=== PATIENT | female | born 1950 | race Caucasian/White ===

== ENCOUNTER → 2017-01-10 | Outpatient (CLI) | payer OTHER ==
[2015-04-15 06:45] VITALS: BP 124/85
[~2017-01-10] MED LIST: ALBU8.5H8 INH; ALPR1TAB2 PO; ASPI81TA44 PO; ATEN25TA PO; CALC-507 PO; CARI350T14 PO; CEPH500C PO; DESO15CR11 TP; DIAZ5TAB4 PO; ELAVIL 25 MG PO; ENOX40DI SQ; FLUC100T7 PO; FLUT1DIS IH; FURO-68 PO; GABA-586 PO; HYDR-2762 PO; LISI-338 PO; METF500T4 PO; OXYB5TAB33 PO; PARO40TA3 PO; PHEN-444 PO; SIMV40TA PO; TRIM100T13 PO; WARF3TAB7 PO
--- NOTE | 2017-01-10 13:28 | RAD ---
Chest, 2 views, 01/10/2017: History: Wheezing and cough Comparison is made to a study from 04/14/2015. The heart size and pulmonary vascularity are normal. The left hemidiaphragm is poorly defined on the AP view, probably due to the patient's size and portable technique. No definite acute infiltrates are seen. There is no evidence of pleural fluid. IMPRESSION: No acute cardiopulmonary abnormality is detected.
== END | disposition home or self-care (01) ==
LOC: DXRAD 12:45
PROVIDERS: ATTEND Physician Assistant
DX: J45.998 Other asthma (principal); J20.8 Acute bronchitis due to other specified organisms
CPT/HCPCS: 71020

== ENCOUNTER 2017-03-03 08:43 | Inpatient (IN) | payer OTHER ==
[~2017-03-03] VITALS: Ht 175.3 cm; Wt 137.7 kg
[2017-03-03 10:33] VITALS: BP 130/92
[2017-03-03 10:39] VITALS: BP 130/92
[2017-03-03] MEDS ORDERED: ANTI-COAG MONITOR BY PHARMACY. MC PRN (10:45)
[2017-03-03 11:20] LABS: BASO # 0.1 x10^3/uL (0.0-0.2); BASO % 1 % (0-3); EOS % 9 % (0-3); HEMATOCRIT 38.1 % (36.0-47.0); HEMOGLOBIN 12.2 g/dL (12.0-15.5); LYMPH # 2.7 x10^3/uL (1.0-4.8); LYMPH % 24 % (24-48); MEAN CORPUSCULAR HEMOGLOBIN 29 pg (25-35); MEAN CORPUSCULAR HGB CONC 32 g/dL (31-37); MEAN CORPUSCULAR VOLUME 92 fL (79-100); MONO # 0.7 x10^3/uL (0.0-1.1); MONO % 6 % (0-9); NEUT # 6.8 x10^3uL (1.8-7.7); NEUT % 60 % (31-73); PLATELET COUNT 273 x10^3/uL (140-400); RED BLOOD COUNT 4.15 x10^6/uL (3.50-5.40); RED CELL DISTRIBUTION WIDTH 14.7 % (11.5-14.5); WHITE BLOOD COUNT 11.2 x10^3/uL (4.0-11.0)
[2017-03-03 11:28] LABS: ALBUMIN 3.3 g/dL (3.4-5.0); ALBUMIN/GLOBULIN RATIO 0.8 (1.0-1.7); CREATININE 0.8 mg/dL (0.6-1.0); GFR 71.5; POTASSIUM 4.3 mmol/L (3.5-5.1); TOTAL BILIRUBIN 0.3 mg/dL (0.2-1.0); TOTAL PROTEIN 7.2 g/dL (6.4-8.2)
[2017-03-03] MEDS ORDERED: ALBUTEROL SULFATE 8GM INHALER. INH PRN (11:45)
[2017-03-03] MEDS ORDERED: PHENAZOPYRIDINE 200 MG TABLET. PO PRN (11:45)
[2017-03-03] MEDS ORDERED: BISACODYL TAB 5 MG TABLET.DR. PO PRN (12:15)
[2017-03-03] MEDS ORDERED: WARF4TAB68 PO (12:37)
[2017-03-03] MEDS ORDERED: FERR-26 PO (12:38)
[2017-03-03] MEDS ORDERED: BISA5TAB4 PO (12:38)
--- NOTE | 2017-03-03 12:39 | RAD ---
Portable chest, 03/03/2017: History: Shortness of breath Comparison is made to a study from 01/10/2017. The heart size and pulmonary vascularity are normal. There is minimal linear atelectasis or scarring in the left base. The lungs are otherwise clear. There is no evidence of pleural fluid. There are mild scattered degenerative changes in the spine. IMPRESSION: Minimal left basilar linear atelectasis or scarring.
[2017-03-03] MEDS ORDERED: ALBUTEROL SULFATE 2.5 MG/3 ML NEBU. NEB PRN (12:45)
[2017-03-03] MEDS ORDERED: IPRATRPIUM/ALBUTEROL 0.5/2.5MG 3 ML NEBU. NEB SCH (12:45)
[2017-03-03] MEDS: PARoxetine 20 MG TABLET PO SCH (13:00)
[2017-03-03] MEDS ORDERED: diazePAM 5 MG TABLET PO SCH (13:00)
[2017-03-03] MEDS: methylPREDNISolone SOD SUCC PF 40 MG/ML VIAL. IV SCH ×2 (13:00→20:54)
[2017-03-03] MEDS: IPRATRPIUM/ALBUTEROL 0.5/2.5MG 3 ML NEBU. NEB SCH ×3 (13:00→20:30)
[2017-03-03] MEDS: GABAPENTIN 300 MG CAPSULE. PO SCH ×2 (13:01→20:56)
[2017-03-03 13:45] LABS: BILIRUBIN,URINE NEG (NEG); CLARITY,URINE TURBID; COLOR,URINE STRAW; GLUCOSE,URINE NEG (NEG); UROBILINOGEN,URINE 0.2 mg/dL (0.2 mg/dL)
[2017-03-03 13:46] LABS: BACTERIA,URINE MANY /HPF (0-FEW); NITRITE,URINE POS (NEG); RBC,URINE 0 /HPF (0-2); SQUAMOUS EPITHELIAL CELL,UR OCC /LPF; WBC,URINE >40 /HPF (0-4)
[2017-03-03] MEDS ORDERED: CARISOPRODOL 350 MG TABLET PO SCH (14:00)
[2017-03-03] MEDS: HYDROcodone/CHLORPHEN POLIS 5 ML SUS.ER.12H PO PRN (14:01)
[2017-03-03 15:53] VITALS: BP 149/69
[2017-03-03] MEDS ORDERED: NON FORMULARY ITEM (Paroxetine Hcl 1 TAB) PO SCH (16:00)
[2017-03-03] MEDS ORDERED: WARFARIN 3 MG TABLET. PO SCH (16:00)
[2017-03-03] MEDS ORDERED: WARFARIN 5 MG TABLET. PO ONE (16:00)
--- NOTE | 2017-03-03 16:18 | EKG ---
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
[2017-03-03] MEDS: AZELASTINE NASAL SPRAY 30ML BOTTLE. NS SCH ×2 (16:30→20:54)
[2017-03-03] MEDS: glyBURIDE 5 MG TABLET PO SCH (17:12)
[2017-03-03] MEDS: metFORMIN 500 MG TABLET PO SCH (17:12)
[2017-03-03 19:41] VITALS: BP 155/71
[2017-03-03] MEDS ORDERED: IV NORMAL SALINE 250ML 250 ML ONE (20:45)
[2017-03-03] MEDS: HYDROcodone/APAP 7.5/325MG 1 TAB TABLET PO PRN ×2 (20:56→22:21)
[2017-03-03] MEDS: SIMVASTATIN 40 MG TABLET. PO SCH (20:56)
[2017-03-03] MEDS: OXYBUTYNIN CHLORIDE 5 MG TABLET PO SCH (20:57)
[2017-03-03] MEDS: ALPRAZolam 0.5 MG TABLET PO PRN (20:57)
[2017-03-03] MEDS: ATENOLOL 25 MG TABLET PO SCH (20:57)
[2017-03-03] MEDS ORDERED: ELAVIL 25 MG PO SCH (21:00)
[2017-03-03] MEDS ORDERED: NON FORMULARY ITEM (Fluticasone/Salmeterol (Advair 100-50 Diskus) 1 EACH) IH SCH (21:00)
[2017-03-03] MEDS ORDERED: GABAPENTIN 300 MG CAPSULE. PO SCH (21:00)
[2017-03-03] MEDS ORDERED: DEXTROSE 50% 25 GM / 50ML DISP.SYRIN. IV PRN (21:30)
[2017-03-03] MEDS: INSULIN ASPART 300 UNITS/3 ML INSULN.PEN SQ SCH (22:23)
[2017-03-04 05:20] VITALS: BP 118/66
[2017-03-04] MEDS: IPRATRPIUM/ALBUTEROL 0.5/2.5MG 3 ML NEBU. NEB SCH ×4 (05:27→20:35)
[2017-03-04 07:00] LABS: CALCIUM 9.8 mg/dL (8.5-10.1); CREATININE 0.9 mg/dL (0.6-1.0); GFR 62.5; POTASSIUM 4.5 mmol/L (3.5-5.1)
[2017-03-04 07:08] LABS: BASO # 0.1 x10^3/uL (0.0-0.2); BASO % 1 % (0-3); EOS % 0 % (0-3); HEMATOCRIT 38.9 % (36.0-47.0); HEMOGLOBIN 12.6 g/dL (12.0-15.5); LYMPH # 2.6 x10^3/uL (1.0-4.8); LYMPH % 17 % (24-48); MEAN CORPUSCULAR HEMOGLOBIN 30 pg (25-35); MEAN CORPUSCULAR HGB CONC 32 g/dL (31-37); MEAN CORPUSCULAR VOLUME 92 fL (79-100); MONO # 0.2 x10^3/uL (0.0-1.1); MONO % 1 % (0-9); NEUT # 12.8 x10^3uL (1.8-7.7); NEUT % 81 % (31-73); PLATELET COUNT 238 x10^3/uL (140-400); RED BLOOD COUNT 4.23 x10^6/uL (3.50-5.40); RED CELL DISTRIBUTION WIDTH 14.4 % (11.5-14.5); WHITE BLOOD COUNT 15.7 x10^3/uL (4.0-11.0)
[2017-03-04] MEDS: metFORMIN 500 MG TABLET PO SCH ×2 (07:31→17:00)
[2017-03-04] MEDS: AZELASTINE NASAL SPRAY 30ML BOTTLE. NS SCH ×2 (07:32→20:33)
[2017-03-04] MEDS: FERROUS SULFATE 325 MG TABLET PO SCH (07:32)
[2017-03-04] MEDS: GABAPENTIN 300 MG CAPSULE. PO SCH ×3 (07:32→20:34)
[2017-03-04] MEDS: methylPREDNISolone SOD SUCC PF 40 MG/ML VIAL. IV SCH (07:32)
[2017-03-04] MEDS: INSULIN ASPART 300 UNITS/3 ML INSULN.PEN SQ SCH ×4 (07:33→20:37)
[2017-03-04] MEDS: HYDROcodone/CHLORPHEN POLIS 5 ML SUS.ER.12H PO PRN (07:40)
[2017-03-04] MEDS ORDERED: TRIMETHOPRIM 100 MG TABLET PO SCH (09:00)
[2017-03-04] MEDS ORDERED: ASPIRIN 81 MG TAB.CHEW PO SCH (09:00)
[2017-03-04] MEDS ORDERED: FLUCONAZOLE 100 MG TABLET. PO SCH (09:00)
[2017-03-04] MEDS ORDERED: OXYBUTYNIN CHLORIDE 5 MG PO SCH (09:00)
[2017-03-04] MEDS ORDERED: LISINOPRIL 5 MG TABLET. PO SCH (09:00)
[2017-03-04] MEDS ORDERED: NON FORMULARY ITEM (Paroxetine Hcl 1 TAB) PO SCH (09:00)
[2017-03-04] MEDS ORDERED: FUROSEMIDE 40 MG TABLET PO SCH (09:00)
[2017-03-04 09:05] LABS: % LYMPHS 29 % (24-48); % MONOS 2 % (0-10); % SEGS 69 % (35-66); PLT ESTIMATE ADEQUATE (ADEQUATE)
[2017-03-04 09:06] LABS: MICROCYTOSIS SLIGHT
[2017-03-04] MEDS ORDERED: GENTAMICIN PER PHARMACY MC PRN (10:15)
[2017-03-04] MEDS: GENTAMICIN SULFATE 500 MG in IV NORMAL SALINE 100ML 100 ML IV SCH (11:00)
[2017-03-04 11:16] VITALS: BP 142/68
[2017-03-04] MEDS: PARoxetine 20 MG TABLET PO SCH (11:49)
[2017-03-04] MEDS: ALPRAZolam 0.5 MG TABLET PO PRN (12:41)
[2017-03-04] MEDS: GENTAMICIN PER PHARMACY MC PRN (12:51)
[2017-03-04] MEDS: FUROSEMIDE 40 MG/4 ML VIAL IVP SCH (13:55)
[2017-03-04 15:10] VITALS: BP 127/67
[2017-03-04] MEDS ORDERED: WARFARIN 3 MG TABLET. PO ONE (16:00)
[2017-03-04] MEDS: glyBURIDE 5 MG TABLET PO SCH (17:00)
[2017-03-04 17:10] LABS: HCV ANTIBODY <0.1 s/co ratio (0.0-0.9); HEP A IGM ABDY Negative (Negative)
[2017-03-04 18:20] VITALS: BP 140/80
[2017-03-04] MEDS ORDERED: BENZOCAINE/MENTHOL LOZENGE 16'S BOX. PO PRN (18:45)
[2017-03-04 19:15] VITALS: BP 147/83
[2017-03-04] MEDS ORDERED: INSULIN ASPART 300 UNITS/3 ML INSULN.PEN SQ ONE (20:30)
[2017-03-04] MEDS: SIMVASTATIN 40 MG TABLET. PO SCH (20:33)
[2017-03-04] MEDS: ATENOLOL 25 MG TABLET PO SCH (20:33)
[2017-03-04] MEDS: MUPIROCIN 2% TOPICAL OINTMENT 22GM TUBE. TP SCH (20:33)
[2017-03-04] MEDS: OXYBUTYNIN CHLORIDE 5 MG TABLET PO SCH (20:34)
[2017-03-04] MEDS ORDERED: MUPIROCIN 2% TOPICAL OINTMENT 22GM TUBE. TP SCH (21:00)
--- NOTE | 2017-03-04 23:20 | PN ---
DATE: 03/04/2017 SUBJECTIVE: A 66-year-old female admitted yesterday with possible sepsis. The patient had failed outpatient therapy for urinary tract infection. She has multiple problems there. She is positive for MRSA as well and the patient had been on Levaquin. We will add gentamicin to her regimen and make further evaluation to her on this. Otherwise, her culture and her urine are still pending and we will continue to monitor her accordingly. OBJECTIVE: VITAL SIGNS: Otherwise, the patient's blood pressure 118/66, respiratory rate 20, pulse 84 and afebrile. GENERAL: The patient is alert and oriented. LUNGS: Lungs are diminished, but some expiratory wheezes. CARDIOVASCULAR: Regular sinus rhythm, S1, S2, without murmur, rub, thrill, or extra heart sounds. ABDOMEN: Protuberant, soft, nontender. EXTREMITIES: No clubbing, cyanosis, or edema. The patient is wheelchair bound. The patient has a Zaidi catheter in place. IMPRESSION: Sepsis, urinary tract infection, organism unspecified at the present time, type 2 diabetes, morbid obesity, mild asthma. PLAN: Continue with IV antibiotic therapy, adjust accordingly and wait for final culture sensitivity reports to be reported. HUNG HAMMOND MD DR: ALEXIA/oscar JOB#: [id number] / [id number]
[2017-03-05] MEDS: HYDROcodone/CHLORPHEN POLIS 5 ML SUS.ER.12H PO PRN (02:26)
[2017-03-05 05:24] VITALS: BP 134/67
[2017-03-05] MEDS: IPRATRPIUM/ALBUTEROL 0.5/2.5MG 3 ML NEBU. NEB SCH ×4 (05:27→20:53)
[2017-03-05] MEDS: HYDROcodone/APAP 7.5/325MG 1 TAB TABLET PO PRN ×2 (05:43→21:03)
[2017-03-05 06:03] LABS: BASO # 0.1 x10^3/uL (0.0-0.2); BASO % 1 % (0-3); EOS % 0 % (0-3); HEMATOCRIT 37.8 % (36.0-47.0); HEMOGLOBIN 12.2 g/dL (12.0-15.5); LYMPH # 2.1 x10^3/uL (1.0-4.8); LYMPH % 12 % (24-48); MEAN CORPUSCULAR HEMOGLOBIN 30 pg (25-35); MEAN CORPUSCULAR HGB CONC 32 g/dL (31-37); MEAN CORPUSCULAR VOLUME 92 fL (79-100); MONO # 1.3 x10^3/uL (0.0-1.1); MONO % 8 % (0-9); NEUT # 14.3 x10^3uL (1.8-7.7); NEUT % 80 % (31-73); PLATELET COUNT 297 x10^3/uL (140-400); RED BLOOD COUNT 4.12 x10^6/uL (3.50-5.40); RED CELL DISTRIBUTION WIDTH 14.5 % (11.5-14.5); WHITE BLOOD COUNT 17.8 x10^3/uL (4.0-11.0)
[2017-03-05 06:11] LABS: CALCIUM 9.9 mg/dL (8.5-10.1); GFR 55.3; POTASSIUM 4.6 mmol/L (3.5-5.1)
[2017-03-05] MEDS: metFORMIN 500 MG TABLET PO SCH ×2 (07:51→17:01)
[2017-03-05] MEDS: FERROUS SULFATE 325 MG TABLET PO SCH (07:51)
[2017-03-05] MEDS: INSULIN ASPART 300 UNITS/3 ML INSULN.PEN SQ SCH ×4 (07:53→20:16)
[2017-03-05] MEDS: AZELASTINE NASAL SPRAY 30ML BOTTLE. NS SCH ×2 (08:51→20:15)
[2017-03-05] MEDS: methylPREDNISolone SOD SUCC PF 40 MG/ML VIAL. IV SCH (08:51)
[2017-03-05] MEDS: ARIPiprazole 5 MG TABLET PO SCH (08:51)
[2017-03-05] MEDS: FUROSEMIDE 40 MG/4 ML VIAL IVP SCH (08:51)
[2017-03-05] MEDS: GABAPENTIN 300 MG CAPSULE. PO SCH ×3 (08:51→20:03)
[2017-03-05] MEDS: MUPIROCIN 2% TOPICAL OINTMENT 22GM TUBE. TP SCH ×2 (08:52→20:15)
[2017-03-05] MEDS: GENTAMICIN PER PHARMACY MC PRN (10:51)
[2017-03-05] MEDS: GENTAMICIN SULFATE 500 MG in IV NORMAL SALINE 100ML 100 ML IV SCH (11:05)
[2017-03-05 11:11] VITALS: BP 151/75
[2017-03-05] MEDS: PARoxetine 20 MG TABLET PO SCH (13:18)
[2017-03-05 15:35] VITALS: BP 137/62
[2017-03-05] MEDS ORDERED: WARFARIN 4 MG TABLET. PO ONE (16:00)
[2017-03-05] MEDS ORDERED: INSULIN ASPART 300 UNITS/3 ML INSULN.PEN SQ ONE (17:00)
[2017-03-05] MEDS: glyBURIDE 5 MG TABLET PO SCH (17:01)
[2017-03-05 19:23] VITALS: BP 139/60
[2017-03-05] MEDS: SIMVASTATIN 40 MG TABLET. PO SCH (20:03)
[2017-03-05] MEDS: OXYBUTYNIN CHLORIDE 5 MG TABLET PO SCH (20:03)
[2017-03-05] MEDS: ATENOLOL 25 MG TABLET PO SCH (20:14)
--- NOTE | 2017-03-05 20:18 | PN ---
DATE: 03/05/2017 SUBJECTIVE: The patient is resting fairly comfortably due to breathing a little bit easier acute respiratory failure as well as significant pyelonephritis. The patient is a little bit stronger this morning, receiving IV antibiotic therapy. Positive blood cultures. OBJECTIVE: VITAL SIGNS: Blood pressure is 130/70, respiratory rate 20, pulse 92 and presently afebrile. LUNGS: Diminished, but clear. CARDIOVASCULAR: Regular sinus rhythm. ABDOMEN: Soft and nontender. EXTREMITIES: With less edema there. IMPRESSION: Acute respiratory failure with pyelonephritis, sepsis, type 2 diabetes, morbid obesity and methicillin-resistant Staphylococcus aureus infection. PLAN: The patient will be tapered down off her Solu-Medrol and will continue with IV antibiotic therapy. HUNG HAMMOND MD DR: ALEXIA/oscar JOB#: [id number] / [id number]
[2017-03-05] MEDS: ALPRAZolam 0.5 MG TABLET PO PRN (21:16)
[2017-03-05 23:11] LABS: HEMOGLOBIN A1C 6.7 % (4.8-5.6)
[2017-03-06] MEDS: IPRATRPIUM/ALBUTEROL 0.5/2.5MG 3 ML NEBU. NEB SCH ×4 (05:38→20:45)
[2017-03-06 05:46] VITALS: BP 144/68
[2017-03-06 06:12] LABS: CALCIUM 9.7 mg/dL (8.5-10.1); CREATININE 1.1 mg/dL (0.6-1.0); GFR 49.5; POTASSIUM 4.4 mmol/L (3.5-5.1)
[2017-03-06 06:13] LABS: BASO # 0.1 x10^3/uL (0.0-0.2); BASO % 1 % (0-3); EOS # 0.1 x10^3/uL (0.0-0.7); EOS % 0 % (0-3); HEMATOCRIT 38.3 % (36.0-47.0); HEMOGLOBIN 12.3 g/dL (12.0-15.5); LYMPH % 18 % (24-48); MEAN CORPUSCULAR HEMOGLOBIN 30 pg (25-35); MEAN CORPUSCULAR HGB CONC 32 g/dL (31-37); MEAN CORPUSCULAR VOLUME 92 fL (79-100); MONO # 1.3 x10^3/uL (0.0-1.1); MONO % 8 % (0-9); NEUT # 12.7 x10^3uL (1.8-7.7); NEUT % 74 % (31-73); PLATELET COUNT 293 x10^3/uL (140-400); RED BLOOD COUNT 4.17 x10^6/uL (3.50-5.40); RED CELL DISTRIBUTION WIDTH 14.4 % (11.5-14.5); WHITE BLOOD COUNT 17.1 x10^3/uL (4.0-11.0)
[2017-03-06] MEDS: HYDROcodone/APAP 7.5/325MG 1 TAB TABLET PO PRN (06:24)
[2017-03-06 07:28] LABS: % BANDS 5 % (0-9); % LYMPHS 23 % (24-48); % METAS 1 % (0-0); % MONOS 3 % (0-10); % SEGS 68 % (35-66)
[2017-03-06 07:30] LABS: PLT ESTIMATE ADEQUATE (ADEQUATE); POLYCHROMASIA SLIGHT
[2017-03-06] MEDS: metFORMIN 500 MG TABLET PO SCH ×2 (08:00→17:09)
[2017-03-06] MEDS: FERROUS SULFATE 325 MG TABLET PO SCH (08:00)
[2017-03-06] MEDS: INSULIN ASPART 300 UNITS/3 ML INSULN.PEN SQ SCH ×4 (08:01→21:40)
[2017-03-06] MEDS: MUPIROCIN 2% TOPICAL OINTMENT 22GM TUBE. TP SCH ×2 (08:57→21:36)
[2017-03-06] MEDS: FUROSEMIDE 40 MG/4 ML VIAL IVP SCH (08:57)
[2017-03-06] MEDS: AZELASTINE NASAL SPRAY 30ML BOTTLE. NS SCH ×2 (08:57→21:36)
[2017-03-06] MEDS: GABAPENTIN 300 MG CAPSULE. PO SCH ×3 (08:57→21:37)
[2017-03-06] MEDS: ARIPiprazole 5 MG TABLET PO SCH (08:57)
[2017-03-06] MEDS: methylPREDNISolone SOD SUCC PF 40 MG/ML VIAL. IV SCH (08:57)
[2017-03-06] MEDS ORDERED: VANCOMYCIN PER PHARMACY MC PRN (11:15)
[2017-03-06] MEDS: VANCOMYCIN 2 GM in IV NORMAL SALINE 500ML 500 ML IV SCH ×2 (12:02→21:53)
[2017-03-06] MEDS: PARoxetine 20 MG TABLET PO SCH (13:32)
[2017-03-06] MEDS ORDERED: WARFARIN 4 MG TABLET. PO ONE (16:00)
[2017-03-06] MEDS: glyBURIDE 5 MG TABLET PO SCH (17:09)
[2017-03-06 21:34] VITALS: BP 145/72
[2017-03-06] MEDS: ATENOLOL 25 MG TABLET PO SCH (21:36)
[2017-03-06] MEDS: OXYBUTYNIN CHLORIDE 5 MG TABLET PO SCH (21:36)
[2017-03-06] MEDS: ALPRAZolam 0.5 MG TABLET PO PRN (21:37)
[2017-03-06] MEDS: SIMVASTATIN 40 MG TABLET. PO SCH (21:37)
--- NOTE | 2017-03-07 02:31 | PN ---
DATE: 03/06/2017 SUBJECTIVE: The patient in with acute respiratory syndrome or sepsis, urinary tract infection. The patient is still very tired, weak, so receiving physical and occupational therapy, still on IV antibiotic therapy. OBJECTIVE: VITAL SIGNS: Blood pressure 144/____, pulse 83, afebrile. HEENT: The patient's head was atraumatic, normocephalic. Eyes: PERRLA without jaundice. LUNGS: Diminished throughout, poor movement of air, but clear. CARDIOVASCULAR: Regular sinus rhythm. ABDOMEN: Soft, protuberant. EXTREMITIES: No clubbing, cyanosis. Trace edema noted. LABORATORY DATA: White count is still elevated probably from the steroids. ____ being followed by the pharmacy. IMPRESSION: Sepsis, unknown etiology of urinary tract infection, acute respiratory failure, type 2 diabetes, morbid obesity and methicillin-resistant Staphylococcus aureus infection as well. HUNG HAMMOND MD DR: ALEXIA/oscar JOB#: [id number] / [id number]
[2017-03-07] MEDS: IPRATRPIUM/ALBUTEROL 0.5/2.5MG 3 ML NEBU. NEB SCH ×2 (05:10→11:42)
[2017-03-07 05:51] VITALS: BP 131/60
[2017-03-07] MEDS ORDERED: predniSONE 20 MG TABLET PO SCH (09:00)
[2017-03-07] MEDS: FUROSEMIDE 40 MG/4 ML VIAL IVP SCH (09:07)
[2017-03-07] MEDS: HYDROcodone/CHLORPHEN POLIS 5 ML SUS.ER.12H PO PRN (09:08)
[2017-03-07] MEDS: ARIPiprazole 5 MG TABLET PO SCH (09:08)
[2017-03-07] MEDS: AZELASTINE NASAL SPRAY 30ML BOTTLE. NS SCH (09:08)
[2017-03-07] MEDS: GABAPENTIN 300 MG CAPSULE. PO SCH (09:08)
[2017-03-07] MEDS: MUPIROCIN 2% TOPICAL OINTMENT 22GM TUBE. TP SCH (09:08)
[2017-03-07] MEDS: metFORMIN 500 MG TABLET PO SCH (09:08)
[2017-03-07] MEDS: FERROUS SULFATE 325 MG TABLET PO SCH (09:08)
[2017-03-07] MEDS: INSULIN ASPART 300 UNITS/3 ML INSULN.PEN SQ SCH (09:12)
[2017-03-07] MEDS ORDERED: GLYB5TAB3 PO (10:32)
[2017-03-07] MEDS ORDERED: MUPI22OI2 TP (10:32)
[2017-03-07] MEDS ORDERED: PRED1TAB PO (10:32)
[2017-03-07] MEDS ORDERED: IPRA3AMP NEB (10:32)
[2017-03-07] MEDS ORDERED: INSU100I17 SQ (10:32)
[2017-03-07] MEDS ORDERED: FURO40TA4 PO (10:32)
[2017-03-07] MEDS ORDERED: ARIP5TAB13 PO (10:32)
[2017-03-07] MEDS ORDERED: WARFARIN 4 MG TABLET. PO ONE (16:00)
== END 2017-03-07 12:51 | disposition home health service (06) | DRG 871 ==
LOC: ICU 09:57 → OBSVTOIN 03-04 10:32
PROVIDERS: ADMIT Family Medicine; ATTEND Family Medicine
DX: A41.9 Sepsis, unspecified organism (principal); J96.00 Acute respiratory failure, unspecified whether with hypoxia or hypercapnia; N12 Tubulo-interstitial nephritis, not specified as acute or chronic; Z68.41 Body mass index [BMI] 40.0-44.9, adult; J45.909 Unspecified asthma, uncomplicated; E66.01 Morbid (severe) obesity due to excess calories; E11.9 Type 2 diabetes mellitus without complications; B95.62 Methicillin resistant Staphylococcus aureus infection as the cause of diseases classified elsewhere
CPT/HCPCS: 36415; 71010; 80048; 80053; 80074; 80170; 81001; 82947; 83036; 83605; 83880; 85007; 85025; 85610; 87040; 87086; 87205; 87641; 93005; 94640; G0378; G0379; J1580; J1815; J1940; J1956; J2920; J3370; J7040; J7050; J7512; J7620

== ENCOUNTER 2017-10-25 22:07 | Inpatient (IN) | payer OTHER ==
[~2017-10-25] VITALS: Ht 175.3 cm; Wt 135.2 kg
[~2017-10-25 22:07] MED LIST changes: +ARIP5TAB13 PO; +BISA5TAB4 PO; +FERR325T14 PO; +FURO40TA4 PO; +GLYB5TAB3 PO; +INSU100I17 SQ; +IPRA3AMP NEB; +MUPI22OI2 TP; +PRED1TAB PO; +WARF3TAB50 PO; -WARF3TAB7 PO; +WARF4TAB68 PO
--- NOTE | 2017-10-25 22:09 | ED.ADGEN ---
Past History Past Medical History: Anxiety, Diabetes, Hypertension, UTI Past Surgical History: Cervical Fusion, Knee Replacement Alcohol Use: None Drug Use: None Adult General Chief Complaint Chief Complaint " I ve been short of breath...may a week or more.. " HPI HPI Patient is a 67 year old female with above hx and complaints who presents with increase dyspnea, coughing and malaise. Pt. Follows with Dr. Hamilton. Pt. no longer smokes. Pt. in past has had COPD exacerbations. Pt. denies ill contracts, changes in foods or travel. Pt. know diabetic and hypertension. Pt. is tachycardiac on arrival. Pt denies changes in meds. Review of Systems Review of Systems Constitutional: Denies fever or chills [] Eyes: Denies change in visual acuity, redness, or eye pain [] HENT: Denies nasal congestion or sore throat [] Respiratory: Hx of cough and shortness of breath [] Cardiovascular: No additional information not addressed in HPI [] GI: Denies abdominal pain, nausea, vomiting, bloody stools or diarrhea [] : Denies dysuria or hematuria [] Musculoskeletal: Denies back pain or joint pain [] Integument: Denies rash or skin lesions [] Neurologic: Denies headache, focal weakness or sensory changes [] Endocrine: Denies polyuria or polydipsia [] All other systems were reviewed and found to be within normal limits, except as documented in this note. Family History Family History Non Contributory Current Medications Current Medications Current Medications Medications (Trade) Dose Ordered Sig/Olivia Start Time Stop Time Status Last Admin Dose Admin Aspirin (Children'S Aspirin) 324 mg 1X ONCE 10/25/17 22:30 10/25/17 22:31 DC 10/25/17 22:35 324 MG Allergies Allergies Allergies Coded Allergies Type Severity Reaction Last Updated Verified amlodipine Allergy Intermediate 03/05/17 Yes atorvastatin Allergy Intermediate 03/05/17 Yes ceftriaxone Allergy Intermediate Hives 04/11/15 Yes I S O L A T I O N *CONTACT* Allergy Unknown 03/04/17 Yes Physical Exam Physical Exam Constitutional: Moderately acute distress, non-toxic appearance. [] HENT: Normocephalic, atraumatic, bilateral external ears normal, oropharynx moist, no oral exudates, nose normal. [] Eyes: PERRLA, EOMI, conjunctiva normal, no discharge. [] Neck: Normal range of motion, no tenderness, supple, no stridor. [] Old surgery scar. Cardiovascular:Heart rate regular rhythm, no murmur [] Lungs & Thorax: Bilateral breath sounds scattered wheezes on auscultation [] Abdomen: Bowel sounds normal, soft, no tenderness, no masses, no pulsatile masses. Morbid obesity. Skin: Warm, dry, no erythema, no rash. [] Back: No tenderness, no CVA tenderness. [] Extremities: No tenderness, no cyanosis, no clubbing, ROM intact,1+ edema. [] Surgical scar- old Lt. knee Neurologic: Alert and oriented X 3, normal motor function, normal sensory function, no focal deficits noted. [] Psychologic: Affect anxious, judgement normal, mood normal. [] Current Patient Data Vital Signs Vital Signs Date Time Temp Pulse Resp B/P (MAP) Pulse Ox O2 Delivery O2 Flow Rate FiO2 10/25/17 23:00 98.2 85 22 91 Room Air Lab Results Laboratory Tests Test 10/25/17 22:52 10/25/17 23:00 White Blood Count 10.5 x10^3/uL (4.0-11.0) Red Blood Count 4.59 x10^6/uL (3.50-5.40) Hemoglobin 13.4 g/dL (12.0-15.5) Hematocrit 40.9 % (36.0-47.0) Mean Corpuscular Volume 89 fL (79-100) Mean Corpuscular Hemoglobin 29 pg (25-35) Mean Corpuscular Hemoglobin Concent 33 g/dL (31-37) Red Cell Distribution Width 15.6 % (11.5-14.5) H Platelet Count 308 x10^3/uL (140-400) Neutrophils (%) (Auto) 63 % (31-73) Lymphocytes (%) (Auto) 22 % (24-48) L Monocytes (%) (Auto) 8 % (0-9) Eosinophils (%) (Auto) 6 % (0-3) H Basophils (%) (Auto) 1 % (0-3) Neutrophils # (Auto) 6.6 x10^3uL (1.8-7.7) Lymphocytes # (Auto) 2.3 x10^3/uL (1.0-4.8) Monocytes # (Auto) 0.8 x10^3/uL (0.0-1.1) Eosinophils # (Auto) 0.7 x10^3/uL (0.0-0.7) Basophils # (Auto) 0.1 x10^3/uL (0.0-0.2) Prothrombin Time 22.2 SEC (9.4-11.4) H Prothrombin Time INR 2.2 (0.9-1.1) H PTT 34 SEC (23-33) H D-Dimer (Kamilah) < 0.19 mg/L (0.00-0.50) Sodium Level 139 mmol/L (136-145) Potassium Level 4.6 mmol/L (3.5-5.1) Chloride Level 100 mmol/L (98-107) Carbon Dioxide Level 28 mmol/L (21-32) Anion Gap 11 (6-14) Blood Urea Nitrogen 14 mg/dL (7-20) Creatinine 0.8 mg/dL (0.6-1.0) Estimated GFR (Cockcroft-Gault) 71.3 Glucose Level 85 mg/dL (70-99) Calcium Level 9.8 mg/dL (8.5-10.1) Magnesium Level 1.9 mg/dL (1.8-2.4) Total Bilirubin 0.3 mg/dL (0.2-1.0) Direct Bilirubin < 0.1 mg/dL (0.0-0.2) Aspartate Amino Transferase (AST) 28 U/L (15-37) Alanine Aminotransferase (ALT) 32 U/L (14-59) Alkaline Phosphatase 144 U/L (46-116) H Creatine Kinase 171 U/L (26-192) Creatine Kinase MB (Mass) 0.5 ng/mL (0.0-3.6) Creatine Kinase MB Relative Index 0.3 % (0-4) Troponin I Quantitative < 0.017 ng/mL (0-0.055) ZY-Exd-U-Type Natriuretic Peptide 33 pg/mL (0-124) Total Protein 7.7 g/dL (6.4-8.2) Albumin 3.7 g/dL (3.4-5.0) Lipase 111 U/L (73-393) Urine Collection Type Unknown Urine Color Yellow Urine Clarity Cloudy Urine pH 5.5 Urine Specific [place]cher 1.010 Urine Protein Trace (NEG-TRACE) Urine Glucose (UA) Neg mg/dL (NEG) Urine Ketones (Stick) Neg mg/dL (NEG) Urine Blood Large (NEG) Urine Nitrite Pos (NEG) Urine Bilirubin Neg (NEG) Urine Urobilinogen Dipstick 0.2 mg/dL (0.2 mg/dL) Urine Leukocyte Esterase Mod (NEG) Urine RBC >40 /HPF (0-2) Urine WBC >40 /HPF (0-4) Urine Squamous Epithelial Cells Occ /LPF Urine Bacteria Many /HPF (0-FEW) Urine Opiates Screen Pos (NEG) Urine Methadone Screen Neg (NEG) Urine Barbiturates Neg (NEG) Urine Phencyclidine Screen (NEG) Urine Amphetamine/Methamphetamine Neg (NEG) Urine Benzodiazepines Screen Pos (NEG) Urine Cocaine Screen Neg (NEG) Urine Cannabinoids Screen Neg (NEG) Urine Ethyl Alcohol Neg (NEG) EKG EKG My interpretation of EKG shows a sinus at 98, Lt axis and LVH[] Radiology/Procedures Radiology/Procedures My interpretation of CXR show some increased cephalization, cardiomegaly, COPD changes. Course & Med Decision Making Course & Med Decision Making Pertinent Labs and Imaging studies reviewed. (See chart for details) Discussed presentation, testing and tx. plan with Dr. Hamilton- admit for further tx. and eval. [] Final Impression Final Impression 1. Dyspnea 2. Tachycardia 3. DM 4. UTI 5. Bronchitis[]/COPD 6. Morbid Obesity 7. Deconditioned Problems: Dragon Disclaimer Dragon Disclaimer This electronic medical record was generated, in whole or in part, using a voice recognition dictation system. STEPHENIE WHALEN MD Oct 25, 2017 22:09
[2017-10-25] MEDS ORDERED: ASPIRIN 81 MG TAB.CHEW PO ONE (22:30)
[2017-10-25] MEDS ORDERED: HYDR-79 PO (22:37)
[2017-10-25] MEDS ORDERED: SULF1TAB24 PO (22:37)
--- NOTE | 2017-10-25 23:06 | EKG ---
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
[2017-10-25 23:10] LABS: BASO # 0.1 x10^3/uL (0.0-0.2); BASO % 1 % (0-3); EOS # 0.7 x10^3/uL (0.0-0.7); EOS % 6 % (0-3); HEMATOCRIT 40.9 % (36.0-47.0); HEMOGLOBIN 13.4 g/dL (12.0-15.5); LYMPH # 2.3 x10^3/uL (1.0-4.8); LYMPH % 22 % (24-48); MEAN CORPUSCULAR HEMOGLOBIN 29 pg (25-35); MEAN CORPUSCULAR HGB CONC 33 g/dL (31-37); MEAN CORPUSCULAR VOLUME 89 fL (79-100); MONO # 0.8 x10^3/uL (0.0-1.1); MONO % 8 % (0-9); NEUT # 6.6 x10^3uL (1.8-7.7); NEUT % 63 % (31-73); PLATELET COUNT 308 x10^3/uL (140-400); RED BLOOD COUNT 4.59 x10^6/uL (3.50-5.40); RED CELL DISTRIBUTION WIDTH 15.6 % (11.5-14.5); WHITE BLOOD COUNT 10.5 x10^3/uL (4.0-11.0)
[2017-10-25 23:15] LABS: BARBITURATES NEG (NEG); BENZODIAZEPINES POS (NEG); CANNABINOIDS NEG (NEG); COCAINE NEG (NEG); METHADONE NEG (NEG); OPIATES POS (NEG)
[2017-10-25 23:17] LABS: AMPHETAMINE/METHAMPHETAMINE NEG (NEG)
[2017-10-25 23:21] LABS: BILIRUBIN,URINE NEG (NEG); CLARITY,URINE CLOUDY; COLOR,URINE YELLOW; GLUCOSE,URINE NEG (NEG); NITRITE,URINE POS (NEG); RBC,URINE >40 /HPF (0-2); UROBILINOGEN,URINE 0.2 mg/dL (0.2 mg/dL); WBC,URINE >40 /HPF (0-4)
[2017-10-25 23:22] LABS: BACTERIA,URINE MANY /HPF (0-FEW); SQUAMOUS EPITHELIAL CELL,UR OCC /LPF
[2017-10-25 23:34] LABS: ALBUMIN 3.7 g/dL (3.4-5.0); ALK PHOS 144 U/L (46-116); ALT (SGPT) 32 U/L (14-59); ANION GAP 11 (6-14); AST (SGOT) 28 U/L (15-37); BLOOD UREA NITROGEN 14 mg/dL (7-20); CALCIUM 9.8 mg/dL (8.5-10.1); CARBON DIOXIDE 28 mmol/L (21-32); CHLORIDE 100 mmol/L (98-107); CREATININE 0.8 mg/dL (0.6-1.0); GFR 71.3; GLUCOSE 85 mg/dL (70-99); LIPASE 111 U/L (73-393); MAGNESIUM 1.9 mg/dL (1.8-2.4); POTASSIUM 4.6 mmol/L (3.5-5.1); SODIUM 139 mmol/L (136-145); TOTAL BILIRUBIN 0.3 mg/dL (0.2-1.0); TOTAL PROTEIN 7.7 g/dL (6.4-8.2)
[2017-10-25 23:37] LABS: DIRECT BILIRUBIN < 0.1 mg/dL (0.0-0.2)
[2017-10-26] MEDS ORDERED: ONDANSETRON PF 4 MG/2 ML VIAL. IV PRN
[2017-10-26] MEDS ORDERED: methylPREDNISolone SOD SUCC PF 125 MG/2 ML VIAL. IV ONE (00:15)
[2017-10-26] MEDS ORDERED: levoFLOXacin 500 MG TABLET PO ONE ×2 (00:15)
[2017-10-26 02:14] VITALS: BP 140/70
[2017-10-26] MEDS ORDERED: HYDR-2758 PO (03:23)
[2017-10-26] MEDS ORDERED: ALPR0.5T6 PO (03:23)
[2017-10-26] MEDS ORDERED: WARF-31 PO (03:23)
[2017-10-26] MEDS ORDERED: METF10002 PO (03:28)
[2017-10-26] MEDS: IPRATRPIUM/ALBUTEROL 0.5/2.5MG 3 ML NEBU. NEB SCH ×4 (04:47→21:34)
[2017-10-26 05:08] VITALS: BP 122/63
[2017-10-26] MEDS ORDERED: BISACODYL TAB 5 MG TABLET.DR. PO PRN (05:45)
[2017-10-26 06:43] LABS: BASO % 0 % (0-3); EOS % 0 % (0-3); HEMATOCRIT 39.7 % (36.0-47.0); HEMOGLOBIN 12.9 g/dL (12.0-15.5); LYMPH # 1.1 x10^3/uL (1.0-4.8); LYMPH % 10 % (24-48); MEAN CORPUSCULAR HEMOGLOBIN 29 pg (25-35); MEAN CORPUSCULAR HGB CONC 33 g/dL (31-37); MEAN CORPUSCULAR VOLUME 89 fL (79-100); MONO # 0.1 x10^3/uL (0.0-1.1); MONO % 1 % (0-9); NEUT # 9.3 x10^3uL (1.8-7.7); NEUT % 88 % (31-73); PLATELET COUNT 297 x10^3/uL (140-400); RED BLOOD COUNT 4.44 x10^6/uL (3.50-5.40); RED CELL DISTRIBUTION WIDTH 15.3 % (11.5-14.5); WHITE BLOOD COUNT 10.6 x10^3/uL (4.0-11.0)
[2017-10-26 06:58] LABS: CALCIUM 9.4 mg/dL (8.5-10.1); GFR 55.1; POTASSIUM 4.4 mmol/L (3.5-5.1)
[2017-10-26] MEDS ORDERED: DEXTROSE 50% 25 GM / 50ML DISP.SYRIN. IV PRN ×2 (07:30→17:00)
--- NOTE | 2017-10-26 08:20 | RAD ---
Single view chest 10/25/2017 Clinical indication: Dyspnea. Comparison: Chest 03/03/2017. Findings: Cardiac and mediastinal silhouettes are unremarkable. Stable minimal left linear atelectasis or scarring. No pleural effusion or pneumothorax. Impression: No acute cardiopulmonary abnormality.
[2017-10-26] MEDS: GABAPENTIN 300 MG CAPSULE. PO SCH ×3 (08:22→21:48)
[2017-10-26] MEDS: metFORMIN 500 MG TABLET PO SCH ×2 (08:23→17:17)
[2017-10-26] MEDS: FUROSEMIDE 40 MG TABLET PO SCH (08:23)
[2017-10-26] MEDS: INSULIN LISPRO 300 UNITS/3 ML INSULN.PEN. SQ SCH ×3 (08:28→17:20)
[2017-10-26] MEDS: HYDROcodone/APAP 5/325MG 1 TAB TABLET PO PRN ×2 (10:09→22:29)
[2017-10-26 10:19] VITALS: BP 118/67
[2017-10-26] MEDS ORDERED: ALBUTEROL SULFATE 8GM INHALER. INH PRN (12:30)
[2017-10-26] MEDS: PARoxetine 20 MG TABLET PO SCH (12:30)
[2017-10-26] MEDS ORDERED: ALBUTEROL SULFATE 2.5 MG/3 ML NEBU. NEB PRN (12:45)
--- NOTE | 2017-10-26 13:02 | HP ---
ADMIT DATE: 10/26/2017 HISTORY OF PRESENT ILLNESS: A 67-year-old female came in through the Emergency Room with a history of shortness of breath, coughing and malaise. For the last week or so the patient notes that she has been having trouble breathing, having to sit up in chair, although she denies chest pain. The patient also notes having a very bad bladder infection and so she was admitted for exacerbation of COPD as well as her urinary tract infection. PAST MEDICAL HISTORY: History of cervical fusion. She is on chronic Coumadin therapy, hypercholesterolemia. She had DVD of left leg. The patient had a history of COPD, asthma, bronchitis, morbid obesity, neurogenic bladder, chronic Zaidi, probably related from her surgeries, urinary retention, musculoskeletal disorder, degenerative disease, osteoarthritis, orthopedic surgery, joint replacement, diabetes, disorder, depression and anxiety. The patient has history of smoking, anemia, immunizations of influenza, pneumococcal are up to date. Positive bursa in the past. FAMILY HISTORY: Sister with hypertension. Aunt, uncles, cousins with diabetes and grandfather also cancer. ALLERGIES: AMLODIPINE, ATORVASTATIN, and CEFTRIAXONE. HUNG HAMMOND MD DR: LAEXIA/oscar JOB#: [id number] / [id number]
--- NOTE | 2017-10-26 13:35 | HP ---
ADMIT DATE: 10/25/2017 ADDENDUM SOCIAL HISTORY: The patient has about a [id number] history of smoking. Denies alcohol or drug use. REVIEW OF SYSTEMS: The patient notes increased shortness of breath as well as some pain on urination. Otherwise, denies chest pain per se. Denies headaches, visual change, blurred vision, double vision. Has paresthesias to her lower legs from previous surgeries as indicated. PHYSICAL EXAMINATION: GENERAL: This is a very pleasant female in moderate amount of distress. VITAL SIGNS: Blood pressure 165/80, respiratory 20, pulse 80, afebrile. HEENT: The patient's head was atraumatic, normocephalic. Eyes: PERRL, jaundice. MOUTH AND THROAT: Normal. LUNGS: Diminished, poor movement of air. CARDIOVASCULAR: Regular sinus rhythm, S1, S2. ABDOMEN: Soft, protuberant, nontender. No rebounding or guarding. Positive bowel sounds, no hepatosplenomegaly noted. EXTREMITIES: No clubbing, cyanosis. NEUROLOGIC: The patient has marked weakness to her lower extremities and has a Zaidi catheter in place. LABORATORY DATA: Show white count 10, hemoglobin 13 and 40. The patient's sodium and potassium 135/4. BUN and creatinine 16 and 1. Blood sugars stable. Lactic acid is elevated at 2.9. The patient's urine did show greater than 40 white blood cells per high power field. Culture sensitivity pending on that. PLAN: The patient will continue on IV antibiotic therapy. She is on both Levaquin and Rocephin and was doing well on that. Otherwise, she will continue to be monitored carefully. IMPRESSION: Sepsis, urinary tract infection, exacerbation of chronic obstructive pulmonary disease, type 2 diabetes, morbid obesity. HUNG HAMMOND MD DR: ALEXIA/oscar JOB#: [id number] / [id number]
[2017-10-26 14:37] VITALS: BP 129/75
[2017-10-26] MEDS ORDERED: SIMETHICONE 80 MG TAB.CHEW PO PRN (16:15)
[2017-10-26] MEDS: WARFARIN 5 MG TABLET. PO SCH (17:17)
[2017-10-26] MEDS: glyBURIDE 5 MG TABLET PO SCH (17:17)
[2017-10-26] MEDS ORDERED: VANCOMYCIN PER PHARMACY MC PRN (17:30)
[2017-10-26] MEDS ORDERED: VANCOMYCIN 2 GM in IV NORMAL SALINE 500ML 500 ML IV ONE (17:30)
[2017-10-26 19:04] VITALS: BP 112/82
[2017-10-26] MEDS ORDERED: levoFLOXacin 500 MG TABLET PO SCH (21:00)
[2017-10-26] MEDS: ATENOLOL 50 MG TABLET PO SCH (21:48)
[2017-10-26] MEDS: ALPRAZolam 0.5 MG TABLET PO SCH (21:48)
[2017-10-26] MEDS: SIMVASTATIN 40 MG TABLET. PO SCH (21:50)
[2017-10-26 23:45] VITALS: BP 133/75
[2017-10-27 04:36] VITALS: BP 133/84
[2017-10-27] MEDS: IPRATRPIUM/ALBUTEROL 0.5/2.5MG 3 ML NEBU. NEB SCH ×4 (04:50→21:07)
[2017-10-27] MEDS: VANCOMYCIN 2 GM in IV NORMAL SALINE 500ML 500 ML IV SCH ×2 (06:03→17:44)
[2017-10-27 06:33] LABS: BASO # 0.1 x10^3/uL (0.0-0.2); BASO % 1 % (0-3); EOS # 0.1 x10^3/uL (0.0-0.7); EOS % 1 % (0-3); HEMATOCRIT 38.8 % (36.0-47.0); HEMOGLOBIN 12.7 g/dL (12.0-15.5); LYMPH # 1.6 x10^3/uL (1.0-4.8); LYMPH % 15 % (24-48); MEAN CORPUSCULAR HEMOGLOBIN 29 pg (25-35); MEAN CORPUSCULAR HGB CONC 33 g/dL (31-37); MEAN CORPUSCULAR VOLUME 90 fL (79-100); MONO % 9 % (0-9); NEUT % 75 % (31-73); PLATELET COUNT 304 x10^3/uL (140-400); RED BLOOD COUNT 4.33 x10^6/uL (3.50-5.40); RED CELL DISTRIBUTION WIDTH 15.3 % (11.5-14.5); WHITE BLOOD COUNT 10.7 x10^3/uL (4.0-11.0)
[2017-10-27 06:41] LABS: CALCIUM 9.4 mg/dL (8.5-10.1); CREATININE 0.9 mg/dL (0.6-1.0); GFR 62.3; POTASSIUM 4.1 mmol/L (3.5-5.1)
[2017-10-27] MEDS: INSULIN LISPRO 300 UNITS/3 ML INSULN.PEN. SQ SCH ×3 (07:27→17:11)
[2017-10-27] MEDS: FUROSEMIDE 40 MG TABLET PO SCH (08:23)
[2017-10-27] MEDS: metFORMIN 500 MG TABLET PO SCH ×2 (08:23→17:12)
[2017-10-27] MEDS: GABAPENTIN 300 MG CAPSULE. PO SCH ×3 (08:23→20:06)
[2017-10-27 11:51] VITALS: BP 162/86
[2017-10-27] MEDS: PARoxetine 20 MG TABLET PO SCH (12:15)
[2017-10-27] MEDS: methylPREDNISolone SOD SUCC PF 40 MG/ML VIAL. IV SCH (12:15)
[2017-10-27 15:47] VITALS: BP 149/74
--- NOTE | 2017-10-27 16:22 | PN ---
DATE: 10/27/2017 SUBJECTIVE: The patient resting fairly comfortably, still having trouble. She is wheezing, more today than she has been, may be mobilizing some secretions. The patient otherwise is resting fairly comfortably. The patient also had a bladder infection. Urine is pending. OBJECTIVE: VITAL SIGNS: Blood pressure 130/80, respiratory 18, pulse 90, afebrile. LUNGS: Show expiratory wheezes. CARDIOVASCULAR: Regular sinus rhythm. ABDOMEN: Soft, protuberant. EXTREMITIES: No clubbing, cyanosis. Trace edema noted. NEUROLOGIC: Intact. PLAN: The patient will go ahead and continue to be monitored and IV antibiotic therapy. Start her on low dose Solu-Medrol, continue to monitor her sugars of course and put her on sliding scale, make further evaluation on her as indicated per those results. IMPRESSION: Acute exacerbation of chronic obstructive pulmonary disease, sepsis, urinary tract infection, type 2 diabetes, morbid obesity. PLAN: As above. HUNG HAMMOND MD DR: ALEXIA/oscar JOB#: [id number] / [id number]
[2017-10-27] MEDS: WARFARIN 5 MG TABLET. PO SCH (17:06)
[2017-10-27] MEDS: glyBURIDE 5 MG TABLET PO SCH (17:07)
[2017-10-27] MEDS: HYDROcodone/APAP 5/325MG 1 TAB TABLET PO PRN (17:44)
[2017-10-27 19:25] VITALS: BP 124/84
[2017-10-27] MEDS: SIMVASTATIN 40 MG TABLET. PO SCH (20:05)
[2017-10-27] MEDS: ALPRAZolam 0.5 MG TABLET PO SCH (20:05)
[2017-10-27] MEDS: LACTOBACILLUS RHAMNOSUS GG 1 CAPSULE. PO SCH (20:06)
[2017-10-27] MEDS: ATENOLOL 50 MG TABLET PO SCH (20:06)
[2017-10-28 01:19] VITALS: BP 122/75
[2017-10-28 05:12] VITALS: BP 124/71
[2017-10-28] MEDS: IPRATRPIUM/ALBUTEROL 0.5/2.5MG 3 ML NEBU. NEB SCH ×3 (05:12→16:00)
[2017-10-28] MEDS: HYDROcodone/APAP 5/325MG 1 TAB TABLET PO PRN (05:42)
[2017-10-28] MEDS: VANCOMYCIN 2 GM in IV NORMAL SALINE 500ML 500 ML IV SCH (06:00)
[2017-10-28 06:14] LABS: BASO % 0 % (0-3); EOS % 0 % (0-3); HEMATOCRIT 36.3 % (36.0-47.0); LYMPH # 2.5 x10^3/uL (1.0-4.8); LYMPH % 24 % (24-48); MEAN CORPUSCULAR HEMOGLOBIN 29 pg (25-35); MEAN CORPUSCULAR HGB CONC 33 g/dL (31-37); MEAN CORPUSCULAR VOLUME 89 fL (79-100); MONO # 0.9 x10^3/uL (0.0-1.1); MONO % 9 % (0-9); NEUT # 7.2 x10^3uL (1.8-7.7); NEUT % 67 % (31-73); PLATELET COUNT 287 x10^3/uL (140-400); RED BLOOD COUNT 4.08 x10^6/uL (3.50-5.40); RED CELL DISTRIBUTION WIDTH 15.8 % (11.5-14.5); WHITE BLOOD COUNT 10.7 x10^3/uL (4.0-11.0)
[2017-10-28 06:33] LABS: VANC TR 19.3 mcg/mL (10.0-20.0)
[2017-10-28 06:38] LABS: ALBUMIN 3.1 g/dL (3.4-5.0); ALBUMIN/GLOBULIN RATIO 0.8 (1.0-1.7); CALCIUM 9.3 mg/dL (8.5-10.1); CREATININE 0.9 mg/dL (0.6-1.0); GFR 62.3; POTASSIUM 3.9 mmol/L (3.5-5.1); TOTAL BILIRUBIN 0.2 mg/dL (0.2-1.0); TOTAL PROTEIN 7.1 g/dL (6.4-8.2)
[2017-10-28] MEDS: INSULIN LISPRO 300 UNITS/3 ML INSULN.PEN. SQ SCH ×2 (07:34→11:12)
[2017-10-28] MEDS: LACTOBACILLUS RHAMNOSUS GG 1 CAPSULE. PO SCH (08:31)
[2017-10-28] MEDS: FUROSEMIDE 40 MG TABLET PO SCH (08:31)
[2017-10-28] MEDS: GABAPENTIN 300 MG CAPSULE. PO SCH ×2 (08:32→12:29)
[2017-10-28] MEDS: metFORMIN 500 MG TABLET PO SCH (08:32)
[2017-10-28] MEDS ORDERED: MUPIROCIN 2% TOPICAL OINTMENT 22GM TUBE. TP SCH (09:30)
[2017-10-28 10:45] VITALS: BP 127/81
[2017-10-28] MEDS: methylPREDNISolone SOD SUCC PF 40 MG/ML VIAL. IV SCH (11:57)
[2017-10-28] MEDS: PARoxetine 20 MG TABLET PO SCH (12:29)
--- NOTE | 2017-10-28 13:36 | DS ---
DATE OF DISCHARGE: HOSPITAL COURSE: A 67-year-old female came in with sepsis, pyelonephritis. The patient had greater than 40 white blood cells per high power field. The patient also had a heart rate greater than 100. The patient was also very dyspneic and required increase in breathing treatments as well as doses of IV Solu-Medrol to help her with her breathing. The patient was orthopneic as well and could not lay down flat in bed, had to be upright in a chair. The patient's pulse was as high as 110. Her lactic acid was elevated consistent with sepsis. The patient was admitted, placed on IV antibiotic therapy, IV fluids, IV Solu-Medrol, aggressive pulmonary toilet. The patient's urine grew out E. coli per pharmacy and was switched over. The patient made good progress during the rest of her hospitalization. She demanded to be discharged and she was discharged home. IMPRESSION: Sepsis, pyelonephritis with Escherichia coli, morbid obesity, type 2 diabetes, rbrd-ic-zzduqmix protein malnutrition, positive methicillin-resistant Staphylococcus aureus on her nose, treated. DISCHARGE INSTRUCTIONS: The patient will be discharged home, follow up with home health, and make further evaluation on her close monitoring as she is at high risk for re-admission. HUGN HAMMOND MD DR: ALEXIA/oscar JOB#: [id number] / [id number]
[2017-10-28] MEDS ORDERED: LACT1CAP19 PO (13:46)
[2017-10-28] MEDS ORDERED: LEVO750T31 PO (13:46)
[2017-10-28] MEDS ORDERED: MUPI22OI2 TP (13:46)
[2017-10-28] MEDS ORDERED: PRED1TAB PO (13:46)
[2017-10-28] MEDS ORDERED: levoFLOXacin 750 MG TABLET PO SCH (17:00)
[2017-10-29] MEDS ORDERED: WARFARIN 4 MG TABLET. PO SCH (16:00)
== END 2017-10-28 16:59 | disposition home health service (06) | DRG 872 ==
LOC: ER 22:07 → 1 SOUTH 23:45
PROVIDERS: ADMIT Family Medicine; ATTEND Family Medicine
DX: A41.9 Sepsis, unspecified organism (principal); E44.0 Moderate protein-calorie malnutrition; J96.10 Chronic respiratory failure, unspecified whether with hypoxia or hypercapnia; E66.01 Morbid (severe) obesity due to excess calories; N12 Tubulo-interstitial nephritis, not specified as acute or chronic; J44.1 Chronic obstructive pulmonary disease with (acute) exacerbation; B96.20 Unspecified Escherichia coli [E. coli] as the cause of diseases classified elsewhere; E11.9 Type 2 diabetes mellitus without complications; Z68.41 Body mass index [BMI] 40.0-44.9, adult; N31.9 Neuromuscular dysfunction of bladder, unspecified; I10 Essential (primary) hypertension; F41.9 Anxiety disorder, unspecified; F32.9 Major depressive disorder, single episode, unspecified; E78.00 Pure hypercholesterolemia, unspecified; M19.90 Unspecified osteoarthritis, unspecified site; Z96.659 Presence of unspecified artificial knee joint; Z22.322 Carrier or suspected carrier of Methicillin resistant Staphylococcus aureus; Z79.01 Long term (current) use of anticoagulants; Z98.1 Arthrodesis status; Z88.8 Allergy status to other drugs, medicaments and biological substances; Z88.1 Allergy status to other antibiotic agents; Z86.718 Personal history of other venous thrombosis and embolism; Z87.891 Personal history of nicotine dependence; Z83.3 Family history of diabetes mellitus; Z80.9 Family history of malignant neoplasm, unspecified; Z82.49 Family history of ischemic heart disease and other diseases of the circulatory system
CPT/HCPCS: 36415; 51702; 71045; 80048; 80053; 80076; 80202; 80307; 81001; 82553; 82947; 83605; 83690; 83735; 83880; 84484; 85025; 85379; 85610; 85730; 87086; 87641; 93005; 94640; 94760; 96374; 96375; G0238; J1815; J1956; J2405; J2920; J2930; J3370; J7040; J7620; 97110; 99285-25; G0479

== ENCOUNTER → 2017-11-02 | Outpatient (CLI) | payer OTHER ==
[2017-10-28 10:45] VITALS: BP 127/81
[~2017-11-02] MED LIST changes: +ALPR0.5T6 PO; +HYDR-2758 PO; +HYDR-79 PO; +LACT1CAP19 PO; +LEVO750T31 PO; +METF10002 PO; +SULF1TAB24 PO; +WARF-31 PO
[2017-11-02 17:31] LABS: BASO # 0.1 x10^3/uL (0.0-0.2); BASO % 0 % (0-3); EOS # 0.5 x10^3/uL (0.0-0.7); EOS % 4 % (0-3); HEMATOCRIT 41.3 % (36.0-47.0); HEMOGLOBIN 13.4 g/dL (12.0-15.5); LYMPH # 3.4 x10^3/uL (1.0-4.8); LYMPH % 25 % (24-48); MEAN CORPUSCULAR HEMOGLOBIN 29 pg (25-35); MEAN CORPUSCULAR HGB CONC 33 g/dL (31-37); MEAN CORPUSCULAR VOLUME 89 fL (79-100); MONO # 0.7 x10^3/uL (0.0-1.1); MONO % 5 % (0-9); NEUT % 66 % (31-73); PLATELET COUNT 331 x10^3/uL (140-400); RED BLOOD COUNT 4.65 x10^6/uL (3.50-5.40); RED CELL DISTRIBUTION WIDTH 15.8 % (11.5-14.5); WHITE BLOOD COUNT 13.7 x10^3/uL (4.0-11.0)
[2017-11-02 18:58] LABS: BILIRUBIN,URINE NEG (NEG); CLARITY,URINE HAZY; COLOR,URINE YELLOW; GLUCOSE,URINE NEG (NEG); NITRITE,URINE NEG (NEG); UROBILINOGEN,URINE 0.2 mg/dL (0.2 mg/dL)
[2017-11-02 18:59] LABS: BACTERIA,URINE MOD /HPF (0-FEW); RBC,URINE >40 /HPF (0-2); SQUAMOUS EPITHELIAL CELL,UR MANY /LPF
[2017-11-02 19:16] LABS: ALBUMIN 3.8 g/dL (3.4-5.0); CALCIUM 9.7 mg/dL (8.5-10.1); CREATININE 1.1 mg/dL (0.6-1.0); GFR 49.4; POTASSIUM 4.5 mmol/L (3.5-5.1); TOTAL BILIRUBIN 0.3 mg/dL (0.2-1.0); TOTAL PROTEIN 7.5 g/dL (6.4-8.2)
== END | disposition home or self-care (01) ==
LOC: SPEC 16:16
PROVIDERS: ATTEND Family Medicine
DX: J44.1 Chronic obstructive pulmonary disease with (acute) exacerbation (principal); N31.9 Neuromuscular dysfunction of bladder, unspecified
CPT/HCPCS: 36415; 80053; 81001; 85025; 87086

== ENCOUNTER 2017-11-05 21:19 | Inpatient (IN) | payer OTHER ==
[~2017-11-05] VITALS: Ht 175.3 cm; Wt 133.8 kg
[2017-11-05 21:15] VITALS: BP 129/66
[~2017-11-05 21:19] MED LIST changes: -ASPI81TA44 PO; +ASPI81TA59 PO; -METF10002 PO; +METF10003 PO; -METF500T4 PO; +METF500T5 PO
[2017-11-05] MEDS ORDERED: ACETAMINOPHEN 325 MG TABLET PO PRN (21:30)
[2017-11-05] MEDS ORDERED: ALBUTEROL SULFATE 8GM INHALER. INH PRN (21:45)
[2017-11-05] MEDS ORDERED: BISACODYL TAB 5 MG TABLET.DR. PO PRN (21:45)
[2017-11-05] MEDS ORDERED: ALBUTEROL SULFATE 2.5 MG/3 ML NEBU. NEB PRN (22:00)
[2017-11-05] MEDS: diphenhydrAMINE HCL 25 MG CAPSULE PO PRN (22:31)
[2017-11-05] MEDS: HYDROcodone/APAP 5/325MG 1 TAB TABLET PO PRN (22:31)
[2017-11-05] MEDS: SIMVASTATIN 40 MG TABLET. PO SCH (22:31)
[2017-11-05] MEDS: ALPRAZolam 0.5 MG TABLET PO SCH (22:31)
[2017-11-05] MEDS: ATENOLOL 25 MG TABLET PO SCH (22:32)
[2017-11-05] MEDS: GABAPENTIN 300 MG CAPSULE. PO SCH (22:32)
[2017-11-05] MEDS: cefTRIAXone IM 1 GM VIAL IM SCH (22:33)
[2017-11-05 22:51] LABS: BASO # 0.2 x10^3/uL (0.0-0.2); BASO % 1 % (0-3); EOS # 0.5 x10^3/uL (0.0-0.7); EOS % 3 % (0-3); HEMOGLOBIN 13.4 g/dL (12.0-15.5); LYMPH # 3.3 x10^3/uL (1.0-4.8); LYMPH % 18 % (24-48); MEAN CORPUSCULAR HEMOGLOBIN 29 pg (25-35); MEAN CORPUSCULAR HGB CONC 33 g/dL (31-37); MEAN CORPUSCULAR VOLUME 89 fL (79-100); MONO # 1.2 x10^3/uL (0.0-1.1); MONO % 6 % (0-9); NEUT # 13.3 x10^3uL (1.8-7.7); NEUT % 72 % (31-73); PLATELET COUNT 308 x10^3/uL (140-400); RED BLOOD COUNT 4.59 x10^6/uL (3.50-5.40); RED CELL DISTRIBUTION WIDTH 15.7 % (11.5-14.5); WHITE BLOOD COUNT 18.5 x10^3/uL (4.0-11.0)
[2017-11-05 23:35] VITALS: BP 107/68
[2017-11-05 23:35] LABS: ALBUMIN 3.6 g/dL (3.4-5.0); ALBUMIN/GLOBULIN RATIO 0.9 (1.0-1.7); CALCIUM 9.8 mg/dL (8.5-10.1); CREATININE 1.1 mg/dL (0.6-1.0); GFR 49.4; TOTAL BILIRUBIN 0.3 mg/dL (0.2-1.0); TOTAL PROTEIN 7.6 g/dL (6.4-8.2)
[2017-11-05 23:35] LABS: BILIRUBIN,URINE NEG (NEG); CLARITY,URINE CLOUDY; COLOR,URINE YELLOW; GLUCOSE,URINE NEG (NEG); NITRITE,URINE NEG (NEG); UROBILINOGEN,URINE 0.2 mg/dL (0.2 mg/dL)
[2017-11-05 23:36] LABS: AMORPHOUS SEDIMENT,UR PRESENT /HPF; BACTERIA,URINE MANY /HPF (0-FEW); SQUAMOUS EPITHELIAL CELL,UR MOD /LPF; YEAST,URINE PRESENT /HPF
[2017-11-06 01:17] LABS: % BANDS 1 % (0-9); % EOS 2 % (0-5); % LYMPHS 17 % (24-48); % MONOS 3 % (0-10); % SEGS 69 % (35-66)
[2017-11-06 01:18] LABS: PLT ESTIMATE ADEQUATE (ADEQUATE); TOXIC GRANULATION PRESENT
[2017-11-06 01:19] LABS: TOXIC VACUOLATION PRESENT
[2017-11-06] MEDS ORDERED: IPRATRPIUM/ALBUTEROL 0.5/2.5MG 3 ML NEBU. ONE (04:11)
[2017-11-06] MEDS: IPRATRPIUM/ALBUTEROL 0.5/2.5MG 3 ML NEBU. NEB SCH ×4 (04:29→20:51)
[2017-11-06] MEDS: SIMETHICONE 80 MG TAB.CHEW PO PRN ×2 (05:44→20:32)
[2017-11-06 05:45] VITALS: BP 129/74
[2017-11-06] MEDS: LACTOBACILLUS RHAMNOSUS GG 1 CAPSULE. PO SCH ×2 (08:19→16:48)
[2017-11-06] MEDS: metFORMIN 500 MG TABLET PO SCH ×2 (08:19→16:48)
[2017-11-06] MEDS: GABAPENTIN 300 MG CAPSULE. PO SCH ×3 (08:19→20:33)
[2017-11-06] MEDS: MUPIROCIN 2% TOPICAL OINTMENT 22GM TUBE. TP SCH ×2 (08:20→20:34)
[2017-11-06] MEDS: FUROSEMIDE 40 MG TABLET PO SCH (08:20)
[2017-11-06] MEDS: predniSONE 5 MG TABLET PO SCH (08:20)
[2017-11-06 11:00] VITALS: BP 133/64
[2017-11-06] MEDS: HYDROcodone/APAP 5/325MG 1 TAB TABLET PO PRN (11:39)
--- NOTE | 2017-11-06 14:07 | HP ---
ADMIT DATE: 11/05/2017 HISTORY OF PRESENT ILLNESS: The patient is a 67-year-old female with multiple medical problems has a history of pyelonephritis. Recent cultures showed that this is only sensitive to either IV or IM medication. We tried to get the IM medication for this patient and apparently both the pharmacies and the home health people were unable to obtain it. The family was quite concerned about her situation as far as not being able to get on the proper medications for her pyelonephritis since she does have her indwelling Zaidi because of paralysis. The patient in turn was admitted for IV antibiotic therapy. The patient will receive a PICC line and IV antibiotic therapy. 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 The patient also is on chronic Coumadin therapy for chronic DVT of the left leg. She has respiratory problems and chronic obstructive pulmonary disease. She has a history of bronchitis, obesity, postmenopausal, pyelonephritis, urinary tract infection, urinary retention, degenerative disk disease, osteoarthritis, orthopedic surgery, joint replacements, depression, blood disorders, anemia. Influenza vaccination and pneumococcal vaccinations are up-to-date. She has had previous MRSA positives. FAMILY HISTORY: Hypertension in sister and also diabetes in aunt, uncles, cousins, and grandfather, the latter 2 on cancer. ALLERGIES: The patient has allergies to NORVASC and LIPITOR. MEDICATIONS: Her active meds include DuoNeb, ProAir, warfarin, Zocor 40, atenolol 25, hydrocodone p.r.n., gabapentin, paroxetine, Xanax 0.5, furosemide, prednisone 1 mg, metformin, glyburide. REVIEW OF SYSTEMS: The patient does have some chills and fever, but denies any headaches, chest pain, or shortness of breath at this time. The patient otherwise does have problems with loose stools. Does have a Zaidi catheter in place and does have some burning and frequency on urination. PHYSICAL EXAMINATION: GENERAL: This is a pleasant female, morbidly obese. VITAL SIGNS: Blood pressure 130/60, respiratory rate 18, pulse 90, afebrile. HEENT: The patient's head was atraumatic, normocephalic. Eyes: PERRLA without jaundice. The mouth and throat were normal. NECK: Supple without JVD, carotid bruits. No thyromegaly. LUNGS: The patient's lungs were diminished throughout, poor movement of air, but clear. CARDIOVASCULAR: Regular sinus rhythm, S1-S2, without murmur, rub, thrill, or extra heart sound. ABDOMEN: Protuberant, soft, nontender. EXTREMITIES: No clubbing, cyanosis. Trace edema was noted. Pulses noted distally. NEUROLOGIC: Alert and oriented. Speech is fluent, spontaneous, appropriate. Cranial nerves 2-12 grossly intact. The patient's INR is low. Pharmacy is to follow on that. IMPRESSION: Pyelonephritis, resistant to oral antibiotics, otherwise partial paralysis, chronic urinary tract infection, type 2 diabetes, history of deep vein thrombosis, morbid obesity. PLAN: The patient will be placed on PICC line and then get her continue with IV antibiotic therapy. HUNG HAMMOND MD DR: ALEXIA/oscar JOB#: [id number] / [id number]
[2017-11-06 15:00] VITALS: BP 135/77
[2017-11-06] MEDS ORDERED: WARFARIN 5 MG TABLET. PO SCH (16:00)
[2017-11-06] MEDS: glyBURIDE 5 MG TABLET PO SCH (16:47)
[2017-11-06] MEDS: ATENOLOL 25 MG TABLET PO SCH ×2 (16:48→20:33)
[2017-11-06] MEDS: PARoxetine 20 MG TABLET PO SCH (16:49)
[2017-11-06] MEDS: SIMVASTATIN 40 MG TABLET. PO SCH ×2 (16:49→20:32)
[2017-11-06 19:22] VITALS: BP 130/87
[2017-11-06] MEDS: ALPRAZolam 0.5 MG TABLET PO SCH (20:33)
[2017-11-06] MEDS: diphenhydrAMINE HCL 25 MG CAPSULE PO PRN (20:33)
[2017-11-06] MEDS: cefTRIAXone IM 1 GM VIAL IM SCH (20:34)
[2017-11-06 22:55] VITALS: BP 117/79
[2017-11-07] MEDS: HYDROcodone/APAP 5/325MG 1 TAB TABLET PO PRN ×2 (04:58→13:24)
[2017-11-07] MEDS: IPRATRPIUM/ALBUTEROL 0.5/2.5MG 3 ML NEBU. NEB SCH ×4 (05:09→20:00)
[2017-11-07 05:24] LABS: BASO % 0 % (0-3); EOS # 0.5 x10^3/uL (0.0-0.7); EOS % 4 % (0-3); HEMOGLOBIN 12.2 g/dL (12.0-15.5); LYMPH # 3.2 x10^3/uL (1.0-4.8); LYMPH % 27 % (24-48); MEAN CORPUSCULAR HEMOGLOBIN 29 pg (25-35); MEAN CORPUSCULAR HGB CONC 33 g/dL (31-37); MEAN CORPUSCULAR VOLUME 89 fL (79-100); MONO # 0.8 x10^3/uL (0.0-1.1); MONO % 7 % (0-9); NEUT # 7.5 x10^3uL (1.8-7.7); NEUT % 62 % (31-73); PLATELET COUNT 273 x10^3/uL (140-400); RED BLOOD COUNT 4.16 x10^6/uL (3.50-5.40); RED CELL DISTRIBUTION WIDTH 15.6 % (11.5-14.5); WHITE BLOOD COUNT 12.2 x10^3/uL (4.0-11.0)
[2017-11-07 05:30] LABS: CALCIUM 9.2 mg/dL (8.5-10.1); CREATININE 0.9 mg/dL (0.6-1.0); GFR 62.3; POTASSIUM 3.9 mmol/L (3.5-5.1)
[2017-11-07 05:51] VITALS: BP 136/85
[2017-11-07] MEDS: LACTOBACILLUS RHAMNOSUS GG 1 CAPSULE. PO SCH ×2 (08:06→20:44)
[2017-11-07] MEDS: predniSONE 5 MG TABLET PO SCH (08:07)
[2017-11-07] MEDS: metFORMIN 500 MG TABLET PO SCH ×2 (08:07→17:00)
[2017-11-07] MEDS: FUROSEMIDE 40 MG TABLET PO SCH (08:07)
[2017-11-07] MEDS: GABAPENTIN 300 MG CAPSULE. PO SCH ×3 (08:07→20:44)
[2017-11-07] MEDS: MUPIROCIN 2% TOPICAL OINTMENT 22GM TUBE. TP SCH ×2 (08:08→20:44)
[2017-11-07 10:42] VITALS: BP 152/78
[2017-11-07] MEDS: PARoxetine 20 MG TABLET PO SCH (11:54)
[2017-11-07 15:49] VITALS: BP 145/80
[2017-11-07] MEDS: WARFARIN 4 MG TABLET. PO SCH (17:00)
[2017-11-07] MEDS: glyBURIDE 5 MG TABLET PO SCH (17:01)
[2017-11-07 19:21] VITALS: BP 143/67
[2017-11-07] MEDS: ATENOLOL 25 MG TABLET PO SCH (20:43)
[2017-11-07] MEDS: SIMETHICONE 80 MG TAB.CHEW PO PRN (20:43)
[2017-11-07] MEDS: diphenhydrAMINE HCL 25 MG CAPSULE PO PRN (20:43)
[2017-11-07] MEDS: SIMVASTATIN 40 MG TABLET. PO SCH (20:44)
[2017-11-07] MEDS: cefTRIAXone IV Push 1 GM VIAL. IVP SCH (20:45)
[2017-11-07] MEDS: ALPRAZolam 0.5 MG TABLET PO SCH (21:24)
[2017-11-07 22:32] VITALS: BP 138/77
--- NOTE | 2017-11-08 01:10 | PN ---
DATE: 11/07/2017 SUBJECTIVE: She is resting comfortably with pyelonephritis resistant to most oral antibiotics. White count would have been 18,000, has come down gradually to 12,000. She got a PICC line in, she is still receiving IV antibiotic therapy. We are still awaiting final culture report, on her preliminary does show greater than 100,000 of gram-negative rods, so we will continue to monitor on such. Otherwise, the patient says she is feeling a little bit better. OBJECTIVE: VITAL SIGNS: Blood pressure 130/80, respiratory rate 20, pulse 80, afebrile. The patient's only 92% oxygen saturation. GENERAL: Alert and oriented. LUNGS: Diminished throughout, poor movement of air. CARDIOVASCULAR: Regular sinus rhythm, S1, S2. ABDOMEN: Soft, protuberant. EXTREMITIES: No clubbing, cyanosis or edema. Zaidi catheter in place, draining. LABORATORY DATA: White count down. PLAN: We will go ahead and continue to monitor the patient accordingly, make further evaluation on her per those results. Pharmacy to regulate warfarin. IMPRESSION: Pyelonephritis resistant organism. Plan as above. HUNG HAMMOND MD DR: ALEXIA/oscar JOB#: [id number] / [id number]
[2017-11-08] MEDS: IPRATRPIUM/ALBUTEROL 0.5/2.5MG 3 ML NEBU. NEB SCH ×4 (04:20→22:09)
[2017-11-08 05:14] LABS: BASO # 0.1 x10^3/uL (0.0-0.2); BASO % 1 % (0-3); EOS # 0.7 x10^3/uL (0.0-0.7); EOS % 5 % (0-3); HEMATOCRIT 35.5 % (36.0-47.0); HEMOGLOBIN 11.4 g/dL (12.0-15.5); LYMPH # 3.8 x10^3/uL (1.0-4.8); LYMPH % 27 % (24-48); MEAN CORPUSCULAR HEMOGLOBIN 29 pg (25-35); MEAN CORPUSCULAR HGB CONC 32 g/dL (31-37); MEAN CORPUSCULAR VOLUME 90 fL (79-100); MONO # 1.1 x10^3/uL (0.0-1.1); MONO % 8 % (0-9); NEUT # 8.3 x10^3uL (1.8-7.7); NEUT % 59 % (31-73); PLATELET COUNT 268 x10^3/uL (140-400); RED BLOOD COUNT 3.97 x10^6/uL (3.50-5.40); RED CELL DISTRIBUTION WIDTH 16.1 % (11.5-14.5)
[2017-11-08 05:22] LABS: CALCIUM 9.2 mg/dL (8.5-10.1); CREATININE 0.9 mg/dL (0.6-1.0); GFR 62.3; POTASSIUM 4.1 mmol/L (3.5-5.1)
[2017-11-08 05:44] VITALS: BP 124/76
[2017-11-08] MEDS: LACTOBACILLUS RHAMNOSUS GG 1 CAPSULE. PO SCH ×2 (08:44→20:54)
[2017-11-08] MEDS: MUPIROCIN 2% TOPICAL OINTMENT 22GM TUBE. TP SCH ×2 (08:44→20:58)
[2017-11-08] MEDS: FUROSEMIDE 40 MG TABLET PO SCH (08:44)
[2017-11-08] MEDS: metFORMIN 500 MG TABLET PO SCH ×2 (08:44→16:22)
[2017-11-08] MEDS: predniSONE 5 MG TABLET PO SCH (08:44)
[2017-11-08] MEDS: GABAPENTIN 300 MG CAPSULE. PO SCH ×3 (08:44→20:54)
[2017-11-08] MEDS: PARoxetine 20 MG TABLET PO SCH (11:39)
[2017-11-08 15:30] VITALS: BP 137/90
[2017-11-08] MEDS: WARFARIN 4 MG TABLET. PO SCH (16:22)
[2017-11-08] MEDS: glyBURIDE 5 MG TABLET PO SCH (16:22)
[2017-11-08 19:35] VITALS: BP 154/78
[2017-11-08] MEDS: SIMVASTATIN 40 MG TABLET. PO SCH (20:53)
[2017-11-08] MEDS: HYDROcodone/APAP 5/325MG 1 TAB TABLET PO PRN (20:53)
[2017-11-08] MEDS: diphenhydrAMINE HCL 25 MG CAPSULE PO PRN (20:53)
[2017-11-08] MEDS: ALPRAZolam 0.5 MG TABLET PO SCH (20:53)
[2017-11-08] MEDS: ATENOLOL 25 MG TABLET PO SCH (20:54)
[2017-11-08] MEDS: cefTRIAXone IV Push 1 GM VIAL. IVP SCH (20:54)
[2017-11-08 22:55] VITALS: BP 134/81
--- NOTE | 2017-11-09 04:51 | PN ---
DATE: SUBJECTIVE: The patient in with sepsis and having problems with urinary tract infection. She seems to be doing a little better. She still has some problems wheezing; however, and so continue on her breathing treatments and IV antibiotic therapy for pyelonephritis. OBJECTIVE: VITAL SIGNS: Blood pressure 137/90, respiratory rate 18, pulse 94, afebrile, oxygen saturation good. GENERAL: Alert and oriented. LUNGS: With expiratory wheezes primarily in the left upper lobe. CARDIOVASCULAR: Regular sinus rhythm. ABDOMEN: Soft, nontender, no rebound or guarding. Positive bowel sounds. No hepatosplenomegaly noted, protuberant of course. IMPRESSION: Therefore, sepsis, acute exacerbation of chronic obstructive pulmonary disease, pyelonephritis with Escherichia coli. PLAN: The patient to continue on IV antibiotic therapy and breathing treatments. HUNG HAMMOND MD DR: ALEXIA/oscar JOB#: [id number] / [id number]
[2017-11-09 05:34] VITALS: BP 128/80
[2017-11-09 06:30] LABS: BASO # 0.1 x10^3/uL (0.0-0.2); BASO % 0 % (0-3); EOS # 0.6 x10^3/uL (0.0-0.7); EOS % 5 % (0-3); HEMATOCRIT 34.4 % (36.0-47.0); HEMOGLOBIN 11.3 g/dL (12.0-15.5); LYMPH # 3.1 x10^3/uL (1.0-4.8); LYMPH % 24 % (24-48); MEAN CORPUSCULAR HEMOGLOBIN 29 pg (25-35); MEAN CORPUSCULAR HGB CONC 33 g/dL (31-37); MEAN CORPUSCULAR VOLUME 89 fL (79-100); MONO % 7 % (0-9); NEUT # 8.3 x10^3uL (1.8-7.7); NEUT % 64 % (31-73); PLATELET COUNT 252 x10^3/uL (140-400); RED BLOOD COUNT 3.88 x10^6/uL (3.50-5.40); RED CELL DISTRIBUTION WIDTH 16.1 % (11.5-14.5); WHITE BLOOD COUNT 13.1 x10^3/uL (4.0-11.0)
[2017-11-09 06:39] LABS: ALBUMIN 2.9 g/dL (3.4-5.0); ALBUMIN/GLOBULIN RATIO 0.8 (1.0-1.7); CALCIUM 9.1 mg/dL (8.5-10.1); CREATININE 0.8 mg/dL (0.6-1.0); GFR 71.3; POTASSIUM 3.4 mmol/L (3.5-5.1); TOTAL BILIRUBIN 0.2 mg/dL (0.2-1.0); TOTAL PROTEIN 6.5 g/dL (6.4-8.2)
[2017-11-09] MEDS ORDERED: POTASSIUM CHLORIDE 20 MEQ TABLET.ER. PO ONE (08:00)
[2017-11-09] MEDS: IPRATRPIUM/ALBUTEROL 0.5/2.5MG 3 ML NEBU. NEB SCH ×2 (08:00→12:00)
[2017-11-09] MEDS: FUROSEMIDE 40 MG TABLET PO SCH (08:08)
[2017-11-09] MEDS: LACTOBACILLUS RHAMNOSUS GG 1 CAPSULE. PO SCH (08:08)
[2017-11-09] MEDS: metFORMIN 500 MG TABLET PO SCH (08:08)
[2017-11-09] MEDS: GABAPENTIN 300 MG CAPSULE. PO SCH (08:08)
[2017-11-09] MEDS: predniSONE 5 MG TABLET PO SCH (08:08)
[2017-11-09] MEDS: MUPIROCIN 2% TOPICAL OINTMENT 22GM TUBE. TP SCH (08:14)
--- NOTE | 2017-11-09 10:20 | DS ---
DATE OF DISCHARGE: 11/09/2017 HOSPITAL COURSE: The patient is a 67-year-old female with hemiplegia, has a chronic Zaidi catheter. She had been unable to get proper oral antibiotics to cover her urinary tract infection, which was complicated with a resistant E. coli organism. Her white count on admission was over 18,000. She was noted to have basically sepsis and as a result of this, was admitted and placed on IV antibiotics with a PICC line. The patient made good progress during the rest of her hospitalization. There were no complications. She did have some trouble breathing at times and at times, we had to give her aggressive pulmonary toilet for such. In any case, the patient was treated effectively. She felt much better and she was ready to be discharged home. The patient will have home health to follow her on her various medical needs including her multiple ADLs that require assistance. IMPRESSION: Sepsis, urinary tract infection with resistant Escherichia coli, acute exacerbation of COPD, pyelonephritis, morbid obesity, ayjatcsj-fc-ghyfll protein malnutrition, hyperglycemia, hypokalemia, chronic warfarin therapy. HUNG HAMMOND MD DR: ALEXIA/oscar JOB#: [id number] / [id number]
[2017-11-09] MEDS ORDERED: DIPH25CA58 PO (11:21)
[2017-11-09] MEDS ORDERED: ACET325T9 PO (11:21)
[2017-11-09] MEDS ORDERED: SIME80TA14 PO (11:21)
[2017-11-09] MEDS ORDERED: WARF6TAB47 PO (11:21)
[2017-11-09] MEDS ORDERED: CEFT1VIA6 IVP (11:21)
[2017-11-09] MEDS: HYDROcodone/APAP 5/325MG 1 TAB TABLET PO PRN (11:57)
[2017-11-09] MEDS: diphenhydrAMINE HCL 25 MG CAPSULE PO PRN (11:58)
[2017-11-09] MEDS: cefTRIAXone IV Push 1 GM VIAL. IVP SCH (12:00)
[2017-11-09] MEDS: PARoxetine 20 MG TABLET PO SCH (12:02)
[2017-11-09] MEDS ORDERED: WARFARIN 7.5 MG TABLET. PO ONE (16:00)
== END 2017-11-09 13:00 | disposition home or self-care (01) | DRG 871 ==
LOC: 1 SOUTH 21:19
PROVIDERS: ADMIT Family Medicine; ATTEND Family Medicine
PROC: 02HV33Z Insertion of Infusion Device into Superior Vena Cava, Percutaneous Approach (ICD-10-PCS; principal; 2017-11-05)
DX: A41.9 Sepsis, unspecified organism (principal); E43 Unspecified severe protein-calorie malnutrition; N12 Tubulo-interstitial nephritis, not specified as acute or chronic; G81.90 Hemiplegia, unspecified affecting unspecified side; J44.1 Chronic obstructive pulmonary disease with (acute) exacerbation; Z68.41 Body mass index [BMI] 40.0-44.9, adult; I82.502 Chronic embolism and thrombosis of unspecified deep veins of left lower extremity; E66.01 Morbid (severe) obesity due to excess calories; E11.65 Type 2 diabetes mellitus with hyperglycemia; F32.9 Major depressive disorder, single episode, unspecified; M19.90 Unspecified osteoarthritis, unspecified site; E87.6 Hypokalemia; B96.20 Unspecified Escherichia coli [E. coli] as the cause of diseases classified elsewhere; Z88.8 Allergy status to other drugs, medicaments and biological substances; Z79.01 Long term (current) use of anticoagulants; Z82.49 Family history of ischemic heart disease and other diseases of the circulatory system; Z83.3 Family history of diabetes mellitus; Z86.14 Personal history of Methicillin resistant Staphylococcus aureus infection; Z87.440 Personal history of urinary (tract) infections
CPT/HCPCS: 36415; 36569; 80048; 80053; 81001; 82947; 85007; 85025; 85610; 87040; 87086; 87186; 87641; 94640; J0696; J7512; J7620; Q0163

== ENCOUNTER → 2017-11-18 | Outpatient (CLI) | payer OTHER ==
[2017-11-09 05:34] VITALS: BP 128/80
[~2017-11-18] MED LIST changes: +ACET325T9 PO; +CEFT1VIA6 IVP; +DIPH25CA58 PO; +SIME80TA14 PO; +WARF6TAB47 PO
[2017-11-18 19:57] LABS: BILIRUBIN,URINE NEG (NEG); CLARITY,URINE CLEAR; COLOR,URINE STRAW; GLUCOSE,URINE NEG (NEG); NITRITE,URINE NEG (NEG); UROBILINOGEN,URINE 0.2 mg/dL (0.2 mg/dL)
[2017-11-18 19:58] LABS: BACTERIA,URINE FEW /HPF (0-FEW); SQUAMOUS EPITHELIAL CELL,UR MOD /LPF; WBC,URINE 20-40 /HPF (0-4)
== END | disposition home or self-care (01) ==
LOC: SPEC 16:17
PROVIDERS: ATTEND Family Medicine
DX: R33.9 Retention of urine, unspecified (principal); N31.9 Neuromuscular dysfunction of bladder, unspecified; E11.65 Type 2 diabetes mellitus with hyperglycemia; E78.00 Pure hypercholesterolemia, unspecified; J44.1 Chronic obstructive pulmonary disease with (acute) exacerbation; Z87.891 Personal history of nicotine dependence
CPT/HCPCS: 81001; 87086

== ENCOUNTER 2017-11-20 18:28 | Emergency (ER) | payer OTHER ==
[~2017-11-20] VITALS: Ht 175.3 cm; Wt 133.0 kg
--- NOTE | 2017-11-20 18:38 | ED.ADGEN ---
Past History Past Medical History: Anxiety, Diabetes, DVT, Hypertension, UTI Past Surgical History: Cervical Fusion, Knee Replacement Alcohol Use: None Drug Use: None Adult General Chief Complaint Chief Complaint ".. Dr. Hamilton sent me in to get a chest xray and my pic line check.. I ve had this cough.. and some spasms in my arms.. I got the pic line for antibiotics .. for my urinary tract infection. " Alfonso worried I may have a clott in my arm...." " I finished my vanco.. 2 days ago...." HPI HPI Patient is a 67 year old female who presents with request for pic line replacement and evaluation. Dr. Hamilton advised her to report to the ED. Pt. recently admitted on 11/05 for pyelonephritis and had the pic line placed at that time for IV antibiotics out pt. . Pt. states has completed home antibiotics. Pt. patient has had a nonproductive cough. No history of fevers. No history of ill contacts. No history of travel. Patient been compliant for medications. Patient does have a history of some bronchitis and asthma in the past. Review of Systems Review of Systems Constitutional: Denies fever or chills [] Eyes: Denies change in visual acuity, redness, or eye pain [] HENT: Denies nasal congestion or sore throat [] Respiratory: History of cough Cardiovascular: No additional information not addressed in HPI [] GI: Denies abdominal pain, nausea, vomiting, bloody stools or diarrhea [] : Denies dysuria or hematuria [] Musculoskeletal: Denies back pain or joint pain [] Integument: Denies rash or skin lesions [] Neurologic: Denies headache, focal weakness or sensory changes [] Endocrine: Denies polyuria or polydipsia [] All other systems were reviewed and found to be within normal limits, except as documented in this note. Family History Family History Noncontributory Current Medications Current Medications Current Medications Medications (Trade) Dose Ordered Sig/[facility] Start Time Stop Time Status Last Admin Dose Admin Albuterol/ Ipratropium (Duoneb) 3 ml 1X ONCE 11/20/17 19:00 11/20/17 19:01 DC Warfarin Sodium (Coumadin) 5 mg 1X ONCE 11/21/17 00:00 11/21/17 00:01 DC 11/20/17 23:56 5 MG Allergies Allergies Allergies Coded Allergies Type Severity Reaction Last Updated Verified amlodipine Allergy Intermediate 11/20/17 Yes atorvastatin Allergy Intermediate 11/20/17 Yes I S O L A T I O N *CONTACT* Allergy Unknown 11/20/17 Yes Physical Exam Physical Exam Constitutional: , no acute distress, non-toxic appearance. [] HENT: Normocephalic, atraumatic, bilateral external ears normal, oropharynx moist, no oral exudates, nose normal. [] Eyes: PERRLA, EOMI, conjunctiva normal, no discharge. [] Neck: Normal range of motion, no tenderness, supple, no stridor. [] Old surgical scar . Cardiovascular:Heart rate regular rhythm, no murmur []PMI to the left. Lungs & Thorax: Bilateral breath sounds equal apex with few scattered wheezes on auscultation [] Abdomen: Bowel sounds normal, soft, no tenderness, no masses, no pulsatile masses. Morbid obese. Skin: Warm, dry, no erythema, no rash. [] Back: No tenderness, no CVA tenderness. [] Extremities: No tenderness, no cyanosis, no clubbing, ROM intact, no edema. [] PICC line site appears to be stable and no obvious erythema. PICC line flushes without problem. Distal capillary refill and pulses rt. hand are equal to left hand . Scar knees Neurologic: Alert and oriented X 3, normal motor function, normal sensory function, no focal deficits noted. [] Psychologic: Affect normal, judgement normal, mood normal. [] Current Patient Data Vital Signs Vital Signs Date Time Temp Pulse Resp B/P (MAP) Pulse Ox O2 Delivery O2 Flow Rate FiO2 11/21/17 00:03 99 19 169/96 (120) 93 Room Air 11/20/17 18:28 98.1 Lab Results Laboratory Tests Test 11/20/17 19:38 11/20/17 19:46 White Blood Count 11.8 x10^3/uL (4.0-11.0) H Red Blood Count 4.26 x10^6/uL (3.50-5.40) Hemoglobin 12.4 g/dL (12.0-15.5) Hematocrit 38.4 % (36.0-47.0) Mean Corpuscular Volume 90 fL (79-100) Mean Corpuscular Hemoglobin 29 pg (25-35) Mean Corpuscular Hemoglobin Concent 32 g/dL (31-37) Red Cell Distribution Width 15.7 % (11.5-14.5) H Platelet Count 297 x10^3/uL (140-400) Neutrophils (%) (Auto) 69 % (31-73) Lymphocytes (%) (Auto) 18 % (24-48) L Monocytes (%) (Auto) 7 % (0-9) Eosinophils (%) (Auto) 6 % (0-3) H Basophils (%) (Auto) 0 % (0-3) Neutrophils # (Auto) 8.1 x10^3uL (1.8-7.7) H Lymphocytes # (Auto) 2.1 x10^3/uL (1.0-4.8) Monocytes # (Auto) 0.8 x10^3/uL (0.0-1.1) Eosinophils # (Auto) 0.7 x10^3/uL (0.0-0.7) Basophils # (Auto) 0.0 x10^3/uL (0.0-0.2) Erythrocyte Sedimentation Rate 65 (0-25) H Prothrombin Time 19.8 SEC (9.4-11.4) H Prothrombin Time INR 2.0 (0.9-1.1) H PTT 33 SEC (23-33) D-Dimer (Kamilah) 0.38 mg/L (0.00-0.50) Sodium Level 140 mmol/L (136-145) Potassium Level 4.1 mmol/L (3.5-5.1) Chloride Level 101 mmol/L (98-107) Carbon Dioxide Level 31 mmol/L (21-32) Anion Gap 8 (6-14) Blood Urea Nitrogen 13 mg/dL (7-20) Creatinine 0.9 mg/dL (0.6-1.0) Estimated GFR (Cockcroft-Gault) 62.3 Glucose Level 97 mg/dL (70-99) Calcium Level 9.4 mg/dL (8.5-10.1) Magnesium Level 1.8 mg/dL (1.8-2.4) Total Bilirubin 0.3 mg/dL (0.2-1.0) Direct Bilirubin 0.1 mg/dL (0.0-0.2) Aspartate Amino Transferase (AST) 16 U/L (15-37) Alanine Aminotransferase (ALT) 28 U/L (14-59) Alkaline Phosphatase 126 U/L (46-116) H Creatine Kinase 103 U/L (26-192) Creatine Kinase MB (Mass) 0.6 ng/mL (0.0-3.6) Creatine Kinase MB Relative Index 0.6 % (0-4) Troponin I Quantitative < 0.017 ng/mL (0-0.055) C-Reactive Protein 25.6 mg/L (0-3.3) H OY-Vll-T-Type Natriuretic Peptide 37 pg/mL (0-124) Total Protein 7.8 g/dL (6.4-8.2) Albumin 3.6 g/dL (3.4-5.0) Lipase 94 U/L (73-393) Urine Collection Type Unknown Urine Color Straw Urine Clarity Hazy Urine pH 5.5 Urine Specific Redfox 1.015 Urine Protein Trace (NEG-TRACE) Urine Glucose (UA) Neg mg/dL (NEG) Urine Ketones (Stick) Trace mg/dL (NEG) Urine Blood Mod (NEG) Urine Nitrite Neg (NEG) Urine Bilirubin Neg (NEG) Urine Urobilinogen Dipstick 0.2 mg/dL (0.2 mg/dL) Urine Leukocyte Esterase Small (NEG) Urine RBC Rare /HPF (0-2) Urine WBC 1-4 /HPF (0-4) Urine Squamous Epithelial Cells Occ /LPF Urine Bacteria 0 /HPF (0-FEW) Urine Mucus Slight /LPF Urine Opiates Screen Pos (NEG) Urine Methadone Screen Neg (NEG) Urine Barbiturates Neg (NEG) Urine Phencyclidine Screen Neg (NEG) Urine Amphetamine/Methamphetamine Neg (NEG) Urine Benzodiazepines Screen Neg (NEG) Urine Cocaine Screen Neg (NEG) Urine Cannabinoids Screen Neg (NEG) Urine Ethyl Alcohol Neg (NEG) EKG EKG Interpretation EKG shows a sinus rhythm at 90 bpm. There is some leftward axis. There is right RVH. There is nonspecific ST changes. No findings acute STEMI of contralateral changes. Has had bimodal P-wave's Radiology/Procedures Radiology/Procedures My interpretation chest x-ray shows no obvious pulmonary infiltrate. PICC line appears to be within adequate positioning at the superior VC/ atrial junction. Ultrasound of PICC line shows a some DVT at Subclavian site PICC Course & Med Decision Making Course & Med Decision Making Pertinent Labs and Imaging studies reviewed. (See chart for details). Discussed presentation, testing and tx. plan with Dr. Hamilton. Advised have pt. follow up in his office. Continue coumadin. Return if any acute changes. Patient use albuterol as previous directed.. [] Final Impression Final Impression 1. Pic line replacement[]/ vs evaluation 2. Thrombus seen Rt Subclavian Prox inf. to Picc 3. Mild Leukocytosis 4. D-dimer normal 5. Mild Elevation CRP 6. INR Therapeutic- 2,0 Dragon Disclaimer Dragon Disclaimer This electronic medical record was generated, in whole or in part, using a voice recognition dictation system. STEPHENIE WHALEN MD November 20, 2017 18:38
[2017-11-20] MEDS ORDERED: IPRATRPIUM/ALBUTEROL 0.5/2.5MG 3 ML NEBU. NEB ONE (19:00)
--- NOTE | 2017-11-20 19:01 | EKG ---
[address] [address] Test Date: 2017-11-20 Test Time: 18:57:29 Pat Name: JAKI WILSON Department: Room: Gender: F Top Flavor Attendant: YOLI : 1950 Requested By: STEPHENIE WHALEN Order Number: [id number] Reading MD: Measurements Intervals [place] Rate: 98 P: 62 WA: 158 QRS: -25 QRSD: 84 T: 12 QT: 356 QTc: 456 Interpretive Statements SINUS RHYTHM LEFTWARD AXIS CONSIDER RIGHT VENTRICULAR HYPERTROPHY ST & T ABNORMALITY, CONSIDER ANTEROSEPTAL ISCHEMIA OR LEFT VENTRICULAR STRAIN T ABNORMALITY IN ANTERIOR LEADS ABNORMAL ECG RI6.01 Compared to ECG 10/25/2017 22:56:45 Left-axis deviation now present Possible ischemia now present Possible ischemia now present T-wave abnormality now present
--- NOTE | 2017-11-20 19:35 | RAD ---
EXAM: Chest, single view. HISTORY: PICC line placement. COMPARISON: None. FINDINGS: A frontal view of the chest is obtained. There is a right PICC with the tip at the superior cavoatrial junction. There is no pneumothorax. There is suspected left lower lobe atelectasis. There is no consolidation, pleural effusion or consolidation. The heart is normal in size. IMPRESSION: Right PICC with the tip at the superior cavoatrial junction. Electronically signed by: Sarah Labmert MD (11/20/2017 7:31 PM) [facility]
[2017-11-20 20:04] LABS: BASO % 0 % (0-3); EOS # 0.7 x10^3/uL (0.0-0.7); EOS % 6 % (0-3); HEMATOCRIT 38.4 % (36.0-47.0); HEMOGLOBIN 12.4 g/dL (12.0-15.5); LYMPH # 2.1 x10^3/uL (1.0-4.8); LYMPH % 18 % (24-48); MEAN CORPUSCULAR HEMOGLOBIN 29 pg (25-35); MEAN CORPUSCULAR HGB CONC 32 g/dL (31-37); MEAN CORPUSCULAR VOLUME 90 fL (79-100); MONO # 0.8 x10^3/uL (0.0-1.1); MONO % 7 % (0-9); NEUT # 8.1 x10^3uL (1.8-7.7); NEUT % 69 % (31-73); PLATELET COUNT 297 x10^3/uL (140-400); RED BLOOD COUNT 4.26 x10^6/uL (3.50-5.40); RED CELL DISTRIBUTION WIDTH 15.7 % (11.5-14.5); WHITE BLOOD COUNT 11.8 x10^3/uL (4.0-11.0)
[2017-11-20 20:25] LABS: BACTERIA,URINE 0 /HPF (0-FEW); BILIRUBIN,URINE NEG (NEG); CLARITY,URINE HAZY; COLOR,URINE STRAW; GLUCOSE,URINE NEG (NEG); NITRITE,URINE NEG (NEG); RBC,URINE RARE /HPF (0-2); SQUAMOUS EPITHELIAL CELL,UR OCC /LPF; UROBILINOGEN,URINE 0.2 mg/dL (0.2 mg/dL)
[2017-11-20 20:29] LABS: BARBITURATES NEG (NEG); BENZODIAZEPINES NEG (NEG); CANNABINOIDS NEG (NEG); COCAINE NEG (NEG); METHADONE NEG (NEG); OPIATES POS (NEG); PHENCYCLIDINE NEG (NEG)
[2017-11-20 20:30] LABS: AMPHETAMINE/METHAMPHETAMINE NEG (NEG)
[2017-11-20 20:34] LABS: ALBUMIN 3.6 g/dL (3.4-5.0); C REACTIVE PROTEIN 25.6 mg/L (0-3.3); CALCIUM 9.4 mg/dL (8.5-10.1); CREATININE 0.9 mg/dL (0.6-1.0); DIRECT BILIRUBIN 0.1 mg/dL (0.0-0.2); GFR 62.3; MAGNESIUM 1.8 mg/dL (1.8-2.4); POTASSIUM 4.1 mmol/L (3.5-5.1); TOTAL BILIRUBIN 0.3 mg/dL (0.2-1.0); TOTAL PROTEIN 7.8 g/dL (6.4-8.2)
[2017-11-20 21:16] LABS: SEDIMENTATION RATE 65 (0-25)
--- NOTE | 2017-11-20 23:10 | RAD ---
INDICATION: PT COUGHING SENT BY DR TO EVAL RT PICC FOR THROMBUS, PT PICC RT SUBCV INTO CEPHV MID UPPER ARM. Arm swelling. TECHNIQUE: Grayscale, color and doppler ultrasound images were obtained of the right upper extremity venous vasculature. RIGHT: No thrombus identified in the internal jugular,, axillary, brachial, basilic, cephalic, radial or ulnar veins. PICC line is seen. Thrombus is seen within the right subclavian vein IMPRESSION: 1. Thrombus is seen within the right subclavian vein. Electronically signed by: Leonard Sorto MD (11/20/2017 11:06 PM) [place] [id number]
[2017-11-21] MEDS ORDERED: WARFARIN 5 MG TABLET. PO ONE
[2017-11-21 00:03] VITALS: BP 169/96
== END 2017-11-20 23:59 | disposition home or self-care (01) ==
LOC: ER 18:28
DX: Z45.2 Encounter for adjustment and management of vascular access device (principal); I82.B11 Acute embolism and thrombosis of right subclavian vein; D72.829 Elevated white blood cell count, unspecified; R79.82 Elevated C-reactive protein (CRP); E11.9 Type 2 diabetes mellitus without complications; F41.9 Anxiety disorder, unspecified; I10 Essential (primary) hypertension; J45.909 Unspecified asthma, uncomplicated; Z86.718 Personal history of other venous thrombosis and embolism; Z87.440 Personal history of urinary (tract) infections; Z88.8 Allergy status to other drugs, medicaments and biological substances; Z91.041 Radiographic dye allergy status
CPT/HCPCS: 36415; 71045; 80048; 80076; 80307; 81001; 82553; 83690; 83735; 83880; 84443; 84484; 85025; 85379; 85610; 85651; 85730; 86140; 87040; 87086; 93005; 93971; 99285-25; G0479

== ENCOUNTER 2018-02-27 14:09 | Inpatient (IN) | payer OTHER ==
[~2018-02-27] VITALS: Ht 175.3 cm; Wt 128.4 kg
[~2018-02-27 14:09] MED LIST changes: -IPRA3AMP NEB; +IPRA3AMP29 NEB
[2018-02-27] MEDS ORDERED: IPRATRPIUM/ALBUTEROL 0.5/2.5MG 3 ML NEBU. NEB ONE (14:30)
[2018-02-27 14:51] LABS: BASO % 0 % (0-3); EOS # 1.7 x10^3/uL (0.0-0.7); EOS % 13 % (0-3); HEMATOCRIT 41.7 % (36.0-47.0); HEMOGLOBIN 13.5 g/dL (12.0-15.5); LYMPH # 2.6 x10^3/uL (1.0-4.8); LYMPH % 20 % (24-48); MEAN CORPUSCULAR HEMOGLOBIN 29 pg (25-35); MEAN CORPUSCULAR HGB CONC 33 g/dL (31-37); MEAN CORPUSCULAR VOLUME 89 fL (79-100); MONO # 0.7 x10^3/uL (0.0-1.1); MONO % 6 % (0-9); NEUT # 7.8 x10^3uL (1.8-7.7); NEUT % 61 % (31-73); PLATELET COUNT 367 x10^3/uL (140-400); RED CELL DISTRIBUTION WIDTH 14.8 % (11.5-14.5); WHITE BLOOD COUNT 12.8 x10^3/uL (4.0-11.0)
--- NOTE | 2018-02-27 15:10 | EKG ---
[address] [address] Test Date: 2018-02-27 Test Time: 14:32:11 Pat Name: JAKI WILSON Department: Room: Gender: F Tax Assistant: : 1950 Requested By: GEM QUINTANA Order Number: [id number] Reading MD: Lencho Leonard MD Measurements Intervals [place] Rate: 107 P: 59 WI: 148 QRS: -19 QRSD: 84 T: 18 QT: 334 QTc: 451 Interpretive Statements SINUS TACHYCARDIA NON-SPECIFIC ST/T CHANGES Electronically Signed On 02-27-2018 17:13:11 CDT by Lencho Leonard MD
--- NOTE | 2018-02-27 15:27 | RAD ---
EXAM: Chest, single view. HISTORY: Shortness of air. COMPARISON: 11/20/2017 FINDINGS: A frontal view of the chest is obtained. There is suspected lower lobe atelectasis. There is no consolidation, pleural effusion or pneumothorax. The heart is normal in size. There is a right PICC with the tip in the superior cavoatrial junction. IMPRESSION: Suspected bilateral lower lobe atelectasis. Electronically signed by: Sarah Lambert MD (02/27/2018 3:23 PM) [place] [id number]
[2018-02-27 15:30] LABS: ALBUMIN 3.6 g/dL (3.4-5.0); ALBUMIN/GLOBULIN RATIO 0.8 (1.0-1.7); CALCIUM 9.4 mg/dL (8.5-10.1); GFR 55.1; POTASSIUM 4.1 mmol/L (3.5-5.1); TOTAL BILIRUBIN 0.4 mg/dL (0.2-1.0); TOTAL PROTEIN 7.9 g/dL (6.4-8.2)
[2018-02-27 15:45] LABS: COLOR,URINE YELLOW
[2018-02-27 15:46] LABS: BACTERIA,URINE MANY /HPF (0-FEW); BILIRUBIN,URINE NEG (NEG); CLARITY,URINE HAZY; GLUCOSE,URINE NEG (NEG); NITRITE,URINE NEG (NEG); SQUAMOUS EPITHELIAL CELL,UR FEW /LPF; UROBILINOGEN,URINE 0.2 mg/dL (0.2 mg/dL); WBC,URINE 20-40 /HPF (0-4); YEAST,URINE PRESENT /HPF
[2018-02-27] MEDS ORDERED: cefTRIAXone IV Push 1 GM VIAL. IVP ONE (16:00)
--- NOTE | 2018-02-27 16:04 | PHYS DOC ---
Past History Past Medical History: Anxiety, Diabetes, DVT, Hypertension, UTI Past Surgical History: Cervical Fusion, Knee Replacement Alcohol Use: None Drug Use: None Adult General Chief Complaint Chief Complaint: SHORTNESS OF BREATH [facility] HPI 67-year-old female patient with history of renal stenosis and wheelchair-bound and indwelling Zaidi catheter complaining of intermittent episodes of shortness of breath for the last 1 week without relation to activity or position associated with right-sided chest pain at the same time. Patient denies fever and chills, abdominal pain, vomiting and diarrhea. Patient complaining of mild nausea. Patient started on Nitrofurantoin 2 days ago for UTI and her home health care reported O2 sat of 89 today and called her primary care physician who recommended to come to emergency room for evaluation and admission. Review of Systems Review of Systems Constitutional: Denies fever or chills [] Eyes: Denies change in visual acuity, redness, or eye pain [] HENT: Denies nasal congestion or sore throat [] Respiratory: Reports dry cough and shortness of breath Cardiovascular: No additional information not addressed in HPI [] GI: Denies abdominal pain, vomiting, bloody stools or diarrhea, reports nausea.[ ] : Denies dysuria or hematuria [] Musculoskeletal: Denies back pain or joint pain [] Integument: Denies rash or skin lesions [] Neurologic: Denies headache, focal weakness or sensory changes [] Endocrine: Denies polyuria or polydipsia [] All other systems were reviewed and found to be within normal limits, except as documented in this note. Current Medications Current Medications Current Medications Medications (Trade) Dose Ordered Sig/[facility] Start Time Stop Time Status Last Admin Dose Admin Albuterol/ Ipratropium (Duoneb) 3 ml 1X ONCE 02/27/18 14:30 02/27/18 14:31 DC 02/27/18 14:48 3 ML Allergies Allergies Allergies Coded Allergies Type Severity Reaction Last Updated Verified amlodipine Allergy Intermediate 11/20/17 Yes atorvastatin Allergy Intermediate 11/20/17 Yes I S O L A T I O N *CONTACT* Allergy Unknown 11/20/17 Yes Physical Exam Physical Exam Constitutional: Well developed, well nourished, mild distress, non-toxic appearance. [] HENT: Normocephalic, atraumatic, oropharynx moist, no oral exudates, nose normal. [] Eyes: PERRLA, EOMI, conjunctiva normal, no discharge. [] Neck: Normal range of motion, no tenderness, supple, no stridor. [] Cardiovascular: Tachycardia, no murmur [] Lungs & Thorax: Bilateral breath sounds clear to auscultation [] Abdomen: Bowel sounds normal, soft, no tenderness, no masses, no pulsatile masses. [] Skin: Warm, dry, no erythema, no rash. [] Back: No tenderness, no CVA tenderness. [] Extremities: No tenderness, no cyanosis, no clubbing, ROM intact, no edema. [] Neurologic: Alert and oriented X 3, normal motor function, normal sensory function, no focal deficits noted. [] Psychologic: Affect normal, judgement normal, mood normal. [] Current Patient Data Vital Signs Vital Signs Date Time Temp Pulse Resp B/P (MAP) Pulse Ox O2 Delivery O2 Flow Rate FiO2 02/27/18 15:31 84 24 111/81 (91) 93 Room Air 02/27/18 14:30 98.5 Lab Results Laboratory Tests Test 02/27/18 14:35 White Blood Count 12.8 x10^3/uL (4.0-11.0) H Red Blood Count 4.70 x10^6/uL (3.50-5.40) Hemoglobin 13.5 g/dL (12.0-15.5) Hematocrit 41.7 % (36.0-47.0) Mean Corpuscular Volume 89 fL (79-100) Mean Corpuscular Hemoglobin 29 pg (25-35) Mean Corpuscular Hemoglobin Concent 33 g/dL (31-37) Red Cell Distribution Width 14.8 % (11.5-14.5) H Platelet Count 367 x10^3/uL (140-400) Neutrophils (%) (Auto) 61 % (31-73) Lymphocytes (%) (Auto) 20 % (24-48) L Monocytes (%) (Auto) 6 % (0-9) Eosinophils (%) (Auto) 13 % (0-3) H Basophils (%) (Auto) 0 % (0-3) Neutrophils # (Auto) 7.8 x10^3uL (1.8-7.7) H Lymphocytes # (Auto) 2.6 x10^3/uL (1.0-4.8) Monocytes # (Auto) 0.7 x10^3/uL (0.0-1.1) Eosinophils # (Auto) 1.7 x10^3/uL (0.0-0.7) H Basophils # (Auto) 0.0 x10^3/uL (0.0-0.2) Prothrombin Time 24.6 SEC (9.4-11.4) H Prothrombin Time INR 2.4 (0.9-1.1) H D-Dimer (Kamilah) < 0.19 mg/L (0.00-0.50) Sodium Level 139 mmol/L (136-145) Potassium Level 4.1 mmol/L (3.5-5.1) Chloride Level 100 mmol/L (98-107) Carbon Dioxide Level 29 mmol/L (21-32) Anion Gap 10 (6-14) Blood Urea Nitrogen 13 mg/dL (7-20) Creatinine 1.0 mg/dL (0.6-1.0) Estimated GFR (Cockcroft-Gault) 55.1 BUN/Creatinine Ratio 13 (6-20) Glucose Level 172 mg/dL (70-99) H Calcium Level 9.4 mg/dL (8.5-10.1) Total Bilirubin 0.4 mg/dL (0.2-1.0) Aspartate Amino Transferase (AST) 19 U/L (15-37) Alanine Aminotransferase (ALT) 26 U/L (14-59) Alkaline Phosphatase 152 U/L (46-116) H Creatine Kinase 136 U/L (26-192) Creatine Kinase MB (Mass) 0.7 ng/mL (0.0-3.6) Creatine Kinase MB Relative Index 0.5 % (0-4) Troponin I Quantitative < 0.017 ng/mL (0-0.055) Total Protein 7.9 g/dL (6.4-8.2) Albumin 3.6 g/dL (3.4-5.0) Albumin/Globulin Ratio 0.8 (1.0-1.7) L EKG EKG EKG interpreted by me. EKG at 1432 showed that his tachycardia at rate of 107, leftward axis, T-wave abnormalities anterior leads, no acute ST and T-wave abnormalities. Radiology/Procedures Radiology/Procedures [[address] [id number] IMAGING REPORT Signed PATIENT: JAKI WILSON ACCOUNT: [id number] : 1950 LOCATION: ER AGE: 67 SEX: F EXAM STATUS: REG ER ORD. PHYSICIAN: GEM QUINTANA MD REASON: shortness of breath PROCEDURE: CHEST PA & LATERAL EXAM: Chest, single view. HISTORY: Shortness of air. COMPARISON: 11/20/2017 FINDINGS: A frontal view of the chest is obtained. There is suspected lower lobe atelectasis. There is no consolidation, pleural effusion or pneumothorax. The heart is normal in size. There is a right PICC with the tip in the superior cavoatrial junction. IMPRESSION: Suspected bilateral lower lobe atelectasis. Electronically signed by: Sarah Quinn MD (02/27/2018 3:23 PM) [place] [id number] DICTATED AND SIGNED BY: SARAH QUINN MD DATE: 02/27/181521 CC: HUNG HAMMOND MD; GEM QUINTANA MD ~ ] Course & Med Decision Making Course & Med Decision Making Pertinent Labs and Imaging studies reviewed. (See chart for details) Evaluation of patient in ER showed 67-year-old female patient with indwelling Zaidi catheter sent to emergency room by her primary care physician regarding hypoxia and shortness of breath and UTI. Labs did not show elevation of BNP or abnormal cardiac enzymes. UA showed UTI and Rocephin was given. Dr. Hammond accepted admission at 1545. [] Dragon Disclaimer Dragon Disclaimer This electronic medical record was generated, in whole or in part, using a voice recognition dictation system. Departure Departure: Impression: Primary Impression: Dyspnea Additional Impression: UTI (urinary tract infection) due to urinary indwelling catheter Disposition: ADMITTED INPATIENT (at 1545) Admitting Physician: Hung Hammond Condition: IMPROVED Referrals: HUNG HAMMOND MD (PCP) Problem Qualifiers GEM QUINTANA MD Feb 27, 2018 16:04
[2018-02-27 17:18] VITALS: BP 109/65
[2018-02-27] MEDS ORDERED: WARF-31 PO (18:08)
[2018-02-27] MEDS ORDERED: GLYB2.5T2 PO (18:09)
[2018-02-27] MEDS ORDERED: SENN-142 PO (18:10)
[2018-02-27] MEDS ORDERED: DEXTROSE 50% 25 GM / 50ML DISP.SYRIN. IV PRN (18:15)
[2018-02-27] MEDS ORDERED: ALBUTEROL SULFATE 8GM INHALER. INH PRN (18:30)
[2018-02-27] MEDS ORDERED: diphenhydrAMINE HCL 25 MG CAPSULE PO PRN (18:30)
[2018-02-27] MEDS ORDERED: ACETAMINOPHEN 325 MG TABLET PO PRN (18:30)
[2018-02-27] MEDS ORDERED: SENNOSIDES/DOCUSATE 8.6/50MG TABLET. PO PRN (18:30)
[2018-02-27] MEDS: IPRATRPIUM/ALBUTEROL 0.5/2.5MG 3 ML NEBU. NEB SCH (19:14)
[2018-02-27 19:37] VITALS: BP 152/83
[2018-02-27] MEDS: HYDROcodone/APAP 5/325MG 1 TAB TABLET PO PRN (20:47)
[2018-02-27] MEDS: ALPRAZolam 0.5 MG TABLET PO SCH (20:47)
[2018-02-27] MEDS: ATENOLOL 50 MG TABLET PO SCH (20:48)
[2018-02-27] MEDS: WARFARIN 5 MG TABLET. PO SCH (20:48)
[2018-02-27] MEDS: SIMVASTATIN 40 MG TABLET. PO SCH (20:48)
[2018-02-27] MEDS: IV NORMAL SALINE 1,000ML 1,000 ML IV SCH (20:49)
[2018-02-27] MEDS: ALBUTEROL SULFATE 2.5 MG/3 ML NEBU. NEB PRN (23:24)
[2018-02-27 23:29] VITALS: BP 148/93
[2018-02-28] MEDS: IPRATRPIUM/ALBUTEROL 0.5/2.5MG 3 ML NEBU. NEB SCH ×4 (04:14→17:43)
[2018-02-28] MEDS: HYDROcodone/APAP 5/325MG 1 TAB TABLET PO PRN ×3 (05:08→22:54)
[2018-02-28 05:42] VITALS: BP 120/81
[2018-02-28] MEDS: metFORMIN 500 MG TABLET PO SCH ×2 (07:49→17:01)
[2018-02-28] MEDS: glyBURIDE 5 MG TABLET PO SCH ×2 (07:50→17:02)
[2018-02-28] MEDS: guaiFENesin DM 200MG/20MG 10 ML SYRUP PO PRN ×3 (08:26→21:41)
[2018-02-28] MEDS ORDERED: FUROSEMIDE 40 MG TABLET PO SCH (09:00)
[2018-02-28] MEDS: IV NORMAL SALINE 1,000ML 1,000 ML IV SCH ×2 (09:13→23:25)
[2018-02-28] MEDS: ALBUTEROL SULFATE 2.5 MG/3 ML NEBU. NEB PRN ×3 (09:24→21:50)
[2018-02-28] MEDS ORDERED: FUROSEMIDE 40 MG/4 ML VIAL ONE (09:50)
--- NOTE | 2018-02-28 10:15 | RAD ---
Portable chest, 02/28/2018: HISTORY: Shortness of breath Comparison is made to a study from 02/27/2018. A right PICC extends into the superior aspect of the right atrium. The heart size and pulmonary vascularity are normal. No pulmonary consolidation is seen. There is no evidence of pleural fluid. IMPRESSION: No acute cardiopulmonary abnormality is detected. Electronically signed by: Skip Alonzo MD (02/28/2018 10:12 AM) [facility]
[2018-02-28 10:45] VITALS: BP 129/73
[2018-02-28] MEDS ORDERED: FUROSEMIDE 40 MG/4 ML VIAL IVP ONE (11:00)
[2018-02-28] MEDS ORDERED: AZELASTINE NASAL SPRAY 30ML BOTTLE. NS PRN (11:15)
--- NOTE | 2018-02-28 11:39 | EKG ---
[address] [address] Test Date: 2018-02-28 Test Time: 09:42:02 Pat Name: JAKI WILSON Department: Room: 107 A Gender: F Entry Level Lab Technician: : 1950 Requested By: HUNG HAMMOND Order Number: [id number] Reading MD: Lencho Leonard MD Measurements Intervals [place] Rate: 100 P: 64 ID: [id number] QRS: -21 QRSD: 88 T: 25 QT: 360 QTc: 468 Interpretive Statements SINUS RHYTHM ANTEROLATERAL TWI SUGGESTIVE OF ISCHEMIA Electronically Signed On 02-28-2018 12:07:27 CDT by Lencho Leonard MD
[2018-02-28] MEDS: PARoxetine 20 MG TABLET PO SCH (12:03)
--- NOTE | 2018-02-28 13:34 | HP ---
ADMIT DATE: 02/27/2018 HISTORY OF PRESENT ILLNESS: This is a 67-year-old female who for the last week or so has been having difficulty in breathing and as a result of this, finally came in through the Emergency Room after all other options had been exhausted. The patient was becoming increasingly short of breath. She was visited by her home health when the patient became increasingly short of breath, oxygen saturations dropping down to 89% using accessory muscles to breathe. The patient had been told approximately 3-4 days ago to go to the Emergency Room. She did not, she tried to fight it at home and got worse as a result of this. The patient came in through the Emergency Room. She has multiple urinary tract infections and the like. The patient has multiple medical problems. 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 She has had DVTs in the left leg. She has had history of respiratory problems of COPD, emphysema, acute bronchitis multiple times, severe morbid obesity, urinary tract infections, multiple urinary retention, chronic Zaidi leading to multiple urinary tract infections, severe weakness, wheelchair bound. The patient also has severe degenerative arthritis in multiple joints, joint replacement of the left knee, type 2 diabetes, poorly controlled. Also, depression, anxiety. The patient also smokes and she has been encouraged to stop smoking and she did, she says for the last 10 years. The patient otherwise has had a history of anemia. Her immunizations for influenza and pneumococcal are up-to-date. She did have a history positive of MRSA in the past. FAMILY HISTORY: The patient has a long history of diabetes in her aunts, uncles brothers father, lupus in the brother and dementia in the mother, cancer in aunt and grandfather with other family history including father and sister with hypertension and myocardial infarctions. ALLERGIES: SHE HAS ALLERGIES TO AMLODIPINE AND ATORVASTATIN. MEDICATIONS: The patient's home medications include Benadryl 25 q. 6 hours p.r.n., DuoNeb treatments 4 times a day, ProAir inhaler, warfarin 5 mg, Zocor, atenolol, hydrocodone, Paxil 40 mg a day, Xanax 0.5 bedtime, furosemide 40 mg daily, sodium docusate for constipation, metformin 1000 mg b.i.d., glyburide 2.5 mg daily. SOCIAL HISTORY: The patient denies smoking, alcohol or drug use of late and the patient also denies any problems of drinking. REVIEW OF SYSTEMS: As noted extreme shortness of breath, using accessory muscles to breathe as well as she denies any chest pain. Denies any melena, hematochezia, or hematemesis. Just generalized weakness from his cervical fusion. PHYSICAL EXAMINATION: GENERAL: This is a markedly obese, -[place]ian female, pleasant, in moderate amount of distress. VITAL SIGNS: Blood pressure 127/88, respiratory rate 24, pulse 105, temperature 98.5, The patient otherwise seems to be resting fairly comfortably, although using some accessory muscles to breathe. The patient is tired from that. Heart rate actually went up to as high as 112, respiratory rate up to 28. HEENT: The patient's head was atraumatic, normocephalic. Eyes: PERRLA without jaundice. Mouth and throat: Normal. NECK: Supple. LUNGS: Diminished throughout with wheezing in all five lobes. CARDIOVASCULAR: Regular sinus rhythm. ABDOMEN: Soft, nontender, no rebounding or guarding. Markedly protuberant. EXTREMITIES: No clubbing, cyanosis. There was edema noted in the legs consistent with some pitting edema, +2. NEUROLOGIC: Except for her weakness, pretty much from the neck down, she is alert and oriented. Speech fluent as much as she can. She does have interrupted speech when she talks. She has marked dyspnea, unable to move around at all. LABORATORY DATA: Show white count of 12.8 and the patient's blood sugars are stable. The patient's INR is 2.6. UA showed 20-40 white blood cells and the culture is pending on that. ASSESSMENT AND PLAN: Otherwise, the patient will continue on IV antibiotic therapy. I placed her on some Levaquin 500 mg daily, aggressive pulmonary toilet. We will use steroids judiciously because of her diabetes. Also included is acute respiratory failure secondary to exacerbation of chronic obstructive pulmonary disease, acute on top of chronic obstructive pulmonary disease, morbid obesity, type 2 diabetes, urinary tract infection, dyspnea, use of accessory muscles in breathing. We will continue to monitor the patient and accordingly make further evaluation and adjustment of her medications as indicated above for this patient in respiration distress. HUNG HAMMOND MD DR: ALEXIA/oscar JOB#: [id number] / [id number]
[2018-02-28 15:00] VITALS: BP 136/78
[2018-02-28] MEDS ORDERED: NON FORMULARY ITEM (Warfarin Sodium 1 TAB) PO SCH (16:00)
[2018-02-28] MEDS: WARFARIN 5 MG TABLET. PO SCH (17:04)
[2018-02-28 19:27] VITALS: BP 102/78
[2018-02-28] MEDS: SIMVASTATIN 40 MG TABLET. PO SCH (20:00)
[2018-02-28] MEDS: ATENOLOL 50 MG TABLET PO SCH (20:00)
[2018-02-28] MEDS: ALPRAZolam 0.5 MG TABLET PO SCH ×2 (21:00→21:45)
[2018-02-28 23:30] VITALS: BP 103/58
[2018-03-01 03:13] LABS: HEMOGLOBIN A1C 5.8 % (4.8-5.6)
[2018-03-01 03:59] VITALS: BP 123/63
[2018-03-01] MEDS: ALBUTEROL SULFATE 2.5 MG/3 ML NEBU. NEB PRN ×2 (04:01→13:21)
[2018-03-01] MEDS: guaiFENesin DM 200MG/20MG 10 ML SYRUP PO PRN ×2 (04:07→14:09)
[2018-03-01 05:24] VITALS: BP 133/81
[2018-03-01 05:52] LABS: CALCIUM 9.4 mg/dL (8.5-10.1); CREATININE 0.8 mg/dL (0.6-1.0); GFR 71.3; POTASSIUM 3.3 mmol/L (3.5-5.1)
[2018-03-01 06:15] LABS: BASO # 0.1 x10^3/uL (0.0-0.2); BASO % 1 % (0-3); EOS # 1.4 x10^3/uL (0.0-0.7); EOS % 13 % (0-3); HEMATOCRIT 37.1 % (36.0-47.0); HEMOGLOBIN 12.1 g/dL (12.0-15.5); LYMPH # 3.6 x10^3/uL (1.0-4.8); LYMPH % 35 % (24-48); MEAN CORPUSCULAR HEMOGLOBIN 29 pg (25-35); MEAN CORPUSCULAR HGB CONC 33 g/dL (31-37); MEAN CORPUSCULAR VOLUME 88 fL (79-100); MONO # 0.8 x10^3/uL (0.0-1.1); MONO % 8 % (0-9); NEUT # 4.5 x10^3uL (1.8-7.7); NEUT % 43 % (31-73); PLATELET COUNT 284 x10^3/uL (140-400); RED BLOOD COUNT 4.21 x10^6/uL (3.50-5.40); RED CELL DISTRIBUTION WIDTH 14.4 % (11.5-14.5); WHITE BLOOD COUNT 10.4 x10^3/uL (4.0-11.0)
[2018-03-01] MEDS ORDERED: POTASSIUM CHLORIDE 20 MEQ TABLET.ER. PO ONE (06:30)
[2018-03-01] MEDS: IPRATRPIUM/ALBUTEROL 0.5/2.5MG 3 ML NEBU. NEB SCH ×4 (08:00→20:42)
[2018-03-01] MEDS: FUROSEMIDE 40 MG/4 ML VIAL IVP SCH (08:37)
[2018-03-01] MEDS: metFORMIN 500 MG TABLET PO SCH ×2 (08:38→17:35)
[2018-03-01] MEDS: glyBURIDE 5 MG TABLET PO SCH (08:40)
[2018-03-01] MEDS: HYDROcodone/APAP 5/325MG 1 TAB TABLET PO PRN ×2 (09:36→17:35)
[2018-03-01 10:44] VITALS: BP 106/72
[2018-03-01] MEDS ORDERED: ALTEPLASE 2 MG VIAL INT CAT ONE (11:00)
[2018-03-01] MEDS: MUPIROCIN 2% TOPICAL OINTMENT 22GM TUBE. TP SCH ×2 (12:11→21:10)
[2018-03-01] MEDS: PARoxetine 20 MG TABLET PO SCH (12:12)
[2018-03-01] MEDS ORDERED: DEXTROSE 50% 25 GM / 50ML DISP.SYRIN. IV PRN (12:15)
[2018-03-01] MEDS: INSULIN LISPRO 300 UNITS/3 ML INSULN.PEN. SQ SCH ×2 (12:24→17:00)
[2018-03-01 15:25] VITALS: BP 133/76
[2018-03-01] MEDS: WARFARIN 5 MG TABLET. PO SCH (17:35)
[2018-03-01 19:10] VITALS: BP 142/85
[2018-03-01] MEDS: ALPRAZolam 0.5 MG TABLET PO SCH (21:10)
[2018-03-01] MEDS: SIMVASTATIN 40 MG TABLET. PO SCH (21:11)
[2018-03-01] MEDS: ATENOLOL 50 MG TABLET PO SCH (21:11)
[2018-03-01] MEDS: LACTOBACILLUS RHAMNOSUS GG 1 CAPSULE. PO SCH (21:11)
[2018-03-01 22:52] VITALS: BP 143/78
[2018-03-02] MEDS: HYDROcodone/APAP 5/325MG 1 TAB TABLET PO PRN ×3 (00:32→16:28)
[2018-03-02] MEDS: ALBUTEROL SULFATE 2.5 MG/3 ML NEBU. NEB PRN ×2 (00:32→09:35)
[2018-03-02] MEDS: IPRATRPIUM/ALBUTEROL 0.5/2.5MG 3 ML NEBU. NEB SCH ×4 (04:48→20:34)
[2018-03-02 05:10] VITALS: BP 132/80
--- NOTE | 2018-03-02 05:41 | PN ---
DATE: 02/27/2018 SUBJECTIVE: The patient came in with acute respiratory failure, acute exacerbation of COPD. The patient is doing somewhat better, but she is still having quite a bit of wheezing and tightness in her lungs. The patient's potassium was slightly low at 3.3 and INR is 3.2. Pharmacy should be following that INR. MEDICATIONS: The patient is on Levaquin. PHYSICAL EXAMINATION: VITAL SIGNS: Otherwise, include blood pressure 140/80, respiratory rate 20, pulse 78, low-grade temperature of 99 and room air oxygen 95%. GENERAL: Otherwise, the patient is alert and oriented, says she feels a little better. LUNGS: Show expiratory and inspiratory wheezes, but there is more air between those and so sounds much better overall. IMPRESSION: Acute on top of chronic exacerbation of chronic obstructive pulmonary disease, acute respiratory failure, hypoxia, sinus tachycardia, morbid obesity and paralysis in the lower extremities. Continue aggressive pulmonary toilet and IV antibiotic therapy and make further evaluation on her as she progresses. HUNG HAMMOND MD DR: ALEXIA/oscar JOB#: [id number] / [id number]
[2018-03-02] MEDS: INSULIN LISPRO 300 UNITS/3 ML INSULN.PEN. SQ SCH ×3 (08:00→17:00)
[2018-03-02] MEDS: metFORMIN 500 MG TABLET PO SCH ×2 (08:07→17:14)
[2018-03-02] MEDS: glyBURIDE 5 MG TABLET PO SCH (08:07)
[2018-03-02] MEDS: FUROSEMIDE 40 MG/4 ML VIAL IVP SCH (08:08)
[2018-03-02] MEDS: guaiFENesin DM 200MG/20MG 10 ML SYRUP PO PRN (08:08)
[2018-03-02] MEDS: LACTOBACILLUS RHAMNOSUS GG 1 CAPSULE. PO SCH ×2 (08:13→20:51)
[2018-03-02 10:30] VITALS: BP 113/73
[2018-03-02] MEDS: predniSONE 20 MG TABLET PO SCH (10:45)
[2018-03-02] MEDS: MUPIROCIN 2% TOPICAL OINTMENT 22GM TUBE. TP SCH ×2 (10:45→20:50)
[2018-03-02] MEDS: PARoxetine 20 MG TABLET PO SCH (11:58)
--- NOTE | 2018-03-02 11:58 | PN ---
DATE: SUBJECTIVE: The patient is resting comfortably, breathing a little bit easier, still wheezy throughout. We will try her on some additional medication and see if this does not help her. PHYSICAL EXAMINATION: GENERAL: Otherwise, the patient says she is feeling better, but still wheezy. VITAL SIGNS: Her blood pressure is 130/80, respiratory rate 20, pulse 93. She has been afebrile. LUNGS: The patient's lungs showed some inspiratory and expiratory wheezes, but much improved from yesterday and the day before, but still tight. PLAN: We will continue with breathing treatments and hopefully ready for discharge here soon. IMPRESSION: Acute exacerbation of chronic obstructive pulmonary disease. HUNG HAMMOND MD DR: ALEXIA/oscar JOB#: [id number] / [id number]
[2018-03-02 15:00] VITALS: BP 143/85
[2018-03-02] MEDS: WARFARIN 5 MG TABLET. PO SCH (17:13)
[2018-03-02 18:16] VITALS: BP 138/79
[2018-03-02] MEDS: ALPRAZolam 0.5 MG TABLET PO SCH (20:51)
[2018-03-02] MEDS: SIMVASTATIN 40 MG TABLET. PO SCH (20:51)
[2018-03-02] MEDS: ATENOLOL 50 MG TABLET PO SCH (20:51)
[2018-03-02] MEDS ORDERED: levoFLOXacin 500 MG TABLET PO SCH (21:00)
[2018-03-02 23:17] VITALS: BP 110/74
[2018-03-03] MEDS: HYDROcodone/APAP 5/325MG 1 TAB TABLET PO PRN ×2 (03:44→15:42)
[2018-03-03] MEDS: IPRATRPIUM/ALBUTEROL 0.5/2.5MG 3 ML NEBU. NEB SCH ×2 (04:49→11:06)
[2018-03-03 05:23] VITALS: BP 122/78
[2018-03-03] MEDS: INSULIN LISPRO 300 UNITS/3 ML INSULN.PEN. SQ SCH ×2 (07:46→12:00)
[2018-03-03] MEDS: FUROSEMIDE 40 MG/4 ML VIAL IVP SCH (07:55)
[2018-03-03] MEDS: MUPIROCIN 2% TOPICAL OINTMENT 22GM TUBE. TP SCH (07:55)
[2018-03-03] MEDS: LACTOBACILLUS RHAMNOSUS GG 1 CAPSULE. PO SCH (07:55)
[2018-03-03] MEDS: metFORMIN 500 MG TABLET PO SCH (07:55)
[2018-03-03] MEDS: predniSONE 20 MG TABLET PO SCH (07:55)
[2018-03-03] MEDS: guaiFENesin DM 200MG/20MG 10 ML SYRUP PO PRN (10:15)
[2018-03-03] MEDS: ALBUTEROL SULFATE 2.5 MG/3 ML NEBU. NEB PRN (11:00)
[2018-03-03 11:10] VITALS: BP 130/80
--- NOTE | 2018-03-03 11:37 | RAD ---
EXAM: CT Abdomen and Pelvis without IV contrast CLINICAL HISTORY: RUQ PAIN N/V. COMPARISON: none TECHNIQUE: Helical CT of the abdomen and pelvis without intravenous contrast. Coronal and sagittal reformatted images were generated. PQRS compliance statement - One or more of the following individualized dose reduction techniques were utilized for this study: 1. Automated exposure control 2. Adjustment of the mA and/or kV according to patient size 3. Use of iterative reconstruction technique FINDINGS: Lack of intravenous contrast limits evaluation of solid organs, vasculature, and lymph nodes. Lower chest: Dependent opacities in the left lower lobe likely scarring/atelectasis. No lobar consolidation. PICC tip is seen within the right atrium Abdomen and Pelvis: Liver is unremarkable. Gallbladder is normal. Spleen is normal. Adrenal glands pancreas are unremarkable. No abdominal or pelvic lymphadenopathy by size criteria. No abdominal or pelvic ascites. The small and large bowel are normal in caliber without evidence of bowel obstruction. Moderate colonic stool content. Colonic diverticulosis without evidence of acute diverticulitis. Gas and Zaidi catheter are seen within the bladder. Bones: Degenerative changes of the spine are seen. No definite aggressive osseous lesion identified. IMPRESSION: 1. The gallbladder is normal. No cholecystitis. No biliary ductal dilatation. 2. Liver is unremarkable. 3. No evidence for bowel obstruction. 4. No renal tract calculi. 5. Colonic diverticulosis without evidence of acute diverticulitis. Electronically signed by: Jackson Fontana MD (03/03/2018 11:35 AM) [id number]
[2018-03-03 13:10] LABS: BASO # 0.1 x10^3/uL (0.0-0.2); BASO % 1 % (0-3); EOS # 0.1 x10^3/uL (0.0-0.7); EOS % 1 % (0-3); HEMATOCRIT 38.9 % (36.0-47.0); HEMOGLOBIN 12.6 g/dL (12.0-15.5); LYMPH # 1.5 x10^3/uL (1.0-4.8); LYMPH % 12 % (24-48); MEAN CORPUSCULAR HEMOGLOBIN 29 pg (25-35); MEAN CORPUSCULAR HGB CONC 32 g/dL (31-37); MEAN CORPUSCULAR VOLUME 89 fL (79-100); MONO # 0.3 x10^3/uL (0.0-1.1); MONO % 2 % (0-9); NEUT # 10.8 x10^3uL (1.8-7.7); NEUT % 85 % (31-73); PLATELET COUNT 313 x10^3/uL (140-400); RED CELL DISTRIBUTION WIDTH 14.7 % (11.5-14.5); WHITE BLOOD COUNT 12.8 x10^3/uL (4.0-11.0)
[2018-03-03 13:17] LABS: CALCIUM 9.7 mg/dL (8.5-10.1); CREATININE 1.1 mg/dL (0.6-1.0); GFR 49.4; POTASSIUM 4.4 mmol/L (3.5-5.1)
[2018-03-03] MEDS ORDERED: PRED5TAB PO (13:47)
[2018-03-03] MEDS ORDERED: WARF-78 PO (13:47)
[2018-03-03] MEDS ORDERED: WARFARIN 5 MG TABLET. PO SCH (16:00)
== END 2018-03-03 15:55 | disposition home health service (06) | DRG 871 ==
LOC: ER 14:09 → 1 SOUTH 15:45 → ER 16:57
PROVIDERS: ADMIT Family Medicine; ATTEND Family Medicine
DX: A41.9 Sepsis, unspecified organism (principal); J96.01 Acute respiratory failure with hypoxia; N39.0 Urinary tract infection, site not specified; Z68.41 Body mass index [BMI] 40.0-44.9, adult; J44.1 Chronic obstructive pulmonary disease with (acute) exacerbation; E66.01 Morbid (severe) obesity due to excess calories; F32.9 Major depressive disorder, single episode, unspecified; Z96.659 Presence of unspecified artificial knee joint; F41.9 Anxiety disorder, unspecified; M19.90 Unspecified osteoarthritis, unspecified site; G62.9 Polyneuropathy, unspecified; G83.9 Paralytic syndrome, unspecified; I10 Essential (primary) hypertension; E78.00 Pure hypercholesterolemia, unspecified; E11.9 Type 2 diabetes mellitus without complications; I25.10 Atherosclerotic heart disease of native coronary artery without angina pectoris; Z82.49 Family history of ischemic heart disease and other diseases of the circulatory system; Z80.9 Family history of malignant neoplasm, unspecified; Z86.14 Personal history of Methicillin resistant Staphylococcus aureus infection; Z83.3 Family history of diabetes mellitus; Z87.440 Personal history of urinary (tract) infections; Z87.891 Personal history of nicotine dependence; Z88.8 Allergy status to other drugs, medicaments and biological substances; Z79.899 Other long term (current) drug therapy; Z99.3 Dependence on wheelchair
CPT/HCPCS: 36415; 71045; 71046; 74176; 80048; 80053; 81001; 82553; 82947; 83036; 83605; 83880; 84484; 85025; 85379; 85610; 87086; 87641; 93005; 94640; 96374; G0238; J0696; J1815; J1940; J1956; J2997; J7512; J7613; J7620; 99285-25; J7030

== ENCOUNTER 2018-05-26 02:29 | Inpatient (IN) | payer OTHER ==
[~2018-05-26] VITALS: Ht 175.3 cm; Wt 130.4 kg
[~2018-05-26 02:29] MED LIST changes: +CEFT1VIA13 IVP; -CEFT1VIA6 IVP; +GLYB2.5T2 PO; -METF10003 PO; +METF10007 PO; +METF500T16 PO; -METF500T5 PO; +PRED5TAB PO; +SENN-142 PO; +WARF-78 PO
[2018-05-26] MEDS ORDERED: IV NORMAL SALINE 1,000ML 1,000 ML IV SCH (02:42)
[2018-05-26] MEDS ORDERED: ONDANSETRON PF 4 MG/2 ML VIAL. IV ONE (02:45)
[2018-05-26] MEDS ORDERED: FAMOTIDINE 20 MG/2 ML VIAL IVP ONE (02:45)
--- NOTE | 2018-05-26 02:48 | ED.ADGEN ---
Past History Past Medical History: Anxiety, Diabetes, DVT, Hypertension, UTI, Vascular Disease Past Surgical History: Cervical Fusion, Knee Replacement Alcohol Use: None Drug Use: None Adult General Chief Complaint Chief Complaint ".. I been vomiting since about 1.. (am).. I hurt right here in the pit of my stomach...I just so nauseated...'" [facility] HPI Patient is a 67 year old female who presents with epigastric pain , nausea , vomiting constantly since 0100 hrs. Pt. denies any bad food or travel or sick contacts. Pt. states ate chicken and green beans at 2000 hrs. Pt. states no one else got sick eating same foods. Pt. has hx of urinary incontinence. Patient has history of diabetes and hypertension. Has had periodic episodes of UTIs. with a chronic Zaidi placement. Patient denies any travel or specific ill contacts. Pt. has some epigastric pain and radiates to Rt. shoulder. There is a strong family hx of gall bladder dz in family. Patient normally follows with Dr. Hamilton. Review of Systems Review of Systems Constitutional: Denies fever or chills [] Eyes: Denies change in visual acuity, redness, or eye pain [] HENT: Denies nasal congestion or sore throat [] Respiratory: Denies cough or shortness of breath [] Cardiovascular: No additional information not addressed in HPI [] GI: Complaints of epigastric abdominal pain, nausea, vomiting. Denies, bloody stools or diarrhea [] : Denies dysuria or hematuria [] Musculoskeletal: Denies back pain or joint pain [] Integument: Denies rash or skin lesions [] Neurologic: Denies headache, focal weakness or sensory changes [] Endocrine: Denies polyuria or polydipsia [] All other systems were reviewed and found to be within normal limits, except as documented in this note. Family History Family History Diabetes and hypertension, gall bladder dz. Current Medications Current Medications See nursing for home meds Allergies Allergies See nursing for allergies Physical Exam Physical Exam Constitutional: in acute distress, non-toxic appearance. [] HENT: Normocephalic, atraumatic, bilateral external ears normal, oropharynx moist, no oral exudates, nose normal. Poor dentition. Eyes: PERRLA, EOMI, conjunctiva normal, no discharge. [] Neck: Normal range of motion, no tenderness, supple, no stridor. [] Surgical scar. Cardiovascular: Tachycardia Heart rate regular rhythm, no murmur []PMI to the left Lungs & Thorax: Bilateral breath sounds clear to auscultation [] Abdomen: Bowel sounds decreased, soft, epigastric tenderness, no masses, no pulsatile masses. [] Morbidly obese. Patient declines Rectal exam at this time. Zaidi Skin: Warm, dry, no erythema, no rash. [] Back: No tenderness, no CVA tenderness. [] Extremities: No tenderness, no cyanosis, no clubbing, ROM intact, ankle edema. [ ]Surgical scar knee right Neurologic: Alert and oriented X 3, decreased plantar sensory function, no focal deficits noted. []Moves all extremities on request Psychologic: Affect anxious, judgement normal, mood normal. [] Current Patient Data Vital Signs Vital Signs Date Time Temp Pulse Resp B/P (MAP) Pulse Ox O2 Delivery O2 Flow Rate FiO2 05/26/18 02:29 98.2 20 97 Room Air EKG EKG My interpretation of EKG shows a sinus tachycardia to 107 . Some nonspecific anterior septal changes. Nonspecific T-wave changes. No findings acute STEMI with contralateral changes.[] Radiology/Procedures Radiology/Procedures Pt. refusing X-rays and CT currently. Course & Med Decision Making Course & Med Decision Making Pertinent Labs and Imaging studies reviewed. (See chart for details) Patient refusing acute abdomen film. Patient also refusing CT of abdomen. Discussed presentation testing and treatment plan with . Will admit for further evaluation and tx. [] Final Impression Final Impression 1. Nausea and Vomiting 2. Epigastric Pain[] 3. Leukocytosis- 14.3 & Elevated [place] 4. Hypokalemia 3.1 5. DM glucose 143 6. Therapeutic INR 2.8 7. Suspect biliary colic Dragon Disclaimer Dragon Disclaimer This electronic medical record was generated, in whole or in part, using a voice recognition dictation system. STEPHENIE WHALEN MD May 26, 2018 02:48
--- NOTE | 2018-05-26 03:30 | EKG ---
[address] [address] Test Date: 2018-05-26 Test Time: 02:50:17 Pat Name: JAKI WILSON Department: Room: Gender: F Paper Maker: : [id number] Requested By: STEPHENIE WHALEN Order Number: [id number] Reading MD: Ryan Hannon Measurements Intervals [place] Rate: 107 P: 38 CT: 178 QRS: -20 QRSD: 90 T: 25 QT: 338 QTc: 457 Interpretive Statements SINUS TACHYCARDIA LEFTWARD AXIS QRS(T) CONTOUR ABNORMALITY CONSIDER ANTEROSEPTAL MYOCARDIAL DAMAGE T ABNORMALITY IN ANTERIOR LEADS ABNORMAL ECG Electronically Signed On 05-26-2018 14:33:02 SOLDERER by Ryan Hannon
[2018-05-26 03:33] LABS: BASO # 0.1 x10^3/uL (0.0-0.2); BASO % 1 % (0-3); EOS # 0.1 x10^3/uL (0.0-0.7); EOS % 0 % (0-3); HEMATOCRIT 38.5 % (36.0-47.0); HEMOGLOBIN 12.4 g/dL (12.0-15.5); LYMPH # 4.1 x10^3/uL (1.0-4.8); LYMPH % 28 % (24-48); MEAN CORPUSCULAR HEMOGLOBIN 29 pg (25-35); MEAN CORPUSCULAR HGB CONC 32 g/dL (31-37); MEAN CORPUSCULAR VOLUME 89 fL (79-100); MONO # 1.5 x10^3/uL (0.0-1.1); MONO % 10 % (0-9); NEUT % 61 % (31-73); PLATELET COUNT 352 x10^3/uL (140-400); RED BLOOD COUNT 4.34 x10^6/uL (3.50-5.40); RED CELL DISTRIBUTION WIDTH 15.3 % (11.5-14.5); WHITE BLOOD COUNT 14.8 x10^3/uL (4.0-11.0)
[2018-05-26 03:41] LABS: ALBUMIN 3.1 g/dL (3.4-5.0); CALCIUM 8.7 mg/dL (8.5-10.1); CREATININE 0.9 mg/dL (0.6-1.0); DIRECT BILIRUBIN 0.1 mg/dL (0.0-0.2); GFR 62.3; POTASSIUM 3.1 mmol/L (3.5-5.1); TOTAL BILIRUBIN 0.5 mg/dL (0.2-1.0); TOTAL PROTEIN 6.7 g/dL (6.4-8.2)
[2018-05-26] MEDS ORDERED: POTASSIUM CL 40MEQ IN 0.9%NACL 1,000 ML IV ONE ×2 (04:00→04:15)
[2018-05-26] MEDS ORDERED: diphenhydrAMINE 50 MG/ML VIAL IVP ONE (04:15)
[2018-05-26] MEDS ORDERED: cefTRIAXone IV Push 1 GM VIAL. IVP ONE (04:15)
[2018-05-26] MEDS ORDERED: PROCHLORPERAZINE 10 MG/2 ML VIAL. IV ONE (04:15)
[2018-05-26] MEDS ORDERED: ONDANSETRON PF 4 MG/2 ML VIAL. IV PRN (04:15)
[2018-05-26] MEDS ORDERED: IOHEXOL 300 MG/ML 75 ML VIAL. IV ONE ×3 (04:45→14:30)
[2018-05-26] MEDS ORDERED: IOHEXOL 240 MG/ML 50ML VIAL. PO ONE ×2 (04:45→05:45)
[2018-05-26] MEDS ORDERED: CONTRAST GIVEN MC PRN (05:45)
[2018-05-26 06:36] LABS: BACTERIA,URINE MANY /HPF (0-FEW); BILIRUBIN,URINE NEG (NEG); CLARITY,URINE HAZY; COLOR,URINE YELLOW; GLUCOSE,URINE NEG (NEG); NITRITE,URINE POS (NEG); SQUAMOUS EPITHELIAL CELL,UR OCC /LPF; UROBILINOGEN,URINE 0.2 mg/dL (0.2 mg/dL); WBC,URINE 20-40 /HPF (0-4); YEAST,URINE PRESENT /HPF
[2018-05-26 06:39] LABS: BARBITURATES NEG (NEG); BENZODIAZEPINES POS (NEG); CANNABINOIDS NEG (NEG); COCAINE NEG (NEG); METHADONE NEG (NEG); OPIATES POS (NEG); PHENCYCLIDINE NEG (NEG)
[2018-05-26 06:41] LABS: AMPHETAMINE/METHAMPHETAMINE NEG (NEG)
--- NOTE | 2018-05-26 08:02 | RAD ---
EXAM: Frontal view of the chest, AP views of the abdomen in upright and supine positions. CLINICAL INDICATION: nausea and vomiting COMPARISON: None. FINDINGS and IMPRESSION: Of note, this exam had to be performed using portable technique limiting radiographic penetration. Right upper extremity PICC tip projects over the expected distal SVC. The heart is not enlarged. Mediastinal and hilar contours are normal. No focal parenchymal airspace opacity. No pleural effusion or pneumothorax. No abnormal small or large bowel dilatation to suggest bowel obstruction. No free intraperitoneal gas. Electronically signed by: Jackson Fnotana MD (05/26/2018 7:59 AM) [facility]
[2018-05-26] MEDS ORDERED: SENNOSIDES/DOCUSATE 8.6/50MG TABLET. PO PRN (08:30)
[2018-05-26] MEDS ORDERED: ALBUTEROL SULFATE 8GM INHALER. INH PRN (08:30)
[2018-05-26] MEDS ORDERED: diphenhydrAMINE HCL 25 MG CAPSULE PO PRN (08:30)
[2018-05-26] MEDS ORDERED: ACETAMINOPHEN 325 MG TABLET PO PRN (08:30)
[2018-05-26 08:49] VITALS: BP 134/82
[2018-05-26] MEDS ORDERED: predniSONE 5 MG TABLET PO SCH (09:00)
[2018-05-26] MEDS: glyBURIDE 5 MG TABLET PO SCH (09:00)
[2018-05-26] MEDS ORDERED: FUROSEMIDE 40 MG TABLET PO SCH (09:00)
[2018-05-26] MEDS ORDERED: ALBUTEROL SULFATE 2.5 MG/3 ML NEBU. NEB PRN (09:00)
[2018-05-26] MEDS: IPRATRPIUM/ALBUTEROL 0.5/2.5MG 3 ML NEBU. NEB SCH ×3 (10:49→20:44)
[2018-05-26 11:40] VITALS: BP 116/75
[2018-05-26] MEDS: PARoxetine 20 MG TABLET PO SCH (12:00)
[2018-05-26] MEDS ORDERED: WARF1TAB74 PO (12:18)
[2018-05-26] MEDS ORDERED: OXYB5TAB7 PO (13:12)
[2018-05-26] MEDS ORDERED: IOHEXOL 240 MG/ML 50ML VIAL. ONE (14:19)
[2018-05-26] MEDS: HYDROcodone/APAP 5/325MG 1 TAB TABLET PO PRN (15:52)
[2018-05-26] MEDS ORDERED: WARFARIN 4 MG TABLET. PO SCH (16:00)
[2018-05-26 16:01] VITALS: BP 135/61
[2018-05-26] MEDS: WARFARIN 5 MG TABLET. PO SCH (16:50)
--- NOTE | 2018-05-26 16:59 | RAD ---
EXAM: CT Abdomen and Pelvis with IV contrast CLINICAL HISTORY: ABDOMINAL PAIN WITH NAUSEA/VOMITING FOR A FEW DAYS. ORAL AND 75MLS OMNI 300 IV CONTRAST. COMPARISON: 03/03/2018 TECHNIQUE: Helical CT of the abdomen and pelvis was performed following the administration of intravenous contrast. s Axial, coronal and sagittal reformatted images were generated. PQRS compliance statement - One or more of the following individualized dose reduction techniques were utilized for this study: 1. Automated exposure control 2. Adjustment of the mA and/or kV according to patient size 3. Use of iterative reconstruction technique FINDINGS: Lower chest: Patchy parenchymal opacities in the left lower lobe likely atelectasis or consolidation. Linear bilateral lower lobe opacities possibly atelectasis or scarring. Abdomen and Pelvis: No focal liver lesion. Gallbladder is normal. No biliary ductal dilatation. Spleen is unremarkable. Adrenal glands are normal. Pancreas is unremarkable. Symmetric nephrograms. No focal renal lesion. No hydronephrosis. Appendix is normal. Moderate colonic stool content is seen. No evidence for bowel obstruction. Colonic diverticula are seen however no evidence for acute diverticulitis. Atherosclerotic scarring calcifications of the aorta are seen. No abdominal or pelvic ascites or lymphadenopathy. Bladder is decompressed with associated Zaidi catheter. Tiny fat-containing periumbilical hernia is seen. Bones: Osseous structures are grossly stable. Degenerative changes of the spine are seen. IMPRESSION: 1. No evidence for bowel obstruction. 2. Clonic diverticulosis without acute diverticulitis. 3. No evidence for acute cholecystitis-the gallbladder is normal in appearance. 4. No hydronephrosis Electronically signed by: Jackson Fontana MD (05/26/2018 4:56 PM) [facility]
[2018-05-26 18:45] VITALS: BP 138/73
[2018-05-26] MEDS: LACTOBACILLUS RHAMNOSUS GG 1 CAPSULE. PO SCH (20:59)
[2018-05-26] MEDS ORDERED: ALPRAZolam 0.5 MG TABLET PO SCH (21:00)
[2018-05-26] MEDS: OXYBUTYNIN CHLORIDE 5 MG TABLET PO SCH (21:00)
[2018-05-26] MEDS: ATENOLOL 50 MG TABLET PO SCH (21:00)
[2018-05-26] MEDS: ALPRAZolam 0.5 MG TABLET PO PRN (21:01)
[2018-05-26] MEDS: SIMVASTATIN 40 MG TABLET. PO SCH (21:01)
[2018-05-26] MEDS: NYSTATIN TOPICAL POWDER 15GM BOTTLE. TP SCH (21:02)
[2018-05-26 23:15] VITALS: BP 144/84
[2018-05-27] MEDS: HYDROcodone/APAP 5/325MG 1 TAB TABLET PO PRN (01:38)
[2018-05-27] MEDS: IPRATRPIUM/ALBUTEROL 0.5/2.5MG 3 ML NEBU. NEB SCH ×4 (05:27→20:00)
[2018-05-27] MEDS: cefTRIAXone IV Push 1 GM VIAL. IVP SCH (05:45)
[2018-05-27] MEDS: ALPRAZolam 0.5 MG TABLET PO PRN ×2 (05:45→20:27)
[2018-05-27 05:49] VITALS: BP 124/80
[2018-05-27] MEDS ORDERED: HYDROcodone/APAP 5/325MG 1 TAB TABLET PO PRN (07:15)
[2018-05-27 07:41] LABS: BASO # 0.1 x10^3/uL (0.0-0.2); BASO % 1 % (0-3); EOS # 0.3 x10^3/uL (0.0-0.7); EOS % 3 % (0-3); HEMATOCRIT 35.3 % (36.0-47.0); HEMOGLOBIN 11.4 g/dL (12.0-15.5); LYMPH # 3.2 x10^3/uL (1.0-4.8); LYMPH % 33 % (24-48); MEAN CORPUSCULAR HEMOGLOBIN 29 pg (25-35); MEAN CORPUSCULAR HGB CONC 32 g/dL (31-37); MEAN CORPUSCULAR VOLUME 90 fL (79-100); MONO # 0.9 x10^3/uL (0.0-1.1); MONO % 9 % (0-9); NEUT # 5.3 x10^3uL (1.8-7.7); NEUT % 54 % (31-73); PLATELET COUNT 251 x10^3/uL (140-400); RED BLOOD COUNT 3.91 x10^6/uL (3.50-5.40); RED CELL DISTRIBUTION WIDTH 15.2 % (11.5-14.5); WHITE BLOOD COUNT 9.8 x10^3/uL (4.0-11.0)
[2018-05-27 07:49] LABS: CALCIUM 8.9 mg/dL (8.5-10.1); CREATININE 0.7 mg/dL (0.6-1.0); GFR 83.2; POTASSIUM 3.7 mmol/L (3.5-5.1)
[2018-05-27] MEDS: NYSTATIN TOPICAL POWDER 15GM BOTTLE. TP SCH ×2 (08:31→20:28)
[2018-05-27] MEDS: predniSONE 10 MG TABLET PO SCH (08:31)
[2018-05-27] MEDS: glyBURIDE 5 MG TABLET PO SCH (08:31)
[2018-05-27] MEDS: OXYBUTYNIN CHLORIDE 5 MG TABLET PO SCH ×3 (08:31→20:28)
[2018-05-27] MEDS: LACTOBACILLUS RHAMNOSUS GG 1 CAPSULE. PO SCH ×2 (08:33→20:28)
[2018-05-27 10:47] VITALS: BP 133/77
[2018-05-27] MEDS: HYDROcodone/APAP 7.5/325MG 1 TAB TABLET PO PRN ×2 (11:56→20:27)
[2018-05-27] MEDS: PARoxetine 20 MG TABLET PO SCH (11:57)
[2018-05-27 15:01] VITALS: BP 137/78
[2018-05-27] MEDS: WARFARIN 5 MG TABLET. PO SCH (16:50)
[2018-05-27 19:00] VITALS: BP 138/90
[2018-05-27] MEDS: SIMVASTATIN 40 MG TABLET. PO SCH (20:28)
[2018-05-27] MEDS: ATENOLOL 50 MG TABLET PO SCH (20:28)
[2018-05-27 23:00] VITALS: BP 144/81
[2018-05-28] MEDS: IPRATRPIUM/ALBUTEROL 0.5/2.5MG 3 ML NEBU. NEB SCH ×4 (05:18→20:52)
[2018-05-28] MEDS: cefTRIAXone IV Push 1 GM VIAL. IVP SCH (06:16)
[2018-05-28 06:37] VITALS: BP 135/78
[2018-05-28] MEDS: LACTOBACILLUS RHAMNOSUS GG 1 CAPSULE. PO SCH ×2 (08:21→20:45)
[2018-05-28] MEDS: OXYBUTYNIN CHLORIDE 5 MG TABLET PO SCH ×3 (08:21→20:45)
[2018-05-28] MEDS: predniSONE 10 MG TABLET PO SCH (08:21)
[2018-05-28] MEDS: glyBURIDE 5 MG TABLET PO SCH (08:21)
[2018-05-28] MEDS: metFORMIN 500 MG TABLET PO SCH ×2 (08:21→16:37)
[2018-05-28] MEDS: NYSTATIN TOPICAL POWDER 15GM BOTTLE. TP SCH ×2 (08:22→20:46)
[2018-05-28] MEDS: HYDROcodone/APAP 7.5/325MG 1 TAB TABLET PO PRN ×2 (09:23→20:46)
[2018-05-28 11:09] VITALS: BP 127/80
[2018-05-28] MEDS: PARoxetine 20 MG TABLET PO SCH (13:15)
[2018-05-28] MEDS: ALPRAZolam 0.5 MG TABLET PO PRN ×2 (13:15→22:27)
[2018-05-28 15:49] VITALS: BP 130/68
[2018-05-28] MEDS: WARFARIN 5 MG TABLET. PO SCH (16:37)
[2018-05-28] MEDS: FLUTICASONE 50MCG/NASAL SPRAY 16GM BOTTLE. NS PRN (17:11)
[2018-05-28 20:15] VITALS: BP 109/73
[2018-05-28] MEDS: SIMVASTATIN 40 MG TABLET. PO SCH (20:45)
[2018-05-28] MEDS: ATENOLOL 50 MG TABLET PO SCH (20:45)
[2018-05-28 22:51] VITALS: BP 116/72
--- NOTE | 2018-05-28 23:20 | PN ---
DATE: 05/28/2020 SUBJECTIVE: The patient with nausea, vomiting, and epigastric pain, doing much better overall. The patient also receiving some IV antibiotics for constant bladder infection. She is unresponsive to oral antibiotics. OBJECTIVE: VITAL SIGNS: Blood pressure 127/80, respiratory rate 20, pulse 90, and afebrile. GENERAL: The patient is alert and oriented. LUNGS: Diminished throughout, poor movement of air. CARDIOVASCULAR: Regular sinus rhythm. ABDOMEN: Soft, nontender, no rebound or guarding. Positive bowel sounds. No hepatosplenomegaly noted. EXTREMITIES: No clubbing, cyanosis or edema. NEUROLOGIC: The patient was alert and oriented x3. The patient otherwise at the present time seems to be good. LABORATORY DATA: Urine was very concentrated, probably got culture after she had her first dose of IV antibiotic therapy. ASSESSMENT: In any case, systemic inflammatory response syndrome, abdominal pain with nausea, vomiting, dehydration, morbid obesity, type 2 diabetes. PLAN: Continue to monitor the patient accordingly and make further evaluation on her as indicated. HUNG HAMMOND MD DR: ALEXIA/oscar JOB#: [id number] / [id number]
[2018-05-29] MEDS: IPRATRPIUM/ALBUTEROL 0.5/2.5MG 3 ML NEBU. NEB SCH ×4 (05:12→21:21)
[2018-05-29 05:53] VITALS: BP 117/80
[2018-05-29] MEDS: cefTRIAXone IV Push 1 GM VIAL. IVP SCH (06:29)
[2018-05-29] MEDS: metFORMIN 500 MG TABLET PO SCH ×2 (08:12→16:33)
[2018-05-29] MEDS: OXYBUTYNIN CHLORIDE 5 MG TABLET PO SCH ×3 (08:13→21:04)
[2018-05-29] MEDS: LACTOBACILLUS RHAMNOSUS GG 1 CAPSULE. PO SCH ×2 (08:13→21:04)
[2018-05-29] MEDS: glyBURIDE 5 MG TABLET PO SCH (08:13)
[2018-05-29] MEDS: predniSONE 10 MG TABLET PO SCH (08:13)
[2018-05-29] MEDS: NYSTATIN TOPICAL POWDER 15GM BOTTLE. TP SCH ×2 (10:14→21:04)
[2018-05-29 10:59] VITALS: BP 132/85
[2018-05-29] MEDS: PARoxetine 20 MG TABLET PO SCH (12:12)
[2018-05-29 14:57] VITALS: BP 144/81
[2018-05-29] MEDS: WARFARIN 5 MG TABLET. PO SCH (16:33)
[2018-05-29] MEDS: FLUTICASONE 50MCG/NASAL SPRAY 16GM BOTTLE. NS PRN (16:33)
--- NOTE | 2018-05-29 17:17 | PN ---
DATE: SUBJECTIVE: The patient is resting fairly comfortably recovering from what appeared to be like sepsis. She is feeling a little bit stronger, but needs continue to be monitored on IV antibiotic therapy. OBJECTIVE: VITAL SIGNS: Blood pressure 117/80, respiratory rate 20, pulse 90 and afebrile. GENERAL: The patient is alert and oriented. LUNGS: Diminished, but clear. CARDIOVASCULAR: Stable. ABDOMEN: Soft, protuberant, nontender. EXTREMITIES: No clubbing, cyanosis. Trace edema, generalized weakness in the extremities. IMPRESSION AND PLAN: Continue to monitor her accordingly with IV antibiotic therapy. Systemic inflammatory response syndrome, abdominal pain with nausea, vomiting, dehydration, morbid obesity, type 2 diabetes, recurrent urinary tract infection, unresponsive to oral antibiotics. HUNG HAMMOND MD DR: ALEXIA/oscar JOB#: [id number] / [id number]
[2018-05-29 19:59] VITALS: BP 155/84
[2018-05-29] MEDS: SIMVASTATIN 40 MG TABLET. PO SCH (21:04)
[2018-05-29] MEDS: ATENOLOL 50 MG TABLET PO SCH (21:04)
[2018-05-29] MEDS: HYDROcodone/APAP 7.5/325MG 1 TAB TABLET PO PRN (23:13)
[2018-05-29] MEDS: ALPRAZolam 0.5 MG TABLET PO PRN (23:13)
[2018-05-29 23:15] VITALS: BP 136/81
[2018-05-30] MEDS: IPRATRPIUM/ALBUTEROL 0.5/2.5MG 3 ML NEBU. NEB SCH ×2 (05:23→09:31)
[2018-05-30] MEDS: cefTRIAXone IV Push 1 GM VIAL. IVP SCH (05:35)
[2018-05-30 05:48] VITALS: BP 128/78
[2018-05-30] MEDS: glyBURIDE 5 MG TABLET PO SCH (08:00)
[2018-05-30] MEDS: LACTOBACILLUS RHAMNOSUS GG 1 CAPSULE. PO SCH (08:00)
[2018-05-30] MEDS: OXYBUTYNIN CHLORIDE 5 MG TABLET PO SCH (08:01)
[2018-05-30] MEDS: HYDROcodone/APAP 7.5/325MG 1 TAB TABLET PO PRN (08:01)
[2018-05-30] MEDS: predniSONE 10 MG TABLET PO SCH (08:01)
[2018-05-30] MEDS: NYSTATIN TOPICAL POWDER 15GM BOTTLE. TP SCH (08:01)
[2018-05-30] MEDS: metFORMIN 500 MG TABLET PO SCH (08:01)
[2018-05-30] MEDS ORDERED: FLUT16SP21 NS (10:41)
[2018-05-30] MEDS ORDERED: NYST60PO TP (10:41)
[2018-05-30] MEDS ORDERED: PRED-220 PO (10:41)
--- NOTE | 2018-05-30 10:44 | DISCH ---
HOME HEALTH DISCHARGE/MEDS DISCHARGE INFORMATION: Final Diagnosis: Problems Medical Problems: (1) Nausea and vomiting Status: Acute Condition on Discharge: Stable CODE STATUS: Code Status: Full HOME HEALTH: Face to Face: I certify this patient is under my care and that I, or a nurse practitioner or physician's assistant chief train dispatcher working with me, had a face to face encounter that meets the physician face to face encounter requirements with this patient on [Date]. Medical Condition(s): Other Jail For: Urinary Catheter Care Homebound Status Met By: Unable to negotiate home POST DISCHARGE ORDERS: Activity Instructions for Disc: Activity as tolerated Weight Bearing Status after Di: As tolerated DIET AFTER DISCHARGE: ADA CHECKS AFTER DISCHARGE: Checks after discharge: Check blood sugar, ac/hs CERTIFICATION STATEMENT: Certification Statement: Based on the above finding, I certify that this patient is confined to the home and needs intermittent alf care, physical therapy and/or speech therapy, or continues to need occupational therapy.~ This patient is under my care, and I have initiated the establishment of the plan of care.~ This patient will be followed by myself or a community physician who will periodically review the plan of care. DISCHARGE MEDICATIONS: Home Meds Active Scripts Fluticasone Propionate (FLUTICASONE PROPIONATE NASAL SPRAY) 16 Gm Dennis.susp, 2 SPRAY NS PRN BID PRN for ALLERGIES, #1 SPRAY Prov:HUNG HAMMOND MD 05/30/18 Prednisone (PREDNISONE) 10 Mg Tablet, 10 MG PO DAILY for inflammation, #30 TAB Prov:HUNG HAMMOND MD 05/30/18 Nystatin (NYSTOP) 60 Gm Powder, 1 GENIA TP BID for yeast, #1 MISC Prov:HUNG HAMMOND MD 05/30/18 Acetaminophen (TYLENOL) 325 Mg Tablet, 650 MG PO PRN Q6HRS PRN for MILD PAIN / TEMP, #30 TAB Prov:HUNG HAMMOND MD 11/09/17 Ipratropium/Albuterol Sulfate (DUONEB 0.5-3(2.5) MG/3 ML) 3 Ml Ampul.neb, 3 ML NEB RTQID, #120 EACH Prov:HUNG HAMMOND MD 03/07/17 Reported Medications Oxybutynin Chloride (OXYBUTYNIN CHLORIDE) 5 Mg Tablet, 1 TAB PO TID for BLADDER SPASM, #60 TAB 11 Refills 05/26/18 Warfarin Sodium (COUMADIN) 1 Mg Tablet, 5 TAB PO DAILY16 for PREVENT BLLOD CLOTS , #30 TAB 5 Refills 05/26/18 Glyburide (GLYBURIDE) 2.5 Mg Tablet, 1 TAB PO DAILY, #30 TAB 5 Refills 02/27/18 Metformin Hcl (METFORMIN HCL) 1,000 Mg Tablet, 1000 MG PO BIDWMEALS for ANTI- DIABETIC LAST DOSE GIVEN: DATE: TODAY TIME: WITH BREAKFAST NEXT DOSE DUE: DATE: TODAY TIME: WITH DINNER 10/26/17 Alprazolam (ALPRAZOLAM) 0.5 Mg Tablet, 1 MG PO TID for ANXIETY LAST DOSE GIVEN: DATE: YESTERDAY TIME: AT BEDTIME NEXT DOSE DUE: DATE: TODAY TIME: AT BEDTIME 10/26/17 Hydrocodone Bit/Acetaminophen (HYDROCODONE-APAP 5-325 ) 1 Each Tablet, 1 TAB PO PRN Q8HRS PRN for PAIN LAST DOSE GIVEN: DATE: TODAY TIME: 05:45 AM NEXT DOSE DUE: DATE: TODAY TIME: IF/WHEN NEEDED 10/26/17 Paroxetine Hcl (PAROXETINE HCL) 40 Mg Tablet, 1 TAB PO DAILYWLUN for depression/ anxiety LAST DOSE GIVEN: DATE: TODAY TIME: WITH LUNCH NEXT DOSE DUE: DATE: TOMORROW TIME: WITH LUNCH 04/11/15 Simvastatin (ZOCOR) 40 Mg Tablet, 40 MG PO HS for FOR CHOLESTEROL LAST DOSE GIVEN: DATE: YESTERDAY TIME: AT BEDTIME NEXT DOSE DUE: DATE: TODAY TIME: AT BEDTIME 04/10/15 Atenolol (ATENOLOL) 25 Mg Tablet, 50 MG PO HS for blood pressure/heart rate LAST DOSE GIVEN: DATE: YESTERDAY TIME: AT BEDTIME NEXT DOSE DUE: DATE: TODAY TIME: AT BEDTIME 04/10/15 HUNG HAMMOND MD May 30, 2018 10:44
--- NOTE | 2018-05-30 12:12 | DS ---
DATE OF DISCHARGE: HOSPITAL COURSE: The patient came in with nausea, vomiting, epigastric pain, dehydration, probable urinary tract infection that was not responsive to oral antibiotics as an outpatient. The patient made excellent progress. She was placed on Rocephin. She did run a low-grade temperature of 99, but that came back down into range. Her urine cultures were collected after she had started IV antibiotic therapy. Her white count went down from 14,000 down to 9,000, hemoglobin 11.4 and 35. Chemistries: Blood sugar also improved while she was in the hospital. Potassium was low at 3.1. The patient made excellent progress during the rest of her hospitalization. She also showed marked dehydration. IMPRESSION: Systemic inflammatory response syndrome; urinary tract infection, unknown organism; hypokalemia; morbid obesity; type 2 diabetes; anemia of chronic disease and dehydration. PLAN: The patient will continue to be followed as an outpatient. Diabetic diet, decreased activity. Home health to follow. HUNG HAMMOND MD DR: ALEXIA/oscar JOB#: [id number] / [id number]
== END 2018-05-30 13:34 | disposition home or self-care (01) | DRG 872 ==
LOC: ER 02:29 → 1 SOUTH 02:30
PROVIDERS: ADMIT Family Medicine; ATTEND Family Medicine
DX: A41.9 Sepsis, unspecified organism (principal); Z68.41 Body mass index [BMI] 40.0-44.9, adult; N30.90 Cystitis, unspecified without hematuria; F41.9 Anxiety disorder, unspecified; E11.9 Type 2 diabetes mellitus without complications; E66.01 Morbid (severe) obesity due to excess calories; Z96.659 Presence of unspecified artificial knee joint; G89.29 Other chronic pain; J41.8 Mixed simple and mucopurulent chronic bronchitis; E86.0 Dehydration; I10 Essential (primary) hypertension; Z86.718 Personal history of other venous thrombosis and embolism; Z87.440 Personal history of urinary (tract) infections; Z82.49 Family history of ischemic heart disease and other diseases of the circulatory system; Z79.899 Other long term (current) drug therapy; Z83.3 Family history of diabetes mellitus; E87.6 Hypokalemia; D63.8 Anemia in other chronic diseases classified elsewhere
CPT/HCPCS: 36415; 74022; 74177; 80048; 80076; 80307; 81001; 82550; 82947; 83690; 84484; 85025; 85610; 85730; 87086; 87641; 93005; 94640; 96361; 96365; 96366; 96375; J0696; J0780; J1200; J2405; J3490; J7512; J7613; J7620; Q9967; 99285-25; J7030

== ENCOUNTER → 2018-11-06 | Outpatient (CLI) | payer OTHER ==
[~2018-11-06] MED LIST changes: +ALBU2.5V8 INH; -ALBU8.5H8 INH; -ATEN25TA PO; +ATEN25TA42 PO; +FLUT16SP21 NS; +HYDR-1179 PO; +HYDR-2155 PO; -HYDR-2758 PO; -HYDR-2762 PO; +HYDR-2765 PO; -HYDR-79 PO; +NYST60PO TP; +OXYB5TAB7 PO; +PRED-220 PO; +WARF1TAB74 PO
--- NOTE | 2018-11-06 11:43 | RAD ---
EXAM: Left lower extremity venous Doppler sonogram. HISTORY: Chronic DVT. TECHNIQUE: Jackson scale and color Doppler sonographic evaluation of the left lower extremity veins with spectral waveform analysis was performed. FINDINGS: The exam is extremely limited due to patient body habitus. The superficial femoral and popliteal veins are not well seen and compression maneuvers are suboptimal. No convincing venous thrombosis is seen within the visualized lower extremity veins. IMPRESSION: No Doppler evidence of lower extremity deep venous thrombosis, with a significantly limited evaluation due to body habitus and inability to obtain sufficient compression views. The superficial femoral and popliteal veins are not adequately seen. Electronically signed by: Sarah Lambert MD (11/06/2018 11:40 AM) [facility]
== END | disposition home or self-care (01) ==
LOC: US 10:47
PROVIDERS: ATTEND Nurse Practitioner Family
DX: I82.502 Chronic embolism and thrombosis of unspecified deep veins of left lower extremity (principal)
CPT/HCPCS: 93971

== ENCOUNTER 2019-04-18 13:34 | Inpatient (IN) | payer OTHER ==
[~2019-04-18] VITALS: Ht 175.3 cm; Wt 130.2 kg
[~2019-04-18 13:34] MED LIST changes: +OXYB5TAB10 PO; -OXYB5TAB7 PO
[2019-04-18 14:18] LABS: BASO % 0 % (0-3); EOS # 0.1 x10^3/uL (0.0-0.7); EOS % 1 % (0-3); HEMATOCRIT 42.2 % (36.0-47.0); HEMOGLOBIN 13.4 g/dL (12.0-15.5); LYMPH # 2.4 x10^3/uL (1.0-4.8); LYMPH % 20 % (24-48); MEAN CORPUSCULAR HEMOGLOBIN 29 pg (25-35); MEAN CORPUSCULAR HGB CONC 32 g/dL (31-37); MEAN CORPUSCULAR VOLUME 91 fL (79-100); MONO # 0.5 x10^3/uL (0.0-1.1); MONO % 4 % (0-9); NEUT # 8.9 x10^3uL (1.8-7.7); NEUT % 74 % (31-73); PLATELET COUNT 402 x10^3/uL (140-400); RED BLOOD COUNT 4.64 x10^6/uL (3.50-5.40); RED CELL DISTRIBUTION WIDTH 15.3 % (11.5-14.5); WHITE BLOOD COUNT 11.9 x10^3/uL (4.0-11.0)
[2019-04-18 14:37] LABS: ALBUMIN 3.7 g/dL (3.4-5.0); ALBUMIN/GLOBULIN RATIO 0.8 (1.0-1.7); CALCIUM 9.4 mg/dL (8.5-10.1); CREATININE 1.2 mg/dL (0.6-1.0); GFR 44.5; MAGNESIUM 1.3 mg/dL (1.8-2.4); POTASSIUM 3.6 mmol/L (3.5-5.1); TOTAL BILIRUBIN 0.3 mg/dL (0.2-1.0); TOTAL PROTEIN 8.1 g/dL (6.4-8.2)
--- NOTE | 2019-04-18 14:38 | RAD ---
CHEST PA LATERAL Clinical indications: Elevated white blood cell count COMPARISON: May 26, 2018. Findings: There is a new finding of linear atelectasis within the left lower lung zone. No lung consolidation or pleural effusion or pulmonary edema or pneumothorax is seen otherwise. The heart size, pulmonary vasculature, mediastinum and both vijaya are unremarkable. Impression: Linear atelectasis within the left lower lung zone. Electronically signed by: Jared Spencer MD (04/18/2019 2:35 PM) [id number]
--- NOTE | 2019-04-18 14:43 | PHYS DOC ---
Past History Past Medical History: Anxiety, Diabetes, DVT, Hypertension, UTI, Vascular Disease Past Surgical History: Cervical Fusion, Knee Replacement Smoking: Non-smoker Alcohol Use: None Drug Use: None Adult General Chief Complaint Chief Complaint: ABNORMAL LABS HPI HPI 68-year-old female presents with report of elevated blood cell count (18) on routine labs on Tuesday. Patient reports she was called by Dr. Hammond's nurse and was told to present to the ER for further evaluation. Patient reports she has been having one-week history of cough and generalized malaise. Reports initially started with some nasal congestion. Denies trauma. Denies abdominal pain. Denies fever or chills. Patient does have a history of indwelling Mendoza catheter for which she was previously treated with Macrobid and Bactrim. Review of Systems Review of Systems Constitutional: Denies fever or chills; reports generalized malaise Eyes: Denies redness or eye pain HENT: Reports nasal congestion; denies sore throat Respiratory: Reports cough; denies shortness of breath Cardiovascular: Denies chest pain or palpitations GI: Denies abdominal pain, nausea, or vomiting : Denies dysuria or hematuria Musculoskeletal: Denies back pain or joint pain Integument: Denies rash or skin lesions Neurologic: Denies headache, focal weakness or sensory changes Complete systems were reviewed and found to be within normal limits, except as documented in this note. Allergies Allergies Allergies Coded Allergies Type Severity Reaction Last Updated Verified amlodipine Allergy Intermediate 05/26/18 Yes atorvastatin Allergy Intermediate 05/26/18 Yes I S O L A T I O N *CONTACT* Allergy Unknown 05/26/18 Yes Physical Exam Physical Exam Constitutional: Well developed, well nourished, no acute distress, non-toxic appearance, obese HENT: Normocephalic, atraumatic, oropharynx moist Eyes: Conjunctiva normal, no discharge Neck: Normal range of motion, no tenderness, supple Cardiovascular: Heart rate normal, regular rhythm Lungs & Thorax: Bilateral breath equal but diminished at bases, no wheezing Abdomen: Soft, no tenderness : Indwelling mendoza cath noted Skin: Warm, dry, no erythema, no rash Extremities: No tenderness, ROM intact, no edema Neurologic: Alert and oriented X 3, no focal deficits noted Psychologic: Affect normal, judgement normal Current Patient Data Vital Signs Vital Signs Date Time Temp Pulse Resp B/P (MAP) Pulse Ox O2 Delivery O2 Flow Rate FiO2 04/18/19 14:11 98.2 101 18 Room Air Lab Results Laboratory Tests Test 04/18/19 14:03 White Blood Count 11.9 x10^3/uL (4.0-11.0) H Red Blood Count 4.64 x10^6/uL (3.50-5.40) Hemoglobin 13.4 g/dL (12.0-15.5) Hematocrit 42.2 % (36.0-47.0) Mean Corpuscular Volume 91 fL (79-100) Mean Corpuscular Hemoglobin 29 pg (25-35) Mean Corpuscular Hemoglobin Concent 32 g/dL (31-37) Red Cell Distribution Width 15.3 % (11.5-14.5) H Platelet Count 402 x10^3/uL (140-400) H Neutrophils (%) (Auto) 74 % (31-73) H Lymphocytes (%) (Auto) 20 % (24-48) L Monocytes (%) (Auto) 4 % (0-9) Eosinophils (%) (Auto) 1 % (0-3) Basophils (%) (Auto) 0 % (0-3) Neutrophils # (Auto) 8.9 x10^3uL (1.8-7.7) H Lymphocytes # (Auto) 2.4 x10^3/uL (1.0-4.8) Monocytes # (Auto) 0.5 x10^3/uL (0.0-1.1) Eosinophils # (Auto) 0.1 x10^3/uL (0.0-0.7) Basophils # (Auto) 0.0 x10^3/uL (0.0-0.2) Prothrombin Time 17.4 SEC (9.4-11.4) H Prothrombin Time INR 1.7 (0.9-1.1) H Activated Partial Thromboplast Time 32 SEC (23-33) Sodium Level 139 mmol/L (136-145) Potassium Level 3.6 mmol/L (3.5-5.1) Chloride Level 97 mmol/L (98-107) L Carbon Dioxide Level 30 mmol/L (21-32) Anion Gap 12 (6-14) Blood Urea Nitrogen 15 mg/dL (7-20) Creatinine 1.2 mg/dL (0.6-1.0) H Estimated GFR (Cockcroft-Gault) 44.5 BUN/Creatinine Ratio 13 (6-20) Glucose Level 202 mg/dL (70-99) H Calcium Level 9.4 mg/dL (8.5-10.1) Magnesium Level 1.3 mg/dL (1.8-2.4) L Total Bilirubin 0.3 mg/dL (0.2-1.0) Aspartate Amino Transferase (AST) 20 U/L (15-37) Alanine Aminotransferase (ALT) 22 U/L (14-59) Alkaline Phosphatase 123 U/L (46-116) H Total Protein 8.1 g/dL (6.4-8.2) Albumin 3.7 g/dL (3.4-5.0) Albumin/Globulin Ratio 0.8 (1.0-1.7) L EKG EKG [] Radiology/Procedures Radiology/Procedures PROCEDURE: CHEST PA & LATERAL CHEST PA LATERAL Clinical indications: Elevated white blood cell count COMPARISON: May 26, 2018. Findings: There is a new finding of linear atelectasis within the left lower lung zone. No lung consolidation or pleural effusion or pulmonary edema or pneumothorax is seen otherwise. The heart size, pulmonary vasculature, mediastinum and both vijaya are unremarkable. Impression: Linear atelectasis within the left lower lung zone. Electronically signed by: Jared Spencer MD (04/18/2019 2:35 PM) [id number] Course & Med Decision Making Course & Med Decision Making Pertinent Labs and Imaging studies reviewed. (See chart for details) Patient presents with report of elevated white blood cell count on Tuesday after routine blood draw from her PCP. Patient with history of recent complicated UTI due to indwelling Mendoza catheter. Patient reports some generalized malaise with cough. Afebrile upon arrival. Labs obtained and posted to chart. WBC slightly elevated but improved from prior level reported from PCP. Lactic acid significantly elevated. SIRS criteria met with tachycardia and tachypnea. Hypomagnesemia addressed. IV fluid hydration provided for ideal body weight. UA with signs of infection. Mendoza catheter replaced. Chest x-ray with findings concerning for atelectasis versus pneumonia. Empiric antibiotic treatment initiated. Patient requiring admission for further evaluation and treatment. Discussed with Dr. Hammond (PCP) who is in agreement with admission. Discussed findings and plan with patient and family, who acknowledge understanding and agreement. Dragon Disclaimer Dragon Disclaimer This electronic medical record was generated, in whole or in part, using a voice recognition dictation system. Departure Departure: Impression: Primary Impression: Sepsis Additional Impressions: Community acquired pneumonia Hypomagnesemia Lactic acidosis Complicated UTI (urinary tract infection) Disposition: ADMITTED INPATIENT Admitting Physician: Quan Hammond Condition: STABLE Referrals: QUAN HAMMOND MD (PCP) Critical Care Time Critical care time was 30 minutes which includes time at bedside, spent in discussion of patient's care with specialists and/or family members, with interpretation of laboratory and/or radiological studies and is exclusive of procedures. Sepsis Assessment Date and Time of Assessment Date: Apr 18, 2019 Time: 16:30 Fluid Challenge: Is the fluid challenge complet: No IBW Target Volume Used: Yes BMI > 30: Yes Vital Signs Vital Signs Vital Signs Date Time Temp Pulse Resp B/P (MAP) Pulse Ox O2 Delivery O2 Flow Rate FiO2 04/18/19 17:08 90 16 164/89 (114) 97 Room Air 04/18/19 14:11 98.2 Temperature Source: Oral Respirations Respiratory Effort: Non-Labored Respiratory Pattern: Tachypnea Cardiovascular Pulse Rhythm: Irregular (tachycardia) Heart: Nml S1, S2, no murmurs Lung Sounds Breath Sounds: Diminished Capillary Refill Capillary Refill: Rt Hand < 3 seconds Peripheral Pulse Pulse Location: Radial Pulse Strength: Normal (2+) Pulse Assessment Method: Palpation Integumentary Skin: Warm, Dry Skin Moisture: Dry Skin Turgor: Normal Skin Color: warm, dry Fingernail Color: WNL Problem Qualifiers Primary Impression: Sepsis Sepsis type: sepsis due to unspecified organism Sepsis acute organ dysfunction status: with acute organ dysfunction Severe sepsis acute organ dysfunction type: unspecified Severe sepsis shock status: with septic shock Qualified Codes: A41.9 - Sepsis, unspecified organism; R65.21 - Severe sepsis with septic shock Additional Impressions: Community acquired pneumonia Laterality: left Lung location: lower lobe of lung Qualified Codes: J18.1 - Lobar pneumonia, unspecified organism MARCELLE POWELL DO Apr 18, 2019 14:43
[2019-04-18] MEDS ORDERED: MAGNESIUM SULFATE 2GM 50 ML IV ONE (14:45)
[2019-04-18] MEDS ORDERED: DEXTROSE 50% 25 GM / 50ML DISP.SYRIN. IV PRN (15:00)
[2019-04-18] MEDS ORDERED: ACETAMINOPHEN 325 MG TABLET PO PRN ×3 (15:00→18:00)
[2019-04-18] MEDS ORDERED: ONDANSETRON PF 4 MG/2 ML VIAL. IV PRN (15:00)
[2019-04-18] MEDS ORDERED: PIPERACILLIN/TAZOBACTAM 4.5 GM in IV NORMAL SALINE 50ML 50 ML IV ONE (15:00)
[2019-04-18] MEDS ORDERED: IV NORMAL SALINE 50ML 50 ML ONE (15:01)
[2019-04-18] MEDS ORDERED: PIPERACILLIN/TAZOBACTAM 4.5 GM VIAL IV ONE (15:01)
[2019-04-18 15:32] LABS: BACTERIA,URINE MANY /HPF (0-FEW); BILIRUBIN,URINE NEG (NEG); CLARITY,URINE CLOUDY; COLOR,URINE YELLOW; GLUCOSE,URINE NEG (NEG); NITRITE,URINE POS (NEG); SQUAMOUS EPITHELIAL CELL,UR FEW /LPF; UROBILINOGEN,URINE 0.2 mg/dL (0.2 mg/dL); WBC,URINE 20-40 /HPF (0-4)
[2019-04-18] MEDS: INSULIN LISPRO 300 UNITS/3 ML VIAL. SQ SCH (17:00)
[2019-04-18] MEDS ORDERED: FLUTICASONE 50MCG/NASAL SPRAY 16GM BOTTLE. NS PRN (17:45)
[2019-04-18] MEDS ORDERED: HYDROcodone/APAP 5/325MG 1 TAB TABLET PO PRN (17:45)
[2019-04-18] MEDS ORDERED: PIP/TAZO PER PHARMACY MC PRN (17:45)
[2019-04-18 17:54] VITALS: BP 126/97
[2019-04-18] MEDS ORDERED: IV NORMAL SALINE 1,000ML 1,000 ML IV ONE ×2 (18:00→18:30)
[2019-04-18] MEDS: HYDROcodone/APAP 5/325MG 1 TAB TABLET PO PRN (20:17)
[2019-04-18] MEDS: NYSTATIN TOPICAL POWDER 15GM BOTTLE. TP SCH (20:18)
[2019-04-18] MEDS: SIMVASTATIN 40 MG TABLET. PO SCH (20:18)
[2019-04-18] MEDS: OXYBUTYNIN CHLORIDE 5 MG TABLET PO SCH (20:18)
[2019-04-18] MEDS: ALPRAZolam 0.5 MG TABLET PO SCH (20:18)
[2019-04-18] MEDS: ATENOLOL 50 MG TABLET PO SCH (20:18)
[2019-04-18] MEDS: IPRATRPIUM/ALBUTEROL 0.5/2.5MG 3 ML NEBU. NEB SCH (20:32)
[2019-04-18] MEDS: PIPERACILLIN/TAZOBACTAM 4.5 GM in IV NORMAL SALINE 50ML 50 ML IV SCH (22:11)
[2019-04-18 23:08] VITALS: BP 99/65
[2019-04-19] MEDS: IPRATRPIUM/ALBUTEROL 0.5/2.5MG 3 ML NEBU. NEB SCH ×4 (05:03→20:52)
[2019-04-19 05:49] VITALS: BP 131/77
[2019-04-19] MEDS: PIPERACILLIN/TAZOBACTAM 4.5 GM in IV NORMAL SALINE 50ML 50 ML IV SCH ×3 (06:15→21:12)
[2019-04-19] MEDS: INSULIN LISPRO 300 UNITS/3 ML VIAL. SQ SCH ×3 (08:00→17:49)
[2019-04-19] MEDS: predniSONE 10 MG TABLET PO SCH (08:32)
[2019-04-19] MEDS: ALPRAZolam 0.5 MG TABLET PO SCH ×3 (08:32→21:13)
[2019-04-19] MEDS: metFORMIN 500 MG TABLET PO SCH ×2 (08:32→17:43)
[2019-04-19] MEDS: OXYBUTYNIN CHLORIDE 5 MG TABLET PO SCH ×3 (08:32→21:13)
[2019-04-19] MEDS: NYSTATIN TOPICAL POWDER 15GM BOTTLE. TP SCH ×2 (08:33→21:12)
[2019-04-19] MEDS: glyBURIDE 1.25 MG TABLET PO SCH (08:33)
[2019-04-19] MEDS ORDERED: FURO40TA4 PO (08:35)
[2019-04-19] MEDS: LACTOBACILLUS RHAMNOSUS GG 1 CAPSULE. PO SCH ×2 (09:56→21:13)
[2019-04-19] MEDS: FUROSEMIDE 40 MG TABLET PO SCH (09:56)
[2019-04-19] MEDS: POTASSIUM CHLORIDE 10 MEQ TABLET.ER. PO SCH (10:36)
[2019-04-19] MEDS: APIXABAN 5 MG TABLET. PO SCH ×2 (10:36→21:12)
[2019-04-19] MEDS: HYDROcodone/APAP 5/325MG 1 TAB TABLET PO PRN ×2 (10:38→23:27)
[2019-04-19 10:44] VITALS: BP 131/79
[2019-04-19] MEDS: PARoxetine 20 MG TABLET PO SCH (12:11)
[2019-04-19 15:20] VITALS: BP 137/82
[2019-04-19] MEDS ORDERED: WARFARIN 1 MG TABLET. PO SCH (16:00)
[2019-04-19] MEDS ORDERED: RIVAROXABAN 15 MG TABLET. PO SCH (17:00)
--- NOTE | 2019-04-19 18:47 | HP ---
ADMIT DATE: 04/18/2019 HISTORY OF PRESENT ILLNESS: A 68-year-old female patient, who was initially seen in the office, had an 18,000 white count was not feeling very well and went through the Emergency Room, had a lactic acid of greater than 5. The patient as a result of this was admitted for possible sepsis and make further evaluation on her as indicated. There was some consideration that the patient had either recurrent urinary tract infection for which she has had numerous ones in the past. She is pretty much bedridden as opposed to a possible pneumonic or infiltrative process. The patient in turn lactic acid has come down from over 5 down to 3.6, but she was admitted and continued on IV antibiotic therapy. PAST MEDICAL HISTORY: The patient's past medical history includes tonsillectomy, adenoidectomy, peripheral neuropathy, cervical fusion. 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 We switched over to oral Xarelto; hypertension, DVT of the left leg, respiratory disorders, wheezing, asthma, bronchitis, obesity, reproductive disorder, genitourinary disorders, urinary tract infections, urinary retention, severe weakness, wheelchair bound, chronic Zaidi, postmenopausal, degenerative arthritis, osteoarthritis, orthopedic knee replacement left surgery, joint replacement, psychiatric problems, psychosexual dysfunction, depression, blood disorders of anemia, influenza, pneumococcal positive up-to-date. She has also had MRSA in the past. FAMILY HISTORY: Positive for diabetes in aunts, uncles, brothers and father, family history of myocardial infarction in the father, hypertension in his sister and father, brother with lupus. Mother with dementia and grandfather with cancer. ALLERGIES: THE PATIENT HAS ALLERGY TO AMLODIPINE AND ATORVASTATIN. SOCIAL HISTORY: The patient denies smoking, alcohol or drug use. She is a full code. REVIEW OF SYSTEMS: The patient denies any recent weight loss or weight gain. Does have coughing, fever, chills and night sweats. The patient also was noted to have problems with some of her breathing and coughing spasms. She denies abdominal pain presently and has very poor sensation of her urination. She uses a chronic Zaidi catheter. PHYSICAL EXAMINATION: GENERAL: This is an ill-appearing -[place] female in moderate amount of distress. VITAL SIGNS: Blood pressure 126/84, respiratory rate 18, pulse 101, temperature 98.2, oxygen saturation 96%. HEENT: The patient's head was atraumatic, normocephalic. Eyes: PERRLA without jaundice. Mouth and throat were normal. NECK: Supple, without JVD, carotid bruits or thyromegaly. LUNGS: Diminished, poor movement of air in the bases. CARDIOVASCULAR: Regular sinus rhythm, S1, S2, without murmur, rub, thrill, or extra heart sounds. ABDOMEN: The patient's abdomen was soft, nontender, protuberant. EXTREMITIES: No clubbing, cyanosis. Trace edema. Pulses noted distally. NEUROLOGIC: Alert and oriented x 3; however, her legs are very weak. She has poor control of her bladder. LABORATORY DATA: The patient's labs initially showed as noted in the office, white count of 18,000 came down to 11,000. Sodium and potassium 139 and 3.6, BUN and creatinine 15 and 1.2. Blood sugars have been running in the 200s, lactic acid initially 5.6, has come down to 3.6. The patient's alkaline phosphatase elevated, albumin good. Urine did show 20-40 white blood cells. Culture on urine pending, large amounts of blood in the urine itself. PLAN: The patient will be continued to be monitored carefully, make further evaluation on her as indicated and will continue with IV antibiotic therapy until cultures are returned. HUNG HAMMOND MD DR: ALEXIA/oscar JOB#: [id number] / [id number]
[2019-04-19] MEDS ORDERED: metFORMIN 500 MG TABLET PO SCH (19:15)
[2019-04-19 19:40] VITALS: BP 115/77
[2019-04-19] MEDS: SIMVASTATIN 40 MG TABLET. PO SCH (21:14)
[2019-04-19] MEDS: ATENOLOL 50 MG TABLET PO SCH (21:14)
[2019-04-19 23:51] VITALS: BP 114/75
[2019-04-20] MEDS: PIPERACILLIN/TAZOBACTAM 4.5 GM in IV NORMAL SALINE 50ML 50 ML IV SCH ×3 (05:32→21:29)
[2019-04-20] MEDS: IPRATRPIUM/ALBUTEROL 0.5/2.5MG 3 ML NEBU. NEB SCH ×4 (05:40→20:42)
[2019-04-20 07:00] VITALS: BP 114/75
[2019-04-20 07:09] LABS: CALCIUM 9.4 mg/dL (8.5-10.1); POTASSIUM 3.4 mmol/L (3.5-5.1)
[2019-04-20] MEDS: INSULIN LISPRO 300 UNITS/3 ML VIAL. SQ SCH ×3 (08:00→17:02)
[2019-04-20] MEDS: glyBURIDE 1.25 MG TABLET PO SCH (08:40)
[2019-04-20] MEDS: FUROSEMIDE 40 MG TABLET PO SCH (08:40)
[2019-04-20] MEDS: ALPRAZolam 0.5 MG TABLET PO SCH ×3 (08:40→21:30)
[2019-04-20] MEDS: NYSTATIN TOPICAL POWDER 15GM BOTTLE. TP SCH ×2 (08:40→21:37)
[2019-04-20] MEDS: OXYBUTYNIN CHLORIDE 5 MG TABLET PO SCH ×3 (08:41→21:30)
[2019-04-20] MEDS: LACTOBACILLUS RHAMNOSUS GG 1 CAPSULE. PO SCH ×2 (08:41→21:31)
[2019-04-20] MEDS: metFORMIN 500 MG TABLET PO SCH ×2 (08:41→17:02)
[2019-04-20] MEDS: predniSONE 10 MG TABLET PO SCH (08:41)
[2019-04-20] MEDS: POTASSIUM CHLORIDE 10 MEQ TABLET.ER. PO SCH (08:41)
[2019-04-20] MEDS: APIXABAN 5 MG TABLET. PO SCH ×2 (08:41→21:31)
[2019-04-20] MEDS: HYDROcodone/APAP 5/325MG 1 TAB TABLET PO PRN (08:42)
[2019-04-20 11:00] VITALS: BP 114/75
[2019-04-20] MEDS: PARoxetine 20 MG TABLET PO SCH (12:30)
[2019-04-20 18:02] VITALS: BP 114/75
[2019-04-20 19:55] VITALS: BP 135/53
[2019-04-20] MEDS: ATENOLOL 50 MG TABLET PO SCH (21:30)
[2019-04-20] MEDS: SIMVASTATIN 40 MG TABLET. PO SCH (21:30)
[2019-04-20 22:29] VITALS: BP 145/83
[2019-04-21] MEDS: PIPERACILLIN/TAZOBACTAM 4.5 GM in IV NORMAL SALINE 50ML 50 ML IV SCH ×3 (05:03→22:06)
[2019-04-21] MEDS: IPRATRPIUM/ALBUTEROL 0.5/2.5MG 3 ML NEBU. NEB SCH ×5 (05:06→17:20)
[2019-04-21 05:18] VITALS: BP 127/75
[2019-04-21] MEDS: INSULIN LISPRO 300 UNITS/3 ML VIAL. SQ SCH ×3 (08:00→16:57)
[2019-04-21 08:18] LABS: BASO % 0 % (0-3); EOS # 0.3 x10^3/uL (0.0-0.7); EOS % 3 % (0-3); HEMATOCRIT 34.5 % (36.0-47.0); LYMPH # 3.3 x10^3/uL (1.0-4.8); LYMPH % 29 % (24-48); MEAN CORPUSCULAR HEMOGLOBIN 29 pg (25-35); MEAN CORPUSCULAR HGB CONC 32 g/dL (31-37); MEAN CORPUSCULAR VOLUME 91 fL (79-100); MONO # 0.8 x10^3/uL (0.0-1.1); MONO % 7 % (0-9); NEUT # 7.1 x10^3uL (1.8-7.7); NEUT % 62 % (31-73); PLATELET COUNT 301 x10^3/uL (140-400); RED BLOOD COUNT 3.79 x10^6/uL (3.50-5.40); RED CELL DISTRIBUTION WIDTH 15.7 % (11.5-14.5); WHITE BLOOD COUNT 11.6 x10^3/uL (4.0-11.0)
[2019-04-21 08:35] LABS: ALBUMIN 2.7 g/dL (3.4-5.0); ALBUMIN/GLOBULIN RATIO 0.8 (1.0-1.7); CALCIUM 9.2 mg/dL (8.5-10.1); CREATININE 1.1 mg/dL (0.6-1.0); GFR 49.2; MAGNESIUM 1.3 mg/dL (1.8-2.4); POTASSIUM 3.6 mmol/L (3.5-5.1); TOTAL BILIRUBIN 0.2 mg/dL (0.2-1.0); TOTAL PROTEIN 5.9 g/dL (6.4-8.2)
[2019-04-21] MEDS: LACTOBACILLUS RHAMNOSUS GG 1 CAPSULE. PO SCH ×2 (08:49→20:30)
[2019-04-21] MEDS: ALPRAZolam 0.5 MG TABLET PO SCH ×3 (08:49→20:30)
[2019-04-21] MEDS: metFORMIN 500 MG TABLET PO SCH ×2 (08:49→16:25)
[2019-04-21] MEDS: FUROSEMIDE 40 MG TABLET PO SCH (08:50)
[2019-04-21] MEDS: OXYBUTYNIN CHLORIDE 5 MG TABLET PO SCH ×3 (08:50→20:30)
[2019-04-21] MEDS: POTASSIUM CHLORIDE 10 MEQ TABLET.ER. PO SCH (08:50)
[2019-04-21] MEDS: predniSONE 10 MG TABLET PO SCH (08:50)
[2019-04-21] MEDS: NYSTATIN TOPICAL POWDER 15GM BOTTLE. TP SCH ×2 (08:51→20:31)
[2019-04-21] MEDS: glyBURIDE 1.25 MG TABLET PO SCH (08:51)
[2019-04-21] MEDS: HYDROcodone/APAP 5/325MG 1 TAB TABLET PO PRN (09:22)
[2019-04-21] MEDS: APIXABAN 5 MG TABLET. PO SCH ×2 (09:55→20:30)
[2019-04-21 11:30] VITALS: BP 114/73
[2019-04-21] MEDS: PARoxetine 20 MG TABLET PO SCH (12:23)
[2019-04-21 14:58] VITALS: BP 114/73
[2019-04-21 14:59] VITALS: BP_SYST 114; BP_SYST 122; BP_DIAS 73; BP_DIAS 75
[2019-04-21 20:30] VITALS: BP 140/81
[2019-04-21] MEDS: SIMVASTATIN 40 MG TABLET. PO SCH (20:30)
[2019-04-21] MEDS: ATENOLOL 50 MG TABLET PO SCH (20:30)
[2019-04-21 23:50] VITALS: BP 121/74
[2019-04-22] MEDS: IPRATRPIUM/ALBUTEROL 0.5/2.5MG 3 ML NEBU. NEB SCH ×4 (04:54→20:57)
[2019-04-22] MEDS: PIPERACILLIN/TAZOBACTAM 4.5 GM in IV NORMAL SALINE 50ML 50 ML IV SCH ×3 (05:47→22:41)
[2019-04-22 06:42] VITALS: BP 128/81
[2019-04-22] MEDS: INSULIN LISPRO 300 UNITS/3 ML VIAL. SQ SCH ×3 (08:00→17:00)
[2019-04-22] MEDS: FUROSEMIDE 40 MG TABLET PO SCH (08:59)
[2019-04-22] MEDS: APIXABAN 5 MG TABLET. PO SCH ×2 (08:59→20:44)
[2019-04-22] MEDS: ALPRAZolam 0.5 MG TABLET PO SCH ×3 (08:59→20:44)
[2019-04-22] MEDS: metFORMIN 500 MG TABLET PO SCH ×2 (08:59→17:25)
[2019-04-22] MEDS: LACTOBACILLUS RHAMNOSUS GG 1 CAPSULE. PO SCH ×2 (08:59→20:43)
[2019-04-22] MEDS: predniSONE 10 MG TABLET PO SCH (08:59)
[2019-04-22] MEDS: OXYBUTYNIN CHLORIDE 5 MG TABLET PO SCH ×3 (08:59→20:44)
[2019-04-22] MEDS: POTASSIUM CHLORIDE 10 MEQ TABLET.ER. PO SCH (08:59)
[2019-04-22] MEDS: NYSTATIN TOPICAL POWDER 15GM BOTTLE. TP SCH ×2 (09:00→21:52)
[2019-04-22] MEDS: glyBURIDE 1.25 MG TABLET PO SCH (09:00)
[2019-04-22 11:02] VITALS: BP 115/75
--- NOTE | 2019-04-22 11:53 | PN ---
DATE: SUBJECTIVE: A 68-year-old female came in with sepsis. The patient's initial white count of 18,000, came down to 11,000. She is on IV antibiotic therapy. The patient otherwise is resting fairly comfortably and still having some trouble with her breathing; however, ____ lactic acid seems to be coming down as well as her sodium and potassium are all basically within normal limits. The patient otherwise continues on IV antibiotic therapy. OBJECTIVE: VITAL SIGNS: The patient's blood pressure is 114/70, respiratory rate 20, pulse 85, and afebrile. GENERAL: The patient is alert and oriented. LUNGS: Diminished, some crackles in the bases. CARDIOVASCULAR: Regular sinus rhythm. ABDOMEN: ____ Protuberant. EXTREMITIES: No clubbing or cyanosis. Trace edema. NEUROLOGIC: The patient is alert and oriented and is feeling somewhat better. IMPRESSION: Sepsis ____morbid obesity, type 2 diabetes, and urinary tract infection, organism unspecified. HUNG HAMMOND MD DR: ALEXIA/oscar JOB#: [id number] / [id number]
[2019-04-22] MEDS: HYDROcodone/APAP 5/325MG 1 TAB TABLET PO PRN (13:09)
[2019-04-22] MEDS: PARoxetine 20 MG TABLET PO SCH (13:10)
[2019-04-22 14:51] VITALS: BP 140/75
[2019-04-22 19:20] VITALS: BP 112/71
[2019-04-22] MEDS: ATENOLOL 50 MG TABLET PO SCH (20:44)
[2019-04-22] MEDS: SIMVASTATIN 40 MG TABLET. PO SCH (20:44)
[2019-04-22] MEDS ORDERED: SIMETHICONE 80 MG TAB.CHEW PO PRN (21:30)
[2019-04-23] MEDS: PIPERACILLIN/TAZOBACTAM 4.5 GM in IV NORMAL SALINE 50ML 50 ML IV SCH ×3 (05:49→21:22)
[2019-04-23] MEDS: IPRATRPIUM/ALBUTEROL 0.5/2.5MG 3 ML NEBU. NEB SCH ×4 (07:26→21:17)
[2019-04-23] MEDS: INSULIN LISPRO 300 UNITS/3 ML VIAL. SQ SCH ×3 (08:00→17:00)
[2019-04-23] MEDS: ALPRAZolam 0.5 MG TABLET PO SCH ×3 (08:35→21:21)
[2019-04-23] MEDS: predniSONE 10 MG TABLET PO SCH (08:35)
[2019-04-23] MEDS: FUROSEMIDE 40 MG TABLET PO SCH (08:36)
[2019-04-23] MEDS: LACTOBACILLUS RHAMNOSUS GG 1 CAPSULE. PO SCH ×2 (08:36→21:21)
[2019-04-23] MEDS: OXYBUTYNIN CHLORIDE 5 MG TABLET PO SCH ×3 (08:36→21:21)
[2019-04-23] MEDS: APIXABAN 5 MG TABLET. PO SCH ×2 (08:36→21:21)
[2019-04-23] MEDS: POTASSIUM CHLORIDE 10 MEQ TABLET.ER. PO SCH (08:36)
[2019-04-23] MEDS: metFORMIN 500 MG TABLET PO SCH ×2 (08:36→18:05)
[2019-04-23] MEDS: NYSTATIN TOPICAL POWDER 15GM BOTTLE. TP SCH ×2 (08:37→21:21)
[2019-04-23] MEDS: glyBURIDE 1.25 MG TABLET PO SCH (08:41)
[2019-04-23 11:36] VITALS: BP 140/81
[2019-04-23] MEDS: PARoxetine 20 MG TABLET PO SCH (12:28)
[2019-04-23 15:44] VITALS: BP 136/74
[2019-04-23] MEDS ORDERED: levoFLOXacin 750 MG TABLET PO SCH (17:00)
[2019-04-23] MEDS: HYDROcodone/APAP 5/325MG 1 TAB TABLET PO PRN (18:05)
[2019-04-23] MEDS: ATENOLOL 50 MG TABLET PO SCH (21:21)
[2019-04-23] MEDS: SIMVASTATIN 40 MG TABLET. PO SCH (21:21)
[2019-04-23 21:27] VITALS: BP 126/71
--- NOTE | 2019-04-23 21:51 | PN ---
DATE: SUBJECTIVE: A 68-year-old female in with sepsis. The patient is resting fairly comfortably, making fairly good progress. Overall, the patient says she is still feeling a little bit weak, but other than that seems to be making some progress with IV antibiotic therapy. Still awaiting culture reports. OBJECTIVE: VITAL SIGNS: Otherwise, the patient's blood pressures that of 140/70, respiratory rate 20, pulse 100, afebrile. GENERAL: The patient is alert and oriented. LUNGS: Diminished, but clear. CARDIOVASCULAR: Regular sinus rhythm, tachycardic. ABDOMEN: Protuberant, soft, diffuse tenderness in the suprapubic area. EXTREMITIES: No clubbing or cyanosis. Trace edema. NEUROLOGIC: Stable. LABORATORY DATA: Still show slight elevated white cell count of 11,000. Blood sugars are under better control. The patient otherwise seems to be resting comfortably. We will continue to monitor her, try to get the final culture report on her urine that showed greater than 100,000 organisms per unit measure. The patient is with sepsis, morbid obesity, type 2 diabetes, urinary tract infection, organism unspecified. Continue with IV antibiotic therapy for now. HUNG HAMMOND MD DR: ALEXIA/oscar JOB#: [id number] / [id number]
[2019-04-23 23:57] VITALS: BP 152/70
[2019-04-24] MEDS: IPRATRPIUM/ALBUTEROL 0.5/2.5MG 3 ML NEBU. NEB SCH (05:39)
[2019-04-24] MEDS: PIPERACILLIN/TAZOBACTAM 4.5 GM in IV NORMAL SALINE 50ML 50 ML IV SCH (06:20)
[2019-04-24 06:32] VITALS: BP 128/80
[2019-04-24] MEDS: predniSONE 10 MG TABLET PO SCH (08:11)
[2019-04-24] MEDS: POTASSIUM CHLORIDE 10 MEQ TABLET.ER. PO SCH (08:11)
[2019-04-24] MEDS: FUROSEMIDE 40 MG TABLET PO SCH (08:11)
[2019-04-24] MEDS: metFORMIN 500 MG TABLET PO SCH (08:11)
[2019-04-24] MEDS: APIXABAN 5 MG TABLET. PO SCH (08:11)
[2019-04-24] MEDS: OXYBUTYNIN CHLORIDE 5 MG TABLET PO SCH (08:12)
[2019-04-24] MEDS: LACTOBACILLUS RHAMNOSUS GG 1 CAPSULE. PO SCH (08:12)
[2019-04-24] MEDS: glyBURIDE 1.25 MG TABLET PO SCH (08:12)
[2019-04-24] MEDS: INSULIN LISPRO 300 UNITS/3 ML VIAL. SQ SCH (08:12)
[2019-04-24] MEDS: NYSTATIN TOPICAL POWDER 15GM BOTTLE. TP SCH (08:13)
[2019-04-24] MEDS: ALPRAZolam 0.5 MG TABLET PO SCH (09:00)
[2019-04-24] MEDS ORDERED: POTA10TA12 PO (11:13)
[2019-04-24] MEDS ORDERED: APIX5TAB3 PO (11:13)
[2019-04-24] MEDS ORDERED: SIME80TA14 PO (11:13)
--- NOTE | 2019-04-27 20:50 | DS ---
DATE OF DISCHARGE: 04/24/2019 HOSPITAL COURSE: A 68-year-old female came in. She had increased weakness and came in through the Emergency Room. She had an elevated white count of 18,000 and had sepsis. She had been tried to be treated as an outpatient. She has multiple urinary tract infections. The patient otherwise made good progress during the rest of her hospitalization and was placed on IV antibiotic therapy. Final cultures really basically showed 100,000 organisms, but she made good progress. Final culture report had not been noted. The patient had hemoglobin A1c of 5.8, albumin was severely low at 2.7. She made good progress during the rest of her hospitalization. She was discharged on oral antibiotic therapy and continues to be monitored as an outpatient otherwise. IMPRESSION: Sepsis, morbid obesity, type 2 diabetes, multiple urinary tract infections, organism unspecified. DISPOSITION: The patient will be discharged home and followed up as an outpatient. She will have home health to follow her and continue to monitor her multiple other medical issues as noted. DISCHARGE INSTRUCTIONS: She will be on a diabetic diet and she is pretty much wheelchair bound and like. The patient has chronic Zaidi catheterization as noted above. HUNG HAMMOND MD DR: ALEXIA/oscar JOB#: [id number] / [id number]
== END 2019-04-24 13:22 | disposition home health service (06) | DRG 871 ==
LOC: ER 13:34 → 1 SOUTH 15:00
PROVIDERS: ADMIT Family Medicine; ATTEND Family Medicine
DX: A41.9 Sepsis, unspecified organism (principal); J18.9 Pneumonia, unspecified organism; N39.0 Urinary tract infection, site not specified; J98.11 Atelectasis; Z68.41 Body mass index [BMI] 40.0-44.9, adult; E83.42 Hypomagnesemia; I10 Essential (primary) hypertension; E66.01 Morbid (severe) obesity due to excess calories; E11.9 Type 2 diabetes mellitus without complications; J45.909 Unspecified asthma, uncomplicated; Z79.01 Long term (current) use of anticoagulants; Z80.9 Family history of malignant neoplasm, unspecified; Z82.49 Family history of ischemic heart disease and other diseases of the circulatory system; Z86.14 Personal history of Methicillin resistant Staphylococcus aureus infection; Z86.718 Personal history of other venous thrombosis and embolism; Z87.440 Personal history of urinary (tract) infections; Z96.652 Presence of left artificial knee joint; Z99.3 Dependence on wheelchair; Z83.3 Family history of diabetes mellitus; E66.9 Obesity, unspecified; F32.9 Major depressive disorder, single episode, unspecified; F41.9 Anxiety disorder, unspecified; G62.9 Polyneuropathy, unspecified; M19.90 Unspecified osteoarthritis, unspecified site
CPT/HCPCS: 36415; 51702; 71046; 80048; 80053; 81001; 82947; 83605; 83735; 84145; 85025; 85610; 85730; 87040; 87086; 87641; 94640; 96365; 96366; 96368; J1815; J1956; J2543; J3475; J7512; J7620; 99285-25; J7030

== ENCOUNTER 2019-08-22 14:54 | Inpatient (IN) | payer MEDICARE, OTHER ==
[~2019-08-22] VITALS: Ht 172.7 cm; Wt 132.9 kg
[~2019-08-22 14:54] MED LIST changes: +APIX5TAB3 PO; +POTA10TA12 PO
[2019-08-22] MEDS ORDERED: IV NORMAL SALINE 500ML 500 ML IV ONE (15:45)
[2019-08-22] MEDS ORDERED: IV NORMAL SALINE 50ML 50 ML ONE (16:12)
[2019-08-22] MEDS ORDERED: cefTRIAXone SODIUM 1 GM VIAL ONE (16:12)
--- NOTE | 2019-08-22 16:15 | RAD ---
Exam: Chest one view INDICATION: Altered mental status TECHNIQUE: Frontal view of the chest Comparisons: 04/18/2019 FINDINGS: The cardiomediastinal silhouette and pulmonary vessels are within normal limits. The lung and pleural spaces are clear. IMPRESSION: No acute cardiopulmonary process. Electronically signed by: Sasha Azar MD (08/22/2019 4:12 PM) [id number]
[2019-08-22 16:28] LABS: BASO # 0.1 x10^3/uL (0.0-0.2); BASO % 1 % (0-3); EOS # 0.3 x10^3/uL (0.0-0.7); EOS % 3 % (0-3); HEMATOCRIT 41.6 % (36.0-47.0); HEMOGLOBIN 13.3 g/dL (12.0-15.5); LYMPH # 2.6 x10^3/uL (1.0-4.8); LYMPH % 25 % (24-48); MEAN CORPUSCULAR HEMOGLOBIN 29 pg (25-35); MEAN CORPUSCULAR HGB CONC 32 g/dL (31-37); MEAN CORPUSCULAR VOLUME 90 fL (79-100); MONO % 9 % (0-9); NEUT # 6.8 x10^3uL (1.8-7.7); NEUT % 63 % (31-73); PLATELET COUNT 270 x10^3/uL (140-400); RED BLOOD COUNT 4.61 x10^6/uL (3.50-5.40); RED CELL DISTRIBUTION WIDTH 14.6 % (11.5-14.5); WHITE BLOOD COUNT 10.8 x10^3/uL (4.0-11.0)
[2019-08-22 16:34] LABS: CALCIUM 9.7 mg/dL (8.5-10.1); POTASSIUM 3.3 mmol/L (3.5-5.1)
[2019-08-22 16:40] LABS: ALBUMIN 3.4 g/dL (3.4-5.0); ALBUMIN/GLOBULIN RATIO 1.1 (1.0-1.7); TOTAL BILIRUBIN 0.5 mg/dL (0.2-1.0); TOTAL PROTEIN 6.6 g/dL (6.4-8.2)
[2019-08-22] MEDS ORDERED: IV NORMAL SALINE 1,000ML 1,000 ML IV SCH (17:51)
--- NOTE | 2019-08-22 17:51 | PHYS DOC ---
Past History Past Medical History: Anxiety, Diabetes, DVT, Hypertension, UTI, Vascular Disease Additional Past Medical Histor: " spinal cord condition" Past Surgical History: Cervical Fusion, Knee Replacement Smoking: Non-smoker Alcohol Use: None Drug Use: None Adult General Chief Complaint Chief Complaint: PAIN ON URINATION [place] [facility] [employer] [facility] HPI Patient is a 68-year-old female presenting with sent in from primary care doctor's office for admission. The patient has been dealing with frequent UTIs she does have an indwelling Zaidi catheter on a long-standing basis to a previous apparently some sort of a neuropathy. Patient is on multiple medications medications include metformin oxybutynin Xanax atenolol Roro Naveen due to a prior history of DVT Requip. Patient has been on Macrobid and she thinks maybe another antibiotic as well and is really not helping she still having a lot of burning around the Zaidi catheter and frequent bladder spasms she says nausea she is just generally weak she really does not ambulate much at baseline if at all. Doesn't think she's been getting a little bit more confused hard to remember some things since she's been dealing with these UTIs. Apparently she does have a history of resistant Escherichia coli for which she's required admission in the past and that's why she was sent here by the primary doctor's office. Patient denies fever that she knows of but has had some chills Review of Systems Review of Systems Constitutional: Eyes: Denies change in visual acuity, redness, or eye pain [] HENT: Denies nasal congestion or sore throat [] Respiratory: Denies cough or shortness of breath [] Cardiovascular: No additional information not addressed in HPI [] GI: Positive nausea Integument: Denies rash or skin lesions [] Neurologic: Denies headache, focal weakness or sensory changes [] Endocrine: Denies polyuria or polydipsia [] All other systems were reviewed and found to be within normal limits, except as documented in this note. Current Medications Current Medications Current Medications Medications (Trade) Dose Ordered Sig/Olivia Start Time Stop Time Status Last Admin Dose Admin Ceftriaxone Sodium 1 gm/ Sodium Chloride 50 ml @ 100 mls/hr 1X ONCE 08/22/19 15:45 08/22/19 16:14 DC 08/22/19 16:50 100 MLS/HR Ceftriaxone Sodium (Rocephin) 1 gm STK-MED ONCE 08/22/19 16:12 08/22/19 16:12 DC Sodium Chloride 50 ml @ As Directed STK-MED ONCE 08/22/19 16:12 08/22/19 16:12 DC Allergies Allergies Allergies Coded Allergies Type Severity Reaction Last Updated Verified amlodipine Allergy Intermediate 05/26/18 Yes atorvastatin Allergy Intermediate 05/26/18 Yes Physical Exam Physical Exam Constitutional: Well developed, well nourished, no acute distress, non-toxic appearance. [] HENT: Normocephalic, atraumatic, bilateral external ears normal, oropharynx moist, no oral exudates, nose normal. [] Eyes: PERRLA, EOMI, conjunctiva normal, no discharge. [] Neck: Normal range of motion, no tenderness, supple, no stridor. [] Cardiovascular:Heart rate regular rhythm, no murmur [] Lungs & Thorax: Bilateral breath sounds clear to auscultation [] Abdomen: Bowel sounds normal, soft, no tenderness, no masses, no pulsatile masses. [] Skin: Warm, dry, no erythema, no rash. [] Back: No tenderness, no CVA tenderness. [] Extremities: No tenderness, no cyanosis, no clubbing, ROM intact, no edema. [] Neurologic: Alert and oriented X 3, 4-5 strength bilateral lower extremities baseline per the patient sensation is intact Psychologic: Affect normal, judgement normal, mood normal. [] Current Patient Data Vital Signs Vital Signs Date Time Temp Pulse Resp B/P (MAP) Pulse Ox O2 Delivery O2 Flow Rate FiO2 08/22/19 17:00 81 16 144/71 (95) 98 Room Air 08/22/19 15:05 98.1 Lab Results Laboratory Tests Test 08/22/19 15:57 White Blood Count 10.8 x10^3/uL (4.0-11.0) Red Blood Count 4.61 x10^6/uL (3.50-5.40) Hemoglobin 13.3 g/dL (12.0-15.5) Hematocrit 41.6 % (36.0-47.0) Mean Corpuscular Volume 90 fL (79-100) Mean Corpuscular Hemoglobin 29 pg (25-35) Mean Corpuscular Hemoglobin Concent 32 g/dL (31-37) Red Cell Distribution Width 14.6 % (11.5-14.5) H Platelet Count 270 x10^3/uL (140-400) Neutrophils (%) (Auto) 63 % (31-73) Lymphocytes (%) (Auto) 25 % (24-48) Monocytes (%) (Auto) 9 % (0-9) Eosinophils (%) (Auto) 3 % (0-3) Basophils (%) (Auto) 1 % (0-3) Neutrophils # (Auto) 6.8 x10^3uL (1.8-7.7) Lymphocytes # (Auto) 2.6 x10^3/uL (1.0-4.8) Monocytes # (Auto) 1.0 x10^3/uL (0.0-1.1) Eosinophils # (Auto) 0.3 x10^3/uL (0.0-0.7) Basophils # (Auto) 0.1 x10^3/uL (0.0-0.2) Sodium Level 135 mmol/L (136-145) L Potassium Level 3.3 mmol/L (3.5-5.1) L Chloride Level 97 mmol/L (98-107) L Carbon Dioxide Level 24 mmol/L (21-32) Anion Gap 14 (6-14) Blood Urea Nitrogen 18 mg/dL (7-20) Creatinine 1.0 mg/dL (0.6-1.0) Estimated GFR (Cockcroft-Gault) 55.0 BUN/Creatinine Ratio 18 (6-20) Glucose Level 431 mg/dL (70-99) H Lactic Acid Level 1.8 mmol/L (0.4-2.0) Calcium Level 9.7 mg/dL (8.5-10.1) Total Bilirubin 0.5 mg/dL (0.2-1.0) Aspartate Amino Transferase (AST) 15 U/L (15-37) Alanine Aminotransferase (ALT) 32 U/L (14-59) Alkaline Phosphatase 106 U/L (46-116) Total Protein 6.6 g/dL (6.4-8.2) Albumin 3.4 g/dL (3.4-5.0) Albumin/Globulin Ratio 1.1 (1.0-1.7) EKG EKG [] Radiology/Procedures Radiology/Procedures [] Impressions: Chest x-ray was negative acute Course & Med Decision Making Course & Med Decision Making Pertinent Labs and Imaging studies reviewed. (See chart for details) []68-year-old female presenting with basically generalized weakness worsening despite treatment with Macrobid for UTI. Plan to admit to Dr. Arguello we gave IV fluids and ceftriaxone in the emergency room Labs look stable overall vitals are reassuring and does not appear to be in septic shock or anything like that right now. Currently waiting for final urinalysis Dragon Disclaimer Dragon Disclaimer This electronic medical record was generated, in whole or in part, using a voice recognition dictation system. Departure Departure: Impression: Primary Impression: Urinary tract infection Disposition: ADMITTED INPATIENT Admitting Physician: Hung Hammond Condition: STABLE Referrals: HUNG HAMMOND MD (PCP) GERMAIN DAVISON MD Aug 22, 2019 17:51
[2019-08-22 17:57] LABS: CLARITY,URINE CLOUDY; COLOR,URINE PINK
[2019-08-22 17:58] LABS: BACTERIA,URINE FEW /HPF (0-FEW); BILIRUBIN,URINE NEG (NEG); GLUCOSE,URINE >=1000 mg/dL (NEG); NITRITE,URINE NEG (NEG); RBC,URINE >40 /HPF (0-2); SQUAMOUS EPITHELIAL CELL,UR OCC /LPF; UROBILINOGEN,URINE 0.2 mg/dL (0.2 mg/dL)
[2019-08-22 19:22] VITALS: BP 133/84
[2019-08-22] MEDS ORDERED: DIPH25CA58 PO (19:46)
[2019-08-22] MEDS ORDERED: NITR100C6 PO (19:46)
[2019-08-22] MEDS ORDERED: FERR-36 PO (19:46)
[2019-08-22] MEDS ORDERED: SENN8.8S5 PO (19:46)
[2019-08-22] MEDS ORDERED: SENN8.6T11 PO (20:10)
[2019-08-22] MEDS ORDERED: ALPRAZolam 0.5 MG TABLET PO PRN (20:15)
[2019-08-22] MEDS ORDERED: diphenhydrAMINE HCL 25 MG CAPSULE PO PRN (20:15)
[2019-08-22] MEDS ORDERED: SENNOSIDES 8.6 MG TABLET PO PRN (20:15)
[2019-08-22] MEDS ORDERED: DEXTROSE 50% 25 GM / 50ML DISP.SYRIN. IV PRN (20:15)
[2019-08-22] MEDS ORDERED: POTASSIUM CHLORIDE 20 MEQ TABLET.ER. PO ONE (20:15)
[2019-08-22] MEDS ORDERED: INSULIN LISPRO 300 UNITS/3 ML VIAL. SQ SCH (20:15)
[2019-08-22] MEDS: ATENOLOL 25 MG TABLET PO SCH (21:13)
[2019-08-22] MEDS: APIXABAN 5 MG TABLET. PO SCH (21:13)
[2019-08-22] MEDS: OXYBUTYNIN CHLORIDE 5 MG TABLET PO SCH (21:13)
[2019-08-22] MEDS: HYDROcodone/APAP 5/325MG 1 TAB TABLET PO PRN (21:14)
[2019-08-22] MEDS: SIMVASTATIN 40 MG TABLET. PO SCH (21:14)
[2019-08-22] MEDS: ALPRAZolam 0.5 MG TABLET PO SCH (21:14)
[2019-08-22] MEDS ORDERED: INSULIN LISPRO 300 UNITS/3 ML VIAL. SQ ONE (21:15)
[2019-08-22] MEDS ORDERED: ROPI1TAB4 PO (21:23)
[2019-08-22] MEDS: rOPINIRole 1 MG TABLET. PO SCH (21:45)
[2019-08-22] MEDS: FERROUS SULFATE 325 MG TABLET. PO SCH (22:00)
[2019-08-22 23:22] VITALS: BP 126/79
[2019-08-22] MEDS: INSULIN LISPRO 300 UNITS/3 ML VIAL. SQ SCH (23:44)
[2019-08-23 05:17] VITALS: BP 136/83
[2019-08-23] MEDS ORDERED: IPRATRPIUM/ALBUTEROL 0.5/2.5MG 3 ML NEBU. ONE (05:19)
[2019-08-23] MEDS: IPRATRPIUM/ALBUTEROL 0.5/2.5MG 3 ML NEBU. NEB SCH ×4 (05:22→21:52)
[2019-08-23] MEDS ORDERED: INSULIN LISPRO 300 UNITS/3 ML VIAL. SQ SCH (08:00)
[2019-08-23] MEDS: NITROFURANTOIN MONOHYD/M-CRYST 100 MG CAPSULE. PO SCH (08:08)
[2019-08-23] MEDS: APIXABAN 5 MG TABLET. PO SCH ×2 (08:09→21:51)
[2019-08-23] MEDS: ALPRAZolam 0.5 MG TABLET PO SCH ×3 (08:09→21:52)
[2019-08-23] MEDS: OXYBUTYNIN CHLORIDE 5 MG TABLET PO SCH ×3 (08:09→21:51)
[2019-08-23] MEDS: FERROUS SULFATE 325 MG TABLET. PO SCH ×2 (08:09→16:58)
[2019-08-23] MEDS: metFORMIN 500 MG TABLET PO SCH ×2 (08:09→16:58)
[2019-08-23] MEDS: rOPINIRole 1 MG TABLET. PO SCH ×3 (08:09→21:51)
[2019-08-23] MEDS: INSULIN LISPRO 300 UNITS/3 ML VIAL. SQ SCH ×4 (08:13→21:55)
[2019-08-23 10:50] VITALS: BP 139/82
[2019-08-23] MEDS ORDERED: INSULIN LISPRO 300 UNITS/3 ML VIAL. SQ ONE (12:45)
[2019-08-23] MEDS: PARoxetine 20 MG TABLET PO SCH (14:19)
[2019-08-23 14:50] VITALS: BP 121/74
[2019-08-23] MEDS: glyBURIDE 5 MG TABLET PO SCH (16:59)
[2019-08-23 18:45] VITALS: BP 128/80
--- NOTE | 2019-08-23 18:46 | HP ---
ADMIT DATE: 08/22/2019 HISTORY OF PRESENT ILLNESS: This is a 68-year-old female presenting with urinary tract infection that was unresponsive to oral antibiotics. The patient was initially seen through the Emergency Room. She has an indwelling Zaidi catheter and has multiple urinary tract infections. The patient was admitted because of failure of her outpatient antibiotics. The patient was having some discomfort and burning sensation, bladder spasms as well as generally feeling weak, feverish and the like. The patient's blood sugars, she was also diabetic and needed closer monitoring on that as well as the IV antibiotics since her oral antibiotics were unsuccessful. PAST MEDICAL HISTORY: Tonsillectomy, adenoidectomy, neurosurgery for cervical fusion, coronary artery disease, hypercholesterolemia, hypertension, DVT, obesity, chronic Zaidi catheter, urinary retention, musculoskeletal disorders. She has just severe weakness, wheelchair bound, osteoarthritis, orthopedic surgery of the knee replacement, diabetes, psychosexual disorder, depression, blood disorders, anemia, influenza, pneumococcal vaccinations are up-to-date. She has also had a history of MRSA. FAMILY HISTORY: Positive for diabetes in aunts, uncles, brothers and father, CT in the father, hypertension in sister and father. One brother has lupus. Mother has dementia and cancer in aunt and grandfather. ALLERGIES: AMLODIPINE AND ATORVASTATIN. MEDICATIONS: The patient's medications were reconciled in the usual fashion and those are in the chart as indicated. She has been on Macrodantin daily, Eliquis 5 mg b.i.d., Zocor 40, atenolol 25, lorazepam 0.5 mg. The patient otherwise seems to be resting comfortably there. SOCIAL HISTORY: She denies smoking, alcohol or drug use. REVIEW OF SYSTEMS: She denies any headaches, blurred vision, double vision. Does have some nausea. She denies chest pain, shortness of breath, as noted she has pain down in her lower suprapubic area where her urostomy tube as the patient has a chronic indwelling catheter. The patient is weak in the legs, unable to move and unable really to have good sensation, although she does have some neuropathy to her legs, but is on chronic Eliquis to prevent DVT. PHYSICAL EXAMINATION: GENERAL: Pleasant -[place] female. VITAL SIGNS: Blood pressure 120/74, respiratory rate 20, pulse 90, afebrile. HEENT: The patient is alert and oriented. The patient is a little lethargic, head was atraumatic, normocephalic. Eyes: PERRLA without jaundice. Mouth and throat were normal. NECK: Supple. LUNGS: Diminished, but clear. CARDIOVASCULAR: Stable. ABDOMEN: Soft, nontender. EXTREMITIES: The patient's abdomen was soft, nontender is noted. There was a raw ostomy tube present for drainage of her bladder. EXTREMITIES: Show marked atrophy to the musculoskeletal system and marked weakness as such. LABORATORY DATA: Basically unremarkable on the CBC, chemistries show markedly elevated blood sugar, low potassium of 3.3. Sugars as high as 477. Ketones were elevated to 40. The patient had greater than 40 white blood cells per high powered field. The patient will be admitted for further evaluation and treatment. IMPRESSION: Therefore, urinary tract infection, unresponsive to oral antibiotics as well as that of type 2 diabetes, morbid obesity, paralyzed marked paresis to the lower extremities, hypokalemia, generalized fatigue. PLAN: As above. HUNG HAMMOND MD DR: ALEXIA/oscar JOB#: [id number] / [id number]
[2019-08-23] MEDS: SIMVASTATIN 40 MG TABLET. PO SCH (21:51)
[2019-08-23] MEDS: ATENOLOL 25 MG TABLET PO SCH (21:52)
[2019-08-23 23:13] VITALS: BP 144/83
[2019-08-24] MEDS: ACETAMINOPHEN 325 MG TABLET PO PRN ×2 (05:55→06:02)
[2019-08-24 06:28] VITALS: BP 144/86
[2019-08-24] MEDS: HYDROcodone/APAP 5/325MG 1 TAB TABLET PO PRN (07:25)
[2019-08-24] MEDS: IPRATRPIUM/ALBUTEROL 0.5/2.5MG 3 ML NEBU. NEB SCH ×4 (08:00→21:09)
[2019-08-24] MEDS: APIXABAN 5 MG TABLET. PO SCH ×2 (08:29→22:13)
[2019-08-24] MEDS: metFORMIN 500 MG TABLET PO SCH ×2 (08:29→16:52)
[2019-08-24] MEDS: FERROUS SULFATE 325 MG TABLET. PO SCH ×2 (08:29→16:52)
[2019-08-24] MEDS: OXYBUTYNIN CHLORIDE 5 MG TABLET PO SCH ×3 (08:29→22:13)
[2019-08-24] MEDS: ALPRAZolam 0.5 MG TABLET PO SCH ×3 (08:29→22:13)
[2019-08-24] MEDS: NITROFURANTOIN MONOHYD/M-CRYST 100 MG CAPSULE. PO SCH (08:29)
[2019-08-24] MEDS: rOPINIRole 1 MG TABLET. PO SCH ×3 (08:29→22:13)
[2019-08-24] MEDS: INSULIN LISPRO 300 UNITS/3 ML VIAL. SQ SCH ×4 (08:30→21:00)
[2019-08-24 11:00] VITALS: BP 134/66
[2019-08-24] MEDS: PARoxetine 20 MG TABLET PO SCH (12:10)
[2019-08-24] MEDS ORDERED: ONDANSETRON ODT 4 MG TAB.RAPDIS PO PRN (15:15)
[2019-08-24 16:32] VITALS: BP 134/82
[2019-08-24] MEDS: glyBURIDE 5 MG TABLET PO SCH ×2 (16:52→18:45)
[2019-08-24 19:08] VITALS: BP 143/84
[2019-08-24] MEDS: ATENOLOL 25 MG TABLET PO SCH (22:13)
[2019-08-24] MEDS: SIMVASTATIN 40 MG TABLET. PO SCH (22:13)
--- NOTE | 2019-08-24 22:49 | PN ---
DATE: SUBJECTIVE: A 68-year-old female in with pyelonephritis. The patient is resting fairly comfortably, making fairly good progress. The patient is still fairly weak, not able to move much out of bed. OBJECTIVE: VITAL SIGNS: Blood pressure 134/82, respiratory rate 18, pulse 86, afebrile, 94% oxygen saturation. GENERAL: The patient is alert and oriented. LUNGS: Diminished, but basically clear. CARDIOVASCULAR: Regular sinus rhythm. ABDOMEN: Soft, protuberant. EXTREMITIES: No clubbing, cyanosis. Trace edema. NEUROLOGIC: The patient is alert and oriented x 3. LABORATORY DATA: The patient's blood sugars are vacillating anywhere in the low 200s to upper 200s. We will try to adjust on that. IMPRESSION: Pyelonephritis, urinary tract infection, type 2 diabetes, morbid obesity, paralyzed, marked paresis to the lower extremities, hypokalemia and generalized fatigue and deconditioning. HUNG HAMMOND MD DR: ALEXIA/oscar JOB#: [id number] / [id number]
[2019-08-24 23:32] VITALS: BP 133/82
[2019-08-25] MEDS: IPRATRPIUM/ALBUTEROL 0.5/2.5MG 3 ML NEBU. NEB SCH ×4 (04:24→20:00)
[2019-08-25 05:27] VITALS: BP 137/84
[2019-08-25] MEDS: HYDROcodone/APAP 5/325MG 1 TAB TABLET PO PRN ×3 (05:50→21:55)
[2019-08-25 07:51] LABS: BASO % 0 % (0-3); EOS # 0.3 x10^3/uL (0.0-0.7); EOS % 5 % (0-3); HEMATOCRIT 37.8 % (36.0-47.0); HEMOGLOBIN 11.8 g/dL (12.0-15.5); LYMPH % 28 % (24-48); MEAN CORPUSCULAR HEMOGLOBIN 29 pg (25-35); MEAN CORPUSCULAR HGB CONC 31 g/dL (31-37); MEAN CORPUSCULAR VOLUME 92 fL (79-100); MONO # 0.5 x10^3/uL (0.0-1.1); MONO % 7 % (0-9); NEUT # 4.2 x10^3uL (1.8-7.7); NEUT % 59 % (31-73); PLATELET COUNT 255 x10^3/uL (140-400); RED BLOOD COUNT 4.13 x10^6/uL (3.50-5.40); RED CELL DISTRIBUTION WIDTH 15.6 % (11.5-14.5)
[2019-08-25] MEDS: OXYBUTYNIN CHLORIDE 5 MG TABLET PO SCH ×3 (07:57→21:56)
[2019-08-25] MEDS: ALPRAZolam 0.5 MG TABLET PO SCH ×3 (07:57→21:55)
[2019-08-25] MEDS: APIXABAN 5 MG TABLET. PO SCH ×2 (07:57→21:56)
[2019-08-25] MEDS: metFORMIN 500 MG TABLET PO SCH ×2 (07:57→16:24)
[2019-08-25] MEDS: FERROUS SULFATE 325 MG TABLET. PO SCH ×2 (07:57→16:24)
[2019-08-25] MEDS: NITROFURANTOIN MONOHYD/M-CRYST 100 MG CAPSULE. PO SCH (07:57)
[2019-08-25] MEDS: ARIPiprazole 5 MG TABLET PO SCH (07:57)
[2019-08-25] MEDS: rOPINIRole 1 MG TABLET. PO SCH ×3 (08:01→21:53)
[2019-08-25] MEDS: INSULIN LISPRO 300 UNITS/3 ML VIAL. SQ SCH ×4 (08:03→21:00)
[2019-08-25 08:09] LABS: ALBUMIN 2.8 g/dL (3.4-5.0); CALCIUM 8.6 mg/dL (8.5-10.1); CREATININE 0.8 mg/dL (0.6-1.0); GFR 71.1; TOTAL BILIRUBIN 0.2 mg/dL (0.2-1.0); TOTAL PROTEIN 5.7 g/dL (6.4-8.2)
[2019-08-25 11:05] VITALS: BP 116/72
[2019-08-25] MEDS: PARoxetine 20 MG TABLET PO SCH (12:28)
[2019-08-25] MEDS: LACTOBACILLUS RHAMNOSUS GG 1 CAPSULE. PO SCH ×2 (12:28→21:55)
[2019-08-25 16:03] VITALS: BP 117/71
[2019-08-25] MEDS: glyBURIDE 5 MG TABLET PO SCH (16:24)
[2019-08-25 19:25] VITALS: BP 138/80
[2019-08-25] MEDS: ATENOLOL 25 MG TABLET PO SCH (21:55)
[2019-08-25] MEDS: SIMVASTATIN 40 MG TABLET. PO SCH (21:55)
[2019-08-25 22:08] VITALS: BP 130/84
--- NOTE | 2019-08-25 23:42 | PN ---
DATE: SUBJECTIVE: A 68-year-old female in with pyelonephritis. The patient receiving IV antibiotic therapy, needs rehabilitation. She is very weak, unable to get out of the bed without massive assistance. OBJECTIVE: VITAL SIGNS: The patient's blood pressure 116/72, respiratory rate 18, pulse 77, afebrile. GENERAL: The patient is alert and oriented x 3. Speech is fluent, spontaneous, appropriate. NEUROLOGIC: Cranial nerves 2-12 grossly intact. IMPRESSION AND PLAN: The patient is morbidly obese, patient is improving overall, but still very weak. We will try to get her and she would like to go into [facility]. Blood sugars are still elevated. We will try to give her additional insulin to help bring down his sugars. HUNG HAMMOND MD DR: ALEXIA/oscar JOB#: [id number] / [id number]
[2019-08-26 05:16] VITALS: BP 156/85
[2019-08-26] MEDS: IPRATRPIUM/ALBUTEROL 0.5/2.5MG 3 ML NEBU. NEB SCH ×4 (06:13→21:00)
[2019-08-26] MEDS: NITROFURANTOIN MONOHYD/M-CRYST 100 MG CAPSULE. PO SCH (08:33)
[2019-08-26] MEDS: metFORMIN 500 MG TABLET PO SCH ×2 (08:33→16:39)
[2019-08-26] MEDS: ALPRAZolam 0.5 MG TABLET PO SCH ×3 (08:33→21:18)
[2019-08-26] MEDS: APIXABAN 5 MG TABLET. PO SCH ×2 (08:33→21:19)
[2019-08-26] MEDS: ACETAMINOPHEN 325 MG TABLET PO PRN (08:33)
[2019-08-26] MEDS: FERROUS SULFATE 325 MG TABLET. PO SCH ×2 (08:33→16:39)
[2019-08-26] MEDS: ARIPiprazole 5 MG TABLET PO SCH (08:34)
[2019-08-26] MEDS: LACTOBACILLUS RHAMNOSUS GG 1 CAPSULE. PO SCH ×2 (08:34→21:19)
[2019-08-26] MEDS: rOPINIRole 1 MG TABLET. PO SCH ×3 (08:34→21:19)
[2019-08-26] MEDS: HYDROcodone/APAP 5/325MG 1 TAB TABLET PO PRN ×2 (08:34→16:39)
[2019-08-26] MEDS: OXYBUTYNIN CHLORIDE 5 MG TABLET PO SCH ×3 (08:34→21:19)
[2019-08-26] MEDS: INSULIN LISPRO 300 UNITS/3 ML VIAL. SQ SCH ×4 (08:39→21:00)
[2019-08-26 10:45] VITALS: BP 129/80
[2019-08-26] MEDS: PARoxetine 20 MG TABLET PO SCH (12:35)
[2019-08-26] MEDS: BUTALB/APAP/CAFEIN 50/325/40MG TABLET. PO PRN (14:00)
[2019-08-26 14:40] VITALS: BP 135/82
[2019-08-26] MEDS: glyBURIDE 5 MG TABLET PO SCH (16:39)
[2019-08-26 19:06] VITALS: BP 113/74
[2019-08-26] MEDS: ATENOLOL 25 MG TABLET PO SCH (21:19)
[2019-08-26] MEDS: SIMVASTATIN 40 MG TABLET. PO SCH (21:19)
--- NOTE | 2019-08-26 23:00 | PN ---
DATE: SUBJECTIVE: The patient is still extremely weak in bed, being treated for pyelonephritis. Blood pressure 113/74, respiratory rate 20, pulse 90, afebrile. The patient is looking forward to going to [facility] in the day, the Tuesday for further rehabilitation as the patient has tremendous weakness in her legs, long history of such with a history of severe paresis to the lower legs secondary to a previous surgery. He also has multiple urinary tract infections, has chronic Zaidi catheter because of incontinence. Otherwise, the patient is resting fairly comfortably, making fairly good progress overall. We will continue on IV antibiotic therapy, but more importantly, the patient will also be evaluated for [facility] for continued rehabilitation. HUNG HAMMOND MD DR: ALEXIA/oscar JOB#: [id number] / [id number]
[2019-08-27] MEDS: BUTALB/APAP/CAFEIN 50/325/40MG TABLET. PO PRN (02:32)
[2019-08-27] MEDS: IPRATRPIUM/ALBUTEROL 0.5/2.5MG 3 ML NEBU. NEB SCH ×3 (04:35→19:54)
[2019-08-27 05:12] VITALS: BP 125/82
[2019-08-27] MEDS: LACTOBACILLUS RHAMNOSUS GG 1 CAPSULE. PO SCH ×2 (08:45→22:15)
[2019-08-27] MEDS: FERROUS SULFATE 325 MG TABLET. PO SCH ×2 (08:45→17:07)
[2019-08-27] MEDS: rOPINIRole 1 MG TABLET. PO SCH ×3 (08:45→22:15)
[2019-08-27] MEDS: APIXABAN 5 MG TABLET. PO SCH ×2 (08:45→22:15)
[2019-08-27] MEDS: PARoxetine 20 MG TABLET PO SCH (08:45)
[2019-08-27] MEDS: ALPRAZolam 0.5 MG TABLET PO SCH ×3 (08:45→22:14)
[2019-08-27] MEDS: ARIPiprazole 5 MG TABLET PO SCH (08:46)
[2019-08-27] MEDS: NITROFURANTOIN MONOHYD/M-CRYST 100 MG CAPSULE. PO SCH (08:46)
[2019-08-27] MEDS: OXYBUTYNIN CHLORIDE 5 MG TABLET PO SCH ×3 (08:46→22:15)
[2019-08-27] MEDS: metFORMIN 500 MG TABLET PO SCH ×2 (08:46→17:07)
[2019-08-27] MEDS: INSULIN LISPRO 300 UNITS/3 ML VIAL. SQ SCH ×4 (08:51→21:00)
[2019-08-27] MEDS: HYDROcodone/APAP 5/325MG 1 TAB TABLET PO PRN ×2 (09:36→22:15)
[2019-08-27 11:14] VITALS: BP 133/81
[2019-08-27 14:53] VITALS: BP 138/81
[2019-08-27] MEDS: FLUTICASONE 50MCG/NASAL SPRAY 16GM BOTTLE. NS SCH (15:32)
[2019-08-27] MEDS: glyBURIDE 5 MG TABLET PO SCH (17:07)
[2019-08-27 18:50] VITALS: BP 136/81
[2019-08-27] MEDS: SIMVASTATIN 40 MG TABLET. PO SCH (22:14)
[2019-08-27] MEDS: ATENOLOL 25 MG TABLET PO SCH (22:15)
--- NOTE | 2019-08-28 00:48 | PN ---
DATE: SUBJECTIVE: A 68-year-old -[place] female brought in for generalized weakness and unresponsive to oral antibiotics for her bladder infection. The patient had been increased weakness, had been treated as an outpatient and did not respond to her oral medications. As a result of that, she came in through the Emergency Room and was admitted for her generalized weakness and recurrent unresponsive urinary tract infection. The patient also had an elevated diastolic of 120 initially, 150/120. The patient in turn is being assessed presently to be transferred to [facility] for rehabilitation care. She needs this for generalized weakness in her lower extremities as well as overall body deconditioning. OBJECTIVE: VITAL SIGNS: Blood pressure is 130/84, respiratory rate 20, pulse 60-90, she is afebrile, presently 95% on room air. GENERAL: The patient is alert and oriented, generalized weakness in both the upper extremities, lower extremities have extreme weakness with very minimal strength if at all and inability to move herself in bed. She has an indwelling Zaidi catheter because of incontinence and lack of control of her bladder. Otherwise, the patient is alert. Speech is fluent and spontaneous. LUNGS: Diminished throughout, basically clear. CARDIOVASCULAR: Regular sinus rhythm. ABDOMEN: Protuberant. She is morbidly obese. EXTREMITIES: Without clubbing, cyanosis. There is trace edema and musculoskeletal atrophy noted to the extremities. Pulses were noted distally. NEUROLOGIC: Otherwise, stable. IMPRESSION: Recurrent urinary tract infections with generalized weakness associated with them, failure of outpatient antibiotic therapy, generalized weakness, progressive neuropathy, type 2 diabetes, and morbid obesity. PLAN: The patient otherwise will be continued with antibiotics and we tried to get her to be transferred to a rehab facility for continued rehabilitation care and try to strengthen her. HUNG HAMMOND MD DR: ALEXIA/oscar JOB#: [id number] / [id number]
[2019-08-28] MEDS: IPRATRPIUM/ALBUTEROL 0.5/2.5MG 3 ML NEBU. NEB SCH ×3 (05:44→15:56)
[2019-08-28 06:05] VITALS: BP 159/87
[2019-08-28] MEDS: metFORMIN 500 MG TABLET PO SCH ×2 (07:58→17:22)
[2019-08-28] MEDS: ALPRAZolam 0.5 MG TABLET PO SCH ×2 (07:58→13:52)
[2019-08-28] MEDS: ARIPiprazole 5 MG TABLET PO SCH (07:58)
[2019-08-28] MEDS: OXYBUTYNIN CHLORIDE 5 MG TABLET PO SCH ×2 (07:59→13:52)
[2019-08-28] MEDS: NITROFURANTOIN MONOHYD/M-CRYST 100 MG CAPSULE. PO SCH (07:59)
[2019-08-28] MEDS: HYDROcodone/APAP 5/325MG 1 TAB TABLET PO PRN ×2 (07:59→09:23)
[2019-08-28] MEDS: LACTOBACILLUS RHAMNOSUS GG 1 CAPSULE. PO SCH (07:59)
[2019-08-28] MEDS: FLUTICASONE 50MCG/NASAL SPRAY 16GM BOTTLE. NS SCH (07:59)
[2019-08-28] MEDS: FERROUS SULFATE 325 MG TABLET. PO SCH ×2 (07:59→17:00)
[2019-08-28] MEDS: APIXABAN 5 MG TABLET. PO SCH (08:04)
[2019-08-28] MEDS: rOPINIRole 1 MG TABLET. PO SCH ×2 (08:04→13:52)
[2019-08-28] MEDS: INSULIN LISPRO 300 UNITS/3 ML VIAL. SQ SCH ×3 (08:07→17:00)
[2019-08-28 10:33] VITALS: BP 151/80
[2019-08-28] MEDS: PARoxetine 20 MG TABLET PO SCH (12:10)
[2019-08-28 14:56] VITALS: BP 144/81
[2019-08-28] MEDS: glyBURIDE 5 MG TABLET PO SCH (17:22)
--- NOTE | 2019-08-29 03:00 | PN ---
DATE: SUBJECTIVE: The patient is resting fairly comfortably. We are still waiting for approval from [facility] to take the patient in transfer. The patient otherwise is basically stable, has been evaluated by our Physical Therapy Department and generalized weakness. Blood pressure was elevated, adjusted her blood pressure medications. OBJECTIVE: VITAL SIGNS: Blood pressure 144/81, respiratory rate 20, pulse 80, afebrile. GENERAL: The patient is alert and oriented, still very weak in her legs, but has made some improvement while here. RESPIRATORY: In any case, the patient's lungs are diminished. CARDIOVASCULAR: Regular sinus rhythm. ABDOMEN: Soft, nontender. EXTREMITIES: The patient's lower extremities, decreased sensation, but does have some mild muscle tone and reflexes were diminished. We will continue to monitor the patient accordingly and hopefully, [facility] will call for placement of this patient. IMPRESSION: Recurrent urinary tract infection with generalized weakness, failure of outpatient antibiotic therapy, progressive neuropathy, type 2 diabetes, morbid obesity. She has had a cervical fusion. She has had history of deep vein thrombosis, chronic Zaidi catheterization for urinary retention, wheelchair bound, left knee replacement, anemia of chronic disease. PLAN: The patient will continue to be monitored and hopefully be able to be transferred to [facility] as soon as possible. HUNG HAMMOND MD DR: ALEXIA/oscar JOB#: [id number] / [id number]
== END 2019-08-28 18:26 | disposition home or self-care (01) | DRG 699 ==
LOC: ER 14:54 → 1 SOUTH 17:15 → ER 19:02
PROVIDERS: ADMIT Family Medicine; ATTEND Family Medicine
DX: T83.518A Infection and inflammatory reaction due to other urinary catheter, initial encounter (principal); N12 Tubulo-interstitial nephritis, not specified as acute or chronic; Z68.41 Body mass index [BMI] 40.0-44.9, adult; I10 Essential (primary) hypertension; E11.9 Type 2 diabetes mellitus without complications; I25.10 Atherosclerotic heart disease of native coronary artery without angina pectoris; Z96.652 Presence of left artificial knee joint; E66.01 Morbid (severe) obesity due to excess calories; E87.6 Hypokalemia; F32.9 Major depressive disorder, single episode, unspecified; F41.9 Anxiety disorder, unspecified; G62.9 Polyneuropathy, unspecified; M19.90 Unspecified osteoarthritis, unspecified site; D63.8 Anemia in other chronic diseases classified elsewhere; E78.00 Pure hypercholesterolemia, unspecified; Z99.3 Dependence on wheelchair; Z87.440 Personal history of urinary (tract) infections; Z86.718 Personal history of other venous thrombosis and embolism; Z86.14 Personal history of Methicillin resistant Staphylococcus aureus infection; Z83.3 Family history of diabetes mellitus; Z83.2 Family history of diseases of the blood and blood-forming organs and certain disorders involving the immune mechanism; Z82.49 Family history of ischemic heart disease and other diseases of the circulatory system; Z81.8 Family history of other mental and behavioral disorders; Z80.9 Family history of malignant neoplasm, unspecified; Z88.8 Allergy status to other drugs, medicaments and biological substances
CPT/HCPCS: 36415; 71045; 80053; 81001; 82947; 83605; 85025; 87040; 87086; 87493; 94640; 96365; J0696; J1815; J7040; Q0162; Q0163; 97530; 97535; 99285-25; J7030

== ENCOUNTER 2019-09-12 16:45 | Emergency (ER) | payer MEDICARE ==
[~2019-09-12] VITALS: Ht 172.7 cm; Wt 132.9 kg
[~2019-09-12 16:45] MED LIST changes: +FERR-36 PO; +NITR100C6 PO; +ROPI1TAB4 PO; +SENN8.6T11 PO; +SENN8.8S5 PO
[2019-09-12] MEDS: IV NORMAL SALINE 1,000ML 1,000 ML IV ONE ×2 (17:00)
[2019-09-12] MEDS: INSULIN REGULAR 100 UNIT/ML 3ML VIAL. IV ONE (17:00)
--- NOTE | 2019-09-12 17:03 | PHYS DOC ---
Past History Past Medical History: Anxiety, Diabetes, DVT, Hypertension, UTI, Vascular Disease Additional Past Medical Histor: " spinal cord condition" Past Surgical History: Cervical Fusion, Knee Replacement Smoking: Non-smoker Alcohol Use: None Drug Use: None Adult General Chief Complaint Chief Complaint: BLOOD SUGAR PROBLEM HPI HPI Patient is a 6-year-old female, with a history of diabetes, paraplegia, and a ch ronic indwelling Zaidi catheter, frequent UTIs, as well as other medical problems, who presents to the emergency department for evaluation. She states that her blood sugar has been running high over the past few days, and she went see her doctor earlier in this week and was put on insulin in addition to her glyburide and metformin. She states she has been unable to get her blood sugar down despite following her doctor's instructions to gradually increase her insulin. She has no complaints at this time and feels well, other than her blood sugar being elevated. She denies any chest pain or shortness of breath, dizziness or lightheadedness, nausea, vomiting, or diarrhea. She is currently taking Levaquin for recently diagnosed urinary tract infection. There are no alleviating or exacerbating factors to her symptoms otherwise. Review of Systems Review of Systems Constitutional: Denies fever or chills [] Eyes: Denies change in visual acuity, redness, or eye pain [] HENT: Denies nasal congestion or sore throat [] Respiratory: Denies cough or shortness of breath [] Cardiovascular: The patient denies any shortness of breath, chest pain, palpitations, or orthopnea [] GI: Denies abdominal pain, nausea, vomiting, bloody stools or diarrhea [] : Denies dysuria or hematuria [] Musculoskeletal: Denies back pain or joint pain [] Integument: Denies rash or skin lesions [] Neurologic: Denies headache, focal weakness or sensory changes [] Endocrine: Denies polyuria or polydipsia [] All other systems were reviewed and found to be within normal limits, except as documented in this note. Current Medications Current Medications Current Medications Medications (Trade) Dose Ordered Sig/Olivia Start Time Stop Time Status Last Admin Dose Admin Insulin Human Regular (HumuLIN R VIAL) 10 unit 1X ONCE 09/12/19 17:00 09/12/19 17:01 UNV Sodium Chloride 1,000 ml @ 1,000 mls/hr 1X ONCE 09/12/19 17:00 09/12/19 17:59 UNV Allergies Allergies Allergies Coded Allergies Type Severity Reaction Last Updated Verified amlodipine Allergy Intermediate 05/26/18 Yes atorvastatin Allergy Intermediate 05/26/18 Yes Physical Exam Physical Exam PHYSICAL EXAM: CONSTITUTIONAL: Well developed, well nourished HEAD: normocephalic, atraumatic EENT: PERRL, EOMI. Conjunctivae normal color, sclerae non-icteric; moist mucous membranes. NECK: Supple, non-tender; no meningismus. LUNGS: Lungs CTA, breathing even and unlabored. Normal air movement. HEART: Regular rate and rhythm, no murmur CHEST: No deformity; non-tender ABDOMEN: The abdomen is soft, and non-tender, no masses or bruits. EXTREM: Normal ROM; no deformity, no calf tenderness. Normal pulses palpable in all extremities. There is no pedal edema. SKIN: No rash; no diaphoresis NEURO: Alert; normal speech and cognition; CN's grossly intact; strength grossly intact in the upper extremities without focal deficit. There is weakness of the lower extremities, chronic and baseline. BACK: No CVA TTP. Current Patient Data Lab Results Laboratory Tests Test 09/12/19 16:55 09/12/19 17:05 09/12/19 17:49 Glucose (Fingerstick) 380 mg/dL 305 mg/dL White Blood Count 12.6 x10^3/uL Red Blood Count 4.56 x10^6/uL Hemoglobin 13.3 g/dL Hematocrit 41.6 % Mean Corpuscular Volume 91 fL Mean Corpuscular Hemoglobin 29 pg Mean Corpuscular Hemoglobin Concent 32 g/dL Red Cell Distribution Width 15.5 % Platelet Count 320 x10^3/uL Neutrophils (%) (Auto) 82 % Lymphocytes (%) (Auto) 14 % Monocytes (%) (Auto) 4 % Eosinophils (%) (Auto) 0 % Basophils (%) (Auto) 0 % Neutrophils # (Auto) 10.3 x10^3uL Lymphocytes # (Auto) 1.7 x10^3/uL Monocytes # (Auto) 0.5 x10^3/uL Eosinophils # (Auto) 0.0 x10^3/uL Basophils # (Auto) 0.1 x10^3/uL Urine Collection Type Unknown Urine Color Yellow Urine Clarity Cloudy Urine pH 5.0 Urine Specific [place] 1.015 Urine Protein Trace Urine Glucose (UA) 500 mg/dL Urine Ketones (Stick) Neg mg/dL Urine Blood Large Urine Nitrite Pos Urine Bilirubin Neg Urine Urobilinogen Dipstick 0.2 mg/dL Urine Leukocyte Esterase Large Urine RBC 20-40 /HPF Urine WBC >40 /HPF Urine Squamous Epithelial Cells Few /LPF Urine Bacteria Many /HPF Urine Yeast Present /HPF Sodium Level 135 mmol/L Potassium Level 4.0 mmol/L Chloride Level 95 mmol/L Carbon Dioxide Level 31 mmol/L Anion Gap 9 Blood Urea Nitrogen 27 mg/dL Creatinine 1.4 mg/dL Estimated GFR (Cockcroft-Gault) 37.2 Glucose Level 381 mg/dL Calcium Level 9.3 mg/dL Acetone Level Neg Current Medications Medications (Trade) Dose Ordered Sig/Olivia Route PRN Reason Start Time Stop Time Status Last Admin Dose Admin Sodium Chloride 1,000 ml @ 1,000 mls/hr 1X ONCE IV 09/12/19 17:00 09/12/19 17:59 09/12/19 17:00 Sodium Chloride 1,000 ml @ 1,000 mls/hr 1X ONCE IV 09/12/19 17:00 09/12/19 17:59 09/12/19 17:00 Insulin Human Regular (HumuLIN R VIAL) 10 unit 1X ONCE IV 09/12/19 17:00 09/12/19 17:10 DC 09/12/19 17:00 Laboratory Tests Test 09/12/19 16:55 Glucose (Fingerstick) 380 mg/dL (70-99) H EKG EKG [] Radiology/Procedures Radiology/Procedures [] Course & Med Decision Making Course & Med Decision Making Pertinent Labs studies reviewed. (See chart for details) []5:50 PM: The patient's condition remains stable. She remained a symptomatically. Repeat blood sugar 305, there is still most of liter #2 remaining to be infused. I discussed importance of close follow-up, continuing her 30 mg twice a day of glargine insulin, something the patient will take this evening, the need for close PCP follow-up for further medication adjustment and return precautions. Antibiotic selection will be based on the patient's most recently available urine culture which showed enterococcus, susceptible to Macrobid. Dragon Disclaimer Dragon Disclaimer This electronic medical record was generated, in whole or in part, using a voice recognition dictation system. Departure Departure: Impression: Primary Impression: Hyperglycemia Additional Impressions: Urinary tract infection Zaidi catheter in place Disposition: HOME, SELF-CARE Condition: STABLE Referrals: HUNG HAMMOND MD (PCP) Patient Instructions: 1800 Calorie Diet for Diabetes Meal Planning, Diabetes Meal Planning Guide, Diabetes, Eating Away From Home, Diabetes, FAQs, Hyperglycemia Problem Qualifiers WILLY HAAS MD Sep 12, 2019 17:03
[2019-09-12 17:14] VITALS: BP 150/75
[2019-09-12 17:24] LABS: BASO # 0.1 x10^3/uL (0.0-0.2); BASO % 0 % (0-3); EOS % 0 % (0-3); HEMATOCRIT 41.6 % (36.0-47.0); HEMOGLOBIN 13.3 g/dL (12.0-15.5); LYMPH # 1.7 x10^3/uL (1.0-4.8); LYMPH % 14 % (24-48); MEAN CORPUSCULAR HEMOGLOBIN 29 pg (25-35); MEAN CORPUSCULAR HGB CONC 32 g/dL (31-37); MEAN CORPUSCULAR VOLUME 91 fL (79-100); MONO # 0.5 x10^3/uL (0.0-1.1); MONO % 4 % (0-9); NEUT # 10.3 x10^3uL (1.8-7.7); NEUT % 82 % (31-73); PLATELET COUNT 320 x10^3/uL (140-400); RED BLOOD COUNT 4.56 x10^6/uL (3.50-5.40); RED CELL DISTRIBUTION WIDTH 15.5 % (11.5-14.5); WHITE BLOOD COUNT 12.6 x10^3/uL (4.0-11.0)
[2019-09-12 17:34] LABS: CALCIUM 9.3 mg/dL (8.5-10.1); CREATININE 1.4 mg/dL (0.6-1.0); GFR 37.2
[2019-09-12 17:45] LABS: BILIRUBIN,URINE NEG (NEG); CLARITY,URINE CLOUDY; COLOR,URINE YELLOW; GLUCOSE,URINE 500 mg/dL (NEG)
[2019-09-12 17:46] LABS: BACTERIA,URINE MANY /HPF (0-FEW); NITRITE,URINE POS (NEG); RBC,URINE 20-40 /HPF (0-2); SQUAMOUS EPITHELIAL CELL,UR FEW /LPF; UROBILINOGEN,URINE 0.2 mg/dL (0.2 mg/dL); WBC,URINE >40 /HPF (0-4); YEAST,URINE PRESENT /HPF
[2019-09-12] MEDS ORDERED: NITR100C62 PO (17:54)
== END 2019-09-12 18:43 | disposition home or self-care (01) ==
LOC: ER 16:45
DX: E11.65 Type 2 diabetes mellitus with hyperglycemia (principal); N39.0 Urinary tract infection, site not specified; I10 Essential (primary) hypertension; Z86.718 Personal history of other venous thrombosis and embolism; Z87.440 Personal history of urinary (tract) infections; Z96.0 Presence of urogenital implants; Z88.8 Allergy status to other drugs, medicaments and biological substances
CPT/HCPCS: 36415; 80048; 81001; 82010; 82947; 85025; 87086; 96361; 96374; 99284; J1815; J7030

== ENCOUNTER 2020-06-13 15:44 | Inpatient (IN) | payer MEDICARE ==
[~2020-06-13] VITALS: Ht 175.3 cm; Wt 133.2 kg
[~2020-06-13 15:44] MED LIST changes: +NITR100C62 PO; -WARF-78 PO; +WARF1TAB2 PO; -WARF1TAB74 PO; +WARF5TAB2 PO
--- NOTE | 2020-06-13 16:00 | PHYS DOC ---
Past History Past Medical History: Anxiety, Diabetes, DVT, Hypertension, UTI, Vascular Disease Additional Past Medical Histor: " spinal cord condition" Past Surgical History: Cervical Fusion, Knee Replacement Smoking: Non-smoker Alcohol Use: None Drug Use: None Adult General HPI HPI Patient is a 69-year-old female who presents via EMS for fever and decreased mentation. Patient lives at home with , reportedly has been more weak and fatigued than usual. There were concerns this morning about patient being febrile and so, EMS was called to scene for evaluation. She was found to be febrile and not at her baseline mentation this morning per ; however, patient had capacity at that time and adamantly refused transfer to hospital for evaluation and signed AMA. Nonetheless, later in the day, was concerned for worsening mentation and ability to arouse patient prompting him to call EMS out for evaluation again. On arrival to scene, patient was lethargic but maintaining her airway with GCS 13. She was found to be tachycardic, hypoxic on room air and subsequently started on supplemental oxygen via nasal cannula. Patient did have fever at that time greater than 100.4 and so, she was t ransported to our facility for evaluation. EMS are primary historians after discussing case 2 separate times with today, no known cough or dyspnea, no known COVID-19 contact. Review of Systems Review of Systems Fourteen body systems of review of systems have been reviewed. See HPI for pertinent positives and negative responses, other castrejon all other systems are negative, non-pertinent or non-contributory Allergies Allergies Allergies Coded Allergies Type Severity Reaction Last Updated Verified amlodipine Allergy Intermediate 05/26/18 Yes atorvastatin Allergy Intermediate 05/26/18 Yes Physical Exam Physical Exam Constitutional: Well developed, obese, somnolent, arousable to verbal and painful stimuli, talks in few word sentences before nodding off and to sleep HENT: Normocephalic, atraumatic, bilateral external ears normal, oropharynx moist, no oral exudates, nose normal. Eyes: PERRLA, EOMI, conjunctiva normal, no discharge. Neck: Normal range of motion, no tenderness, supple, no stridor. Cardiovascular: Heart rate tachycardic, sinus rhythm, no murmurs rubs or gallops Lungs & Thorax: Hypoxic on room air without any obvious respiratory distress or accessory muscle use, diminished breath sounds bilaterally due to body habitus without any other obvious abnormalities on auscultation Abdomen: Bowel sounds normal, soft, no tenderness, no masses, no pulsatile masses. Nonsurgical abdomen, no peritoneal signs. Zaidi catheter in place with malodorous and ill appearing urine Skin: Warm, dry, no erythema, no rash. Back: No tenderness, no CVA tenderness. Extremities: No tenderness, no cyanosis, no clubbing Neurologic: Alert and oriented X 3 but appears somnolent, grossly normal motor & sensory function, no focal deficits noted. Psychologic: Unable to fully assess due to somnolence Current Patient Data Vital Signs Vital Signs Date Time Temp Pulse Resp B/P (MAP) Pulse Ox O2 Delivery O2 Flow Rate FiO2 06/13/20 18:43 97 20 138/69 (92) 92 Room Air 06/13/20 18:19 2.0 06/13/20 15:50 102.7 Lab Results Laboratory Tests Test 06/13/20 16:30 06/13/20 17:06 White Blood Count 18.6 x10^3/uL (4.0-11.0) Red Blood Count 4.74 x10^6/uL (3.50-5.40) Hemoglobin 13.1 g/dL (12.0-15.5) Hematocrit 41.4 % (36.0-47.0) Mean Corpuscular Volume 87 fL (79-100) Mean Corpuscular Hemoglobin 28 pg (25-35) Mean Corpuscular Hemoglobin Concent 32 g/dL (31-37) Red Cell Distribution Width 16.1 % (11.5-14.5) Platelet Count 300 x10^3/uL (140-400) Neutrophils (%) (Auto) 86 % (31-73) Lymphocytes (%) (Auto) 7 % (24-48) Monocytes (%) (Auto) 7 % (0-9) Eosinophils (%) (Auto) 0 % (0-3) Basophils (%) (Auto) 0 % (0-3) Neutrophils # (Auto) 16.0 x10^3uL (1.8-7.7) Lymphocytes # (Auto) 1.2 x10^3/uL (1.0-4.8) Monocytes # (Auto) 1.3 x10^3/uL (0.0-1.1) Eosinophils # (Auto) 0.0 x10^3/uL (0.0-0.7) Basophils # (Auto) 0.1 x10^3/uL (0.0-0.2) Segmented Neutrophils % 76 % (35-66) Band Neutrophils % 5 % (0-9) Lymphocytes % 13 % (24-48) Monocytes % 5 % (0-10) Metamyelocytes % 1 % (0-0) Platelet Estimate Adequate (ADEQUATE) Large Platelets Present Urine Collection Type Unknown Urine Color Yellow Urine Clarity Turbid Urine pH 8.5 Urine Specific Clemmons 1.020 Urine Protein 100 mg/dl (NEG-TRACE) Urine Glucose (UA) Neg mg/dL (NEG) Urine Ketones (Stick) Neg mg/dL (NEG) Urine Blood Large (NEG) Urine Nitrite Pos (NEG) Urine Bilirubin Neg (NEG) Urine Urobilinogen Dipstick 2.0 mg/dL (0.2 mg/dL) Urine Leukocyte Esterase Large (NEG) Urine RBC >40 /HPF (0-2) Urine WBC >40 /HPF (0-4) Urine Squamous Epithelial Cells Few /LPF Urine Bacteria Many /HPF (0-FEW) Sodium Level 140 mmol/L (136-145) Potassium Level 3.6 mmol/L (3.5-5.1) Chloride Level 101 mmol/L (98-107) Carbon Dioxide Level 28 mmol/L (21-32) Anion Gap 11 (6-14) Blood Urea Nitrogen 18 mg/dL (7-20) Creatinine 1.2 mg/dL (0.6-1.0) Estimated GFR (Cockcroft-Gault) 44.4 BUN/Creatinine Ratio 15 (6-20) Glucose Level 165 mg/dL (70-99) Lactic Acid Level 1.3 mmol/L (0.4-2.0) Calcium Level 9.6 mg/dL (8.5-10.1) Total Bilirubin 0.8 mg/dL (0.2-1.0) Aspartate Amino Transf (AST/SGOT) 11 U/L (15-37) Alanine Aminotransferase (ALT/SGPT) 17 U/L (14-59) Alkaline Phosphatase 139 U/L (46-116) Troponin I Quantitative < 0.017 ng/mL (0-0.055) YE-Ijb-S-Type Natriuretic Peptide 413 pg/mL (0-124) Total Protein 7.0 g/dL (6.4-8.2) Albumin 3.3 g/dL (3.4-5.0) Albumin/Globulin Ratio 0.9 (1.0-1.7) Glucose (Fingerstick) 179 mg/dL (70-99) EKG EKG EKG ordered and interpreted by myself as sinus tachycardia without any interval abnormalities, no ischemic findings, no STEMI. Please see uploaded EKG and patient chart Radiology/Procedures Radiology/Procedures PORTABLE CHEST 1V History: Reason: fever / Spl. Instructions: / History: Comparison: August 22, 2019 Findings: No consolidation or pleural effusion. Normal heart size. No pneumothorax. Impression: 1. No acute cardiopulmonary process. Electronically signed by: Juan David Alcantara DO (06/13/2020 4:18 PM) [id number] Heart Score HEART Score for Chest Pain: HEART Score for Chest Pain Response (Comments) Value History Moderately Suspicious 1 ECG Normal 0 Age > 65 2 Risk Factors >3 Risk Factors or Hx CAD 2 Troponin < Normal Limit 0 Total 5 Risk Factors: Risk Factors: DM, Current or recent (<one month) smoker, HTN, HLP, family history of CAD, obesity. Risk Scores: Risk Factors: DM, Current or recent (<one month) smoker, HTN, HLP, family history of CAD, obesity. Course & Med Decision Making Course & Med Decision Making Pertinent Labs and Imaging studies reviewed. (See chart for details) Discussed most likely diagnosis with patient of sepsis secondary to pyelonephritis/UTI. 2 g IV Rocephin administered while in ER with improvement in patient's mentation. Patient's concerning Zaidi catheter changed while in ER which is likely nidus for infection Patient still hypoxic on room air and requiring supplemental oxygen which is unusual for her, no obvious chest x-ray abnormalities, I question if this is due to gross body habitus, she is high risk for PE given she is bedbound with numerous risk factors etc., CTA chest pending Patient's PCP, Dr. Hammond called and case discussed. He was amenable for admission under his care at [facility] I discussed this with patient and patient's spouse was also contacted and plan of care discussed, they were both amenable to admission for further medical therapy All questions and concerns addressed prior to ER transport to [facility] in stable condition Angel Disclaimer Dragon Disclaimer This electronic medical record was generated, in whole or in part, using a voice recognition dictation system. PERC Rule for PE PERC Rule for PE Response (Comments) Value Age > 50: Yes 1 HR > 100: Yes 1 Sa02 on room air <95%: Yes 1 Unilateral leg swelling: No 0 Hemoptysis: No 0 Recent surgery or trauma: No 0 Prior PE or DVT: No 0 Hormone use: No 0 Total 3 Departure Departure: Impression: Primary Impression: Pyelonephritis Additional Impressions: Sepsis secondary to UTI Hypoxia Disposition: ADMITTED INPT THIS HOSP Admitting Physician: Hung Hammond Condition: STABLE Referrals: HUNG HAMMOND MD (PCP) Problem Qualifiers SVETLANA MORAES DO Jun 13, 2020 16:00
[2020-06-13] MEDS ORDERED: IV NORMAL SALINE 500ML 500 ML IV ONE (16:45)
--- NOTE | 2020-06-13 16:50 | RAD ---
PORTABLE CHEST 1V History: Reason: fever / Spl. Instructions: / History: Comparison: August 22, 2019 Findings: No consolidation or pleural effusion. Normal heart size. No pneumothorax. Impression: 1. No acute cardiopulmonary process. Electronically signed by: Juan David Alcantara DO (06/13/2020 4:18 PM) [id number]
--- NOTE | 2020-06-13 16:50 | EKG ---
[facility] ED 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
[2020-06-13] MEDS ORDERED: IV NORMAL SALINE 100ML 100 ML ONE (16:52)
[2020-06-13] MEDS ORDERED: ACETAMINOPHEN 500 MG TABLET PO ONE (17:00)
[2020-06-13 17:18] LABS: BASO # 0.1 x10^3/uL (0.0-0.2); BASO % 0 % (0-3); EOS % 0 % (0-3); HEMATOCRIT 41.4 % (36.0-47.0); HEMOGLOBIN 13.1 g/dL (12.0-15.5); LYMPH # 1.2 x10^3/uL (1.0-4.8); LYMPH % 7 % (24-48); MEAN CORPUSCULAR HEMOGLOBIN 28 pg (25-35); MEAN CORPUSCULAR HGB CONC 32 g/dL (31-37); MEAN CORPUSCULAR VOLUME 87 fL (79-100); MONO # 1.3 x10^3/uL (0.0-1.1); MONO % 7 % (0-9); NEUT % 86 % (31-73); PLATELET COUNT 300 x10^3/uL (140-400); RED BLOOD COUNT 4.74 x10^6/uL (3.50-5.40); RED CELL DISTRIBUTION WIDTH 16.1 % (11.5-14.5); WHITE BLOOD COUNT 18.6 x10^3/uL (4.0-11.0)
[2020-06-13 17:28] LABS: CALCIUM 9.6 mg/dL (8.5-10.1); CREATININE 1.2 mg/dL (0.6-1.0); GFR 44.4; POTASSIUM 3.6 mmol/L (3.5-5.1)
[2020-06-13 17:32] LABS: BACTERIA,URINE MANY /HPF (0-FEW); BILIRUBIN,URINE NEG (NEG); CLARITY,URINE TURBID; COLOR,URINE YELLOW; GLUCOSE,URINE NEG (NEG); NITRITE,URINE POS (NEG); RBC,URINE >40 /HPF (0-2); SQUAMOUS EPITHELIAL CELL,UR FEW /LPF; WBC,URINE >40 /HPF (0-4)
[2020-06-13 17:41] LABS: ALBUMIN 3.3 g/dL (3.4-5.0); ALBUMIN/GLOBULIN RATIO 0.9 (1.0-1.7); TOTAL BILIRUBIN 0.8 mg/dL (0.2-1.0)
[2020-06-13] MEDS ORDERED: KETOROLAC 15 MG/ML VIAL. IVP ONE (18:15)
[2020-06-13 18:16] LABS: % BANDS 5 % (0-9); % LYMPHS 13 % (24-48); % METAS 1 % (0-0); % MONOS 5 % (0-10); % SEGS 76 % (35-66)
[2020-06-13 18:17] LABS: PLT ESTIMATE ADEQUATE (ADEQUATE)
[2020-06-13] MEDS ORDERED: IOHEXOL 350 MG/ML 100 ML VIAL. ONE (19:28)
[2020-06-13] MEDS ORDERED: IOHEXOL 350 MG/ML 100 ML VIAL. IV ONE (20:00)
--- NOTE | 2020-06-13 20:11 | RAD ---
CTA OF THE CHEST WITH AND WITHOUT CONTRAST Clinical indications: Shortness of breath. Hypoxia. Technique: Noncontrast axial localizer was performed. After IV infusion of 85 cc of Omnipaque 350, helical CT scanning of the chest was performed using the CTA pulmonary embolism protocol. Coronal and sagittal MIP reconstructions were generated. PQRS compliance Statement One or more of the following individualized dose reduction techniques were utilized for this study: 1. Automated exposure control 2. Adjustment of the mA and/or kV according to patient size 3. Use of iterative reconstruction technique Comparison: June 07, 2009. Findings: No pulmonary embolism is evident. No focal aneurysmal dilatation or dissection of the thoracic aorta is seen. Heart size is within normal limits. Mild calcified atheromatous disease of the coronary arteries is seen. No pericardial effusion is seen. No enlarged thoracic lymphadenopathy is evident. No adrenal mass is seen. No pleural effusion or pneumothorax is seen. There is linear atelectasis of both lower lobes. There is a small infiltrate present within the posterior medial aspect of the left lower lobe. There is a small peripheral lung infiltrate seen within the lateral segment of the right middle lobe. No lytic process is evident. IMPRESSION: No pulmonary embolism. Small bilateral lung infiltrates. No pleural effusion or pneumothorax. Mild calcified atheromatous disease of the coronary arteries. Electronically signed by: Jared Spencer MD (06/13/2020 8:08 PM) [id number]
[2020-06-13] MEDS ORDERED: CONTRAST GIVEN. MC PRN (20:15)
[2020-06-13 20:31] VITALS: BP 94/62
[2020-06-13] MEDS: ATENOLOL 25 MG TABLET PO SCH (21:00)
[2020-06-13] MEDS: ALPRAZolam 0.5 MG TABLET PO SCH (21:00)
[2020-06-13] MEDS ORDERED: NITROFURANTOIN MONOHYD/M-CRYST 100 MG CAPSULE. PO SCH (21:00)
[2020-06-13] MEDS ORDERED: PIP/TAZO PER PHARMACY MC PRN (21:00)
[2020-06-13] MEDS ORDERED: DEXTROSE 50% 25 GM / 50ML DISP.SYRIN. IV PRN (21:30)
[2020-06-13 22:00] VITALS: BP 104/69
[2020-06-13] MEDS: APIXABAN 5 MG TABLET. PO SCH (23:38)
[2020-06-13] MEDS: SIMVASTATIN 40 MG TABLET. PO SCH (23:38)
[2020-06-13] MEDS: OXYBUTYNIN CHLORIDE 5 MG TABLET PO SCH (23:38)
[2020-06-13] MEDS: FERROUS SULFATE 325 MG TABLET. PO SCH (23:38)
[2020-06-13] MEDS: rOPINIRole 1 MG TABLET. PO SCH (23:38)
[2020-06-14] MEDS: PIPERACILLIN/TAZOBACTAM 3.375 GM in IV NORMAL SALINE 50ML 50 ML IV SCH ×5 (02:31→23:46)
[2020-06-14] MEDS: ACETAMINOPHEN 325 MG TABLET PO PRN (05:26)
[2020-06-14] MEDS: HYDROcodone/APAP 5/325MG 1 TAB TABLET PO PRN ×2 (05:33→15:13)
[2020-06-14 05:36] VITALS: BP 97/65
[2020-06-14] MEDS: rOPINIRole 1 MG TABLET. PO SCH ×3 (07:58→20:50)
[2020-06-14] MEDS: APIXABAN 5 MG TABLET. PO SCH ×2 (07:58→20:49)
[2020-06-14] MEDS: FERROUS SULFATE 325 MG TABLET. PO SCH ×2 (07:59→20:49)
[2020-06-14] MEDS: ALPRAZolam 0.5 MG TABLET PO SCH ×3 (07:59→20:50)
[2020-06-14] MEDS: OXYBUTYNIN CHLORIDE 5 MG TABLET PO SCH ×3 (07:59→20:50)
[2020-06-14] MEDS: INSULIN LISPRO 300 UNITS/3 ML VIAL. SQ SCH ×3 (08:00→18:19)
[2020-06-14] MEDS ORDERED: metFORMIN 500 MG TABLET PO SCH (08:00)
[2020-06-14] MEDS ORDERED: NITROFURANTOIN MONOHYD/M-CRYST 100 MG CAPSULE. PO SCH (09:00)
[2020-06-14 09:28] LABS: BASO % 0 % (0-3); EOS % 0 % (0-3); HEMATOCRIT 36.8 % (36.0-47.0); HEMOGLOBIN 11.6 g/dL (12.0-15.5); LYMPH # 1.7 x10^3/uL (1.0-4.8); LYMPH % 8 % (24-48); MEAN CORPUSCULAR HEMOGLOBIN 28 pg (25-35); MEAN CORPUSCULAR HGB CONC 32 g/dL (31-37); MEAN CORPUSCULAR VOLUME 88 fL (79-100); MONO # 1.3 x10^3/uL (0.0-1.1); MONO % 6 % (0-9); NEUT # 18.9 x10^3uL (1.8-7.7); NEUT % 86 % (31-73); PLATELET COUNT 263 x10^3/uL (140-400); RED BLOOD COUNT 4.18 x10^6/uL (3.50-5.40); RED CELL DISTRIBUTION WIDTH 16.2 % (11.5-14.5); WHITE BLOOD COUNT 22.1 x10^3/uL (4.0-11.0)
[2020-06-14 10:30] VITALS: BP 121/76
[2020-06-14] MEDS: LIDOCAINE (700MG/PATCH) PATCH. TD SCH (11:56)
[2020-06-14 13:26] LABS: CALCIUM 9.2 mg/dL (8.5-10.1); CREATININE 1.1 mg/dL (0.6-1.0); GFR 49.1; POTASSIUM 3.6 mmol/L (3.5-5.1)
[2020-06-14 15:59] VITALS: BP 120/73
[2020-06-14] MEDS: glyBURIDE 5 MG TABLET PO SCH (18:14)
[2020-06-14] MEDS: ATENOLOL 25 MG TABLET PO SCH (20:49)
[2020-06-14] MEDS: SIMVASTATIN 40 MG TABLET. PO SCH (20:50)
[2020-06-14 21:13] VITALS: BP 110/74
[2020-06-14 23:18] VITALS: BP 118/80
--- NOTE | 2020-06-15 02:24 | CONS ---
DATE OF CONSULTATION: HISTORY OF PRESENT ILLNESS: A 69-year-old female came in with decreased mentation at home. She has been feeling weak and tired for some time. The patient is pretty much confined to a wheelchair and has multiple urinary tract infections. The patient was found by her who is stating that the patient was not acting her usual self and was unable to arouse her completely. The patient was summoned by her to get in to EMS and brought her in. She was running a temperature of 100.4 and had a white count of 18,000 and as a result of this, the patient was admitted to the hospital for further evaluation of sepsis, probable urinary tract infection. Plan as above. Continue with IV antibiotic therapy. PAST MEDICAL HISTORY: Extensive. She has had tonsillitis; tonsillectomy; adenoidectomy; current lethargy; peripheral neuropathy; cervical fusion; cardiac disorders; coronary artery disease; anticoagulant therapy on Eliquis; hypercholesterolemia; hypertension; DVTs of the left leg; respiratory disorders; COPD; bronchitis; GERD; obesity; reproductive disorders, postmenopausal; frequent urinary tract infection; urinary retention; severe weakness; arthritis; osteoarthritis; knee replacement, left; diabetes; anxiety; history of smoking, although quit 15 years ago. The patient has a history of anemia. IMMUNIZATIONS: Up-to-date. FAMILY HISTORY: Positive for diabetes, myocardial infarction, hypertension, lupus in a brother, dementia in the mother, cancer in an aunt and grandfather. ALLERGIES: AMLODIPINE, ATORVASTATIN AND LIPITOR. HOME MEDICATIONS: Include Benadryl, nitrofurantoin, Macrobid 100 mg b.i.d., ferrous sulfate, Eliquis 5 mg, simvastatin 40, atenolol 25, hydrocodone 5/325, Tylenol, Robinul 1 mg t.i.d., metformin 1000 b.i.d., glyburide, and oxybutynin chloride. SOCIAL HISTORY: The patient was noted stopped smoking approximately 15 years ago. Denies alcohol or drug use. The patient is a full code. REVIEW OF SYSTEMS: The patient basically has some pain on urination. She has difficulty moving her legs. She had marked weakness in her legs. The patient otherwise denies any headaches, visual changes or blurred vision. Denies shortness of breath, chest pain, does have some mild nausea and noted she did have some change in mental status. PHYSICAL EXAMINATION: GENERAL: This is a pleasant -Faroese female who is somewhat lethargic. VITAL SIGNS: Blood pressure 135/70, respiratory rate 20, pulse 104, temperature 102.7. Heart rate at that time was 130 with 2 liters at 95%. HEENT: The patient's head was atraumatic, normocephalic. Eyes: PERRLA without jaundice. Mouth and throat were normal. NECK: Supple, without JVD, carotid bruits. No thyromegaly. LUNGS: Diminished throughout, poor movement of air, but clear. CARDIOVASCULAR: Regular sinus rhythm, tachycardic. ABDOMEN: Protuberant, soft, diffuse tenderness over the suprapubic area. EXTREMITIES: No clubbing, cyanosis. There is +1 pitting edema. The patient has marked weakness to her legs and feet area. LABORATORY DATA: As noted on the labs, white count was 18,000 and then it went up to 22,000, no left shift was noted on this. Chemistries; 139, 3.6, BUN of 17 and 1.1. Blood sugars anywhere from 132-239. The patient's urine, greater than 40 rbc's and white blood cells as well. IMPRESSION: Sepsis, pyelonephritis, type 2 diabetes, gram-negative rods seen in 1/4 bottles. The patient is on Zosyn and Levaquin after her doses of antibiotics though she feels a little bit better and continued to be monitored accordingly. We will check for mental status changes as well as any hemodynamic changes secondary to her sepsis. HUNG HAMMOND MD DR: ALEXIA/oscar JOB#: [id number] / [id number]
[2020-06-15] MEDS: SENNOSIDES 8.6 MG TABLET PO PRN ×2 (03:58→09:20)
[2020-06-15] MEDS: PIPERACILLIN/TAZOBACTAM 3.375 GM in IV NORMAL SALINE 50ML 50 ML IV SCH ×3 (06:02→17:36)
[2020-06-15 06:43] VITALS: BP 119/75
[2020-06-15 07:09] LABS: HEMOGLOBIN A1C 6.4 % (4.8-5.6)
[2020-06-15] MEDS: INSULIN LISPRO 300 UNITS/3 ML VIAL. SQ SCH ×3 (08:00→17:36)
[2020-06-15 08:37] LABS: BASO % 0 % (0-3); EOS # 0.2 x10^3/uL (0.0-0.7); EOS % 1 % (0-3); HEMATOCRIT 36.2 % (36.0-47.0); HEMOGLOBIN 11.4 g/dL (12.0-15.5); LYMPH % 14 % (24-48); MEAN CORPUSCULAR HEMOGLOBIN 28 pg (25-35); MEAN CORPUSCULAR HGB CONC 32 g/dL (31-37); MEAN CORPUSCULAR VOLUME 88 fL (79-100); MONO # 1.1 x10^3/uL (0.0-1.1); MONO % 8 % (0-9); NEUT # 10.9 x10^3uL (1.8-7.7); NEUT % 77 % (31-73); PLATELET COUNT 264 x10^3/uL (140-400); RED BLOOD COUNT 4.12 x10^6/uL (3.50-5.40); WHITE BLOOD COUNT 14.2 x10^3/uL (4.0-11.0)
[2020-06-15 08:52] LABS: CALCIUM 9.5 mg/dL (8.5-10.1); GFR 54.8; POTASSIUM 3.5 mmol/L (3.5-5.1)
[2020-06-15] MEDS: LIDOCAINE (700MG/PATCH) PATCH. TD SCH (09:00)
[2020-06-15] MEDS ORDERED: FLU VACC QS 2020-21(6MOS+)/PF 0.5 ML SYRINGE. VAX IM ONE (09:00)
[2020-06-15] MEDS: FERROUS SULFATE 325 MG TABLET. PO SCH ×2 (09:19→22:10)
[2020-06-15] MEDS: rOPINIRole 1 MG TABLET. PO SCH ×3 (09:20→22:10)
[2020-06-15] MEDS: OXYBUTYNIN CHLORIDE 5 MG TABLET PO SCH ×3 (09:20→22:10)
[2020-06-15] MEDS: ALPRAZolam 0.5 MG TABLET PO SCH ×3 (09:20→22:09)
[2020-06-15] MEDS: APIXABAN 5 MG TABLET. PO SCH ×2 (09:20→22:10)
[2020-06-15] MEDS: HYDROcodone/APAP 5/325MG 1 TAB TABLET PO PRN (09:20)
[2020-06-15] MEDS: ACETAMINOPHEN 325 MG TABLET PO PRN (09:20)
[2020-06-15 10:32] VITALS: BP 115/67
[2020-06-15] MEDS ORDERED: BISACODYL 10 MG SUPP.RECT PR PRN (12:15)
[2020-06-15] MEDS ORDERED: BISACODYL 10 MG SUPP.RECT PR ONE (12:15)
[2020-06-15 14:34] VITALS: BP 117/74
[2020-06-15] MEDS: glyBURIDE 5 MG TABLET PO SCH (17:35)
[2020-06-15 19:08] VITALS: BP 134/85
[2020-06-15] MEDS: LACTOBACILLUS RHAMNOSUS GG 1 CAPSULE. PO SCH (22:10)
[2020-06-15] MEDS: ATENOLOL 25 MG TABLET PO SCH (22:11)
[2020-06-15] MEDS: SIMVASTATIN 40 MG TABLET. PO SCH (22:11)
[2020-06-15] MEDS: metFORMIN 500 MG TABLET PO SCH (22:14)
[2020-06-15 23:29] VITALS: BP 133/78
[2020-06-15 23:42] LABS: BACTERIA,URINE MANY /HPF (0-FEW); BILIRUBIN,URINE NEG (NEG); CLARITY,URINE CLOUDY; COLOR,URINE YELLOW; GLUCOSE,URINE NEG (NEG); NITRITE,URINE NEG (NEG); RBC,URINE >40 /HPF (0-2); SQUAMOUS EPITHELIAL CELL,UR OCC /LPF; UROBILINOGEN,URINE 0.2 mg/dL (0.2 mg/dL); WBC,URINE >40 /HPF (0-4)
[2020-06-16] MEDS: PIPERACILLIN/TAZOBACTAM 3.375 GM in IV NORMAL SALINE 50ML 50 ML IV SCH ×5 (00:05→23:55)
--- NOTE | 2020-06-16 03:03 | PN ---
DATE: SUBJECTIVE: A 69-year-old female came in with pyelonephritis, sepsis. The patient is resting comfortably, says she feels somewhat better. OBJECTIVE: VITAL SIGNS: Blood pressure 130/60, respiratory rate 20, pulse 80 and afebrile. GENERAL: The patient is alert and oriented. LUNGS: Diminished, but clear. CARDIOVASCULAR: Stable. ABDOMEN: Soft, protuberant. EXTREMITIES: No clubbing, cyanosis or edema. NEUROLOGIC: Intact. LABORATORY DATA: The patient's urine culture grew out multiple organisms. We will try to repeat, however, white count has come down to 14,000, showing good results there. Her blood cultures did grow out E. coli, so ____ cause the viral infection as well. She is on Zosyn and ____ making good progress with that and we will continue on such. IMPRESSION: Sepsis, pyelonephritis and bacteremia with Escherichia coli. PLAN: Continue with IV antibiotic therapy and make adjustments accordingly on her blood sugars. She is a type 2 diabetic as well. HUNG HAMMOND MD DR: ALEXIA/oscar JOB#: [id number] / [id number]
[2020-06-16 06:20] VITALS: BP 130/78
[2020-06-16] MEDS: INSULIN LISPRO 300 UNITS/3 ML VIAL. SQ SCH ×3 (08:00→16:43)
[2020-06-16] MEDS: LACTOBACILLUS RHAMNOSUS GG 1 CAPSULE. PO SCH ×2 (08:09→21:51)
[2020-06-16] MEDS: rOPINIRole 1 MG TABLET. PO SCH ×3 (08:09→21:50)
[2020-06-16] MEDS: metFORMIN 500 MG TABLET PO SCH ×2 (08:09→16:42)
[2020-06-16] MEDS: APIXABAN 5 MG TABLET. PO SCH ×2 (08:10→21:51)
[2020-06-16] MEDS: FERROUS SULFATE 325 MG TABLET. PO SCH ×2 (08:10→21:51)
[2020-06-16] MEDS: ALPRAZolam 0.5 MG TABLET PO SCH ×3 (08:10→21:50)
[2020-06-16] MEDS: OXYBUTYNIN CHLORIDE 5 MG TABLET PO SCH ×3 (08:10→21:51)
[2020-06-16] MEDS: LIDOCAINE (700MG/PATCH) PATCH. TD SCH (08:11)
[2020-06-16 10:06] VITALS: BP 120/75
[2020-06-16] MEDS: PARoxetine 20 MG TABLET PO SCH (12:29)
[2020-06-16] MEDS: LOPERAMIDE 2 MG CAPSULE PO PRN ×2 (12:29→21:50)
[2020-06-16 15:40] VITALS: BP 125/81
[2020-06-16] MEDS: glyBURIDE 5 MG TABLET PO SCH (16:42)
[2020-06-16 19:05] VITALS: BP 144/76
[2020-06-16] MEDS: SIMVASTATIN 40 MG TABLET. PO SCH (21:50)
[2020-06-16] MEDS: ATENOLOL 25 MG TABLET PO SCH (21:50)
[2020-06-16 23:02] VITALS: BP 130/82
--- NOTE | 2020-06-16 23:41 | PN ---
DATE: SUBJECTIVE: A 69-year-old female in with sepsis, bacteremia, E. coli found in her blood. The patient continues to have a little bit of diarrhea. We will check her for C. diff, otherwise she says she feels better. OBJECTIVE: VITAL SIGNS: Blood pressure 125/80, respiratory rate 19, pulse 80, afebrile. GENERAL: The patient is alert and oriented. LUNGS: Diminished, but clear. ABDOMEN: Soft, nontender. EXTREMITIES: No clubbing, cyanosis or edema. NEUROLOGIC: Stable there. The patient continues to be monitored carefully and we will continue to monitor blood sugars as well. IMPRESSION: Therefore, sepsis, bacteremia, Escherichia coli. Continue with IV antibiotic therapy, morbid obesity, type 2 diabetes and marked paralysis or paresis to her lower extremities. HUNG HAMMOND MD DR: ALEXIA/oscar JOB#: [id number] / [id number]
[2020-06-17] MEDS: PIPERACILLIN/TAZOBACTAM 3.375 GM in IV NORMAL SALINE 50ML 50 ML IV SCH ×3 (05:16→17:38)
[2020-06-17 05:21] VITALS: BP 126/79
[2020-06-17] MEDS: INSULIN LISPRO 300 UNITS/3 ML VIAL. SQ SCH ×3 (08:00→17:00)
[2020-06-17] MEDS: OXYBUTYNIN CHLORIDE 5 MG TABLET PO SCH ×3 (08:42→20:37)
[2020-06-17] MEDS: metFORMIN 500 MG TABLET PO SCH ×2 (08:42→17:19)
[2020-06-17] MEDS: LACTOBACILLUS RHAMNOSUS GG 1 CAPSULE. PO SCH ×2 (08:42→20:36)
[2020-06-17] MEDS: APIXABAN 5 MG TABLET. PO SCH ×2 (08:42→20:36)
[2020-06-17] MEDS: PARoxetine 20 MG TABLET PO SCH (08:42)
[2020-06-17] MEDS: rOPINIRole 1 MG TABLET. PO SCH ×3 (08:42→20:36)
[2020-06-17] MEDS: ALPRAZolam 0.5 MG TABLET PO SCH ×3 (08:42→20:37)
[2020-06-17] MEDS: FERROUS SULFATE 325 MG TABLET. PO SCH ×2 (08:42→20:37)
[2020-06-17] MEDS: LIDOCAINE (700MG/PATCH) PATCH. TD SCH (08:44)
[2020-06-17 09:54] LABS: BASO % 0 % (0-3); EOS # 0.2 x10^3/uL (0.0-0.7); EOS % 3 % (0-3); HEMATOCRIT 37.2 % (36.0-47.0); HEMOGLOBIN 11.6 g/dL (12.0-15.5); LYMPH # 1.7 x10^3/uL (1.0-4.8); LYMPH % 23 % (24-48); MEAN CORPUSCULAR HEMOGLOBIN 28 pg (25-35); MEAN CORPUSCULAR HGB CONC 31 g/dL (31-37); MEAN CORPUSCULAR VOLUME 88 fL (79-100); MONO # 0.6 x10^3/uL (0.0-1.1); MONO % 9 % (0-9); NEUT # 4.9 x10^3uL (1.8-7.7); NEUT % 65 % (31-73); PLATELET COUNT 277 x10^3/uL (140-400); RED BLOOD COUNT 4.21 x10^6/uL (3.50-5.40); RED CELL DISTRIBUTION WIDTH 15.6 % (11.5-14.5); WHITE BLOOD COUNT 7.5 x10^3/uL (4.0-11.0)
[2020-06-17 10:08] LABS: CALCIUM 9.6 mg/dL (8.5-10.1); CREATININE 1.2 mg/dL (0.6-1.0); GFR 44.4; POTASSIUM 4.3 mmol/L (3.5-5.1)
[2020-06-17 10:30] VITALS: BP 125/82
[2020-06-17 15:00] VITALS: BP 136/80
[2020-06-17] MEDS: glyBURIDE 5 MG TABLET PO SCH (17:19)
[2020-06-17 20:34] VITALS: BP 127/82
[2020-06-17] MEDS: SIMVASTATIN 40 MG TABLET. PO SCH (20:37)
[2020-06-17] MEDS: ATENOLOL 25 MG TABLET PO SCH (20:37)
[2020-06-17 23:09] VITALS: BP 131/81
[2020-06-18] MEDS: PIPERACILLIN/TAZOBACTAM 3.375 GM in IV NORMAL SALINE 50ML 50 ML IV SCH ×5 (00:13→23:56)
--- NOTE | 2020-06-18 00:19 | PN ---
DATE: SUBJECTIVE: A 69-year-old female who had positive blood cultures for E. coli, even though her urine was contaminated. The patient continues to make steady progress. Her white count is down to 7.5, hemoglobin 11 and hematocrit 37. The patient says she feels fairly well. She is fairly lethargic. OBJECTIVE: VITAL SIGNS: Blood pressure 136/80, respiratory rate 16, pulse 80, afebrile. GENERAL: The patient is alert, oriented x 3. Speech is fluent and spontaneous. No rebounding, no guarding noted. EXTREMITIES: No clubbing, cyanosis. Trace edema. NEUROLOGIC: Intact. LABORATORY DATA: Basically stable or improved. Blood sugars are under good control. IMPRESSION: Sepsis, bacteremia with Escherichia coli urinary tract infection, probable E. coli gram-negative sepsis, type 2 diabetes, hemiparesis marked. PLAN: The patient to continue with rehabilitation, continue with IV antibiotic therapy and make further evaluation on her as indicated above. HUNG HAMMOND MD DR: ALEXIA/oscar JOB#: [id number] / [id number]
[2020-06-18 05:48] VITALS: BP 126/69
[2020-06-18] MEDS: INSULIN LISPRO 300 UNITS/3 ML VIAL. SQ SCH ×3 (08:00→17:00)
[2020-06-18] MEDS: metFORMIN 500 MG TABLET PO SCH ×2 (08:14→17:06)
[2020-06-18] MEDS: PARoxetine 20 MG TABLET PO SCH (08:14)
[2020-06-18] MEDS: APIXABAN 5 MG TABLET. PO SCH ×2 (08:14→20:13)
[2020-06-18] MEDS: LACTOBACILLUS RHAMNOSUS GG 1 CAPSULE. PO SCH ×2 (08:14→20:14)
[2020-06-18] MEDS: LIDOCAINE (700MG/PATCH) PATCH. TD SCH (08:14)
[2020-06-18] MEDS: OXYBUTYNIN CHLORIDE 5 MG TABLET PO SCH ×3 (08:16→20:13)
[2020-06-18] MEDS: rOPINIRole 1 MG TABLET. PO SCH ×3 (08:16→20:13)
[2020-06-18] MEDS: ALPRAZolam 0.5 MG TABLET PO SCH ×3 (08:16→20:13)
[2020-06-18] MEDS: FERROUS SULFATE 325 MG TABLET. PO SCH ×2 (08:16→20:13)
[2020-06-18 10:42] VITALS: BP 127/80
[2020-06-18 15:47] VITALS: BP 147/87
[2020-06-18] MEDS: glyBURIDE 5 MG TABLET PO SCH (17:06)
[2020-06-18 19:40] VITALS: BP 130/82
[2020-06-18] MEDS: diphenhydrAMINE HCL 25 MG CAPSULE PO PRN (20:13)
[2020-06-18] MEDS: ATENOLOL 25 MG TABLET PO SCH (20:13)
[2020-06-18] MEDS: SIMVASTATIN 40 MG TABLET. PO SCH (20:13)
--- NOTE | 2020-06-18 21:14 | PN ---
DATE: SUBJECTIVE: A 69-year-old female in with sepsis, bacteremia, gram-negative sepsis. The patient says she is feeling a little bit better, little lethargic, but overall doing well. OBJECTIVE: VITAL SIGNS: Blood pressure 140/80, respiratory rate 20, pulse 80. GENERAL: She is afebrile. LUNGS: Otherwise diminished, but clear. CARDIOVASCULAR: Regular sinus rhythm. ABDOMEN: Soft, nontender, no rebounding, no guarding. EXTREMITIES: No clubbing, cyanosis. Trace edema. NEUROLOGIC: Intact. She continues to receive Zosyn and Levaquin. Final cultures of the blood did show E. coli; however, susceptibility tests are still pending and do show sensitivity to Levaquin and Zosyn. She will continue on these at least until tomorrow and then we can switch her over perhaps to IV Levaquin itself. The patient continued to be given IV antibiotic therapy. IMPRESSION: Gram-negative sepsis as well as morbid obesity, diabetes, urinary tract infection. PLAN: As above. Continue with IV therapy. HUNG HAMMOND MD DR: ALEXIA/oscar JOB#: [id number] / [id number]
[2020-06-18 23:53] VITALS: BP 112/73
[2020-06-19] MEDS: LOPERAMIDE 2 MG CAPSULE PO PRN ×3 (01:02→20:21)
[2020-06-19 05:46] VITALS: BP 115/64
[2020-06-19] MEDS: PIPERACILLIN/TAZOBACTAM 3.375 GM in IV NORMAL SALINE 50ML 50 ML IV SCH ×3 (05:56→17:14)
[2020-06-19] MEDS: INSULIN LISPRO 300 UNITS/3 ML VIAL. SQ SCH ×3 (08:00→17:00)
[2020-06-19] MEDS: LACTOBACILLUS RHAMNOSUS GG 1 CAPSULE. PO SCH ×2 (08:06→20:11)
[2020-06-19] MEDS: APIXABAN 5 MG TABLET. PO SCH ×2 (08:07→20:11)
[2020-06-19] MEDS: ALPRAZolam 0.5 MG TABLET PO SCH ×3 (08:07→20:11)
[2020-06-19] MEDS: PARoxetine 20 MG TABLET PO SCH (08:07)
[2020-06-19] MEDS: metFORMIN 500 MG TABLET PO SCH ×2 (08:07→17:07)
[2020-06-19] MEDS: rOPINIRole 1 MG TABLET. PO SCH ×3 (08:07→20:10)
[2020-06-19] MEDS: FERROUS SULFATE 325 MG TABLET. PO SCH ×2 (08:07→20:11)
[2020-06-19] MEDS: OXYBUTYNIN CHLORIDE 5 MG TABLET PO SCH ×3 (08:08→20:10)
[2020-06-19] MEDS: LIDOCAINE (700MG/PATCH) PATCH. TD SCH (08:08)
[2020-06-19 11:03] VITALS: BP 126/78
--- NOTE | 2020-06-19 11:44 | PN ---
DATE: SUBJECTIVE: The patient with E. coli sepsis, bacteremia, doing much better today. Says she is feeling better. Urine still has heavy colonization because of problems with her urinary system. OBJECTIVE: VITAL SIGNS: The patient's blood pressure 115/64, respiratory rate 20, pulse 75, afebrile. LUNGS: The patient's lungs are diminished, but clear. CARDIOVASCULAR: Stable. ABDOMEN: Soft, nontender. EXTREMITIES: No clubbing, cyanosis, nor edema. NEUROLOGIC: The patient is alert and oriented x 3. LABORATORY DATA: The patient will go ahead and continue on IV antibiotic therapy. Cultures have come back showing that it is sensitive to Levaquin, so we might be able to discharge her soon and have her evaluated as an outpatient. IMPRESSION: Sepsis with gram-negative Escherichia coli bacteremia, urinary tract infections, multiple urinary incontinence, paresis, type 2 diabetes, morbid obesity. PLAN: Continue on present IV antibiotic therapy. HUNG HAMMOND MD DR: ALEXIA/oscar JOB#: [id number] / [id number]
[2020-06-19 14:27] VITALS: BP 141/83
[2020-06-19] MEDS: glyBURIDE 5 MG TABLET PO SCH (17:08)
[2020-06-19] MEDS: diphenhydrAMINE HCL 25 MG CAPSULE PO PRN (20:11)
[2020-06-19] MEDS: SIMVASTATIN 40 MG TABLET. PO SCH (20:11)
[2020-06-19] MEDS: ATENOLOL 25 MG TABLET PO SCH (20:12)
[2020-06-19 20:20] VITALS: BP 112/74
[2020-06-19 22:15] VITALS: BP 115/65
[2020-06-20] MEDS: PIPERACILLIN/TAZOBACTAM 3.375 GM in IV NORMAL SALINE 50ML 50 ML IV SCH ×3 (00:14→11:58)
[2020-06-20 05:09] VITALS: BP 115/66
[2020-06-20] MEDS: INSULIN LISPRO 300 UNITS/3 ML VIAL. SQ SCH ×2 (08:00→12:00)
[2020-06-20] MEDS: PARoxetine 20 MG TABLET PO SCH (08:26)
[2020-06-20] MEDS: OXYBUTYNIN CHLORIDE 5 MG TABLET PO SCH (08:26)
[2020-06-20] MEDS: FERROUS SULFATE 325 MG TABLET. PO SCH (08:26)
[2020-06-20] MEDS: APIXABAN 5 MG TABLET. PO SCH (08:27)
[2020-06-20] MEDS: LACTOBACILLUS RHAMNOSUS GG 1 CAPSULE. PO SCH (08:27)
[2020-06-20] MEDS: LIDOCAINE (700MG/PATCH) PATCH. TD SCH (08:27)
[2020-06-20] MEDS: ALPRAZolam 0.5 MG TABLET PO SCH (08:27)
[2020-06-20] MEDS: metFORMIN 500 MG TABLET PO SCH (08:27)
[2020-06-20] MEDS: rOPINIRole 1 MG TABLET. PO SCH (08:28)
--- NOTE | 2020-06-20 10:34 | DISCH ---
HOME HEALTH DISCHARGE/MEDS DISCHARGE INFORMATION: Discharge Date: Jun 20, 2020 Final Diagnosis: Problems Medical Problems: (1) Hypoxia Status: Acute bactremia due to e-coli Condition on Discharge: Stable CODE STATUS: Code Status: Full HOME HEALTH: Face to Face: I certify this patient is under my care and that I, or a nurse practitioner or physician's assistant press operator offset working with me, had a face to face encounter that meets the physician face to face encounter requirements with this patient on 06/20/2020. Medical Condition(s): COPD, DM, HTN Shelter For: Assess Cardiopulm Status, Assess & Educate Safety, Assess/Skilled Observatio, Medication Management, Pain Management POST DISCHARGE ORDERS: Activity Instructions for Disc: Activity as tolerated DIET AFTER DISCHARGE: ADA CHECKS AFTER DISCHARGE: Checks after discharge: Check blood press - daily, Check blood sugar, ac/hs CERTIFICATION STATEMENT: Certification Statement: Based on the above finding, I certify that this patient is confined to the home and needs intermittent custodial care, physical therapy and/or speech therapy, or continues to need occupational therapy.~ This patient is under my care, and I have initiated the establishment of the plan of care.~ This patient will be followed by myself or a community physician who will periodically review the plan of care. DISCHARGE MEDICATIONS: Home Meds Active Scripts Nitrofurantoin Monohyd/M-Cryst (MACROBID 100 MG CAPSULE) 100 Mg Capsule, 1 CAP PO BID for -\ for 10 Days, #20 CAP 0 Refills Prov:WILLY HAAS MD 09/12/19 Apixaban (ELIQUIS) 5 Mg Tablet, 5 MG PO BID for anticoagulant for 90 Days, #180 TAB 3 Refills Prov:HUNG HAMMOND MD 04/24/19 Acetaminophen (TYLENOL) 325 Mg Tablet, 650 MG PO PRN Q6HRS PRN for MILD PAIN / TEMP, #30 TAB Prov:HUNG HAMMOND MD 11/09/17 Reported Medications Ropinirole Hcl (ROPINIROLE HCL) 1 Mg Tablet, 1 MG PO TID for restless, % 08/22/19 Sennosides (SENNA LAXATIVE) 8.6 Mg Tablet, 8.6 MG PO PRN DAILY PRN for CONSTIPATION, TAB 08/22/19 Diphenhydramine Hcl (BENADRYL) 25 Mg Capsule, 25 MG PO PRN QHS PRN for CONSTIPATION, CAP 08/22/19 Ferrous Sulfate (IRON) 325 Mg Tablet, 1 TAB PO BID for SUPPLEMENT 08/22/19 Nitrofurantoin Monohyd/M-Cryst (NITROFURANTOIN MONO-MCR 100 MG) 100 Mg Capsule, 1 TAB PO DAILY for uti 08/22/19 Oxybutynin Chloride (OXYBUTYNIN CHLORIDE) 5 Mg Tablet, 1 TAB PO TID for BLADDER SPASM LAST DOSE GIVEN: DATE: TODAY TIME: AM NEXT DOSE DUE: DATE: TODAY TIME: AFTERNOON 05/26/18 Glyburide (GLYBURIDE) 2.5 Mg Tablet, 1 TAB PO DAILYWSUP for HIGH BLOOD SUGAR- DIABETES LAST DOSE GIVEN: DATE: TODAY TIME: WITH BREAKFAST NEXT DOSE DUE: DATE: TOMORROW TIME: WITH BREAKFAST 02/27/18 Metformin Hcl (METFORMIN HCL) 1,000 Mg Tablet, 1000 MG PO BIDWMEALS for ANTI- DIABETIC LAST DOSE GIVEN: DATE: TODAY TIME: WITH BREAKFAST NEXT DOSE DUE: DATE: TODAY TIME: WITH DINNER 10/26/17 Alprazolam (ALPRAZOLAM) 0.5 Mg Tablet, 0.5 MG PO TID for anxiety 10/26/17 Hydrocodone Bit/Acetaminophen (HYDROCODONE-APAP 5-325 ) 1 Each Tablet, 1 TAB PO PRN Q8HRS PRN for PAIN NOT GIVEN TODAY NEXT DOSE DUE: DATE: TODAY TIME: IF/WHEN NEEDED DATE: TODAY TIME: IF/WHEN NEEDED 10/26/17 Simvastatin (ZOCOR) 40 Mg Tablet, 40 MG PO HS for HIGH CHOLESTEROL LAST DOSE GIVEN: DATE: YESTERDAY TIME: AT BEDTIME NEXT DOSE DUE: DATE: TODAY TIME: AT BEDTIME 04/10/15 Atenolol (ATENOLOL ) 25 Mg Tablet, 25 MG PO HS for HIGH BLOOD PRESSURE 04/10/15 HUNG HAMMOND MD Jun 20, 2020 10:34
[2020-06-20] MEDS ORDERED: levaquin PO (10:36)
== END 2020-06-20 13:36 | disposition home health service (06) | DRG 872 ==
LOC: ER 15:44 → 1 SOUTH 18:50
PROVIDERS: ADMIT Family Medicine; ATTEND Family Medicine
DX: A41.51 Sepsis due to Escherichia coli [E. coli] (principal); G81.90 Hemiplegia, unspecified affecting unspecified side; Z68.41 Body mass index [BMI] 40.0-44.9, adult; N12 Tubulo-interstitial nephritis, not specified as acute or chronic; E11.42 Type 2 diabetes mellitus with diabetic polyneuropathy; E66.01 Morbid (severe) obesity due to excess calories; E78.00 Pure hypercholesterolemia, unspecified; I10 Essential (primary) hypertension; I25.10 Atherosclerotic heart disease of native coronary artery without angina pectoris; J44.9 Chronic obstructive pulmonary disease, unspecified; R32 Unspecified urinary incontinence; F41.9 Anxiety disorder, unspecified; K21.9 Gastro-esophageal reflux disease without esophagitis; M19.90 Unspecified osteoarthritis, unspecified site; Z82.49 Family history of ischemic heart disease and other diseases of the circulatory system; Z83.3 Family history of diabetes mellitus; Z87.440 Personal history of urinary (tract) infections; Z87.891 Personal history of nicotine dependence; Z96.652 Presence of left artificial knee joint; Z99.3 Dependence on wheelchair; Z86.718 Personal history of other venous thrombosis and embolism; Z88.8 Allergy status to other drugs, medicaments and biological substances
CPT/HCPCS: 36415; 71045; 71275; 80048; 80053; 81001; 82947; 83036; 83605; 83880; 84484; 85007; 85025; 87040; 87077; 87086; 87186; 87205; 90471; 90686; 93005; 96365; 96375; J0696; J1815; J1885; J1956; J2543; J7040; Q0163; Q9967; 99285-25

== ENCOUNTER 2020-06-30 17:08 | Emergency (ER) | payer MEDICARE ==
[~2020-06-30] VITALS: Ht 175.3 cm; Wt 133.2 kg
[~2020-06-30 17:08] MED LIST changes: +levaquin PO
--- NOTE | 2020-06-30 18:43 | PHYS DOC ---
Past History Past Medical History: Anxiety, COPD, Diabetes, DVT, Hypertension, UTI, Vascular Disease Additional Past Medical Histor: " spinal cord condition" Past Surgical History: Cervical Fusion, Knee Replacement Smoking: Non-smoker Alcohol Use: None Drug Use: None General Adult EDM: Chief Complaint: UPPER EXTREMITY PAIN HPI: HPI: Patient is a 6-year-old female who presents with right upper arm pain that started 3 days ago. Patient has a history of blood clots and was just recently discharged from hospital. Patient is currently taking Eliquis. Patient states that the pain goes from her shoulder down to her elbow. Patient has been taking hydrocodone at home with little relief. Review of Systems: Review of Systems: Constitutional: Denies fever or chills Eyes: Denies change in visual acuity HENT: Denies nasal congestion or sore throat Respiratory: Denies cough or shortness of breath Cardiovascular: Denies chest pain or edema GI: Denies abdominal pain, nausea, vomiting, bloody stools or diarrhea : Denies dysuria Musculoskeletal: Denies back pain or joint pain Integument: Denies rash Neurologic: Denies headache, focal weakness or sensory changes Endocrine: Denies polyuria or polydipsia Lymphatic: Denies swollen glands Psychiatric: Denies depression or anxiety Allergies: Allergies: Allergies Coded Allergies Type Severity Reaction Last Updated Verified amlodipine Allergy Intermediate 05/26/18 Yes atorvastatin Allergy Intermediate 05/26/18 Yes Physical Exam: PE: Constitutional: Well developed, well nourished, no acute distress, non-toxic appearance. [] HENT: Normocephalic, atraumatic, bilateral external ears normal, oropharynx moist, no oral exudates, nose normal. [] Eyes: PERRLA, EOMI, conjunctiva normal, no discharge. [] Neck: Normal range of motion, no tenderness, supple, no stridor. [] Cardiovascular:Heart rate regular rhythm, no murmur [] Lungs & Thorax: Bilateral breath sounds clear to auscultation [] Abdomen: Bowel sounds normal, soft, no tenderness, no masses, no pulsatile masses. [] Skin: Warm, dry, no erythema, no rash. [] Back: No tenderness, no CVA tenderness. [] Extremities: No tenderness, no cyanosis, no clubbing, ROM intact, no edema. Pain to right upper arm. Neurologic: Alert and oriented X 3, normal motor function, normal sensory fu nction, no focal deficits noted. [] Psychologic: Affect normal, judgement normal, mood normal. [] Current Patient Data: Vital Signs: Vital Signs Date Time Temp Pulse Resp B/P (MAP) Pulse Ox O2 Delivery O2 Flow Rate FiO2 06/30/20 17:08 98.2 74 18 127/67 (87) 92 Room Air EKG: EKG: [] Radiology/Procedures: Radiology/Procedures: [] Heart Score: Risk Factors: Risk Factors: DM, Current or recent (<one month) smoker, HTN, HLP, family history of CAD, obesity. Risk Scores: Score 0 - 3: 2.5% MACE over next 6 weeks - Discharge Home Score 4 - 6: 20.3% MACE over next 6 weeks - Admit for Clinical Observation Score 7 - 10: 72.7% MACE over next 6 weeks - Early Invasive Strategies Course & Med Decision Making: Course & Med Decision Making Pertinent Labs and Imaging studies reviewed. (See chart for details) 69-year-old female who presents with right upper arm pain started 3 days ago. Patient reports a history of blood clots. Currently taking Eliquis. We will order ultrasound Doppler on right arm to rule out blood clot. No deep or superficial thrombosis seen throughout the right upper extremity. [] Dragon Disclaimer: Dragon Disclaimer: This electronic medical record was generated, in whole or in part, using a voice recognition dictation system. Departure Departure: Impression: Primary Impression: Arm pain, right Disposition: 01 DC HOME SELF CARE/HOMELESS Condition: GOOD Referrals: HUNG HAMMOND MD (PCP) Patient Instructions: Pain of Unknown Etiology (Pain without a known Cause) Additional Instructions: EMERGENCY DEPARTMENT GENERAL DISCHARGE INSTRUCTIONS Thank you for coming to [facility] (ED) today and trusting us with you care. We trust that you had a positivie experience in our Emergency Department. If you wish to speak to the department management, you may call the director at [phone]. YOUR FOLLOW UP INSTRUCTIONS ARE FOLLOWS: 1. Do you have a private Doctor? If you do not have a private doctor, please ask for a resource list of physicians or clinics that may be able to assist you with follow up care. 2. The Emergency Physician has interpreted your x-rays. The X-Ray specialist will also review them. If there is a change in the findings, you will be notified in 48 hours when at all possible. 3. A lab test or culture has been done, your results will be reviewed and you will be notified if you need a change in treatment. ADDITIONAL INSTRUCTIONS AND INFORMATION: 1. Your care today has been supervised by a physician who is specially trained in emergency care. Many problems require more than one evaluation for a complete diagnosis and treatment. We recommend that you schedule your follow up appointment as recommended to ensure complete treatment of you illness or injury. If you are unable to obtain follow up care and continue to have a problem, or if your condition worsens, we recommend that you return to the ED. 2. We are not able to safely determine your condition over the phone nor are we able to give sound medical advice over the phone. For these safety reasons, if you call for medical advice we will ask you to come to the ED for further evaluation. 3. If you have any questions regarding these discharge instructions please call the ED at [phone]. SAFETY INFORMATION: In the interest of safety, wellness, and injury prevention; we encourage you to wear your sealbelt, if you smoke; quite smoking, and we encourage family to use a protective helmet for bicycling and other sporting events that present an increased risk for head injury. IF YOUR SYMPTOMS WORSEN OR NEW SYMPTOMS DEVELOP, OR YOU HAVE CONCERNS ABOUT YOUR CONDITION; OR IF YOUR CONDITION WORSENS WHILE YOU ARE WAITING FOR YOUR FOLLOW UP APPOINTMENT; EITHER CONTACT YOUR PRIMARY CARE DOCTOR, THE PHYSICIAN WHOSE NAME AND NUMBER YOU WERE GIVEN, OR RETURN TO THE ED IMMEDIATELY. TARIQ MACHADO APRN Jun 30, 2020 18:43
[2020-06-30 19:03] LABS: BASO % 1 % (0-3); EOS % 0 % (0-3); HEMATOCRIT 39.6 % (36.0-47.0); HEMOGLOBIN 12.7 g/dL (12.0-15.5); LYMPH # 1.4 x10^3/uL (1.0-4.8); LYMPH % 16 % (24-48); MEAN CORPUSCULAR HEMOGLOBIN 28 pg (25-35); MEAN CORPUSCULAR HGB CONC 32 g/dL (31-37); MEAN CORPUSCULAR VOLUME 88 fL (79-100); MONO # 0.2 x10^3/uL (0.0-1.1); MONO % 3 % (0-9); NEUT % 80 % (31-73); PLATELET COUNT 365 x10^3/uL (140-400); RED BLOOD COUNT 4.52 x10^6/uL (3.50-5.40); WHITE BLOOD COUNT 8.7 x10^3/uL (4.0-11.0)
[2020-06-30 19:07] LABS: CALCIUM 9.5 mg/dL (8.5-10.1); CREATININE 1.1 mg/dL (0.6-1.0); GFR 49.1; POTASSIUM 3.8 mmol/L (3.5-5.1)
[2020-06-30 19:11] LABS: ALBUMIN 3.2 g/dL (3.4-5.0); ALBUMIN/GLOBULIN RATIO 0.8 (1.0-1.7); TOTAL BILIRUBIN 0.3 mg/dL (0.2-1.0); TOTAL PROTEIN 7.2 g/dL (6.4-8.2)
[2020-06-30] MEDS ORDERED: HYDROcodone/APAP 7.5/325MG 1 TAB TABLET PO ONE (19:30)
--- NOTE | 2020-06-30 20:01 | RAD ---
STUDY: US DPLX VENOUS EXTREMITY UPPER RT INDICATION: Arm swelling. DVT. TECHNIQUE: Color-flow and pulsed wave duplex ultrasound with compression of venous structures of the right upper extremity. COMPARISON: None.. FINDINGS: Technically difficult study on account of patient body habitus. Duplex ultrasound with compression of the deep venous structures of the right upper extremity from th e internal jugular vein through the radial/ulnar veins is negative for DVT. Normal venous waveforms a nd augmentation are noted throughout. The evaluated superficial veins are patent. IMPRESSION: No deep or superficial thrombosis seen throughout the right upper extremity. Electronically signed by: JULIAN BRIONES MD (06/30/2020 7:59 PM) [facility]
[2020-06-30 20:33] VITALS: BP 143/70
== END 2020-06-30 21:04 | disposition home or self-care (01) ==
LOC: ER 17:08
DX: M79.621 Pain in right upper arm (principal); F41.9 Anxiety disorder, unspecified; J44.9 Chronic obstructive pulmonary disease, unspecified; E11.9 Type 2 diabetes mellitus without complications; I10 Essential (primary) hypertension; Z98.890 Other specified postprocedural states; Z86.718 Personal history of other venous thrombosis and embolism; Z88.8 Allergy status to other drugs, medicaments and biological substances
CPT/HCPCS: 36415; 80053; 85025; 93971; 99284

== ENCOUNTER 2021-06-23 21:08 | Inpatient (IN) | payer MEDICARE, OTHER ==
[~2021-06-23] VITALS: Ht 175.3 cm; Wt 147.0 kg
[~2021-06-23 21:08] MED LIST changes: +CEFT1VIA IVP; -CEFT1VIA13 IVP; -LISI-338 PO; +LISI5TAB15 PO; +POTA-116 PO; -POTA10TA12 PO; +SENN8.8S13 PO; -SENN8.8S5 PO
--- NOTE | 2021-06-23 21:21 | PHYS DOC ---
Past History Past Medical History: Anxiety, COPD, Diabetes, DVT, Hypertension, UTI, Vascular Disease Additional Past Medical Histor: " spinal cord condition" Past Surgical History: Cervical Fusion, Knee Replacement Smoking: Non-smoker Alcohol Use: None Drug Use: None General Adult EDM: Chief Complaint: MULTIPLE COMPLAINTS HPI: HPI: ".. I have not seen a doctors ... since Covid started.. I got a UTI.. and they wanted me to give myself IM gentamycin.. I just cant do it... I can do the insulin shots.. but not the IM injection...s.. and I got a decub on my but.. It s got a sore spot.. and I cant see it..." Patient is a 70 year old female who presents with above hx and multiple complaints. Patient currently having accelerated hypertension, recent history of urinary tract infection and worsening of decub ulcers. Patient has completed COVID vaccination x2. Has not completed fluids yet. Has significant past medical history including peripheral neuropathy, cervical fusion, paralysis from the waist down, coronary artery disease, DVTs, metabolic encephalopathy, pyelonephritis, protein malnutrition, respiratory disorders and pneumonia, wheezing, asthma, bronchitis, morbid obesity, reproductive disorder, genitourinary recurrent infections, urinary retention, severe weakness, wheelchair-bound, chronic Zaidi placement, postmenopausal, degenerative arthritis, osteoarthritis, psychosexual dysfunction, depression, anemia, pneumoc occal pneumonia, MRSA, diabetes, and deconditioning. Patient has had past medical surgeries of tonsillectomy, adenoids, cervical fusion, knee replacement left,. Patient normally follows with Dr. Hammond. Patient does not smoke use, use drugs or use alcohol. Review of Systems: Review of Systems: Constitutional: Denies fever or chills Eyes: Denies change in visual acuity HENT: Denies nasal congestion or sore throat Respiratory: Denies cough or shortness of breath Cardiovascular: Denies chest pain or edema GI: Denies abdominal pain, nausea, vomiting, bloody stools or diarrhea : Denies dysuria Musculoskeletal: Denies back pain or joint pain Integument: Decub on sacral area Neurologic: Denies headache, focal weakness or sensory changes. Complains of paraplegic Endocrine: Denies polyuria or polydipsia Lymphatic: Denies swollen glands Psychiatric: Denies depression or anxiety Family History: Family History: There is family history of diabetes in aunts and uncles brothers and father there is a strong family history of myocardial infarction 7 with family members father had MIs and hypertension, her aunt has had hypertension and MIs and a brother has lupus mother has dementia. Grandfather had cancer. Current Medications: Current Meds: See nursing for home meds Allergies: Allergies: Allergies Coded Allergies Type Severity Reaction Last Updated Verified amlodipine Allergy Intermediate 05/26/18 Yes atorvastatin Allergy Intermediate 05/26/18 Yes Physical Exam: PE: Constitutional: Moderate acute distress, non-toxic appearance. [] HENT: Normocephalic, atraumatic, bilateral external ears normal, oropharynx moist, no oral exudates, nose normal. [] Eyes: PERRLA, EOMI, conjunctiva normal, no discharge. [] Neck: Normal range of motion, no tenderness, supple, no stridor. [] Old surgery scar Cardiovascular:Heart rate regular rhythm, no murmur [] Lungs & Thorax: Bilateral breath sounds clear to auscultation [] Abdomen: Bowel sounds normal, soft, no tenderness, no masses, no pulsatile masses. Morbid obesity. Skin: Warm, dry, no erythema, no rash. Breakdown and sacral area. Venous stasis changes. Back: No tenderness, no CVA tenderness. [] Extremities: No tenderness, no cyanosis, no clubbing, paralyzed from the waist down,, bilateral ankle edema. [] The surgical scar Neurologic: Alert and oriented X 3, normal motor function, normal sensory function, no focal deficits noted. [] Psychologic: Affect anxious, judgement normal, mood normal. [] EKG: EKG: My interpretation EKG shows a sinus tachycardia rhythm at 108 beats [] with left axis deviation and some fascicular block changes as well as anterior septal strain pattern. Abnormal EKG. But no findings of acute STEMI of contralateral changes. Time of this EKG is 2330 hrs. My interpretation second EKG shows a sinus rhythm at 112 bpm. Overall morphology similar to prior EKG. Does have leftward axis and anterior septal changes. But no findings acute STEMI of contralateral lateral changes. Does have a wavering baseline on this EKG time of this EKG is 00 37 minutes Radiology/Procedures: Radiology/Procedures: [][address] [address] IMAGING REPORT Signed PATIENT: JAKI WILSON ACCOUNT: [id number] : 1950 LOCATION: ER AGE: 70 SEX: F EXAM STATUS: REG ER ORD. PHYSICIAN: STEPHENIE WHALEN MD REASON: dyspnea PROCEDURE: PORTABLE CHEST 1V XR CHEST 1V Clinical History: Reason: dyspnea / Spl. Instructions: / History: Technique: AP view of the chest was obtained at 06/23/2021 9:54 PM. Comparison: August 22, 2019. Findings: The heart is top normal limits in size. The study is somewhat underpenetrated secondary to large body habitus. There is vague patchy opacity in the lung bases. Impression: Basal infiltrates could be discoid atelectasis or pneumonia. Electronically signed by: Yanique Morales III, MD (06/23/2021 10:53 PM) [facility] DICTATED AND SIGNED BY: YANIQUE MORALES III, MD DATE: 06/23/212251 CC: HUNG HAMMOND MD; STEPHENIE WHALEN MD ~MTH0 0 Heart Score: C/O Chest Pain: N/A HEART Score for Chest Pain: HEART Score for Chest Pain Response (Comments) Value History Slighlty/Non-Suspicious 0 ECG Nonspecific Repolarizatio 1 Age > 65 2 Risk Factors 1 or 2 Risk Factors 1 Troponin < Normal Limit 0 Total 4 Risk Factors: Risk Factors: DM, Current or recent (<one month) smoker, HTN, HLP, family history of CAD, obesity. Risk Scores: Score 0 - 3: 2.5% MACE over next 6 weeks - Discharge Home Score 4 - 6: 20.3% MACE over next 6 weeks - Admit for Clinical Observation Score 7 - 10: 72.7% MACE over next 6 weeks - Early Invasive Strategies Course & Med Decision Making: Course & Med Decision Making Pertinent Labs and Imaging studies reviewed. (See chart for details) Discussed presentation, testing and treatment plan with Dr. Hammond-admit to his service Impression 1. Urinary tract infection 2. Decub 3. Morbid obesity 4. Mild leukocytosis 13.1 5. Paraplegic 6. Diabetes-glucose 224 [] Angel Disclaimer: Angel Disclaimer: This electronic medical record was generated, in whole or in part, using a voice recognition dictation system. Departure Departure: Referrals: HUNG HAMMOND MD (PCP) Angel Disclaimer This chart was dictated in whole or in part using Voice Recognition software in a busy, high-work load, and often noisy Emergency Department environment. It may contain unintended and wholly unrecognized errors or omissions. Dragon Disclaimer This chart was dictated in whole or in part using Voice Recognition software in a busy, high-work load, and often noisy Emergency Department environment. It may contain unintended and wholly unrecognized errors or omissions. STEPHENIE WHALEN MD Jun 23, 2021 21:21
[2021-06-23] MEDS ORDERED: IV RINGERS SOLUTION,LACTATED 1,000 ML IV SCH (21:45)
[2021-06-23] MEDS ORDERED: cloNIDine HCL 0.1 MG TABLET PO ONE (21:45)
[2021-06-23 22:14] LABS: BASO % 0 % (0-3); EOS # 0.1 x10^3/uL (0.0-0.7); EOS % 1 % (0-3); HEMATOCRIT 40.8 % (36.0-47.0); HEMOGLOBIN 13.1 g/dL (12.0-15.5); LYMPH # 3.1 x10^3/uL (1.0-4.8); LYMPH % 24 % (24-48); MEAN CORPUSCULAR HEMOGLOBIN 30 pg (25-35); MEAN CORPUSCULAR HGB CONC 32 g/dL (31-37); MEAN CORPUSCULAR VOLUME 93 fL (79-100); MONO # 1.1 x10^3/uL (0.0-1.1); MONO % 9 % (0-9); NEUT # 8.7 x10^3uL (1.8-7.7); NEUT % 67 % (31-73); PLATELET COUNT 306 x10^3/uL (140-400); RED CELL DISTRIBUTION WIDTH 14.2 % (11.5-14.5); WHITE BLOOD COUNT 13.1 x10^3/uL (4.0-11.0)
[2021-06-23 22:26] LABS: CALCIUM 9.7 mg/dL (8.5-10.1); CREATININE 1.3 mg/dL (0.6-1.0); GFR 40.4; POTASSIUM 3.7 mmol/L (3.5-5.1)
[2021-06-23] MEDS ORDERED: IV NORMAL SALINE 50ML 50 ML ONE (22:37)
[2021-06-23] MEDS ORDERED: cefTRIAXone SODIUM 1 GM VIAL ONE (22:37)
[2021-06-23 22:40] LABS: ALBUMIN 3.5 g/dL (3.4-5.0); DIRECT BILIRUBIN 0.1 mg/dL (0.0-0.2); MAGNESIUM 1.5 mg/dL (1.8-2.4); TOTAL BILIRUBIN 0.3 mg/dL (0.2-1.0); TOTAL PROTEIN 6.8 g/dL (6.4-8.2)
--- NOTE | 2021-06-23 22:56 | RAD ---
XR CHEST 1V Clinical History: Reason: dyspnea / Spl. Instructions: / History: Technique: AP view of the chest was obtained at 06/23/2021 9:54 PM. Comparison: August 22, 2019. Findings: The heart is top normal limits in size. The study is somewhat underpenetrated secondary to large body habitus. There is vague patchy opacity in the lung bases. Impression: Basal infiltrates could be discoid atelectasis or pneumonia. Electronically signed by: Andrew Amanda III, MD (06/23/2021 10:53 PM) [facility]
[2021-06-23 23:51] LABS: BACTERIA,URINE MANY /HPF (0-FEW); BILIRUBIN,URINE NEG (NEG); CLARITY,URINE HAZY; COLOR,URINE YELLOW; GLUCOSE,URINE NEG (NEG); NITRITE,URINE NEG (NEG); RBC,URINE >40 /HPF (0-2); WBC,URINE >40 /HPF (0-4)
[2021-06-23 23:52] LABS: SQUAMOUS EPITHELIAL CELL,UR FEW /LPF
[2021-06-23 23:54] LABS: BARBITURATES NEG (NEG); BENZODIAZEPINES NEG (NEG); CANNABINOIDS NEG (NEG); COCAINE NEG (NEG); METHADONE NEG (NEG); OPIATES NEG (NEG); PHENCYCLIDINE NEG (NEG)
[2021-06-23 23:56] LABS: AMPHETAMINE/METHAMPHETAMINE NEG (NEG)
--- NOTE | 2021-06-23 23:57 | EKG ---
[address] [address] Test Date: 2021-06-23 Test Time: 23:30:17 Pat Name: JAKI WILSON Department: Room: Gender: F Varnish Thinner: SHEY : 1950 Requested By: STEPHENIE WHALEN Order Number: [id number] Reading MD: iMko Hester Measurements Intervals [place] Rate: 108 P: 59 HI: 158 QRS: -31 QRSD: 90 T: -18 QT: 344 QTc: 465 Interpretive Statements MILD NON SPECIFIC ST CHANGES SINUS TACHYCARDIA ABNORMAL LEFT AXIS DEVIATION LEFT ANTERIOR FASCICULAR BLOCK NON SPECIFIC T WAVE CHANGES Electronically Signed On 06-26-2021 16:17:48 LIABILITY CLAIMS MANAGER by Miko Hester
[2021-06-24] MEDS ORDERED: ONDANSETRON PF 4 MG/2 ML VIAL. IVP PRN (00:15)
[2021-06-24] MEDS ORDERED: HYDROcodone/APAP 5/325MG 1 TAB TABLET PO ONE (00:30)
[2021-06-24] MEDS ORDERED: HYDROcodone/APAP 5/325MG 1 TAB TABLET ONE (00:31)
[2021-06-24 01:17] VITALS: BP 137/82
[2021-06-24] MEDS ORDERED: FURO80TA3 PO (02:58)
[2021-06-24] MEDS ORDERED: GABA100C81 PO (02:58)
[2021-06-24] MEDS ORDERED: LACT1CAP6 PO (02:58)
[2021-06-24] MEDS ORDERED: CHOL10004 PO (02:58)
[2021-06-24] MEDS ORDERED: INSU100I32 SQ (02:58)
[2021-06-24] MEDS ORDERED: PRED20TA PO (02:58)
[2021-06-24] MEDS ORDERED: INSU100I17 SQ (02:58)
[2021-06-24] MEDS ORDERED: PARO40TA3 PO (02:58)
--- NOTE | 2021-06-24 03:38 | EKG ---
[address] [address] Test Date: 2021-06-24 Test Time: 00:37:18 Pat Name: JAKI WILSON Department: Room: 115 A Gender: F Filenet Architect: SHEY : 1950 Requested By: STEPHENIE WHALEN Order Number: [id number] Reading MD: Miko Hester Measurements Intervals [place] Rate: 112 P: 58 CT: 160 QRS: -29 QRSD: 90 T: -21 QT: 334 QTc: 458 Interpretive Statements SINUS TACHYCARDIA LEFTWARD AXIS NON SPECIFIC ST-T WAVE CHANGES Electronically Signed On 06-26-2021 16:16:47 GRADUATE TEACHING ASSOCIATE by Miko Hester
[2021-06-24 05:34] VITALS: BP 151/73
[2021-06-24] MEDS ORDERED: ACETAMINOPHEN 325 MG TABLET PO PRN (08:30)
[2021-06-24] MEDS ORDERED: MORPHINE SULFATE 2 MG/ML DISP.SYRIN. IV PRN (08:30)
[2021-06-24] MEDS ORDERED: GENTAMICIN SULFATE 500 MG in IV NORMAL SALINE 100ML 100 ML IV SCH (09:00)
[2021-06-24] MEDS: APIXABAN 5 MG TABLET. PO SCH ×2 (09:33→20:15)
[2021-06-24] MEDS: GABAPENTIN 100 MG CAPSULE. PO SCH ×3 (09:33→20:15)
[2021-06-24] MEDS: OXYBUTYNIN CHLORIDE 5 MG TABLET PO SCH ×3 (09:33→20:15)
[2021-06-24] MEDS: ATENOLOL 25 MG TABLET PO SCH (09:34)
[2021-06-24] MEDS: predniSONE 20 MG TABLET PO SCH (09:34)
[2021-06-24] MEDS: CHOLECALCIFEROL (VITAMIN D3) 1,000 UNIT TABLET PO SCH (09:34)
[2021-06-24] MEDS: FERROUS SULFATE 325 MG TABLET. PO SCH (09:34)
[2021-06-24] MEDS: FUROSEMIDE 80 MG TABLET PO SCH (09:35)
[2021-06-24] MEDS: glyBURIDE 5 MG TABLET. PO SCH (09:35)
[2021-06-24] MEDS: IPRATRPIUM/ALBUTEROL 0.5/2.5MG 3 ML NEBU. NEB SCH ×3 (09:40→21:22)
[2021-06-24 11:02] VITALS: BP 144/73
[2021-06-24] MEDS ORDERED: INSULIN LISPRO 300 UNITS/3 ML VIAL. SQ SCH (11:30)
[2021-06-24] MEDS: GENTAMICIN PER PHARMACY MC PRN (11:48)
[2021-06-24] MEDS: AMPICILLIN/SULBACTAM 1.5 GM in IV NORMAL SALINE 50ML 50 ML IV SCH ×2 (11:49→17:02)
[2021-06-24 15:30] VITALS: BP 161/90
[2021-06-24] MEDS: ALPRAZolam 0.5 MG TABLET PO PRN (15:54)
[2021-06-24] MEDS: HYDROcodone/APAP 7.5/325MG 1 TAB TABLET PO PRN (15:54)
[2021-06-24] MEDS: INSULIN LISPRO 300 UNITS/3 ML VIAL. SQ SCH (16:55)
[2021-06-24] MEDS: metFORMIN 500 MG TABLET PO SCH (16:57)
[2021-06-24 19:50] VITALS: BP 161/79
[2021-06-24] MEDS: LACTOBACILLUS RHAMNOSUS GG 1 CAPSULE. PO SCH (20:14)
[2021-06-24] MEDS ORDERED: GENTAMICIN TROUGH LEVEL. MC ONE (21:00)
[2021-06-25 00:14] VITALS: BP 135/81
[2021-06-25] MEDS: AMPICILLIN/SULBACTAM 1.5 GM in IV NORMAL SALINE 50ML 50 ML IV SCH ×2 (00:20→06:16)
[2021-06-25] MEDS: HYDROcodone/APAP 7.5/325MG 1 TAB TABLET PO PRN ×3 (03:51→21:18)
[2021-06-25] MEDS: IPRATRPIUM/ALBUTEROL 0.5/2.5MG 3 ML NEBU. NEB SCH ×5 (04:58→19:36)
[2021-06-25 05:00] VITALS: BP 137/76
--- NOTE | 2021-06-25 07:04 | HP ---
DATE OF SERVICE: 06/24/2021 ADMIT DATE: 06/24/2021 HISTORY OF PRESENT ILLNESS: This is a 70-year-old -[place] female with multiple medical problems, has been pretty much paralyzed from the waistline down for several years due to some surgeries she has had. She has had severe cervical fusion and paralysis from the waist down and as a result of this, has become pretty much bedridden. She has developed a large decubitus ulcer which has not healed because she is pretty much bedridden and has multiple decubitus ulcers. Wound Care has been consulted there. She also has recurrent multiple urinary tract infections, which had become increasingly resistant to oral antibiotics and requires IV antibiotic therapy. The patient was brought in pretty much septic. Her lactic acid was 3.3 as well as a pulse rate that went as high as 149, blood pressure 200/130, temperature 98.1, oxygen saturation was good. Because of her multiplicity of medical problems, also kidney infection, greater than 40 white blood cells per high powered field, requiring IV antibiotic therapy, the patient was admitted to the hospital for further evaluation and treatment. PAST MEDICAL HISTORY: As noted her past medical history is extensive. She has had tonsillectomy, adenoidectomy, chronic lethargy, peripheral neuropathy, neurological surgery, cervical fusion causing paralysis from the waistline down, congestive heart failure numerous times, anticoagulant therapy for history of DVT of the left leg because of her laxity in bed, hypercholesterolemia, essential hypertension, chronic obstructive pulmonary disease, emphysema, bronchitis, obesity, GERD, postmenopausal, chronic Zaidi catheter, severe weakness, wheelchair and bedbound, arthritis, osteoarthritis, knee replacements left knee, endocrine disorders of diabetes, psychiatric problems of psychosexual disorder, depression, anxiety, smoking, smoking cessation dates to 1990, 15-year pack year history of smoking. Lives at home with her . Also, has a history of pneumonia. The patient's COVID-19 vaccines are up to date as well as pneumococcal vaccinations and of course she has multiple pressure ulcers. FAMILY HISTORY: The patient's family history is extensive for diabetes, myocardial infarction, hypertension, lupus, dementia and the like. ALLERGIES: AMLODIPINE and ATORVASTATIN. MEDICATIONS: List is extensive and that will take ferrous sulfate 325 once daily, Eliquis 5 mg b.i.d., Zocor 40, atenolol 25, Tylenol, gabapentin 100 mg t.i.d., Paxil 40, furosemide 80, probiotic, NovoLog FlexPen, sliding scale, metformin 1000 mg b.i.d., prednisone 20 mg a day, glyburide 2.5 mg a day, oxybutynin 5 mg a day and vitamin D3. SOCIAL HISTORY: The patient presently denies any smoking, alcohol or drug use, is pretty much confined to bed. Lives at home with her . She is a full code. REVIEW OF SYSTEMS: The patient basically denies any headaches, visual changes, blurred vision, double vision. Does have generalized weakness throughout, marked laxity and muscle wasting, swelling to her extremities. The patient denies chest pain, shortness of breath, abdominal pain per se. The patient does have decubitus ulcers as noted, problems with urination. Has chronic Zaidi catheter. EXTREMITIES: Without clubbing, cyanosis, +1-2 pitting edema, generalized weakness, decreased reflexes and the like. PHYSICAL EXAMINATION: GENERAL: This is a pleasant female, in moderate amount of pain. VITAL SIGNS: Blood pressure initially 200/130, it has come down to 160/90, pulse anywhere from 90-150 (NC), respiratory rate 20, temperature 97.8, 2 liters at 92%. HEENT: The patient's head was atraumatic, normocephalic. Eyes: PERRLA without jaundice. Mouth and throat basically normal. NECK: Supple. LUNGS: With minimal range of motion. Lungs were diminished primarily in the bases. CARDIOVASCULAR: Tachycardic. ABDOMEN: Soft, nontender, protuberant. EXTREMITIES: Without clubbing, cyanosis. Trace edema noted. Generalized weakness and decreased reflexes in both the upper and lower extremities. Plantars are down. The patient notes good pulses in the extremities and the patient otherwise seems to be resting fairly comfortably in that regard. LABORATORY DATA: The patient's EKG shows a sinus tachycardia with left axis deviation. The patient's chest x-ray shows basilar infiltrates, could be discoid atelectasis or pneumonia. The patient's other labs of significance shows a chemistry of 143.7, BUN and creatinine 16 and 1.3, GFR 40. Blood sugars 200s. Lactic acid 3.3. Magnesium was low at 1.5, albumin was good. Urine on the other hand shows greater than 40 white cells and red blood cells, spilling protein. Serology negative for COVID-19. The patient has multiple decubitus ulcers to the gluteal area. ASSESSMENT AND PLAN: Sepsis, pyelonephritis, paralysis from pretty much the waistline down and chronic urinary Zaidi catheter, generalized weakness, deconditioning, probable pneumonia, history of cervical neck fusion. The patient has multiple resistant urinary tract infections. She has been started on gentamicin and Unasyn. We will wait for cultures to come back on that as well. Otherwise, we will continue with IV antibiotic therapy. Control blood pressure and pulse rate, sinus tachycardia and make further evaluation on her as indicated. ALEXIA/LORI/MARILIN DR: Taj TID: [id number]
[2021-06-25 07:35] LABS: BASO % 0 % (0-3); EOS # 0.3 x10^3/uL (0.0-0.7); EOS % 3 % (0-3); HEMOGLOBIN 12.3 g/dL (12.0-15.5); LYMPH # 2.1 x10^3/uL (1.0-4.8); LYMPH % 24 % (24-48); MEAN CORPUSCULAR HEMOGLOBIN 30 pg (25-35); MEAN CORPUSCULAR HGB CONC 32 g/dL (31-37); MEAN CORPUSCULAR VOLUME 93 fL (79-100); MONO # 0.8 x10^3/uL (0.0-1.1); MONO % 9 % (0-9); NEUT # 5.5 x10^3uL (1.8-7.7); NEUT % 63 % (31-73); PLATELET COUNT 267 x10^3/uL (140-400); RED BLOOD COUNT 4.09 x10^6/uL (3.50-5.40); RED CELL DISTRIBUTION WIDTH 14.4 % (11.5-14.5); WHITE BLOOD COUNT 8.8 x10^3/uL (4.0-11.0)
[2021-06-25] MEDS: CHOLECALCIFEROL (VITAMIN D3) 1,000 UNIT TABLET PO SCH (07:58)
[2021-06-25] MEDS: APIXABAN 5 MG TABLET. PO SCH ×2 (07:58→19:21)
[2021-06-25] MEDS: PARoxetine 20 MG TABLET PO SCH (07:59)
[2021-06-25] MEDS: GABAPENTIN 100 MG CAPSULE. PO SCH ×3 (07:59→21:18)
[2021-06-25] MEDS: glyBURIDE 5 MG TABLET. PO SCH (07:59)
[2021-06-25] MEDS: LACTOBACILLUS RHAMNOSUS GG 1 CAPSULE. PO SCH ×2 (08:00→21:18)
[2021-06-25] MEDS: FERROUS SULFATE 325 MG TABLET. PO SCH (08:00)
[2021-06-25] MEDS: metFORMIN 500 MG TABLET PO SCH ×2 (08:00→17:00)
[2021-06-25] MEDS: predniSONE 20 MG TABLET PO SCH (08:00)
[2021-06-25] MEDS: FUROSEMIDE 80 MG TABLET PO SCH (08:00)
[2021-06-25] MEDS: OXYBUTYNIN CHLORIDE 5 MG TABLET PO SCH ×3 (08:00→21:18)
[2021-06-25] MEDS: ATENOLOL 25 MG TABLET PO SCH (08:00)
[2021-06-25] MEDS: INSULIN LISPRO 300 UNITS/3 ML VIAL. SQ SCH ×3 (08:02→17:09)
[2021-06-25] MEDS ORDERED: FLU VACC QUAD 21-22 (6MOS+) PF 0.5 ML SYRINGE. VAX IM ONE (09:00)
[2021-06-25] MEDS ORDERED: INSULIN GLARGINE SYRINGE. SQ SCH (09:30)
[2021-06-25 10:07] LABS: CALCIUM 9.4 mg/dL (8.5-10.1); CREATININE 0.8 mg/dL (0.6-1.0); GFR 70.7; POTASSIUM 3.4 mmol/L (3.5-5.1)
[2021-06-25 10:42] VITALS: BP 127/75
[2021-06-25 15:31] VITALS: BP 125/71
[2021-06-25 17:50] LABS: GENT TR 3.2 mcg/mL (0-2.0)
[2021-06-25] MEDS: GENTAMICIN PER PHARMACY MC PRN (18:32)
[2021-06-25 18:39] VITALS: BP 139/73
[2021-06-25] MEDS ORDERED: INSULIN NPH/REG HUM 70/30 300 UNITS/3 ML VIAL. SQ SCH (19:30)
[2021-06-25] MEDS ORDERED: NYSTATIN/TRIAMCIN TOPICAL OINTMENT 15GM TUBE. TP SCH (21:00)
[2021-06-25] MEDS ORDERED: GENTAMICIN SULFATE 500 MG in IV NORMAL SALINE 100ML 100 ML IV SCH (21:00)
[2021-06-25] MEDS ORDERED: INSULIN LISPRO 300 UNITS/3 ML VIAL. SQ ONE (21:15)
[2021-06-25] MEDS: INSULIN GLARGINE SYRINGE. SQ SCH (21:17)
[2021-06-25] MEDS: ALPRAZolam 0.5 MG TABLET PO PRN (21:18)
--- NOTE | 2021-06-25 21:43 | PN ---
SUBJECTIVE: A 70-year-old female with history of sepsis, pyelonephritis. The patient ____ multiple decubitus ulcers to her gluteal area. She is bedridden. She is dependent on approximately 5/6 of her ADLs. The patient is quite weak. She requires her antibiotics have to be given IV as oral antibiotics do not match up with the particular bacteria that is still in her urine. She has an indwelling Zaidi. The patient is bedridden. She needs to be on an air mattress to prevent further breakdown. Wound care is coming to see her. She is in chronic pain from her multiple problems with her musculoskeletal system. The patient is also a diabetic, poorly controlled, we are adjusting that by increasing her Lantus as well as decreasing any drugs such as prednisone. Otherwise, this morning, she is alert and oriented, in fairly good disposition. OBJECTIVE: VITAL SIGNS: Blood pressure 137/76, respiratory rate 18, pulse 68, afebrile, 2 liters at 97. GENERAL: The patient is alert and oriented. Speech fluent, spontaneous, appropriate. The patient is able to move her upper extremities fairly well. LUNGS: Diminished, but clear. CARDIOVASCULAR: Regular sinus rhythm, S1, S2, without murmur, rub, thrill, or extra heart sounds. ABDOMEN: Protuberant. EXTREMITIES: No clubbing, cyanosis. Trace edema. Generalized weakness and atrophy to the musculoskeletal system. The patient otherwise is resting fairly comfortably. We will go ahead and continue to monitor her accordingly. LABORATORY DATA: The patient's white count is down to 8, hemoglobin 12, hematocrit 38 Sugars in the 300s as noted. We will increase her insulin before meals and Lantus twice daily. TSH is normal. Lactic acid down to 2. PLAN: Otherwise, we will continue on IV antibiotic therapy. The patient will look at getting a PICC line for IV antibiotic therapy for urinary tract infection, sepsis, type 2 diabetes, paraplegia, decubitus ulcers. The patient is continued to be monitored carefully, make further evaluation on her as indicated and probable placement in a rehab facility for continued IV antibiotic therapy. ANTHONY DR: Taj TID: [id number]
[2021-06-25 23:48] VITALS: BP 163/73
[2021-06-26] MEDS ORDERED: diphenhydrAMINE HCL 25 MG CAPSULE PO PRN ×2 (03:00)
[2021-06-26] MEDS: IPRATRPIUM/ALBUTEROL 0.5/2.5MG 3 ML NEBU. NEB SCH ×3 (04:52→20:00)
[2021-06-26 07:00] VITALS: BP 122/71
[2021-06-26] MEDS: INSULIN LISPRO 300 UNITS/3 ML VIAL. SQ SCH ×3 (07:59→17:37)
[2021-06-26] MEDS: INSULIN GLARGINE SYRINGE. SQ SCH ×2 (08:00→21:53)
[2021-06-26] MEDS: metFORMIN 500 MG TABLET PO SCH ×2 (08:04→17:35)
[2021-06-26] MEDS: LACTOBACILLUS RHAMNOSUS GG 1 CAPSULE. PO SCH ×2 (08:04→21:05)
[2021-06-26] MEDS: GABAPENTIN 100 MG CAPSULE. PO SCH ×3 (08:05→21:05)
[2021-06-26] MEDS: PARoxetine 20 MG TABLET PO SCH (08:06)
[2021-06-26] MEDS: ATENOLOL 25 MG TABLET PO SCH (08:07)
[2021-06-26] MEDS: FERROUS SULFATE 325 MG TABLET. PO SCH (08:07)
[2021-06-26] MEDS: FUROSEMIDE 80 MG TABLET PO SCH (08:08)
[2021-06-26] MEDS: APIXABAN 5 MG TABLET. PO SCH ×2 (08:08→21:05)
[2021-06-26] MEDS: glyBURIDE 5 MG TABLET. PO SCH (08:10)
[2021-06-26] MEDS: predniSONE 5 MG TABLET PO SCH (08:10)
[2021-06-26] MEDS: CHOLECALCIFEROL (VITAMIN D3) 1,000 UNIT TABLET PO SCH (08:11)
[2021-06-26] MEDS: OXYBUTYNIN CHLORIDE 5 MG TABLET PO SCH ×3 (08:14→21:05)
[2021-06-26] MEDS: ALPRAZolam 0.5 MG TABLET PO PRN (08:26)
[2021-06-26] MEDS: HYDROcodone/APAP 7.5/325MG 1 TAB TABLET PO PRN ×2 (08:26→17:37)
[2021-06-26] MEDS: NYSTATIN 100,000 UNIT/GM TOPICAL OINTMENT 15GM TUBE. TP SCH ×2 (09:15→21:00)
[2021-06-26 10:29] VITALS: BP 129/73
[2021-06-26 15:37] VITALS: BP 143/77
[2021-06-26 18:26] VITALS: BP 126/72
--- NOTE | 2021-06-26 23:30 | PN ---
DATE: 06/26/2021 SUBJECTIVE: The patient is a 70-year-old -[place] female, Dr. Hamilton's patient whom I took over her care today. Apparently, there was a plan for her to be sent to [facility] to go on IV gentamicin for UTI; however, her urine culture has grown 3 or more organisms isolated results consistent with colonization or contamination during the collection process. Her blood cultures are so far negative given that there is no specific organism to be treated with particularly gentamicin. I decided to hold off the discharge and also the placement of a PICC line. I contacted the lab work at [facility] and recommended that they should culture all these organisms and to get the sensitivity, so that at least we can treat her with the appropriate antibiotic without exposing her to the potential nephrotoxicity and ototoxicity of the gentamicin. On questioning her, she does complain of back pain, but denied any other complaint, in particular, no chills, rigors or fever. She has an indwelling Zaidi catheter. Her urine seems to be clear. Does not seem to be cloudy. PHYSICAL EXAMINATION: GENERAL: When I examined her, she looked somewhat pale. No jaundice, cyanosis. No lymphadenopathy, no thyromegaly, no jugular venous distention. No lower limb edema. VITAL SIGNS: Her heart rate was 95, blood pressure was 129/73, temperature was 97.9, respiratory rate 20, and oxygen saturation was 93% on room air. HEAD, EYES, EARS, NOSE, AND THROAT: Normocephalic, atraumatic. NECK: Supple. HEART: Showed normal first and second heart sounds. No gallop, rub or murmur. CHEST: Clear to auscultation. No crepitation or rhonchi. ABDOMEN: Distended, soft, nontender. NEUROLOGIC: She is awake, alert, responding appropriately. All cranial nerves intact. She moves upper extremities to much great extent than lower extremities. She has an indwelling Zaidi catheter. Her intake over the last 24 hours was 1600, output was 5100. LABORATORY DATA: As of yesterday, her serum sodium was 140, potassium 3.4, chloride 100, bicarbonate 28, anion gap of 12, BUN 16, creatinine 0.8. Estimated GFR was 70 mL per minute. Her glucose consistently high between 300 and 400. Her white cell count was 8800, hemoglobin 12, hematocrit 38, MCV 93, and platelet count 267,000. Her prothrombin time, INR, APTT and D-dimer are all normal. Her toxic screen showed that her gentamicin was 3.2 mcg per mL, which is high. ASSESSMENT AND PLAN: 1. In summary, this is a 70-year-old female patient who was admitted with sepsis and pyelonephritis. 2. She has multiple decubitus ulcers to her gluteal area as she is mostly bedridden. She is dependent in 5/6 of all her ADLs. She has an indwelling catheter. Unfortunately, her urine cultures showed multiple organisms. Therefore, my plan is to discontinue gentamicin. Continue for now ceftriaxone. I contacted the microbiology lab at [facility] and asked them to culture all of these organisms. Her blood sugar continued to be poorly controlled with blood sugars in 300-400, and therefore, I increased her Lantus to 40 units twice a day and NovoLog insulin 35 units 3 times a day. YVAN DR: Mira TID: [id number]
[2021-06-26 23:51] VITALS: BP 143/73
[2021-06-27 04:46] VITALS: BP 140/75
[2021-06-27] MEDS: IPRATRPIUM/ALBUTEROL 0.5/2.5MG 3 ML NEBU. NEB SCH ×4 (05:50→20:00)
[2021-06-27 08:33] LABS: BASO % 0 % (0-3); EOS # 0.4 x10^3/uL (0.0-0.7); EOS % 4 % (0-3); HEMATOCRIT 38.8 % (36.0-47.0); HEMOGLOBIN 12.4 g/dL (12.0-15.5); LYMPH # 2.8 x10^3/uL (1.0-4.8); LYMPH % 29 % (24-48); MEAN CORPUSCULAR HEMOGLOBIN 30 pg (25-35); MEAN CORPUSCULAR HGB CONC 32 g/dL (31-37); MEAN CORPUSCULAR VOLUME 93 fL (79-100); MONO # 0.9 x10^3/uL (0.0-1.1); MONO % 10 % (0-9); NEUT # 5.5 x10^3uL (1.8-7.7); NEUT % 57 % (31-73); PLATELET COUNT 284 x10^3/uL (140-400); RED CELL DISTRIBUTION WIDTH 14.4 % (11.5-14.5); WHITE BLOOD COUNT 9.6 x10^3/uL (4.0-11.0)
[2021-06-27 08:40] LABS: ALBUMIN 3.1 g/dL (3.4-5.0); CALCIUM 9.4 mg/dL (8.5-10.1); GFR 54.7; POTASSIUM 3.3 mmol/L (3.5-5.1); TOTAL BILIRUBIN 0.2 mg/dL (0.2-1.0); TOTAL PROTEIN 6.3 g/dL (6.4-8.2)
[2021-06-27] MEDS: CHOLECALCIFEROL (VITAMIN D3) 1,000 UNIT TABLET PO SCH (09:21)
[2021-06-27] MEDS: ATENOLOL 25 MG TABLET PO SCH (09:22)
[2021-06-27] MEDS: PARoxetine 20 MG TABLET PO SCH (09:22)
[2021-06-27] MEDS: OXYBUTYNIN CHLORIDE 5 MG TABLET PO SCH ×3 (09:23→21:00)
[2021-06-27] MEDS: LACTOBACILLUS RHAMNOSUS GG 1 CAPSULE. PO SCH ×2 (09:23→21:00)
[2021-06-27] MEDS: metFORMIN 500 MG TABLET PO SCH ×2 (09:23→17:00)
[2021-06-27] MEDS: APIXABAN 5 MG TABLET. PO SCH ×2 (09:24→21:00)
[2021-06-27] MEDS: predniSONE 5 MG TABLET PO SCH (09:24)
[2021-06-27] MEDS: FERROUS SULFATE 325 MG TABLET. PO SCH (09:24)
[2021-06-27] MEDS: FUROSEMIDE 80 MG TABLET PO SCH (09:24)
[2021-06-27] MEDS: glyBURIDE 5 MG TABLET. PO SCH (09:25)
[2021-06-27] MEDS: GABAPENTIN 100 MG CAPSULE. PO SCH ×3 (09:25→21:00)
[2021-06-27] MEDS: INSULIN LISPRO 300 UNITS/3 ML VIAL. SQ SCH ×3 (09:28→17:00)
[2021-06-27] MEDS: NYSTATIN 100,000 UNIT/GM TOPICAL OINTMENT 15GM TUBE. TP SCH ×2 (09:29→21:00)
[2021-06-27] MEDS: INSULIN GLARGINE SYRINGE. SQ SCH ×2 (09:32→21:00)
[2021-06-27] MEDS: HYDROcodone/APAP 7.5/325MG 1 TAB TABLET PO PRN (09:50)
[2021-06-27 11:13] VITALS: BP 144/84
[2021-06-27 16:09] VITALS: BP 166/88
[2021-06-27] MEDS: POTASSIUM CHLORIDE 20 MEQ TABLET.ER. PO SCH (21:00)
[2021-06-27] MEDS: HYDROcodone/APAP 10/325 1 TAB TABLET PO PRN (22:05)
--- NOTE | 2021-06-27 22:09 | PN ---
DATE: 06/27/2021 SUBJECTIVE: The patient is resting, slightly propped up in bed, in no apparent distress, awake, alert, complaining that her pain is not well controlled. I did contact the microbiology lab at [facility] and we did get hold of the culture and sensitivity. She grew 3 organisms, 1 is Escherichia coli with a growth of about 50,000 colony forming units per mL. The second one is Klebsiella pneumoniae with growth of about 50,000 colony forming units per mL and a third one is Enterococcus faecalis with a growth of 20,000 colony-forming units per mL. The Escherichia coli is sensitive to ceftriaxone as well as the Klebsiella pneumoniae. They did not show any sensitivities for Enterococcus faecalis; however, the drug of choice usually is the amoxicillin or Augmentin; however, her count is only 20,000. The patient is completely asymptomatic. Her urine is very clear. PHYSICAL EXAMINATION: GENERAL: When I examined her this afternoon, she looked well and was clearly in no apparent respiratory distress. No pallor, jaundice, cyanosis or thyromegaly. No jugular venous distention. No limb edema. VITAL SIGNS: Her heart rate was 86, blood pressure is 144/84, temperature was 98.1, respiratory rate 20, and oxygen saturation was 93% on room air. HEAD, EYES, EARS, NOSE, AND THROAT: Normocephalic, atraumatic. NECK: Supple. HEART: Showed normal first and second heart sounds. No gallop, rub or murmur. CHEST: Clear to auscultation. No crepitation or rhonchi. ABDOMEN: Distended, soft, nontender. NEUROLOGIC: She is paraplegic, mostly bedbound. She has an indwelling Zaidi catheter. Her intake was 2730, output was 1600. LABORATORY DATA: Her lab work this morning showed a white cell count 9600, hemoglobin 12, hematocrit 38, MCV 93, and platelet count of 284,000 with normal manual differential. Her chemistry showed a serum sodium of 142, potassium 3.3, chloride 100, bicarbonate 37, anion gap of 5, BUN 18, creatinine 1, estimated GFR was 57 mL per minute. Her glucose 171, calcium was 9.4. Total bilirubin, AST, ALT, alkaline phosphatase were normal. Total protein 6.3, albumin 3.1. Her prothrombin time, INR, APTT and D-dimer are all normal. Her urine culture has grown 3 organisms including Escherichia coli, Klebsiella pneumoniae and Enterococcus faecalis. The Escherichia coli and Klebsiella pneumoniae both are sensitive to ceftriaxone. PLAN: To continue with IV ceftriaxone. We will arrange for him to have a midline as she is difficult vascular access. I am not sure that she needs any coverage for Enterococcus faecalis. We will continue with all other medication. Her blood sugars seem to be much better controlled after we adjusted her insulin. YVAN DR: Mira TID: [id number]
[2021-06-28] MEDS: ALPRAZolam 0.5 MG TABLET PO PRN (02:15)
[2021-06-28 06:39] VITALS: BP 137/75
[2021-06-28] MEDS: IPRATRPIUM/ALBUTEROL 0.5/2.5MG 3 ML NEBU. NEB SCH (08:00)
[2021-06-28] MEDS: metFORMIN 500 MG TABLET PO SCH ×2 (08:00→16:47)
[2021-06-28] MEDS: INSULIN LISPRO 300 UNITS/3 ML VIAL. SQ SCH ×3 (08:00→16:48)
[2021-06-28] MEDS: glyBURIDE 5 MG TABLET. PO SCH (08:50)
[2021-06-28] MEDS: HYDROcodone/APAP 10/325 1 TAB TABLET PO PRN ×2 (08:50→21:53)
[2021-06-28] MEDS: POTASSIUM CHLORIDE 20 MEQ TABLET.ER. PO SCH ×3 (08:51→21:53)
[2021-06-28] MEDS: PARoxetine 20 MG TABLET PO SCH (08:51)
[2021-06-28] MEDS: CHOLECALCIFEROL (VITAMIN D3) 1,000 UNIT TABLET PO SCH (08:52)
[2021-06-28] MEDS: predniSONE 5 MG TABLET PO SCH (08:52)
[2021-06-28] MEDS: ATENOLOL 25 MG TABLET PO SCH (08:52)
[2021-06-28] MEDS: FERROUS SULFATE 325 MG TABLET. PO SCH (08:53)
[2021-06-28] MEDS: FUROSEMIDE 80 MG TABLET PO SCH (08:53)
[2021-06-28] MEDS: OXYBUTYNIN CHLORIDE 5 MG TABLET PO SCH ×3 (08:53→21:54)
[2021-06-28] MEDS: NYSTATIN 100,000 UNIT/GM TOPICAL OINTMENT 15GM TUBE. TP SCH ×2 (09:00→21:00)
[2021-06-28] MEDS: INSULIN GLARGINE SYRINGE. SQ SCH ×2 (09:00→21:00)
[2021-06-28] MEDS: GABAPENTIN 100 MG CAPSULE. PO SCH ×3 (09:09→21:53)
[2021-06-28] MEDS: APIXABAN 5 MG TABLET. PO SCH ×2 (09:09→21:53)
[2021-06-28] MEDS: LACTOBACILLUS RHAMNOSUS GG 1 CAPSULE. PO SCH ×2 (09:09→21:54)
[2021-06-28 11:23] VITALS: BP 136/66
[2021-06-28 14:38] VITALS: BP 158/82
[2021-06-28 19:53] VITALS: BP 132/73
[2021-06-29] MEDS: ALPRAZolam 0.5 MG TABLET PO PRN ×2 (01:27→12:42)
[2021-06-29] MEDS: HYDROcodone/APAP 10/325 1 TAB TABLET PO PRN ×3 (03:37→12:41)
[2021-06-29 06:28] VITALS: BP 104/60
[2021-06-29 07:15] LABS: ALBUMIN/GLOBULIN RATIO 0.9 (1.0-1.7); CALCIUM 9.6 mg/dL (8.5-10.1); GFR 54.7; POTASSIUM 3.3 mmol/L (3.5-5.1); TOTAL BILIRUBIN 0.3 mg/dL (0.2-1.0); TOTAL PROTEIN 6.3 g/dL (6.4-8.2)
[2021-06-29] MEDS: metFORMIN 500 MG TABLET PO SCH ×2 (08:39→17:11)
[2021-06-29] MEDS: INSULIN LISPRO 300 UNITS/3 ML VIAL. SQ SCH ×3 (08:41→17:10)
[2021-06-29] MEDS: NYSTATIN 100,000 UNIT/GM TOPICAL OINTMENT 15GM TUBE. TP SCH (09:00)
[2021-06-29] MEDS: INSULIN GLARGINE SYRINGE. SQ SCH (09:08)
[2021-06-29] MEDS: CHOLECALCIFEROL (VITAMIN D3) 1,000 UNIT TABLET PO SCH (09:10)
[2021-06-29] MEDS: FERROUS SULFATE 325 MG TABLET. PO SCH (09:10)
[2021-06-29] MEDS: APIXABAN 5 MG TABLET. PO SCH (09:10)
[2021-06-29] MEDS: GABAPENTIN 100 MG CAPSULE. PO SCH ×2 (09:10→14:00)
[2021-06-29] MEDS: PARoxetine 20 MG TABLET PO SCH (09:10)
[2021-06-29] MEDS: LACTOBACILLUS RHAMNOSUS GG 1 CAPSULE. PO SCH (09:10)
[2021-06-29] MEDS: glyBURIDE 5 MG TABLET. PO SCH (09:10)
[2021-06-29] MEDS: predniSONE 5 MG TABLET PO SCH (09:11)
[2021-06-29] MEDS: ATENOLOL 25 MG TABLET PO SCH (09:11)
[2021-06-29] MEDS: FUROSEMIDE 80 MG TABLET PO SCH (09:11)
[2021-06-29] MEDS: POTASSIUM CHLORIDE 20 MEQ TABLET.ER. PO SCH ×2 (09:12→14:00)
[2021-06-29] MEDS: OXYBUTYNIN CHLORIDE 5 MG TABLET PO SCH ×2 (09:13→14:00)
[2021-06-29 09:40] LABS: BASO % 0 % (0-3); EOS # 0.4 x10^3/uL (0.0-0.7); EOS % 3 % (0-3); HEMATOCRIT 37.9 % (36.0-47.0); HEMOGLOBIN 12.4 g/dL (12.0-15.5); LYMPH # 2.5 x10^3/uL (1.0-4.8); LYMPH % 23 % (24-48); MEAN CORPUSCULAR HEMOGLOBIN 30 pg (25-35); MEAN CORPUSCULAR HGB CONC 33 g/dL (31-37); MEAN CORPUSCULAR VOLUME 93 fL (79-100); MONO # 0.9 x10^3/uL (0.0-1.1); MONO % 9 % (0-9); NEUT # 7.1 x10^3uL (1.8-7.7); NEUT % 65 % (31-73); PLATELET COUNT 272 x10^3/uL (140-400); RED CELL DISTRIBUTION WIDTH 14.3 % (11.5-14.5)
--- NOTE | 2021-06-29 10:05 | PN ---
DATE: 06/28/2021 SUBJECTIVE: The patient is resting, slightly propped up in bed, in no apparent distress. She continued to complain of pain, although I have increased her hydrocodone to 10/325 every 4 hours. Her urine culture has grown 3 organisms including Escherichia coli, Klebsiella pneumoniae and Enterococcus faecalis, both Escherichia coli and Klebsiella grown 50,000 colony forming units per mL and both are sensitive to ceftriaxone. The Enterococcus faecalis is only 20,000 colony forming units and no sensitivities were displayed; however, usually it is sensitive to amoxicillin or Augmentin. I do not think she needs any IV gentamicin and she changed her mind. The patient wanted to go home tomorrow with home health and therefore we can discharge her on oral antibiotic. PHYSICAL EXAMINATION: GENERAL: When I saw her today, she looked well and was clearly in no apparent respiratory distress. No pallor, jaundice, cyanosis, or thyromegaly. No jugular venous distention. No limb edema. VITAL SIGNS: Her heart rate was 81, blood pressure was 136/66, temperature was 97, respiratory rate was 20, and oxygen saturation was 96% on 2 liters of oxygen. HEAD, EYES, EARS, NOSE, AND THROAT: Normocephalic, atraumatic. NECK: Supple. HEART: Showed normal first and second heart sounds. No gallop, rub, or murmur. CHEST: Clear to auscultation, no crepitation or rhonchi. ABDOMEN: Distended, soft, nontender. NEUROLOGIC: She was awake, alert, responding appropriately. Cranial nerves intact. She moves upper extremities without difficulty. She has paraplegia, with indwelling Zaidi catheter. Her intake was 2100, output was 6600. LABORATORY DATA: As of yesterday, her serum sodium was 142, potassium 3.3, chloride 100, bicarbonate 37, anion gap of 5, BUN 18, creatinine 1, estimated GFR was 54 mL per minute, her glucose 171, calcium was 9.4. Total bilirubin, AST, ALT, alkaline phosphatase were normal. Her hemoglobin 12, hematocrit 38 with normal white cell count and platelets. ASSESSMENT: 1. Urinary tract infection with a growth of multiple organisms including Escherichia coli, Klebsiella pneumoniae, as well as Enterococcus faecalis. 2. Other medical problems include: A. Multiple decubitus ulcers in her gluteal area as she is mostly bedbound. B. Neurogenic bladder, for which she has an indwelling Zaidi catheter. C. Type 2 diabetes mellitus, seems to be much better controlled. D. She does have history of deep venous thrombosis, for which she is on apixaban. E. Hypercholesterolemia. F. Hypertension. G. Chronic obstructive pulmonary disease. Dictation Ends Here. JIMBO/MARILIN DR: Mira TID: [id number]
[2021-06-29 10:42] VITALS: BP 145/78
[2021-06-29] MEDS ORDERED: INSU100I17 SQ (16:25)
[2021-06-29] MEDS ORDERED: POTA20TA4 PO (16:25)
[2021-06-29] MEDS ORDERED: CEPH500C PO (16:25)
[2021-06-29] MEDS ORDERED: NYST15OI TP (16:25)
--- NOTE | 2021-06-29 16:27 | DISCH ---
HOME HEALTH DISCHARGE/MEDS DISCHARGE INFORMATION: Discharge Date: Jun 29, 2021 Final Diagnosis: Problems Medical Problems: (1) UTI (urinary tract infection) due to Enterococcus Status: Acute Condition on Discharge: Stable CODE STATUS: Code Status: Full HOME HEALTH: Face to Face: I certify this patient is under my care and that I, or a nurse practitioner or physician's visitor use assistant working with me, had a face to face encounter that meets the physician face to face encounter requirements with this patient on 06/29/21. Medical Condition(s): DM, HTN Penitentiary For: Assess Cardiopulm Status, Assess & Educate Safety, Assess/Skilled Observatio, Diabetic Care, Medication Management, Urinary Catheter Care Physical Therapy For: Evalulation/Treatment Occupational Therapy For: Evaluation/Treatment Homebound Status Met By: Extreme weakness w/ amb. POST DISCHARGE ORDERS: Activity Instructions for Disc: Activity as tolerated Weight Bearing Status after Di: No restrictions DIET AFTER DISCHARGE: ADA CERTIFICATION STATEMENT: Certification Statement: Based on the above finding, I certify that this patient is confined to the home and needs intermittent snf care, physical therapy and/or speech therapy, or continues to need occupational therapy.~ This patient is under my care, and I have initiated the establishment of the plan of care.~ This patient will be followed by myself or a community physician who will periodically review the plan of care. DISCHARGE MEDICATIONS: Home Meds Active Scripts Apixaban (ELIQUIS) 5 Mg Tablet, 5 MG PO BID for anticoagulant for 90 Days, #180 TAB 3 Refills Prov:HUNG HAMMOND MD 04/24/19 Acetaminophen (TYLENOL) 325 Mg Tablet, 650 MG PO PRN Q6HRS PRN for MILD PAIN / TEMP, #30 TAB Prov:HUNG HAMMOND MD 11/09/17 Reported Medications Paroxetine Hcl (PAROXETINE HCL) 40 Mg Tablet, 1 TAB PO DAILY for ANTIDEPRESSANT 06/24/21 Insulin Glargine,Hum.rec.anlog (Basaglar Kwikpen U-100) 100 Unit/1 Ml Insuln.pen, 30 UNIT SQ BID for DM, EACH 06/24/21 Insulin Aspart (NOVOLOG FLEXPEN) 100 Unit/1 Ml Insuln.pen, SQ TIDWMEALS for DM, SYR 06/24/21 Gabapentin (Neurontin) 100 Mg Capsule, 1 CAP PO TID for PERIPHERAL NEUROPATHY for 30 Days, #90 CAP 0 Refills 06/24/21 Furosemide (FUROSEMIDE) 80 Mg Tablet, 1 TAB PO DAILY for CHF, #30 TAB 5 Refills 06/24/21 Prednisone (PREDNISONE) 20 Mg Tablet, 1 TAB PO DAILY for COPD, #5 TAB 06/24/21 Cholecalciferol (Vitamin D3) (Vitamin D3 ) 25 Mcg Tablet, 25 MCG PO DAILY for SUPPLEMENT, TAB 1,000 UNITS = 25 MCG 06/24/21 Lactobacillus Acidophilus (PROBIOTIC) 1 Each Capsule, 1 EACH PO DAILY for SUPPLEMENT, CAP 06/24/21 Ferrous Sulfate (IRON) 325 Mg Tablet, 1 TAB PO DAILY for SUPPLEMENT 08/22/19 Oxybutynin Chloride (OXYBUTYNIN CHLORIDE) 5 Mg Tablet, 1 TAB PO TID for BLADDER SPASM LAST DOSE GIVEN: DATE: TODAY TIME: AM NEXT DOSE DUE: DATE: TODAY TIME: AFTERNOON 05/26/18 Glyburide (GLYBURIDE) 2.5 Mg Tablet, 1 TAB PO DAILY for HIGH BLOOD SUGAR- DIABETES LAST DOSE GIVEN: DATE: TODAY TIME: WITH BREAKFAST NEXT DOSE DUE: DATE: TOMORROW TIME: WITH BREAKFAST 02/27/18 Metformin Hcl (METFORMIN HCL) 1,000 Mg Tablet, 1000 MG PO BIDWMEALS for ANTI- DIABETIC LAST DOSE GIVEN: DATE: TODAY TIME: WITH BREAKFAST NEXT DOSE DUE: DATE: TODAY TIME: WITH DINNER 10/26/17 Simvastatin (ZOCOR) 40 Mg Tablet, 40 MG PO HS for HIGH CHOLESTEROL LAST DOSE GIVEN: DATE: YESTERDAY TIME: AT BEDTIME NEXT DOSE DUE: DATE: TODAY TIME: AT BEDTIME 04/10/15 Atenolol (ATENOLOL ) 25 Mg Tablet, 25 MG PO DAILY for HIGH BLOOD PRESSURE 04/10/15 HUNG HAMMOND MD Jun 29, 2021 16:27
--- NOTE | 2021-07-19 12:30 | DS ---
DATE OF DISCHARGE: 06/29/2021 HOSPITAL COURSE: This is a 70-year-old female who came in. She has been paralyzed pretty much from the waistline down, has multiple urinary tract infections and because of her overall situation, has multiple breakdowns in her gluteal area bedsores and the like. The patient came in and she was being treated for a resistant urinary tract infection and as a result of this, the patient was admitted for sepsis and pyelonephritis. The patient has multiple decubitus ulcers. Wound care to take care of that. The patient also was placed on a special bed and a recliner for control of this. Her white count was 11,000, hemoglobin 12 and hematocrit 37. Chemistries; 139, 3.3, BUN and creatinine of 21 and 1. She is also a diabetic. Moderate protein malnutrition. COVID negative. The patient made good progress during the rest of her hospitalizations and she was discharged home. She will be followed up with home health, of course, and the like. IMPRESSION: Sepsis, pyelonephritis, multiple decubitus ulcers, paralysis from the waistline down, morbid obesity, type 2 diabetes, moderate protein malnutrition. PLAN: As above. Continue to monitor the patient and make further evaluation on her as indicated. LEON DR: Taj TID: [id number]
== END 2021-06-29 18:00 | disposition home health service (06) | DRG 871 ==
LOC: ER 21:08 → 1 SOUTH 06-24 00:45
PROVIDERS: ADMIT Family Medicine; ATTEND Family Medicine
DX: A41.9 Sepsis, unspecified organism (principal); N17.0 Acute kidney failure with tubular necrosis; G82.20 Paraplegia, unspecified; N12 Tubulo-interstitial nephritis, not specified as acute or chronic; Z68.42 Body mass index [BMI] 45.0-49.9, adult; Z20.822 Contact with and (suspected) exposure to COVID-19; B96.20 Unspecified Escherichia coli [E. coli] as the cause of diseases classified elsewhere; E11.42 Type 2 diabetes mellitus with diabetic polyneuropathy; E11.65 Type 2 diabetes mellitus with hyperglycemia; E66.01 Morbid (severe) obesity due to excess calories; E78.00 Pure hypercholesterolemia, unspecified; G89.29 Other chronic pain; I11.0 Hypertensive heart disease with heart failure; I25.10 Atherosclerotic heart disease of native coronary artery without angina pectoris; I50.9 Heart failure, unspecified; J43.9 Emphysema, unspecified; L89.309 Pressure ulcer of unspecified buttock, unspecified stage; N31.9 Neuromuscular dysfunction of bladder, unspecified; Z96.652 Presence of left artificial knee joint; F32.A Depression, unspecified; F41.9 Anxiety disorder, unspecified; K21.9 Gastro-esophageal reflux disease without esophagitis; B96.1 Klebsiella pneumoniae [K. pneumoniae] as the cause of diseases classified elsewhere; B95.2 Enterococcus as the cause of diseases classified elsewhere; Z74.01 Bed confinement status; Z79.4 Long term (current) use of insulin; Z80.9 Family history of malignant neoplasm, unspecified; Z81.8 Family history of other mental and behavioral disorders; Z82.49 Family history of ischemic heart disease and other diseases of the circulatory system; Z83.2 Family history of diseases of the blood and blood-forming organs and certain disorders involving the immune mechanism; Z83.3 Family history of diabetes mellitus; Z86.718 Personal history of other venous thrombosis and embolism; Z87.01 Personal history of pneumonia (recurrent); Z87.891 Personal history of nicotine dependence; Z98.1 Arthrodesis status; Z99.3 Dependence on wheelchair; Z88.8 Allergy status to other drugs, medicaments and biological substances
CPT/HCPCS: 36415; 71045; 80048; 80053; 80076; 80170; 80307; 81001; 82550; 82947; 83605; 83690; 83735; 83880; 84443; 84484; 85025; 85379; 85610; 85730; 87040; 87077; 87086; 87186; 87426; 90471; 90686; 93005; 94640; 96365; G0238; J0295; J0696; J1580; J1815; J2270; J7120; J7512; Q0163; U0003; 97110; 99285-25

== ENCOUNTER 2021-08-05 18:41 | Emergency (ER) | payer OTHER ==
[~2021-08-05] VITALS: Ht 175.3 cm; Wt 147.0 kg
[~2021-08-05 18:41] MED LIST changes: +CHOL10004 PO; +FURO80TA3 PO; +GABA100C81 PO; +INSU100I32 SQ; +LACT1CAP6 PO; +NYST15OI TP; +POTA20TA4 PO; +PRED20TA PO
[2021-08-05] MEDS ORDERED: PHEN100T82 PO (18:54)
--- NOTE | 2021-08-05 18:55 | PHYS DOC ---
Past History Past Medical History: Anxiety, COPD, Diabetes, DVT, Hypertension, UTI, Vascular Disease Additional Past Medical Histor: " spinal cord condition" Past Surgical History: Cervical Fusion, Knee Replacement Smoking: Non-smoker Alcohol Use: None Drug Use: None Adult General HPI HPI Patient is a 70-year-old female with a past medical history significant for diabetes and neurogenic bladder who 3 weeks ago had a urinary catheter placed for urinary incontinence. States she was diagnosed with a urinary tract infection about 5 or 6 days ago and was started on Bactrim but has not had her Zaidi changed in 3 weeks. States that her primary care physician is aware and they are waiting on cultures for her urine. States that she is still having some pain with urination. Denies any recent traumas, travels, fevers, chest pain, shortness of breath, abdominal pain, nausea, vomiting, hematuria. States she has 5 more days of Bactrim and was supposed to follow-up with her primary care physician sometime this week or early next week when her cultures result to discuss further treatment. States she is eating and drinking normally. States she is making stool normally with no blood. Review of Systems Review of Systems Review of systems otherwise unremarkable except noted in HPI Allergies Allergies Allergies Coded Allergies Type Severity Reaction Last Updated Verified amlodipine Allergy Intermediate 05/26/18 Yes atorvastatin Allergy Intermediate 05/26/18 Yes Physical Exam Physical Exam Constitutional: Well developed, well nourished, no acute distress, non-toxic appearance. [] HENT: Normocephalic, atraumatic, bilateral external ears normal, oropharynx moist, no oral exudates, nose normal. [] Eyes: conjunctiva normal, no discharge. [] Neck: Normal range of motion, no tenderness, supple, no stridor. [] Cardiovascular:Heart rate regular rhythm, no murmur [] Lungs & Thorax: Bilateral breath sounds clear to auscultation [] Abdomen: soft, no tenderness, no masses, no pulsatile masses. [] Skin: Warm, dry, no erythema, no rash. [] Back: no CVA tenderness. [] Extremities: No tenderness, no cyanosis, no clubbing, ROM intact, no edema. [] Neurologic: Alert and oriented X 3, no focal deficits noted. [] Psychologic: Affect normal, judgement normal, mood normal. [] EKG EKG [] Radiology/Procedures Radiology/Procedures [] Heart Score C/O Chest Pain: No Risk Factors: Risk Factors: DM, Current or recent (<one month) smoker, HTN, HLP, family history of CAD, obesity. Risk Scores: Risk Factors: DM, Current or recent (<one month) smoker, HTN, HLP, family history of CAD, obesity. Course & Med Decision Making Course & Med Decision Making Patient is a 70-year-old female with a neurogenic bladder and Zaidi in place for the last 3 weeks and UTI currently being treated by Bactrim, day 5 who presents with continuing dysuria Vital signs not concerning. Physical exam noted above. Urinary catheter with obvious debris and cloudy urine. Urinary catheter changed. Given a dose of Rocephin in the ED. [] Dragon Disclaimer Dragon Disclaimer This electronic medical record was generated, in whole or in part, using a voice recognition dictation system. Departure Departure: Impression: Primary Impression: Urinary tract infection Additional Impression: Zaidi catheter in place Disposition: HOME / SELF CARE / HOMELESS Condition: GOOD Referrals: HUNG HAMMOND MD (PCP) Patient Instructions: Zaidi Catheter Care, Adult, Urinary Tract Infection Additional Instructions: Thank you for coming into the emergency department tonight and allowing us to take care of you. Please read the attached information very carefully to go back over the things that we discussed. Please continue to take your antibiotics as prescribed and until gone. Please call your primary care physician in the morning to update on your ED visit and set up a follow-up as soon as possible and evaluate your urine culture to see if antibiotic coverage is correct. Please come back with new or concerning symptoms as discussed. Scripts Phenazopyridine Hcl (PYRIDIUM) 100 Mg Tablet 1 TAB PO TID for urinary discomfort for 2 Days, #5 TAB 0 Refills Prov: SMITHA DUARTE MD 08/05/21 Problem Qualifiers SMITHA DUARTE MD Aug 05, 2021 18:55
[2021-08-05] MEDS ORDERED: PHENAZOPYRIDINE 100 MG TABLET. PO ONE (19:00)
[2021-08-05] MEDS ORDERED: oxyCODONE/APAP 5/325 1 TAB TABLET PO ONE (19:00)
[2021-08-05] MEDS ORDERED: cefTRIAXone IM 1 GM VIAL IM ONE (19:00)
[2021-08-05 19:24] VITALS: BP 147/66
[2021-08-05 19:59] LABS: BACTERIA,URINE FEW /HPF (0-FEW); BILIRUBIN,URINE NEG (NEG); CLARITY,URINE CLEAR; COLOR,URINE YELLOW; GLUCOSE,URINE NEG (NEG); NITRITE,URINE NEG (NEG); SQUAMOUS EPITHELIAL CELL,UR MOD /LPF; UROBILINOGEN,URINE 0.2 mg/dL (0.2 mg/dL)
[2021-08-05] MEDS ORDERED: CEPH500C PO (19:59)
== END 2021-08-05 20:08 | disposition home or self-care (01) ==
LOC: ER 18:41
DX: N39.0 Urinary tract infection, site not specified (principal); J44.9 Chronic obstructive pulmonary disease, unspecified; F41.9 Anxiety disorder, unspecified; E11.9 Type 2 diabetes mellitus without complications; I10 Essential (primary) hypertension; Z86.718 Personal history of other venous thrombosis and embolism; Z87.440 Personal history of urinary (tract) infections; Z88.8 Allergy status to other drugs, medicaments and biological substances
CPT/HCPCS: 51702; 81001; 87086; 87186; 96372; 99284; J0696

== ENCOUNTER 2021-11-10 13:13 | Inpatient (IN) | payer OTHER ==
[~2021-11-10] VITALS: Ht 175.3 cm; Wt 156.0 kg
[~2021-11-10 13:13] MED LIST changes: +PHEN100T82 PO
[2021-11-10] MEDS ORDERED: PROCHLORPERAZINE 10 MG/2 ML VIAL. IV PRN (14:30)
[2021-11-10] MEDS ORDERED: DEXTROSE 50% 25 GM / 50ML DISP.SYRIN. IV PRN (14:30)
[2021-11-10 14:38] VITALS: BP 129/75
--- NOTE | 2021-11-10 14:51 | NUR ---
Admission note Patient admitted to room 105; direct admit via EMS from Dr. Hamilton's office. VSS. Patient oriented to room. IV placed in left arm. Wound on sacrum photodocumented and placed in chart. Dr. Hamilton called and updated. See orders. Call cao in reach.
[2021-11-10 15:26] LABS: BASO # 0.1 x10^3/uL (0.0-0.2); BASO % 1 % (0-3); EOS # 0.1 x10^3/uL (0.0-0.7); EOS % 1 % (0-3); HEMATOCRIT 40.1 % (36.0-47.0); LYMPH # 1.7 x10^3/uL (1.0-4.8); LYMPH % 12 % (24-48); MEAN CORPUSCULAR HEMOGLOBIN 30 pg (25-35); MEAN CORPUSCULAR HGB CONC 32 g/dL (31-37); MEAN CORPUSCULAR VOLUME 93 fL (79-100); MONO # 0.8 x10^3/uL (0.0-1.1); MONO % 6 % (0-9); NEUT # 11.3 x10^3uL (1.8-7.7); NEUT % 81 % (31-73); PLATELET COUNT 240 x10^3/uL (140-400); RED BLOOD COUNT 4.32 x10^6/uL (3.50-5.40); RED CELL DISTRIBUTION WIDTH 14.9 % (11.5-14.5); WHITE BLOOD COUNT 13.9 x10^3/uL (4.0-11.0)
[2021-11-10 15:42] LABS: CLARITY,URINE CLOUDY; COLOR,URINE YELLOW
[2021-11-10 15:43] LABS: GLUCOSE,URINE NEG (NEG); NITRITE,URINE NEG (NEG); UROBILINOGEN,URINE 0.2 mg/dL (0.2 mg/dL)
[2021-11-10 15:44] LABS: BACTERIA,URINE FEW /HPF (0-FEW); SQUAMOUS EPITHELIAL CELL,UR OCC /LPF; WBC,URINE >40 /HPF (0-4); YEAST,URINE PRESENT /HPF
[2021-11-10 15:51] LABS: ALBUMIN 3.2 g/dL (3.4-5.0); ALBUMIN/GLOBULIN RATIO 0.9 (1.0-1.7); CALCIUM 9.7 mg/dL (8.5-10.1); CREATININE 0.9 mg/dL (0.6-1.0); GFR 61.5; POTASSIUM 3.5 mmol/L (3.5-5.1); TOTAL BILIRUBIN 0.8 mg/dL (0.2-1.0); TOTAL PROTEIN 6.6 g/dL (6.4-8.2)
[2021-11-10] MEDS: IV 1/2 NORMAL SALINE 1,000 ML IV SCH (16:13)
[2021-11-10] MEDS: INSULIN LISPRO 300 UNITS/3 ML VIAL. SQ SCH (16:49)
[2021-11-10] MEDS ORDERED: ACETAMINOPHEN 325 MG TABLET PO PRN (18:45)
[2021-11-10 18:50] VITALS: BP_SYST 128; BP_SYST 129; BP_DIAS 68; BP_DIAS 96
--- NOTE | 2021-11-10 19:40 | NUR ---
Assessment completed. Pt. 02 sat drops to 85% when sleeping. O2 applied at 2 L/NC. Lungs with diminished BS in bilat. bases. Rouses easily. Denies dyspnea.
[2021-11-10] MEDS: APIXABAN 5 MG TABLET. PO SCH (20:41)
[2021-11-10] MEDS: OXYBUTYNIN CHLORIDE 5 MG TABLET PO SCH (20:42)
[2021-11-10] MEDS: SIMVASTATIN 40 MG TABLET. PO SCH (20:42)
[2021-11-10] MEDS: NYSTATIN 100,000 UNIT/GM TOPICAL OINTMENT 15GM TUBE. TP SCH (20:42)
[2021-11-10] MEDS: GABAPENTIN 100 MG CAPSULE. PO SCH (20:42)
[2021-11-10] MEDS: POTASSIUM CHLORIDE 20 MEQ TABLET.ER. PO SCH (20:42)
[2021-11-10] MEDS: INSULIN GLARGINE SYRINGE. SQ SCH (20:46)
[2021-11-10] MEDS ORDERED: PHENAZOPYRIDINE 100 MG TABLET. PO SCH (21:00)
[2021-11-10] MEDS: CEFEPIME HCL 1 GM in IV NORMAL SALINE 50ML 50 ML IV SCH (22:50)
[2021-11-10 23:00] VITALS: BP 146/84
[2021-11-11] MEDS: IV 1/2 NORMAL SALINE 1,000 ML IV SCH ×3 (01:47→21:30)
[2021-11-11 05:00] VITALS: BP 116/70
[2021-11-11] MEDS: CEFEPIME HCL 1 GM in IV NORMAL SALINE 50ML 50 ML IV SCH ×3 (05:25→22:31)
--- NOTE | 2021-11-11 05:53 | NUR ---
AM assessment completed. Pt. has rested quietly throughout NOC. Repositioned for comfort. No changes from previous assessment.
[2021-11-11] MEDS ORDERED: INSULIN LISPRO 300 UNITS/3 ML VIAL. SQ SCH (08:00)
[2021-11-11] MEDS: metFORMIN 500 MG TABLET PO SCH ×2 (08:24→17:29)
[2021-11-11] MEDS: glyBURIDE 5 MG TABLET. PO SCH (08:25)
[2021-11-11] MEDS: OXYBUTYNIN CHLORIDE 5 MG TABLET PO SCH ×3 (08:25→20:26)
[2021-11-11] MEDS: GABAPENTIN 100 MG CAPSULE. PO SCH ×3 (08:25→20:26)
[2021-11-11] MEDS: FUROSEMIDE 80 MG TABLET PO SCH (08:25)
[2021-11-11] MEDS: APIXABAN 5 MG TABLET. PO SCH ×2 (08:25→20:25)
[2021-11-11] MEDS: PARoxetine 20 MG TABLET PO SCH (08:25)
[2021-11-11] MEDS: FERROUS SULFATE 325 MG TABLET. PO SCH (08:26)
[2021-11-11] MEDS: POTASSIUM CHLORIDE 20 MEQ TABLET.ER. PO SCH ×3 (08:26→20:26)
[2021-11-11] MEDS: LACTOBACILLUS RHAMNOSUS GG 1 CAPSULE. PO SCH (08:26)
[2021-11-11] MEDS: ATENOLOL 25 MG TABLET PO SCH (08:26)
[2021-11-11] MEDS: INSULIN LISPRO 300 UNITS/3 ML VIAL. SQ SCH ×3 (08:27→17:30)
[2021-11-11] MEDS: NYSTATIN 100,000 UNIT/GM TOPICAL OINTMENT 15GM TUBE. TP SCH ×2 (08:28→20:25)
[2021-11-11] MEDS: INSULIN GLARGINE SYRINGE. SQ SCH ×2 (08:44→20:35)
[2021-11-11] MEDS ORDERED: CHOLECALCIFEROL (VITAMIN D3) 1,000 UNIT TABLET PO SCH (09:00)
[2021-11-11] MEDS: diphenhydrAMINE HCL 25 MG CAPSULE PO PRN ×2 (09:33→20:26)
[2021-11-11] MEDS: ALPRAZolam 0.5 MG TABLET PO PRN ×2 (09:33→20:25)
[2021-11-11 11:06] VITALS: BP 110/69
[2021-11-11] MEDS: HYDROcodone/APAP 7.5/325MG 1 TAB TABLET PO PRN ×2 (13:42→20:25)
[2021-11-11] MEDS ORDERED: diphenhydrAMINE HCL 25 MG CAPSULE PO ONE (13:45)
[2021-11-11 15:05] VITALS: BP 113/73
[2021-11-11 19:27] VITALS: BP 119/84
[2021-11-11] MEDS: SIMVASTATIN 40 MG TABLET. PO SCH (20:26)
--- NOTE | 2021-11-12 01:25 | PN ---
SUBJECTIVE: A 71-year-old female came in with severe nausea, vomiting, dehydration, pyelonephritis. The patient is resting comfortably. Says she feels a little better today. We have been hydrating her, keeping her on IV antibiotic therapy until we get the urine cultures back. The patient is in chronic pain. She has chronic severe weakness and is wheelchair bound. The patient has had cervical fusion with some complications there and multiple other problems since she has had problems with DVTs, emphysema and the like. The patient seems to be doing a little bit better as noted today. She is still having this itch, which may have been related to some penicillin she has been taking as an outpatient. OBJECTIVE: VITAL SIGNS: Blood pressure 110/70, respiratory rate 20, pulse 90, afebrile, 92% on room air. GENERAL: The patient is alert and oriented. LUNGS: Diminished, but clear. CARDIOVASCULAR: Stable. Fine rash noted to her upper chest and back area, pruritic. Regular sinus rhythm. ABDOMEN: Soft, nontender, protuberant. Nausea, had to take Compazine for that. Continue her on the IV fluids. Advance diet as tolerated. EXTREMITIES: No clubbing, cyanosis. Trace edema. NEUROLOGIC: Alert and oriented. Speech fluent, spontaneous, appropriate. LABORATORY DATA: White count of 14,000. Sugars have been under better control. Greater than 40 white blood cells per high power field. SARS negative. Continue with IV fluids, IV antibiotic therapy. IMPRESSION: Pyelonephritis, dehydration, abdominal pain with nausea and vomiting, allergic reaction, marked musculoskeletal weakness to the lower extremities. ALEXIA/BRUNO DR: ALEXIA/oscar TID: [id number]
[2021-11-12] MEDS: IV 1/2 NORMAL SALINE 1,000 ML IV SCH ×2 (02:19→16:53)
[2021-11-12 05:45] VITALS: BP 133/81
[2021-11-12] MEDS: CEFEPIME HCL 1 GM in IV NORMAL SALINE 50ML 50 ML IV SCH ×3 (05:45→21:10)
[2021-11-12] MEDS: HYDROcodone/APAP 7.5/325MG 1 TAB TABLET PO PRN ×2 (06:09→17:14)
[2021-11-12] MEDS: ALPRAZolam 0.5 MG TABLET PO PRN ×2 (06:09→19:59)
[2021-11-12] MEDS: diphenhydrAMINE HCL 25 MG CAPSULE PO PRN ×3 (06:09→20:00)
[2021-11-12] MEDS: INSULIN LISPRO 300 UNITS/3 ML VIAL. SQ SCH ×3 (07:49→17:09)
[2021-11-12] MEDS: INSULIN GLARGINE SYRINGE. SQ SCH ×2 (08:39→20:00)
[2021-11-12] MEDS: LACTOBACILLUS RHAMNOSUS GG 1 CAPSULE. PO SCH (08:40)
[2021-11-12] MEDS: metFORMIN 500 MG TABLET PO SCH ×2 (08:41→16:53)
[2021-11-12] MEDS: glyBURIDE 5 MG TABLET. PO SCH (08:41)
[2021-11-12] MEDS: PARoxetine 20 MG TABLET PO SCH (08:41)
[2021-11-12] MEDS: GABAPENTIN 100 MG CAPSULE. PO SCH ×3 (08:42→19:59)
[2021-11-12] MEDS: CHOLECALCIFEROL (VITAMIN D3) 1,000 UNIT TABLET PO SCH (08:42)
[2021-11-12] MEDS: ATENOLOL 25 MG TABLET PO SCH (08:42)
[2021-11-12] MEDS: FUROSEMIDE 80 MG TABLET PO SCH (08:42)
[2021-11-12] MEDS: APIXABAN 5 MG TABLET. PO SCH ×2 (08:42→19:59)
[2021-11-12] MEDS: OXYBUTYNIN CHLORIDE 5 MG TABLET PO SCH ×3 (08:42→20:00)
[2021-11-12] MEDS: POTASSIUM CHLORIDE 20 MEQ TABLET.ER. PO SCH ×3 (08:42→20:00)
[2021-11-12] MEDS: FERROUS SULFATE 325 MG TABLET. PO SCH (08:43)
[2021-11-12] MEDS: NYSTATIN 100,000 UNIT/GM TOPICAL OINTMENT 15GM TUBE. TP SCH ×2 (08:43→20:00)
[2021-11-12] MEDS ORDERED: diphenhydrAMINE HCL 25 MG CAPSULE PO PRN (09:45)
[2021-11-12 10:35] VITALS: BP 141/77
--- NOTE | 2021-11-12 14:45 | NUR ---
Wound Care Wound Type/Assessment: patient seen per wound care consult. see wound assessment. patient has a left posterior thigh what appears to be a stage 3 pressure ulcer with some Moisture Associated Dermatitis, the area was cleaned with cleansing lotion and measured and redressed with Calazime cream. patient also has a left ischium/buttock open area what appears to be from Moisture Associated Dermatitis, the area was cleaned with cleansing lotion, measured and redressed with Calazime cream. Treatment Recommendations/Plan: Dressing recommendations to the left posterior thigh and right ischium/buttock, cleanse the wound then apply Calazime cream, prn Education provided: Educated patient on turning to her sides to keep the pressure off the wounds. Offloading surface/device: Patient currently on a P500 bed. Patient wanted to lay on her back side at this time Recommended Referrals/Tests: N/A Discharge Recommendations for dressings: wound care will f/u 11/19/2021
[2021-11-12 15:25] VITALS: BP 133/87
[2021-11-12 19:48] VITALS: BP 143/83
[2021-11-12] MEDS: SIMVASTATIN 40 MG TABLET. PO SCH (20:00)
[2021-11-12] MEDS: DOCUSATE SODIUM 100 MG CAPSULE PO SCH (21:04)
[2021-11-13] MEDS: IV 1/2 NORMAL SALINE 1,000 ML IV SCH ×3 (04:27→23:08)
[2021-11-13] MEDS: HYDROcodone/APAP 7.5/325MG 1 TAB TABLET PO PRN (04:28)
[2021-11-13] MEDS: ALPRAZolam 0.5 MG TABLET PO PRN (04:28)
--- NOTE | 2021-11-13 05:23 | NUR ---
Pt c/o tightness to right arm. Upon inspection, IV has infiltrated and pt has 3+ pitting edema from right AC to fingertips. IV DC'd with catheter tip intact. Right arm elevated on pillow and cool compress applied. Pt is known to be a difficult stick. After 2 attempts, new PIV placed to left chest #22 and maintenance fluids resumed.
[2021-11-13] MEDS: CEFEPIME HCL 1 GM in IV NORMAL SALINE 50ML 50 ML IV SCH (05:35)
[2021-11-13 05:46] VITALS: BP 164/92
[2021-11-13] MEDS: INSULIN GLARGINE SYRINGE. SQ SCH ×2 (08:37→20:25)
[2021-11-13] MEDS: INSULIN LISPRO 300 UNITS/3 ML VIAL. SQ SCH ×3 (08:39→17:00)
[2021-11-13] MEDS: PARoxetine 20 MG TABLET PO SCH (08:40)
[2021-11-13] MEDS: DOCUSATE SODIUM 100 MG CAPSULE PO SCH ×2 (08:40→20:23)
[2021-11-13] MEDS: APIXABAN 5 MG TABLET. PO SCH ×2 (08:40→20:23)
[2021-11-13] MEDS: LACTOBACILLUS RHAMNOSUS GG 1 CAPSULE. PO SCH (08:40)
[2021-11-13] MEDS: CHOLECALCIFEROL (VITAMIN D3) 1,000 UNIT TABLET PO SCH (08:40)
[2021-11-13] MEDS: FUROSEMIDE 80 MG TABLET PO SCH (08:40)
[2021-11-13] MEDS: GABAPENTIN 100 MG CAPSULE. PO SCH ×3 (08:40→20:22)
[2021-11-13] MEDS: POTASSIUM CHLORIDE 20 MEQ TABLET.ER. PO SCH ×3 (08:40→20:23)
[2021-11-13] MEDS: glyBURIDE 5 MG TABLET. PO SCH (08:40)
[2021-11-13] MEDS: ATENOLOL 25 MG TABLET PO SCH (08:41)
[2021-11-13] MEDS: OXYBUTYNIN CHLORIDE 5 MG TABLET PO SCH ×3 (08:41→20:24)
[2021-11-13] MEDS: metFORMIN 500 MG TABLET PO SCH ×2 (08:41→17:32)
[2021-11-13] MEDS: FERROUS SULFATE 325 MG TABLET. PO SCH (08:41)
[2021-11-13] MEDS: NYSTATIN 100,000 UNIT/GM TOPICAL OINTMENT 15GM TUBE. TP SCH ×2 (08:42→20:25)
[2021-11-13] MEDS ORDERED: hydrOXYzine HCL 10 MG TABLET PO PRN (09:45)
[2021-11-13 11:15] VITALS: BP 118/72
[2021-11-13 15:36] VITALS: BP 132/87
[2021-11-13] MEDS ORDERED: FLUCONAZOLE 100MG/50ML PREMIX 50 ML IV ONE (16:00)
--- NOTE | 2021-11-13 18:13 | NUR ---
Pt sleepy most of the day. She was oriented to self and location at start of shift. She has denied pain. She ate for breakfast and lunch, declined dinner. Humalog at dinner held d/t bg of 141. Benadryl stopped and hydroxyzine started per Dr. Hamilton d/t sleepiness and disorientation. Pt expresses dissatisfaction with this. She states, "The Benadryl worked better."
[2021-11-13 19:44] VITALS: BP 130/79
[2021-11-13] MEDS: diphenhydrAMINE HCL 25 MG CAPSULE PO PRN (20:23)
[2021-11-13] MEDS: SIMVASTATIN 40 MG TABLET. PO SCH (20:23)
[2021-11-13 23:16] VITALS: BP 162/78
[2021-11-14 05:30] VITALS: BP 170/90
[2021-11-14] MEDS: INSULIN LISPRO 300 UNITS/3 ML VIAL. SQ SCH ×3 (08:24→17:13)
[2021-11-14] MEDS: DOCUSATE SODIUM 100 MG CAPSULE PO SCH ×2 (08:26→20:30)
[2021-11-14] MEDS: metFORMIN 500 MG TABLET PO SCH ×2 (08:26→17:13)
[2021-11-14] MEDS: PARoxetine 20 MG TABLET PO SCH (08:27)
[2021-11-14] MEDS: OXYBUTYNIN CHLORIDE 5 MG TABLET PO SCH ×3 (08:27→20:30)
[2021-11-14] MEDS: CHOLECALCIFEROL (VITAMIN D3) 1,000 UNIT TABLET PO SCH (08:27)
[2021-11-14] MEDS: FLUCONAZOLE 100 MG TABLET. PO SCH (08:27)
[2021-11-14] MEDS: LACTOBACILLUS RHAMNOSUS GG 1 CAPSULE. PO SCH (08:27)
[2021-11-14] MEDS: FUROSEMIDE 80 MG TABLET PO SCH (08:28)
[2021-11-14] MEDS: POTASSIUM CHLORIDE 20 MEQ TABLET.ER. PO SCH ×3 (08:28→20:29)
[2021-11-14] MEDS: GABAPENTIN 100 MG CAPSULE. PO SCH ×3 (08:28→20:30)
[2021-11-14] MEDS: FERROUS SULFATE 325 MG TABLET. PO SCH (08:28)
[2021-11-14] MEDS: APIXABAN 5 MG TABLET. PO SCH ×2 (08:28→20:30)
[2021-11-14] MEDS: glyBURIDE 5 MG TABLET. PO SCH (08:28)
[2021-11-14] MEDS: NYSTATIN 100,000 UNIT/GM TOPICAL OINTMENT 15GM TUBE. TP SCH ×2 (08:29→20:36)
[2021-11-14] MEDS: INSULIN GLARGINE SYRINGE. SQ SCH ×2 (08:32→22:08)
[2021-11-14] MEDS: ATENOLOL 25 MG TABLET PO SCH (08:36)
[2021-11-14] MEDS: IV 1/2 NORMAL SALINE 1,000 ML IV SCH ×2 (10:46→20:30)
[2021-11-14] MEDS: METOPROLOL SUCC 24HR ER 50 MG TAB.ER.24H. PO SCH (11:19)
[2021-11-14] MEDS: HYDROcodone/APAP 7.5/325MG 1 TAB TABLET PO PRN ×2 (11:19→21:59)
--- NOTE | 2021-11-14 11:27 | NUR ---
Pt c/o right arm and shoulder pain that shoots up to her neck. Pain is 3/10. Tylenol administered at 0830, Pt insists Tylenol does not work for her and she needs Hydrocodone. Counselled pt on varying level of pain and medications and subsequent constipation. Pt asking for a suppository to assist with ongoing bowel movement that she is "about to have but won't be enough."
--- NOTE | 2021-11-14 11:31 | NUR ---
While turning pt, attemped to change dirty hilton bed pad under pt. She insisted nurses wait until her bowel movement despite the soiling. Encouraged pt that BM could take a while and soiling can contribute to sores on bottom. Pt refused pad change.
--- NOTE | 2021-11-14 13:12 | PN ---
SUBJECTIVE: The patient admitted with nausea, vomiting. The patient also had a significant urinary tract infection trial as a yeast induced urinary tract infection. OBJECTIVE: VITAL SIGNS: Blood pressure 132/87, respiratory rate 20, pulse 97. She is running low-grade temperature 99.1, room air 94%. GENERAL: The patient has been having a severe itchy, demands to use Benadryl instead of the hydroxyzine, says the Benadryl helps her better with itch; however, it does make her more sedated and obviously more lethargic, but she demands that rather than the hydroxyzine because it does control the itching. In any case, the patient is resting fairly comfortably. LUNGS: Diminished, but clear. CARDIOVASCULAR: Stable. ABDOMEN: Soft, nontender. LABORATORY DATA: Final urological test demonstrated a significant Crystal infection and so she was placed on IV Diflucan for this. IMPRESSION: Pyelonephritis, urinary tract infection secondary to a yeast infection, type 2 diabetes, morbid obesity, extreme musculoskeletal weakness to her extremities. PLAN: Continue with IV Diflucan, fluconazole and make further adjustments on her medications as indicated. Continue trial with PT, OT. ALEXIA/INÉS DR: ALEXIA/oscar TID: [id number]
[2021-11-14] MEDS ORDERED: BISACODYL 10 MG SUPP.RECT PR ONE (13:45)
[2021-11-14 19:47] VITALS: BP 124/81
[2021-11-14] MEDS: SIMVASTATIN 40 MG TABLET. PO SCH (20:29)
[2021-11-14] MEDS: diphenhydrAMINE HCL 25 MG CAPSULE PO PRN (21:33)
[2021-11-14] MEDS: ALPRAZolam 0.5 MG TABLET PO PRN (21:59)
--- NOTE | 2021-11-15 04:12 | PN ---
SUBJECTIVE: A 71-year-old female, in with per se pyelonephritis, actually is caused by yeast infection, also blood pressure has gone up (NC) as well as pulse. The patient otherwise alert and oriented, baseline for her, a little bit groggy, has been taking Benadryl. We will adjust her blood pressure medications there. OBJECTIVE: VITAL SIGNS: Blood pressure 174/89, respiratory rate 18, pulse 100, afebrile, 2 liters of nasal cannula. HEENT: The patient's head was atraumatic, normocephalic. Eyes: PERRLA without jaundice. The mouth and throat were normal. NECK: Supple, without JVD, carotid bruits, no thyromegaly. ABDOMEN: Markedly protuberant of course. EXTREMITIES: No clubbing, cyanosis. Trace edema noted. IMPRESSION: Pyelonephritis, dehydration, abdominal pain with nausea and vomiting, allergic reaction. Continue with IV fluconazole for her bladder infection caused by yeast infection. Type 2 diabetes, morbid obesity, anemia of chronic disease, moderate protein malnutrition. ALEXIA/ISABEL/DEENA DR: ALEXIA/oscar TID: [id number]
[2021-11-15] MEDS: IV 1/2 NORMAL SALINE 1,000 ML IV SCH (06:09)
[2021-11-15 06:30] VITALS: BP 143/77
[2021-11-15] MEDS: FERROUS SULFATE 325 MG TABLET. PO SCH (08:24)
[2021-11-15] MEDS: GABAPENTIN 100 MG CAPSULE. PO SCH ×3 (08:24→19:54)
[2021-11-15] MEDS: FUROSEMIDE 80 MG TABLET PO SCH (08:24)
[2021-11-15] MEDS: metFORMIN 500 MG TABLET PO SCH ×2 (08:24→17:07)
[2021-11-15] MEDS: METOPROLOL SUCC 24HR ER 50 MG TAB.ER.24H. PO SCH (08:24)
[2021-11-15] MEDS: HYDROcodone/APAP 7.5/325MG 1 TAB TABLET PO PRN ×2 (08:24→21:25)
[2021-11-15] MEDS: OXYBUTYNIN CHLORIDE 5 MG TABLET PO SCH ×3 (08:24→19:54)
[2021-11-15] MEDS: PARoxetine 20 MG TABLET PO SCH (08:25)
[2021-11-15] MEDS: CHOLECALCIFEROL (VITAMIN D3) 1,000 UNIT TABLET PO SCH (08:25)
[2021-11-15] MEDS: glyBURIDE 5 MG TABLET. PO SCH (08:25)
[2021-11-15] MEDS: APIXABAN 5 MG TABLET. PO SCH ×2 (08:25→19:54)
[2021-11-15] MEDS: DOCUSATE SODIUM 100 MG CAPSULE PO SCH ×2 (08:25→19:54)
[2021-11-15] MEDS: POTASSIUM CHLORIDE 20 MEQ TABLET.ER. PO SCH ×3 (08:25→19:54)
[2021-11-15] MEDS: NYSTATIN 100,000 UNIT/GM TOPICAL OINTMENT 15GM TUBE. TP SCH ×2 (08:26→21:00)
[2021-11-15] MEDS: FLUCONAZOLE 100 MG TABLET. PO SCH (08:28)
[2021-11-15] MEDS: LACTOBACILLUS RHAMNOSUS GG 1 CAPSULE. PO SCH (08:28)
[2021-11-15] MEDS: INSULIN LISPRO 300 UNITS/3 ML VIAL. SQ SCH ×3 (08:35→17:10)
[2021-11-15] MEDS ORDERED: METOPROLOL SUCC 24HR ER 50 MG TAB.ER.24H. PO SCH (09:00)
[2021-11-15] MEDS: INSULIN GLARGINE SYRINGE. SQ SCH ×2 (09:36→20:07)
[2021-11-15 11:00] VITALS: BP 145/79
--- NOTE | 2021-11-15 16:19 | NUR ---
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 He would like her to go to SNF.He has already spoken with Insurance and they will cover up to 20 days without a copay.
[2021-11-15 19:00] VITALS: BP 128/71
[2021-11-15] MEDS: diphenhydrAMINE HCL 25 MG CAPSULE PO PRN (19:54)
[2021-11-15] MEDS: SIMVASTATIN 40 MG TABLET. PO SCH (19:55)
[2021-11-16] MEDS: ALPRAZolam 0.5 MG TABLET PO PRN (00:16)
--- NOTE | 2021-11-16 04:00 | PN ---
DATE: 11/15/2021 SUBJECTIVE: The patient is being treated for pyelonephritis. The patient is doing somewhat better, although later on today she called me and told me she did not feel very good. Did not have any particular symptoms per se. OBJECTIVE: VITAL SIGNS: Her blood pressure is 128/70, respiratory rate 18, pulse 97, afebrile, 2 liters at 95. LUNGS: Diminished, but clear. CARDIOVASCULAR: Stable. ABDOMEN: Markedly protuberant. EXTREMITIES: No clubbing, cyanosis, nor edema. NEUROLOGIC: A baseline there. The patient otherwise blood sugars are being brought under control and will continue to be adjusted. IMPRESSION: Pyelonephritis secondary to yeast infection, morbid obesity, type 2 diabetes. PLAN: We will go ahead and have her ready for discharge hopefully to a rehab facility for further evaluation. ASTRID DR: Taj TID: [id number]
[2021-11-16 05:39] VITALS: BP 134/81
[2021-11-16 06:58] LABS: BASO % 0 % (0-3); EOS # 0.4 x10^3/uL (0.0-0.7); EOS % 5 % (0-3); HEMATOCRIT 36.5 % (36.0-47.0); HEMOGLOBIN 11.6 g/dL (12.0-15.5); LYMPH # 2.4 x10^3/uL (1.0-4.8); LYMPH % 25 % (24-48); MEAN CORPUSCULAR HEMOGLOBIN 30 pg (25-35); MEAN CORPUSCULAR HGB CONC 32 g/dL (31-37); MEAN CORPUSCULAR VOLUME 93 fL (79-100); MONO # 1.1 x10^3/uL (0.0-1.1); MONO % 11 % (0-9); NEUT # 5.5 x10^3uL (1.8-7.7); NEUT % 58 % (31-73); PLATELET COUNT 259 x10^3/uL (140-400); RED BLOOD COUNT 3.92 x10^6/uL (3.50-5.40); RED CELL DISTRIBUTION WIDTH 14.2 % (11.5-14.5); WHITE BLOOD COUNT 9.4 x10^3/uL (4.0-11.0)
[2021-11-16 07:01] LABS: CALCIUM 9.8 mg/dL (8.5-10.1); CREATININE 0.7 mg/dL (0.6-1.0); GFR 82.3; POTASSIUM 3.7 mmol/L (3.5-5.1)
[2021-11-16] MEDS: INSULIN LISPRO 300 UNITS/3 ML VIAL. SQ SCH ×2 (08:00→12:00)
[2021-11-16] MEDS: DOCUSATE SODIUM 100 MG CAPSULE PO SCH (08:33)
[2021-11-16] MEDS: APIXABAN 5 MG TABLET. PO SCH (08:34)
[2021-11-16] MEDS: FUROSEMIDE 80 MG TABLET PO SCH (08:34)
[2021-11-16] MEDS: glyBURIDE 5 MG TABLET. PO SCH (08:35)
[2021-11-16] MEDS: CHOLECALCIFEROL (VITAMIN D3) 1,000 UNIT TABLET PO SCH (08:35)
[2021-11-16] MEDS: OXYBUTYNIN CHLORIDE 5 MG TABLET PO SCH ×2 (08:35→16:10)
[2021-11-16] MEDS: FERROUS SULFATE 325 MG TABLET. PO SCH (08:35)
[2021-11-16] MEDS: FLUCONAZOLE 100 MG TABLET. PO SCH (08:35)
[2021-11-16] MEDS: POTASSIUM CHLORIDE 20 MEQ TABLET.ER. PO SCH ×2 (08:35→16:11)
[2021-11-16] MEDS: LACTOBACILLUS RHAMNOSUS GG 1 CAPSULE. PO SCH (08:35)
[2021-11-16] MEDS: metFORMIN 500 MG TABLET PO SCH (08:36)
[2021-11-16] MEDS: GABAPENTIN 100 MG CAPSULE. PO SCH ×2 (08:37→16:11)
[2021-11-16] MEDS: NYSTATIN 100,000 UNIT/GM TOPICAL OINTMENT 15GM TUBE. TP SCH (08:38)
[2021-11-16] MEDS: PARoxetine 20 MG TABLET PO SCH (08:45)
[2021-11-16] MEDS: METOPROLOL SUCC 24HR ER 50 MG TAB.ER.24H. PO SCH (08:45)
[2021-11-16] MEDS: INSULIN GLARGINE SYRINGE. SQ SCH (08:51)
--- NOTE | 2021-11-16 08:53 | DISCH ---
HOME HEALTH DISCHARGE/MEDS DISCHARGE INFORMATION: Discharge Date: November 16, 2021 Final Diagnosis: Urinary tract infection secondary to a yeast infection Type 2 diabetes musculoskeletal weakness Condition on Discharge: Stable CODE STATUS: Code Status: Full HOME HEALTH: Face to Face: I certify this patient is under my care and that I, or a nurse practitioner or physician's congressional assistant working with me, had a face to face encounter that meets the physician face to face encounter requirements with this patient on Nov 16 2021. Medical Condition(s): DM Retirement For: Assess Cardiopulm Status, Assess & Educate Safety, Assess/Skilled Observatio, Diabetic Care, Medication Management, Pain Man agement, Urinary Catheter Care Physical Therapy For: Evalulation/Treatment Occupational Therapy For: Evaluation/Treatment Homebound Status Met By: Limited distance walking, Other: (fuctional parapeligic) POST DISCHARGE ORDERS: Weight Bearing Status after Di: No restrictions DIET AFTER DISCHARGE: ADA CHECKS AFTER DISCHARGE: Checks after discharge: Check blood sugar, ac/hs CERTIFICATION STATEMENT: Certification Statement: Based on the above finding, I certify that this patient is confined to the home and needs intermittent intermediate care, physical therapy and/or speech therapy, or continues to need occupational therapy.~ This patient is under my care, and I have initiated the establishment of the plan of care.~ This patient will be followed by myself or a community physician who will periodically review the plan of care. DISCHARGE MEDICATIONS: Home Meds Active Scripts Phenazopyridine Hcl (PYRIDIUM) 100 Mg Tablet, 1 TAB PO TID for urinary discomfort for 2 Days, #5 TAB 0 Refills Prov:SMITHA DUARTE MD 08/05/21 Potassium Chloride (POTASSIUM CHLORIDE ) 20 Meq Tablet.er, 20 MEQ PO TID for replacement for 30 Days, #90 TAB.SR 3 Refills Prov:HUNG HAMMOND MD 06/29/21 Nystatin (NYSTATIN) 15 Gm Oint...g., 1 GENIA TP BID for fungal infection for 30 Days, #1 MISC 2 Refills Prov:HUNG HAMMOND MD 06/29/21 Insulin Aspart (NOVOLOG FLEXPEN) 100 Unit/1 Ml Insuln.pen, 35 UNITS SQ TIDWMEALS for DM for 30 Days, #1 SYR 3 Refills Prov:HUNG HAMMOND MD 06/29/21 Apixaban (ELIQUIS) 5 Mg Tablet, 5 MG PO BID for anticoagulant for 90 Days, #180 TAB 3 Refills Prov:HUNG HAMMOND MD 04/24/19 Acetaminophen (TYLENOL) 325 Mg Tablet, 650 MG PO PRN Q6HRS PRN for MILD PAIN / TEMP, #30 TAB Prov:HUNG HAMMOND MD 11/09/17 Reported Medications Paroxetine Hcl (PAROXETINE HCL) 40 Mg Tablet, 1 TAB PO DAILY for ANTIDEPRESSANT 06/24/21 Insulin Glargine,Hum.rec.anlog (Basaglar Kwikpen U-100) 100 Unit/1 Ml I nsuln.pen, 30 UNIT SQ BID for DM, EACH 06/24/21 Gabapentin (Neurontin) 100 Mg Capsule, 1 CAP PO TID for PERIPHERAL NEUROPATHY for 30 Days, #90 CAP 0 Refills 06/24/21 Furosemide (FUROSEMIDE) 80 Mg Tablet, 1 TAB PO DAILY for CHF, #30 TAB 5 Refills 06/24/21 Cholecalciferol (Vitamin D3) (Vitamin D3 ) 25 Mcg Tablet, 25 MCG PO DAILY for SUPPLEMENT, TAB 1,000 UNITS = 25 MCG 06/24/21 Lactobacillus Acidophilus (PROBIOTIC) 1 Each Capsule, 1 EACH PO DAILY for SUPPLEMENT, CAP 06/24/21 Ferrous Sulfate (IRON) 325 Mg Tablet, 1 TAB PO DAILY for SUPPLEMENT 08/22/19 Oxybutynin Chloride (OXYBUTYNIN CHLORIDE) 5 Mg Tablet, 1 TAB PO TID for BLADDER SPASM LAST DOSE GIVEN: DATE: TODAY TIME: AM NEXT DOSE DUE: DATE: TODAY TIME: AFTERNOON 05/26/18 Glyburide (GLYBURIDE) 2.5 Mg Tablet, 1 TAB PO DAILY for HIGH BLOOD SUGAR- DIABETES LAST DOSE GIVEN: DATE: TODAY TIME: WITH BREAKFAST NEXT DOSE DUE: DATE: TOMORROW TIME: WITH BREAKFAST 02/27/18 Metformin Hcl (METFORMIN HCL) 1,000 Mg Tablet, 1000 MG PO BIDWMEALS for ANTI- DIABETIC LAST DOSE GIVEN: DATE: TODAY TIME: WITH BREAKFAST NEXT DOSE DUE: DATE: TODAY TIME: WITH DINNER 10/26/17 Simvastatin (ZOCOR) 40 Mg Tablet, 40 MG PO HS for HIGH CHOLESTEROL LAST DOSE GIVEN: DATE: YESTERDAY TIME: AT BEDTIME NEXT DOSE DUE: DATE: TODAY TIME: AT BEDTIME 04/10/15 Atenolol (ATENOLOL ) 25 Mg Tablet, 25 MG PO DAILY for HIGH BLOOD PRESSURE 04/10/15 HUNG HAMMOND MD November 16, 2021 08:53
[2021-11-16] MEDS: HYDROcodone/APAP 7.5/325MG 1 TAB TABLET PO PRN (08:58)
[2021-11-16] MEDS ORDERED: FLUC100T7 PO (09:12)
[2021-11-16] MEDS ORDERED: DIPH25CA23 PO (09:12)
[2021-11-16] MEDS ORDERED: HYDR-2765 PO (09:12)
[2021-11-16] MEDS ORDERED: ALPR0.5T6 PO (09:12)
[2021-11-16 10:49] VITALS: BP 114/72
[2021-11-16 14:45] VITALS: BP 127/86
--- NOTE | 2021-11-16 18:39 | NUR ---
Pt struggled to have bm during dressing. Helped pt roll and get cleaned up. Pt able to assist in bathing. Decided to sit on commode during dressing again. decided she would not be able to get back up. Brief placed on pt and finished dressing. helped nurses to get pt into wheelchair and to wheelchair accessible van. placed pt in van.
== END 2021-11-16 18:38 | disposition home health service (06) | DRG 758 ==
LOC: 1 SOUTH 14:22
PROVIDERS: ADMIT Family Medicine; ATTEND Family Medicine
DX: B37.49 Other urogenital candidiasis (principal); E44.0 Moderate protein-calorie malnutrition; Z68.43 Body mass index [BMI] 50.0-59.9, adult; N10 Acute pyelonephritis; Z20.822 Contact with and (suspected) exposure to COVID-19; Z88.8 Allergy status to other drugs, medicaments and biological substances; D63.8 Anemia in other chronic diseases classified elsewhere; E11.9 Type 2 diabetes mellitus without complications; E66.01 Morbid (severe) obesity due to excess calories; E86.0 Dehydration; G89.29 Other chronic pain; J43.9 Emphysema, unspecified; N30.90 Cystitis, unspecified without hematuria; Z98.1 Arthrodesis status; Z99.3 Dependence on wheelchair
CPT/HCPCS: 36415; 80048; 80053; 81001; 82947; 83605; 85025; 87086; 87106; 87426; J0692; J0780; J1450; J1815; J7030; Q0163; U0003